=== PATIENT | male | born 1950 | race Caucasian/White ===

== ENCOUNTER → 2021-06-01 12:13 | Outpatient (BNVA) | payer MEDICARE, MEDICAID, SELFPAY | PROVIDERS: Family Provider Family Medicine; PCP Family Medicine; Visit Provider Podiatrist Foot & Ankle Surgery | DX: S93.402A Sprain of unspecified ligament of left ankle, initial encounter (principal); M25.572 Pain in left ankle and joints of left foot; X58.XXXA Exposure to other specified factors, initial encounter; Z46.89 Encounter for fitting and adjustment of other specified devices | CPT/HCPCS: 73610; 97760; L1902 ==

== ENCOUNTER 2021-06-01 14:19 | Outpatient (CLI) | payer MEDICARE, MEDICAID, SELFPAY | END 2021-06-01 14:20 | disposition home or self-care (01) | LOC: SPT 14:20 | PROVIDERS: Family Provider Family Medicine; PCP Family Medicine; Visit Provider Podiatrist Foot & Ankle Surgery | DX: Z46.89 Encounter for fitting and adjustment of other specified devices (principal); M25.572 Pain in left ankle and joints of left foot | CPT/HCPCS: 97760; L1902 ==

== ENCOUNTER → 2021-07-05 10:03 | Outpatient (BNVA) | payer MEDICARE, MEDICAID, SELFPAY | PROVIDERS: Family Provider Family Medicine; PCP Family Medicine; Visit Provider Podiatrist Foot & Ankle Surgery | DX: S82.832A Other fracture of upper and lower end of left fibula, initial encounter for closed fracture (principal); M25.572 Pain in left ankle and joints of left foot; X58.XXXA Exposure to other specified factors, initial encounter | CPT/HCPCS: 73610 ==

== ENCOUNTER → 2021-07-26 10:19 | Outpatient (BNVA) | payer MEDICARE, MEDICAID, SELFPAY | PROVIDERS: Family Provider Family Medicine; PCP Family Medicine; Visit Provider Podiatrist Foot & Ankle Surgery | DX: S82.832D Other fracture of upper and lower end of left fibula, subsequent encounter for closed fracture with routine healing (principal); X58.XXXD Exposure to other specified factors, subsequent encounter | CPT/HCPCS: 73610 ==

== ENCOUNTER → 2021-08-25 10:45 | Outpatient (BNVA) | payer MEDICARE, MEDICAID, SELFPAY | PROVIDERS: PCP Nurse Practitioner Family; Visit Provider Podiatrist Foot & Ankle Surgery | DX: M25.572 Pain in left ankle and joints of left foot (principal); S82.832D Other fracture of upper and lower end of left fibula, subsequent encounter for closed fracture with routine healing; X58.XXXD Exposure to other specified factors, subsequent encounter | CPT/HCPCS: 73610 ==

== ENCOUNTER → 2022-10-20 16:42 | Outpatient (BNVA) | payer MEDICARE, MEDICAID, SELFPAY | PROVIDERS: PCP Nurse Practitioner Family; Visit Provider Nurse Practitioner Family | DX: R23.1 Pallor (principal) | CPT/HCPCS: 85025 ==

== ENCOUNTER → 2023-06-26 10:11 | Outpatient (BNVA) | payer MEDICARE, MEDICAID, SELFPAY | PROVIDERS: PCP Nurse Practitioner Family; Visit Provider Nurse Practitioner Family | DX: I96 Gangrene, not elsewhere classified (principal); L97.821 Non-pressure chronic ulcer of other part of left lower leg limited to breakdown of skin ==

== ENCOUNTER 2023-07-25 09:35 | Outpatient (CLI) | payer MEDICARE, MEDICAID, SELFPAY ==
--- NOTE | 2023-07-25 09:30 | CTR_ITS ---
PROCEDURE INFORMATION: Exam: CTA Abdominal Aorta and Bilateral Lower Extremities (Run-off) With Contrast Exam date and time: 07/25/2023 10:37 AM Age: 73 years old Clinical indication: Condition or disease; Peripheral vascular disease; Prior surgery; Surgery date: 6+ months; Surgery type: Bilat feet, legs, gb; Additional info: Pvd TECHNIQUE: Imaging protocol: Computed tomographic angiography of the of the abdominal aorta, pelvis and bilateral lower extremities with contrast. 3D rendering (Not supervised by radiologist): MIP and/or 3D reconstructed images were created by the technologist. Radiation optimization: All CT scans at this facility use at least one of these dose optimization techniques: automated exposure control; mA and/or kV adjustment per patient size (includes targeted exams where dose is matched to clinical indication); or iterative reconstruction. Contrast material: OMNI 350; Contrast volume: 125 ml; Contrast route: INTRAVENOUS (IV); REPORTING DATA: Count of CT and Cardiac NM exams in prior 12 months: This patient has received 0 known CTs and 0 known cardiac nuclear medicine studies in the 12 months prior to the current study. COMPARISON: No relevant prior studies available. RADIATION DOSE METRICS: Total DLP (mGy-cm): 1967.24 FINDINGS: Aorta: There is moderate aortic atherosclerotic disease. There is no aortic dissection or aneurysm. No significant aortic luminal narrowing. Celiac trunk and mesenteric arteries: No stenosis in the celiac or superior mesenteric arteries. Inferior mesenteric artery is patent. Renal arteries: Mild calcific plaque with less than 50% stenosis of the right renal artery origin. 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 Mild calcific plaque with less than 50% stenosis in proximal left renal artery. Right iliac arteries: Mild calcific and noncalcific plaque in the right common and external iliac arteries with less than 50% stenosis. Right femoral/popliteal arteries: Mild calcific and noncalcific plaque in the right common femoral artery with less than 50% stenosis. Right profundus femoris artery is patent. Noncalcific plaque with short segment 60-70% stenosis in the right proximal superficial femoral artery. Multifocal high-grade stenosis with near occlusion in the right distal superficial femoral artery above Curry's canal. Focal 60-70% stenosis of the right distal superficial femoral artery just beyond Curry's canal. No stenosis in the right popliteal artery. Right infrapopliteal arteries: Widely patent 3 vessel runoff to the right foot. Left iliac arteries: Mild calcific and noncalcific plaque with multifocal less than 50% stenosis in the left common and external iliac artery. Focal web-like filling defect in the left external iliac artery visible on axial series 5, image 405, coronal series 8, image 162 and sagittal series 9, image 150 suggesting short segment chronic dissection. The degree of stenosis cannot be accurately measured. Left femoral/popliteal arteries: Mild noncalcific plaque in the left common femoral artery with web-like filling defect visible on axial series 5, image 465 suggesting chronic short segment dissection. Left profundus femoris artery is patent. Mild calcific plaque with multifocal less than 50% stenosis in the left proximal superficial femoral artery. Focal 50-60% stenosis in the left mid superficial femoral artery with mild poststenotic dilation. Moderate calcific plaque of left superficial femoral artery in Curry's canal with less than 50% stenosis. Less than 50% stenosis in the left popliteal artery. Left infrapopliteal arteries: Left anterior tibial artery is patent to the foot. Focal high-grade stenosis in the proximal left anterior tibial artery. Focal less than 50% stenosis in the left tibioperoneal trunk. Focal less than 50% stenosis at the origin of the left posterior tibial artery. Left posterior tibial artery is patent to the foot. Left peroneal artery is occluded at its origin. Veins: Portal and splenic veins are patent but suboptimally evaluated due to the phase of contrast enhancement. Lungs: There is subsegmental atelectasis in the lung bases. Liver: The liver has a nodular surface and there is relative hypertrophy of the left and caudate lobe consistent with cirrhosis. There is no focal liver abnormality. Gallbladder and bile ducts: The gallbladder is absent. There is no intrahepatic or extrahepatic bile duct dilation. Pneumobilia noted. Pancreas: There is moderate atrophy of the pancreas. Spleen: The spleen is unremarkable. Adrenal glands: The adrenal glands are unremarkable. Kidneys and ureters: There is mild atrophy of both kidneys. There is no hydronephrosis or stones. Stomach and bowel: The stomach is unremarkable. The small bowel is nondilated. The colon is unremarkable. Appendix: The appendix is normal. Urinary bladder: The urinary bladder is unremarkable. Reproductive: Prostate is very small or resected. Intraperitoneal space: There is no free air or significant intraperitoneal free fluid. Lymph nodes: There is no lymphadenopathy in the retroperitoneum, mesentery, pelvis or inguinal regions. Bones/joints: There is moderate degenerative disease in the lumbar spine. The pelvis and hips are unremarkable. Disuse osteopenia at the knees, ankles and feet. Soft tissues: Subcutaneous edema in the lower legs bilaterally. Marked fatty atrophy of the musculature in the distal thighs and lower legs. Moderate fatty atrophy of gluteal musculature bilaterally. The abdominal wall is intact. CT/CT angio abd aorta runof [id number] IMPRESSION: 1. Multifocal high-grade stenosis with near occlusion of the right distal superficial femoral artery. Normal popliteal artery. Patent 3 vessel runoff to the right foot. 2. 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 3. Focal 50-60% stenosis in the left mid superficial femoral artery with additional multifocal less than 50% stenosis. Less than 50% stenosis in the left popliteal artery. 4. Patent 2 vessel runoff to the left foot (anterior and posterior tibial). High-grade stenosis of the proximal left anterior tibial artery. Less than 50% stenosis in the tibioperoneal trunk and posterior tibial artery. Occluded left peroneal artery. 5. Cirrhotic morphology of the liver. No sign of portal hypertension. 6. Incidental findings above.
[2023-07-25 10:29] LABS: Blood Urea Nitrogen 21 mg/dL (8-23)
[2023-07-25] MEDS: iohexol 350 mg/mL 500 mL Btl (per mL) IV (10:58)
== END 2023-07-25 09:36 | disposition home or self-care (01) ==
PROVIDERS: PCP Nurse Practitioner Family; Visit Provider Thoracic Surgery (Cardiothoracic Vascular Surgery)
DX: I70.203 Unspecified atherosclerosis of native arteries of extremities, bilateral legs (principal); K74.60 Unspecified cirrhosis of liver
CPT/HCPCS: 75635; 82565; 84520; Q9967

== ENCOUNTER → 2023-08-10 17:24 | Outpatient (BNVA) | payer MEDICARE, MEDICAID, SELFPAY | PROVIDERS: PCP Nurse Practitioner Family; Visit Provider Family Medicine | DX: S81.801A Unspecified open wound, right lower leg, initial encounter (principal); X58.XXXA Exposure to other specified factors, initial encounter | CPT/HCPCS: 87070; 87077; 87184 ==

== ENCOUNTER → 2023-12-20 13:49 | Outpatient (BNVA) | payer MEDICARE, MEDICAID, SELFPAY | PROVIDERS: PCP Nurse Practitioner Family; Visit Provider Nurse Practitioner Family | DX: R31.9 Hematuria, unspecified (principal) | CPT/HCPCS: 81000 ==

== ENCOUNTER → 2023-12-21 15:50 | Outpatient (BNVA) | payer MEDICARE, MEDICAID, SELFPAY | PROVIDERS: PCP Nurse Practitioner Family; Visit Provider Nurse Practitioner Family | DX: R05.9 Cough, unspecified (principal) | CPT/HCPCS: 87420 ==

== ENCOUNTER 2024-01-23 10:52 | Inpatient (IN) | payer MEDICARE, MEDICAID, SELFPAY ==
[2024-01-23] VITALS (14 sets, daily range): BP systolic 111–159; BP diastolic 53–77; PULSE 60–110; RESP 16–22; TEMP 36.2–36.8; O2SAT 90–100; BMI 33.0
--- NOTE | 2024-01-23 11:40 | XRR_ITS ---
PROCEDURE INFORMATION: Exam: XR Chest Exam date and time: 01/23/2024 11:48 AM Age: 73 years old Clinical indication: Device placement; Other: Hemodialysis cath not functioning; Prior surgery; Surgery date: 1-6 months; Surgery type: Dialysis port TECHNIQUE: Imaging protocol: Radiologic exam of the chest. Views: 1 view. COMPARISON: CT angio abd aorta runof [id number] 07/25/2023 10:37 AM FINDINGS: Tubes, catheters and devices: Right chest wall central venous catheter terminates in the mid SVC. Lungs: Low lung volumes bronchovascular crowding. No focal consolidation. Bibasilar atelectasis. Pleural spaces: Small bilateral pleural effusions. Heart/Mediastinum: No cardiomegaly. Bones/joints: Unremarkable. XR/XR chest 1V portable [id number] IMPRESSION: 1. Right chest wall central venous catheter terminates in the mid SVC. 2. Small bilateral pleural effusions.
--- NOTE | 2024-01-23 11:40 | W.ED.GENADLT ---
Documented by User: KALYAN Sharp 01/23/24 15:11 HPI - General Adult General: Chief complaint: General Medical Stated complaint: dialysis port not flowing Time Seen by Provider: 01/23/24 10:54 Source: patient Mode of arrival: EMS Limitations: altered mental status (dementia) History of Present Illness: Patient is a 73-year-old male here via EMS from his assisted at [facility] stating he needs his dialysis central hemodialysis catheter replaced due to poor flow. Patient himself has chronic dementia so history is hard to ascertain. He tells me approximately 10 days ago he was admitted at [facility] in [place] but while inpatient was told he had renal failure and was placed on dialysis. Dialysis catheter was placed during his hospitalization. Patient states he has had approximately 3 dialysis treatments since it being placed. He states he had dialysis here in [place] yesterday for approximately an hour before everything clogged up . He comes with a medical note from [facility] stating he needs his CVC replaced due to poor flow. They report he has had Activase x 2 with poor results and they could not maintain a 200 BFR. Next dialysis appointment is scheduled here in [place] tomorrow. PMH from assisted documentation includes acute kidney failure, hypoxemia currently on 2 L of oxygen, alcoholic cirrhosis, HTN, hyperkalemia, anemia, dementia We have requested records from [facility] 3-4 hours ago and still have yet to receive anything. Onset (ago): hour(s) Relieving factors: none Exacerbating factors: none Associated symptoms: Reports dyspnea (chronic-at baseline; states he normally wears 2L); Deny chest pain, headache(s), nausea or vomiting Treatments prior to arrival: none Review of Systems Const: Denies: fever(s) Card: Denies: chest pain Resp: Reports: dyspnea (chronic-at baseline; states he normally wears 2L) GI: Denies: nausea or vomiting Musc: Denies: neck pain, back pain, extremity pain or joint pain Neuro: Denies: headache(s) PFSH ED PFSH: Medical History Gastro-esophageal reflux disease without esophagitis Contracture, left hand Chronic obstructive pulmonary disease, unspecified Attention-deficit hyperactivity disorder, unspecified type Motion sickness, sequela Insomnia, unspecified Post-traumatic stress disorder, chronic Restless legs syndrome 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 ascites Contracture, right hand COVID-19 Benign prostatic hyperplasia with lower urinary tract symptoms Secondary osteoarthritis, left hand Other recurrent depressive disorders Anemia in other chronic diseases classified elsewhere Secondary osteoarthritis, right hand Generalized anxiety disorder Cervicalgia Muscle weakness (generalized) Essential (primary) hypertension Dementia in other diseases classified elsewhere without behavioral disturbance Hereditary and idiopathic neuropathy, unspecified Physical Exam Const: COMMON NORMALS: no acute distress and alert EXAM LIMITATIONS: other limitations (chronic dementia) GENERAL APPEARANCE: cooperative OTHER: appears pale HENMT: COMMON NORMALS: normocephalic and atraumatic HEAD & SCALP: normal to inspection, normocephalic and atraumatic Chest: OTHER: tunneled catheter to R chest Resp: COMMON NORMALS: normal respiratory effort and clear to auscultation bilaterally AUSCULTATION: clear to auscultation bilaterally Cardio: COMMON NORMALS: regular rate and regular rhythm RATE: regular rate RHYTHM: regular rhythm GI: COMMON NORMALS: Normal to inspection, nondistended, normoactive bowel sounds present, Soft to palpation and non-tender PALPATION: Yes Soft to palpation : COMMON NORMALS: Yes no CVA tenderness BLADDER/KIDNEY EXAM: Yes no CVA tenderness OTHER: portillo catheter in place with bloody urine-states he does not know why [facility] placed this Back/Pelvis: COMMON NORMALS: no CVA tenderness and thoracic and lumbar spine normal to inspection Extremity: GENERAL: Yes normal exam except as noted Neuro: REINALDO COMA SCALE: document GCS findings Reinaldo coma scale eye opening: Spontaneous Rienaldo coma scale verbal response: Orientated [place] coma scale motor response: Obey commands [place] coma scale total score: 15 COMMON NORMALS: moves all extremities, no focal motor deficits and no sensory deficits noted SENSORIUM/ORIENTATION: Yes alert Skin: COMMON NORMALS: no rashes or lesions noted GENERAL SKIN EXAM: no rashes or lesions noted Course Consultations: Consultation #1: Dr. Allen-evaluated patient here in ED and can place catheter this afternoon-will most likely remove right side and try left sided approach-recommends hospitalization so he can receive dialysis after catheter placement to ensure proper functioning Consultation #2: Dr. Mathis-will admit patient Consultation #3: Dr. [id number] consult on patient for dialysis following catheter placement Vital Signs: Vital signs: Vital Signs Temperature 98.1 F 01/23/24 11:03 Pulse Rate 64 01/23/24 14:26 Respiratory Rate 22 H 01/23/24 14:26 Blood Pressure 157/68 01/23/24 14:26 Pulse Oximetry 95 01/23/24 14:26 Oxygen Delivery Me thod Nasal Cannula 01/23/24 14:26 Oxygen Flow Rate 2 01/23/24 14:26 MDM - General Adult Medical Decision Making Patient is a 73-year-old male who has recently been diagnosed with acute renal failure and placed on dialysis here for a malfunctioning central venous catheter. General surgeon has evaluated patient here in the emergency department and plan will be for removal of his right CVC and will approach from left side. He has requested hospitalization for inpatient dialysis to verify proper functioning following placement. I have spoken to Dr. Mathis, hospitalist, for admission and consulted with nephrology. ES Attending physician attestation: I discussed the patient's history of present illness, physical exam findings, pertinent labs, pertinent radiographic exams and plan of care with the midlevel provider. I did personally have a [id number] evaluation and discussion with the patient regarding the plan of care and the need for further admission/transfer. 73-year-old male he is a poor historian given his decreased cognition was recently hospitalized at a local hospital for acute renal failure and had a temporary dialysis catheter placed which appears to have malfunctioned at the outpatient dialysis center he was sent here to the emergency department for additional evaluation possible dialysis catheter placement he has been accepted to the hospital medicine service and Dr. Allen the general surgeon has been consulted for removal and replacement of the dialysis catheter. Medical Records WE ARE STILL AWAITING MEDICAL RECORDS FROM [facility] NOW 4 HOURS AFTER REQUEST. WE HAVE CONTACTED THEM MULTIPLE TIMES. Lab Data I reviewed the patient's lab results. 01/23/24 11:50 01/23/24 11:50 Radiology Impressions Chest X-Ray 01/23/24 11:40 IMPRESSION: 1. Right chest wall central venous catheter terminates in the mid SVC. 2. Small bilateral pleural effusions. Laboratory Results WBC 6.25 10^3/uL (3.29-11.43) 01/23/24 11:50 RBC 2.96 10^6/uL (3.85-5.65) L 01/23/24 11:50 Hgb 9.30 g/dL (11.27-16.99) L 01/23/24 11:50 Hct 30.1 % (37-53) L 01/23/24 11:50 MCV 101.7 fl (82-101) H 01/23/24 11:50 MCH 31.4 pg (27-33) 01/23/24 11:50 MCHC 30.9 g/dL (30-55) 01/23/24 11:50 RDW 14.2 % (12.1-15.1) 01/23/24 11:50 Plt Count 190 10^3/cmm (157-399) 01/23/24 11:50 MPV 10.0 fL (7.4-10.4) 01/23/24 11:50 Neut % (Auto) 53.6 % 01/23/24 11:50 Lymph % (Auto) 15.0 % 01/23/24 11:50 [place] % (Auto) 28.6 % 01/23/24 11:50 Eos % (Auto) 1.4 % 01/23/24 11:50 Baso % (Auto) 0.6 % 01/23/24 11:50 Neut # (Auto) 3.34 10^3/uL (1.8-7.7) 01/23/24 11:50 Lymph # (Auto) 0.9 10^3/uL (0.8-4.8) 01/23/24 11:50 [place] # (Auto) 1.8 10^3/uL (0.2-0.9) H 01/23/24 11:50 Eos # (Auto) 0.1 10^3/uL (0.0-0.8) 01/23/24 11:50 Baso # (Auto) 0.0 10^3/uL (0.0-0.1) 01/23/24 11:50 Nucleated RBC % (auto) 0 % 01/23/24 11:50 Nucleated RBCs # 0.0 /100WBC 01/23/24 11:50 Sodium 132 mmol/L (136-145) L 01/23/24 11:50 Potassium 4.2 mmol/L (3.5-5.1) 01/23/24 11:50 Chloride 94 mmol/L (98-107) L 01/23/24 11:50 Carbon Dioxide 27 mmol/L (22-29) 01/23/24 11:50 Anion Gap 15.2 (5-19) 01/23/24 11:50 BUN 28 mg/dL (8-23) H 01/23/24 11:50 Creatinine 4.6 mg/dL (0.7-1.2) H 01/23/24 11:50 GFR Calculation Not Reportable 01/23/24 11:50 Glucose 87 mg/dL (65-115) 01/23/24 11:50 Calculated Osmolality 279 mOsm/kg (285-295) L 01/23/24 11:50 Calcium 8.4 mg/dL (8.5-10.5) L 01/23/24 11:50 Phosphorus 5.0 mg/dL (2.5-4.5) H 01/23/24 11:50 Magnesium 1.9 mg/dL (1.7-2.3) 01/23/24 11:50 Total Bilirubin 0.5 mg/dL (0.15-1.2) 01/23/24 11:50 AST 20 U/L (0-40) 01/23/24 11:50 ALT 14 U/L (0-41) 01/23/24 11:50 Alkaline Phosphatase 71 U/L (40-130) 01/23/24 11:50 Total Protein 7.1 g/dL (6.6-8.7) 01/23/24 11:50 Albumin 3.2 g/dL (3.5-5.2) L 01/23/24 11:50 Globulin 3.9 g/dL (1.3-4.6) 01/23/24 11:50 Discharge Plan Discharge Patient Disposition: Placed in Observation Clinical Impression: Acute renal failure on dialysis, Complication, dialysis catheter clot or failure, Admission for dialysis and dialysis catheter care Coding Level of Care Code ED [place] for Chg Fwd Documented by User: Jimmy Dumont MD 01/23/24 15:00 HPI - General Adult General: Chief complaint: General Medical Stated complaint: dialysis port not flowing Time Seen by Provider: 01/23/24 10:54 [facility] PFSH: Medical History Gastro-esophageal reflux disease without esophagitis Contracture, left hand Chronic obstructive pulmonary disease, unspecified Attention-deficit hyperactivity disorder, unspecified type Motion sickness, sequela Insomnia, unspecified Post-traumatic stress disorder, chronic Restless legs syndrome 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 ascites Contracture, right hand COVID-19 Benign prostatic hyperplasia with lower urinary tract symptoms Secondary osteoarthritis, left hand Other recurrent depressive disorders Anemia in other chronic diseases classified elsewhere Secondary osteoarthritis, right hand Generalized anxiety disorder Cervicalgia Muscle weakness (generalized) Essential (primary) hypertension Dementia in other diseases classified elsewhere without behavioral disturbance Hereditary and idiopathic neuropathy, unspecified Physical Exam Neuro: REINALDO COMA SCALE: document GCS findings [place] coma scale total score: 15 Course Vital Signs: Vital signs: Vital Signs Temperature 98.1 F 01/23/24 11:03 Pulse Rate 64 01/23/24 14:26 Respiratory Rate 22 H 01/23/24 14:26 Blood Pressure 157/68 01/23/24 14:26 Pulse Oximetry 95 01/23/24 14:26 Oxygen Delivery Me thod Nasal Cannula 01/23/24 14:26 Oxygen Flow Rate 2 01/23/24 14:26 MDM - General Adult Medical Decision Making Attending physician attestation: I discussed the patient's history of present illness, physical exam findings, pertinent labs, pertinent radiographic exams and plan of care with the midlevel provider. I did personally have a [id number] evaluation and discussion with the patient regarding the plan of care and the need for further admission/transfer. 73-year-old male he is a poor historian given his decreased cognition was recently hospitalized at a local hospital for acute renal failure and had a temporary dialysis catheter placed which appears to have malfunctioned at the outpatient dialysis center he was sent here to the emergency department for additional evaluation possible dialysis catheter placement he has been accepted to the hospital medicine service and Dr. Allen the general surgeon has been consulted for removal and replacement of the dialysis catheter. Lab Data 01/23/24 11:50 01/23/24 11:50 Radiology Impressions Chest X-Ray 01/23/24 11:40 IMPRESSION: 1. Right chest wall central venous catheter terminates in the mid SVC. 2. Small bilateral pleural effusions. Laboratory Results WBC 6.25 10^3/uL (3.29-11.43) 01/23/24 11:50 RBC 2.96 10^6/uL (3.85-5.65) L 01/23/24 11:50 Hgb 9.30 g/dL (11.27-16.99) L 01/23/24 11:50 Hct 30.1 % (37-53) L 01/23/24 11:50 MCV 101.7 fl (82-101) H 01/23/24 11:50 MCH 31.4 pg (27-33) 01/23/24 11:50 MCHC 30.9 g/dL (30-55) 01/23/24 11:50 RDW 14.2 % (12.1-15.1) 01/23/24 11:50 Plt Count 190 10^3/cmm (157-399) 01/23/24 11:50 MPV 10.0 fL (7.4-10.4) 01/23/24 11:50 Neut % (Auto) 53.6 % 01/23/24 11:50 Lymph % (Auto) 15.0 % 01/23/24 11:50 [place] % (Auto) 28.6 % 01/23/24 11:50 Eos % (Auto) 1.4 % 01/23/24 11:50 Baso % (Auto) 0.6 % 01/23/24 11:50 Neut # (Auto) 3.34 10^3/uL (1.8-7.7) 01/23/24 11:50 Lymph # (Auto) 0.9 10^3/uL (0.8-4.8) 01/23/24 11:50 [place] # (Auto) 1.8 10^3/uL (0.2-0.9) H 01/23/24 11:50 Eos # (Auto) 0.1 10^3/uL (0.0-0.8) 01/23/24 11:50 Baso # (Auto) 0.0 10^3/uL (0.0-0.1) 01/23/24 11:50 Nucleated RBC % (auto) 0 % 01/23/24 11:50 Nucleated RBCs # 0.0 /100WBC 01/23/24 11:50 Sodium 132 mmol/L (136-145) L 01/23/24 11:50 Potassium 4.2 mmol/L (3.5-5.1) 01/23/24 11:50 Chloride 94 mmol/L (98-107) L 01/23/24 11:50 Carbon Dioxide 27 mmol/L (22-29) 01/23/24 11:50 Anion Gap 15.2 (5-19) 01/23/24 11:50 BUN 28 mg/dL (8-23) H 01/23/24 11:50 Creatinine 4.6 mg/dL (0.7-1.2) H 01/23/24 11:50 GFR Calculation Not Reportable 01/23/24 11:50 Glucose 87 mg/dL (65-115) 01/23/24 11:50 Calculated Osmolality 279 mOsm/kg (285-295) L 01/23/24 11:50 Calcium 8.4 mg/dL (8.5-10.5) L 01/23/24 11:50 Phosphorus 5.0 mg/dL (2.5-4.5) H 01/23/24 11:50 Magnesium 1.9 mg/dL (1.7-2.3) 01/23/24 11:50 Total Bilirubin 0.5 mg/dL (0.15-1.2) 01/23/24 11:50 AST 20 U/L (0-40) 01/23/24 11:50 ALT 14 U/L (0-41) 01/23/24 11:50 Alkaline Phosphatase 71 U/L (40-130) 01/23/24 11:50 Total Protein 7.1 g/dL (6.6-8.7) 01/23/24 11:50 Albumin 3.2 g/dL (3.5-5.2) L 01/23/24 11:50 Globulin 3.9 g/dL (1.3-4.6) 01/23/24 11:50 All radiology interpretation(s) finalized by discharge Discharge Plan Discharge Patient Disposition: Placed in Observation Clinical Impression: Acute renal failure on dialysis, Complication, dialysis catheter clot or failure, Admission for dialysis and dialysis catheter care Coding Level of Care Code ED [place] for Trixie Small
[2024-01-23 12:02] LABS: Basophils % 0.6 %; Eosinophils # 0.1 10^3/uL (0.0-0.8); Eosinophils % 1.4 %; Hematocrit 30.1 % (37-53); Lymphocytes # 0.9 10^3/uL (0.8-4.8); Mean Corpuscular HGB Conc 30.9 g/dL (30-55); Mean Corpuscular Hemoglobin 31.4 pg (27-33); Mean Corpuscular Volume 101.7 fl (82-101); Monocytes # 1.8 10^3/uL (0.2-0.9); Monocytes % 28.6 %; Neutrophils # 3.34 10^3/uL (1.8-7.7); Neutrophils % 53.6 %; Nucleated Red Blood Cells % 0 %; Platelet Count 190 10^3/cmm (157-399); Red Blood Count 2.96 10^6/uL (3.85-5.65); Red Cell Distribution Width 14.2 % (12.1-15.1); White Blood Count 6.25 10^3/uL (3.29-11.43)
[2024-01-23 12:22] LABS: Alanine Aminotransferase 14 U/L (0-41); Albumin Level 3.2 g/dL (3.5-5.2); Alkaline Phosphatase 71 U/L (40-130); Blood Urea Nitrogen 28 mg/dL (8-23); Calcium 8.4 mg/dL (8.5-10.5); Carbon Dioxide 27 mmol/L (22-29); Chloride 94 mmol/L (98-107); Creatinine Clr Calc Pharmacy 16.7859; Globulin 3.9 g/dL (1.3-4.6); Glucose 87 mg/dL (65-115); Magnesium 1.9 mg/dL (1.7-2.3); Osmolality Calculated 279 mOsm/kg (285-295); Sodium 132 mmol/L (136-145); Total Bilirubin 0.5 mg/dL (0.15-1.2); Total Protein 7.1 g/dL (6.6-8.7)
[2024-01-23 12:27] LABS: Anion Gap 15.2 (5-19); Aspartate Amino Transferase 20 U/L (0-40); Potassium 4.2 mmol/L (3.5-5.1)
--- NOTE | 2024-01-23 14:45 | P.HP_ITS ---
Providers/Chief Complaint 2 Primary Care Provider: Jenn Quiroga NP Chief Complaint: dialysis port not flowing History of Present Illness Robert Verduzco is a 73 year old male Last medical history of GERD, ADHD, alcoholic cirrhosis of liver without ascites, BPH, chronic anemia, generalized anxiety disorder, hypertension presented to the hospital today from dialysis center for dialysis catheter not functioning. He had a central hemodialysis catheter placed recently at [place]. Patient was unable to complete his dialysis today at [facility] and was sent to hospital for placement. On arrival he tells me that his kidneys have not been working therefore he is on dialysis other than that unable to provide me with meaningful history. He is a very poor historian. Most of his medical history was obtained from his previous charts. He denies any nausea vomiting diarrhea constipation chest pain, shortness of breath. He does have chronic oxygen use of 2 L and unable to tell me why however on history it is indicated patient also has COPD. Currently not in a flareup. Patient does have a history of dementia. He says my butt is sore and I want diaper rash cream In ER general surgery was consulted who requested patient be admitted. Plan is to replace dialysis catheter and have a dialysis session prior to discharge. Medications/Allergies Home Medications Medication Instructions Recorded Confirmed Last Taken Type acetaminophen 325 mg capsule 650 mg PO Q4H PRN pain or fever 05/20/21 01/23/24 Unknown History aluminum-mag hydroxide-simethicone 15 ml PO Q6H PRN Indigestion 05/20/21 01/23/24 Unknown History 400 mg-400 mg-40 mg/5 mL oral susp (Mylanta Maximum Strength) bisacodyl 5 mg tablet,delayed 20 mg PO DAILY PRN Constipation 05/20/21 01/23/24 Unknown History release diphenhydramine HCl 25 mg capsule 25 mg PO BEDTIME PRN Allergy 05/20/21 01/23/24 Unknown History Symptoms dutasteride 0.5 mg capsule 0.5 mg PO DAILY@05/20/21 01/23/24 01/23/24 08:28 History ferrous sulfate 325 mg (65 mg 325 mg PO DAILY@05/20/21 01/23/24 01/23/24 08:30 History iron) tablet melatonin 5 mg tablet 5 mg PO BEDTIME 05/20/21 01/23/24 01/21/24 History metoprolol tartrate 25 mg tablet 12.5 mg PO BID 05/20/21 01/23/24 01/23/24 08:30 History scopolamine base 1 mg over 3 days 1 patch transdermal Q3D PRN Nausea 05/20/21 01/23/24 01/17/24 History transdermal patch And Vomiting spironolactone 25 mg tablet 25 mg PO DAILY@08 05/20/21 01/23/24 01/23/24 08:30 History tamsulosin 0.4 mg capsule 0.4 mg PO QPM 05/20/21 01/23/24 01/22/24 History ASO Left #1 ea 06/01/21 01/23/24 Unknown Rx cam boot #1 ea 06/01/21 01/23/24 Unknown Rx albuterol sulfate 90 mcg/actuation 2 puff inhalation Q4H PRN 09/28/23 01/23/24 Unknown History aerosol inhaler Shortness Of Breath Or Wheezing bisacodyl 10 mg rectal suppository 10 mg GA DAILY PRN Constipation 01/23/24 01/23/24 Unknown History (Dulcolax (bisacodyl)) guaifenesin 600 mg tablet, 600 mg PO Q12H PRN unknown 01/23/24 01/23/24 Unknown History extended release 12 hr (Mucinex) loperamide 2 mg tablet See Rx Instructions .Route .COMPLEX 01/23/24 01/23/24 Unknown History magnesium hydroxide 400 mg/5 mL 30 ml PO DAILY PRN Constipation 01/23/24 01/23/24 Unknown History oral suspension (Milk of Magnesia) jysjrleitmri-toghrbwr-jftpnu 1 tab PO DAILY@01/23/24 01/23/24 01/23/24 08:30 History tablet (Multivitamin 50 Plus tablet) psyllium seed (sugar) oral powder See Rx Instructions .Route .COMPLEX 01/23/24 01/23/24 01/23/24 08:30 History (Metamucil (sugar) oral powder) sodium chloride 0.65 % nasal spray 1 spray intranasal Q2H PRN Dry 01/23/24 01/23/24 Unknown History aerosol (Deep Sea Nasal) Nasal Passages sodium phosphates 19 gram-7 118 ml GA DAILY PRN Constipation 01/23/24 01/23/24 Unknown History gram/118 mL enema (Fleet Enema) tramadol 50 mg tablet 50 mg PO Q4H PRN Pain 01/23/24 01/23/24 Unknown History vitamin A and D See Rx Instructions .Route .COMPLEX 01/23/24 01/23/24 Unknown History Allergies Allergy/AdvReac Type Severity Reaction Status Date / Time NSAIDS (Non-Steroidal Allergy Mild Rash Verified 11/09/23 14:53 Anti-Inflamma PFSH Acute 2 PFSH: Medical History Gastro-esophageal reflux disease without esophagitis Contracture, left hand Chronic obstructive pulmonary disease, unspecified Attention-deficit hyperactivity disorder, unspecified type Motion sickness, sequela Insomnia, unspecified Post-traumatic stress disorder, chronic Restless legs syndrome 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 ascites Contracture, right hand COVID-19 Benign prostatic hyperplasia with lower urinary tract symptoms Secondary osteoarthritis, left hand Other recurrent depressive disorders Anemia in other chronic diseases classified elsewhere Secondary osteoarthritis, right hand Generalized anxiety disorder Cervicalgia Muscle weakness (generalized) Essential (primary) hypertension Dementia in other diseases classified elsewhere without behavioral disturbance Hereditary and idiopathic neuropathy, unspecified Vitals/I&O/Wt Last Vital Signs Temp 98.1 F 01/23/24 11:03 Pulse 64 01/23/24 14:26 Resp 22 H 01/23/24 14:26 BP 157/68 01/23/24 14:26 Pulse Ox 95 01/23/24 14:26 O2 Del Method Nasal Cannula 01/23/24 14:26 O2 Flow Rate 2 01/23/24 14:26 Weight last 48 hrs Weight 104.326 kg Physical Exam 2 Narrative: General: Alert seen laying in bed appearing comfortable at this time HEENT: Normocephalic, atraumatic, EOMI, 2 L nasal cannula Cardio: Regular rate rhythm, normal S1-S2, Respiratory: Clear to auscultation bilaterally minimal rhonchi at bases. GI: Abdomen soft, nontender, bowel sounds + Extremities: Trace edema noted bilateral lower extremities. Data 01/24/24 04:36 01/24/24 04:36 A&P Assessment and plan (1) Essential (primary) hypertension: (2) Acute renal failure on dialysis: (3) Hemodialysis catheter dysfunction: Plan #Malfunctioning dialysis catheter #ESRD on dialysis #COPD #Hypertension #GERD #Dementia #Generalized weakness ? General surgery consulted. Patient to have replacement of dialysis catheter today ? Consult nephrology for next dialysis session ? Check CBC BMP in a.m. ? Admit for observation. ? RN tomorrow for all home medications and update chart. ? Generally I would continue metoprolol tartrate, spironolactone, tamsulosin, DuoNeb every 6 hours as needed Full code DVT prophylaxis: Heparin SQ twice daily Patient does not have any active complaints at this time. He says he is at baseline from every aspect. Definitely is a poor historian. Will request records from [facility]. Plan to discharge in a.m. after dialysis catheter has been replaced and dialysis has taken place in the hospital confirming catheter works. Attestations 2 Medical Necessity Statement*: Observation admission. Expect stay less than 48 hours. Most likely discharge in a.m. once dialysis catheter is functioning. Diagnoses Essential (primary) hypertension I10 Acute renal failure on dialysis N17.9; Z99.2 Hemodialysis catheter dysfunction T82.41XA
--- NOTE | 2024-01-23 15:12 | P.CONIM_ITS ---
Providers/Reason For Consult 2 Consulting Physician/Specialty*: General surgery Reason for Consult*: Need for dialysis catheter Attending Physician: Ki Alvarado MD Primary Care Provider: Jenn Quiroga NP History of Present Illness History of Present Illness Robert Verduzco is a 73 year old male with history of end-stage renal disease on dialysis through tunneled dialysis catheter placed on the right IJ peritoneal dialysis catheter was placed about 2 weeks ago in an outside facility, patient now presents with failure of dialysis due to low flow. Patient was sent to the emergency department to request a catheter exchange. He is due for dialysis tomorrow. Currently not in distress not significant other complaints. Review of Systems 2 Narrative: 10 point review of systems done negative otherwise noted in HPI Medications/Allergies Home Medications Medication Instructions Recorded Confirmed Last Taken Type acetaminophen 325 mg capsule 650 mg PO Q4H PRN pain or fever 05/20/21 01/23/24 Unknown History aluminum-mag hydroxide-simethicone 30 - 60 ml PO Q6H PRN 05/20/21 01/12/24 Unknown History 400 mg-400 mg-40 mg/5 mL oral susp (Almacone-2) aluminum-mag hydroxide-simethicone 15 ml PO Q6H PRN Indigestion 05/20/21 01/23/24 Unknown History 400 mg-400 mg-40 mg/5 mL oral susp (Mylanta Maximum Strength) ascorbic acid (vitamin C) 500 mg 500 mg PO BID 05/20/21 01/12/24 Unknown History tablet (Vitamin C) bisacodyl 5 mg tablet,delayed 20 mg PO DAILY PRN Constipation 05/20/21 01/23/24 Unknown History release diphenhydramine 25 2 tab PO ONCE 05/20/21 01/12/24 Unknown History mg-acetaminophen 500 mg tablet (Acetaminophen PM) diphenhydramine HCl 25 mg capsule 25 mg PO DAILY PRN Allergy Symptoms 05/20/21 01/23/24 Unknown History dutasteride 0.5 mg capsule 0.5 mg PO DAILY 05/20/21 01/12/24 Unknown History ferrous sulfate 325 mg (65 mg 325 mg PO DAILY 05/20/21 01/12/24 Unknown History iron) tablet melatonin 5 mg tablet 5 mg PO DAILY 05/20/21 01/12/24 Unknown History metoprolol tartrate 25 mg tablet 12.5 mg PO BID 05/20/21 01/12/24 Unknown History miconazole nitrate 2 % topical 1 applic topical BID PRN 05/20/21 01/12/24 Unknown History cream andoaanm-fkf-nknxg acid 0.4 1 tab PO DAILY 05/20/21 01/12/24 Unknown History mg-lycopene 300 mcg-lutein 250 mcg tablet (Senior Tabs) scopolamine base 1 mg over 3 days 1 patch transdermal Q3D PRN 05/20/21 01/12/24 Unknown History transdermal patch sodium phosphates 19 gram-7 118 ml MA DAILY PRN 05/20/21 01/12/24 Unknown History gram/118 mL enema (Fleet Enema) spironolactone 25 mg tablet 25 mg PO DAILY 05/20/21 01/12/24 Unknown History tamsulosin 0.4 mg capsule 0.4 mg PO DAILY 05/20/21 01/12/24 Unknown History ASO Left #1 ea 06/01/21 01/12/24 Unknown Rx cam boot #1 ea 06/01/21 01/12/24 Unknown Rx albuterol sulfate 90 mcg/actuation 2 puff inhalation Q4H PRN 09/28/23 01/23/24 Unknown History aerosol inhaler Shortness Of Breath Or Wheezing sulfamethoxazole 800 1 tab PO BID 10/26/23 01/12/24 Unknown History mg-trimethoprim 160 mg tablet (Bactrim DS) bisacodyl 10 mg rectal suppository 10 mg MA DAILY PRN Constipation 01/23/24 01/23/24 Unknown History (Dulcolax (bisacodyl)) magnesium hydroxide 400 mg/5 mL 30 ml PO DAILY PRN Constipation 01/23/24 01/23/24 Unknown History oral suspension (Milk of Magnesia) Allergies Allergy/AdvReac Type Severity Reaction Status Date / Time NSAIDS (Non-Steroidal Allergy Mild Rash Verified 11/09/23 14:53 Anti-Inflamma PFSH Acute 2 PFSH: Medical History Gastro-esophageal reflux disease without esophagitis Contracture, left hand Chronic obstructive pulmonary disease, unspecified Attention-deficit hyperactivity disorder, unspecified type Motion sickness, sequela Insomnia, unspecified Post-traumatic stress disorder, chronic Restless legs syndrome 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 ascites Contracture, right hand COVID-19 Benign prostatic hyperplasia with lower urinary tract symptoms Secondary osteoarthritis, left hand Other recurrent depressive disorders Anemia in other chronic diseases classified elsewhere Secondary osteoarthritis, right hand Generalized anxiety disorder Cervicalgia Muscle weakness (generalized) Essential (primary) hypertension Dementia in other diseases classified elsewhere without behavioral disturbance Hereditary and idiopathic neuropathy, unspecified Vitals/I&O/Wt Last Vital Signs Temp 98.1 F 01/23/24 11:03 Pulse 64 01/23/24 14:26 Resp 22 H 01/23/24 14:26 BP 157/68 01/23/24 14:26 Pulse Ox 95 01/23/24 14:26 O2 Del Method Nasal Cannula 01/23/24 14:26 O2 Flow Rate 2 01/23/24 14:26 Weight last 48 hrs Weight 230 lb Physical Exam 2 Narrative: General : Patient is well developed , no acute distress, oriented x3 Head : Normal cephalic, a-traumatic. Chest: There is tunneled dialysis catheter on the right upper chest Nose : Mucous membranes are without erythema. Lungs : Equal chest rise bilaterally, no use of accessory muscles, trachea is midline. CV : Rate and rhythm are normal. Abdomen : Soft, ND, NT, no g/r/m Extremities : No edema. Upper extremities are normal bilaterally. Back : non-tender to palpation, no CVA tenderness. Data 01/23/24 11:50 01/23/24 11:50 A&P Assessment and plan (1) Acute renal failure on dialysis: Plan After complete history, physical examination and review of all available clinical data the following is my assessment. Patient will benefit from replace meant abdominal dialysis catheter. I have discussed all the risk and benefits of the procedure with the patient including the risk of pneumothorax requiring tube thoracostomy, risks of cannulation of the carotid artery, risk of injuring the blood vessels and heart at the level of the chest which will require emergent surgical intervention and could lead to , wound related complications including bleeding and infection, seroma formation, hematoma formation, long-term complications include infection of the catheter requiring excision, need for additional surgical procedures, nonfunction of the catheter, catheter migration, catheter erosion into the skin. Patient shows understanding and wishes to proceed. Placement of tunneled dialysis catheter will be done this afternoon. After this patient will stay in the hospital for inpatient dialysis and will discharge after we verify that the tunneled dialysis catheter is working properly.. Coding Level of Care Code Acute Code for Chg Fwd Diagnoses Acute renal failure on dialysis N17.9; Z99.2
--- NOTE | 2024-01-23 15:26 | PC.PHAR ---
PT IS FROM [facility]-MEDICATIONS ENTERED ARE FROM THE PTS MAR AND TAR THAT WAS SENT WITH THE PT
--- NOTE | 2024-01-23 15:42 | SC_ITS ---
WS: [id number] C-arm FL for CVA [id number] REASON FOR EXAM: SURGERY FINDINGS: Trans right subclavian vein dialysis catheter placement with the catheter tip at the atrial level. No pneumothorax identified. SC/C-arm FL for CVA [id number] IMPRESSION: Right subclavian vein dialysis catheter placement as above.
[2024-01-23] MEDS: ceFAZolin 2,000 MG in sodium chloride 0.9% (plus) 50 ML 100 MG IV (15:44)
--- NOTE | 2024-01-23 15:54 | PC.NURSE ---
PT WENT TO SX APPROXIMATELY AT 1500
[2024-01-23] MEDS: lidocaine-epi 1% 20 mL INJ INJECTION (16:15)
[2024-01-23] MEDS: heparin, porcine 1,000 unit/mL INJ 10 mL 10000 UNIT IRRIGATION (16:20)
--- NOTE | 2024-01-23 16:29 | PM.OP ---
Operative Report Date of procedure: January 23, 2024 Pre-op diagnosis: Malfunction of dialysis catheter Post-op diagnosis: Same Post-op findings: there was a 19 cm tunneled dialysis catheter on the right IJ tunnel to the right anterior chest. This was replaced over wire with a 23 cm tunneled dialysis catheter. Procedure done: Exchange of tunneled dialysis catheter Implants: 23 cm from cuff to tip tunneled dialysis catheter Specimens removed/disposition: 19 cm from cuff to tip tunneled dialysis catheter Surgeon: Ki Alvarado MD Complications: None Brief History: 73-year-old male who is receiving hemodialysis through a right IJ tunneled dialysis catheter and noted to be having very low flow, therefore he was sent to the emergency department for evaluation for replacement. After discussion of all risk and benefits documented my preop note we decided to proceed. Procedure: Patient was brought into the OR, he was placed in a supine position, upon transfer to the OR table he was noted that the patient was extremely stiff and unable to extend his neck at all, he was also unable to look from [id number] making patient positioning very challenging. Mother anesthesia sedation was given. I then proceeded to interrogate the left IJ vein and while it was noted to be a suitable target, since the patient was unable to stand the neck access to these vein was very complex. Therefore I decided to proceed with extension of the current catheter over a wire through the same tunnel that was created for the previous procedure. The neck was prepped and draped in the usual sterile fashion. Timeout was conducted. I then proceeded to test both lumens of the current place catheter, while there was flow there was noted to be some limitation to the outflow. I then proceeded to advance a wire through the venous lumen of this catheter under fluoroscopy guidance, the wire was noted to exit the tip of the catheter, I then proceeded to remove the catheter over the wire. A 23 cm cuff to tip catheter was then selected for replacement. I placed a stiffening wire on the venous lumen and then I proceeded to thread the guidewire from the tip of the catheter to exit through the arterial lumen of the catheter. Under direct fluoroscopy guidance and then proceeded to completely advance the catheter which was seen following the shape of the wire and advanced into a good position at the level of the cavoatrial junction. The guidewire and stiffening wire were removed. I then proceeded to test the lumens which show brisk return of blood and adequate flushing. I then hep-locked the catheter. The catheter was fixed to the skin with #3-0 nylon. A sterile dressing was applied. At the end of the procedure all counts were correct, the patient tolerated well the procedure and was transferred to the PACU in stable condition.
--- NOTE | 2024-01-23 16:35 | P.MISC_ITS ---
Miscellaneous Note Purpose of Documentation: Update on patient care Note: Tunneled dialysis catheter was replaced and is ready to be used. After patient receives dialysis and we verified that the catheter is working well he can be discharged back to [facility].
--- NOTE | 2024-01-23 16:36 | XRR_ITS ---
PROCEDURE INFORMATION: Exam: XR Chest Exam date and time: 01/23/2024 4:44 PM Age: 73 years old Clinical indication: Device placement; Other: Tunneled dialysis catheter placement; Additional info: S/P tunneled dialysis catheter TECHNIQUE: Imaging protocol: Radiologic exam of the chest. Views: 1 view. COMPARISON: CR XR chest 1V portable [id number] 01/23/2024 11:48 AM FINDINGS: Tubes, catheters and devices: Right IJ tunneled dialysis catheter with tip in the inferior right atrium. Lungs: Bibasilar atelectasis. Otherwise clear. Pleural spaces: Possible small bilateral pleural effusions. No pneumothorax. Heart/Mediastinum: Unremarkable. No cardiomegaly. Bones/joints: Unremarkable. XR/XR chest 1V portable [id number] IMPRESSION: 1. Dialysis catheter placement without pneumothorax.
--- NOTE | 2024-01-23 16:45 | P.ANESASSM_ITS ---
Pre-Anesthetic Assessment Height/Weight: Height 1.78 m Weight 104.326 kg Temp Pulse Resp BP Pulse Ox O2 Del Method O2 Flow Rate 97.1 F L 107 H 18 142/68 99 Simple Mask 6 01/23/24 16:33 01/23/24 16:38 01/23/24 16:38 01/23/24 16:38 01/23/24 16:38 01/23/24 16:38 01/23/24 16:40 Operation Date: 01/23/24 15:30 Proposed Procedures p Dialysis Catheter Removal(Not Applicable) - Ki Alvarado MD s Dialysis Catheter Insertion(Not Applicable) - Ki Alvarado MD Social No alcohol and No tobacco Exam alert, oriented x 3, clear to auscultation bilaterally and regular rate & rhythm Airway Submandibular: within normal limits Cervical ROM: Other (limited) Mallampati: Class II Pulmonary Chronic Obstructive Pulmonary Disease CV/HEM Congestive Heart Failure Chronic Renal Failure Metabolic Morbid Obesity Musc/skel Osteoarthritis/DJD Anesthetic Plan ASA status: 3E Anesthesia: MAC Medications/Allergies Home Medications Medication Instructions Recorded Confirmed Last Taken Type acetaminophen 325 mg capsule 650 mg PO Q4H PRN pain or fever 05/20/21 01/23/24 Unknown History aluminum-mag hydroxide-simethicone 15 ml PO Q6H PRN Indigestion 05/20/21 01/23/24 Unknown History 400 mg-400 mg-40 mg/5 mL oral susp (Mylanta Maximum Strength) bisacodyl 5 mg tablet,delayed 20 mg PO DAILY PRN Constipation 05/20/21 01/23/24 Unknown History release diphenhydramine HCl 25 mg capsule 25 mg PO BEDTIME PRN Allergy 05/20/21 01/23/24 Unknown History Symptoms dutasteride 0.5 mg capsule 0.5 mg PO DAILY@05/20/21 01/23/24 01/23/24 08:28 History ferrous sulfate 325 mg (65 mg 325 mg PO DAILY@05/20/21 01/23/24 01/23/24 08:30 History iron) tablet melatonin 5 mg tablet 5 mg PO BEDTIME 05/20/21 01/23/24 01/21/24 History metoprolol tartrate 25 mg tablet 12.5 mg PO BID 05/20/21 01/23/24 01/23/24 08:30 History scopolamine base 1 mg over 3 days 1 patch transdermal Q3D PRN Nausea 05/20/21 01/23/24 01/17/24 History transdermal patch And Vomiting spironolactone 25 mg tablet 25 mg PO DAILY@08 05/20/21 01/23/24 01/23/24 08:30 History tamsulosin 0.4 mg capsule 0.4 mg PO QPM 05/20/21 01/23/24 01/22/24 History ASO Left #1 ea 06/01/21 01/23/24 Unknown Rx cam boot #1 ea 06/01/21 01/23/24 Unknown Rx albuterol sulfate 90 mcg/actuation 2 puff inhalation Q4H PRN 09/28/23 01/23/24 Unknown History aerosol inhaler Shortness Of Breath Or Wheezing bisacodyl 10 mg rectal suppository 10 mg DE DAILY PRN Constipation 01/23/24 01/23/24 Unknown History (Dulcolax (bisacodyl)) guaifenesin 600 mg tablet, 600 mg PO Q12H PRN unknown 01/23/24 01/23/24 Unknown History extended release 12 hr (Mucinex) loperamide 2 mg tablet See Rx Instructions .Route .COMPLEX 01/23/24 01/23/24 Unknown History magnesium hydroxide 400 mg/5 mL 30 ml PO DAILY PRN Constipation 01/23/24 01/23/24 Unknown History oral suspension (Milk of Magnesia) vfhacaaqfwgb-bovmkhpk-afqylg 1 tab PO DAILY@08 01/23/24 01/23/24 01/23/24 08:30 History tablet (Multivitamin 50 Plus tablet) psyllium seed (sugar) oral powder See Rx Instructions .Route .COMPLEX 01/23/24 01/23/24 01/23/24 08:30 History (Metamucil (sugar) oral powder) sodium chloride 0.65 % nasal spray 1 spray intranasal Q2H PRN Dry 01/23/24 01/23/24 Unknown History aerosol (Deep Sea Nasal) Nasal Passages sodium phosphates 19 gram-7 118 ml DE DAILY PRN Constipation 01/23/24 01/23/24 Unknown History gram/118 mL enema (Fleet Enema) tramadol 50 mg tablet 50 mg PO Q4H PRN Pain 01/23/24 01/23/24 Unknown History vitamin A and D See Rx Instructions .Route .COMPLEX 01/23/24 01/23/24 Unknown History Allergies Allergy/AdvReac Type Severity Reaction Status Date / Time NSAIDS (Non-Steroidal Allergy Mild Rash Verified 11/09/23 14:53 Anti-Inflamma [facility] Anesthesia Medical History Gastro-esophageal reflux disease without esophagitis Contracture, left hand Chronic obstructive pulmonary disease, unspecified Attention-deficit hyperactivity disorder, unspecified type Motion sickness, sequela Insomnia, unspecified Post-traumatic stress disorder, chronic Restless legs syndrome 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 ascites Contracture, right hand COVID-19 Benign prostatic hyperplasia with lower urinary tract symptoms Secondary osteoarthritis, left hand Other recurrent depressive disorders Anemia in other chronic diseases classified elsewhere Secondary osteoarthritis, right hand Generalized anxiety disorder Cervicalgia Muscle weakness (generalized) Essential (primary) hypertension Dementia in other diseases classified elsewhere without behavioral disturbance Hereditary and idiopathic neuropathy, unspecified Data Anesthesia 01/23/24 11:50 01/23/24 11:50 Short CBC 01/23/24 Range/Units 11:50 WBC 6.25 (3.29-11.43) 10^3/uL Hgb 9.30 L (11.27-16.99) g/dL Hct 30.1 L (37-53) % MCV 101.7 H (82-101) fl Plt Count 190 (157-399) 10^3/cmm Neut % (Auto) 53.6 % Neut # (Auto) 3.34 (1.8-7.7) 10^3/uL BMP 01/23/24 11:50 Sodium 132 L Potassium 4.2 Chloride 94 L Carbon Dioxide 27 BUN 28 H Creatinine 4.6 H Glucose 87 Calcium 8.4 L Liver Function 01/23/24 Range/Units 11:50 Total Bilirubin 0.5 (0.15-1.2) mg/dL AST 20 (0-40) U/L ALT 14 (0-41) U/L Alkaline Phosphatase 71 (40-130) U/L Albumin 3.2 L (3.5-5.2) g/dL Cardiac Studies: 2 No Data to Display
--- NOTE | 2024-01-23 16:46 | ANE.PACU2 ---
Inpatient post-anesthesia follow up: Vital signs: Temperature 97.3 F Pulse Rate 101 Respiratory Rate 18 Blood Pressure 143/67 Pulse Oximetry 95 Oxygen Delivery Me thod Simple Mask Oxygen Flow Rate 6 Fraction of Inspir ed Oxygen Hydration adequate: Yes Nausea and vomiting: No Pain level: 3 Mental status: Baseline
--- NOTE | 2024-01-23 16:47 | PC.NURSE ---
Dr. Solange dela cruzed pt be transfered to floor with temp of 97.3
[2024-01-24] VITALS (10 sets, daily range): BP systolic 123–167; BP diastolic 54–71; PULSE 67–83; RESP 16–22; TEMP 36.7–37.1; O2SAT 93–96; BMI 36.6
[2024-01-24] MEDS: heparin 5,000 unit/mL INJ 1 mL 5000 UNIT SUBCUT (02:14)
[2024-01-24 05:17] LABS: Basophils % 0.6 %; Eosinophils # 0.1 10^3/uL (0.0-0.8); Eosinophils % 1.2 %; Hematocrit 26.7 % (37-53); Lymphocytes # 0.9 10^3/uL (0.8-4.8); Lymphocytes % 13.3 %; Mean Corpuscular Volume 103.5 fl (82-101); Mean Platelet Volume 9.6 fL (7.4-10.4); Monocytes # 1.5 10^3/uL (0.2-0.9); Monocytes % 21.5 %; Neutrophils # 4.37 10^3/uL (1.8-7.7); Neutrophils % 62.8 %; Nucleated Red Blood Cells % 0 %; Platelet Count 173 10^3/cmm (157-399); Red Blood Count 2.58 10^6/uL (3.85-5.65); Red Cell Distribution Width 13.6 % (12.1-15.1); White Blood Count 6.94 10^3/uL (3.29-11.43)
[2024-01-24 05:33] LABS: Alanine Aminotransferase 8 U/L (0-41); Albumin Level 2.8 g/dL (3.5-5.2); Alkaline Phosphatase 63 U/L (40-130); Aspartate Amino Transferase 13 U/L (0-40); Blood Urea Nitrogen 33 mg/dL (8-23); Calcium 8.4 mg/dL (8.5-10.5); Carbon Dioxide 27 mmol/L (22-29); Chloride 99 mmol/L (98-107); Creatinine Clr Calc Pharmacy 14.7836; Globulin 3.3 g/dL (1.3-4.6); Glucose 69 mg/dL (65-115); Magnesium 1.9 mg/dL (1.7-2.3); Osmolality Calculated 290 mOsm/kg (285-295); Phosphorus 5.8 mg/dL (2.5-4.5); Sodium 137 mmol/L (136-145); Total Bilirubin 0.3 mg/dL (0.15-1.2); Total Protein 6.1 g/dL (6.6-8.7)
[2024-01-24] MEDS: acetaminophen 325 mg Tablet 650 MG PO ×3 (06:01→22:35)
--- OUTSIDE RECORDS SUMMARY | 2024-01-24 07:10 | XMS_ITS | Continuity of Care Document ---
Author Name Unknown Organization [facility] Address [id number] [address] Phone Care Team Providers Care Hot Stone Setter Name Role Phone Jeremy SMITH MD, Shorty Unavailable Unavailab le Medications Medication Instructions Dosage Effective Dates (start - stop) Status Comments hydrocodone 7.5 mg-acetaminophen 325 mg tablet take 1 tablet by oral route every 4 hours as needed for pain 1 tablet - Active Procedures Procedure Date Extraction, Erupted Tooth Or Exposed Padmini t (Elevati Extraction, Erupted Tooth Or Exposed Padmini t (Elevati Extraction, Erupted Tooth Or Exposed Padmini t (Elevati Removal Of Impacted Tooth ??? Completely Bony Removal Of Torus Mandibularis 7 Removal Of Torus Mandibularis 7 Limited Oral Evaluation ??? Problem Focu sed EDR Approval Note Advance Directives Directive Yes / No Effective Date File Name No Information Encounters Encounter Description Practice Location Reason(s) For Visit Diagnoses Date Provider Providers Copied on Encounter [facility], [id number], [id number], [place] tel:[phone] [facility] Encounter for dental exam and cleaning w/o abnormal findings Jeremy Oro. [address] [place], [address], [place]. tel:[phone] Referring Provider: Shorty Fink, [place], [address]. tel:[phone] [facility], [id number] [facility], [place], [place], [id number], [place] tel:[phone] [facility] Encounter for dental exam and cleaning w/o abnormal findings Jeremy Oro. [address] [place], [address], [place]. tel:[phone] Referring Provider: Shorty Fink, [address] [place], [address]. tel:[phone] Family History Family Member Type Diagnosis Age At Onset No Information Payers Payer name Insurance type Covered libertarian ID Authoriza donte(s) D Medicaid [id number] Social History Type Description Quantity Date Captured Comments Sex Male Smoking Status No Information Chief Complaint And Reason For Visit No Information Reason For Referral Reason For Referral No Information History Of Present Illness Encounter Date Complaint History Of Prese nt Illness No Information Functional Status Date Functional Assessmen t No Information Instructions Date Instruction Additional Infor mation No Information Assessments Type Assessment Date No Information Patient Care Teams Name Effective Dates (start - stop) Status Members No Information
--- NOTE | 2024-01-24 07:56 | P.PN_ITS ---
Subjective 2 Subjective: Patient is postoperative day 1 status post exchange of hemodialysis catheter due to failure of dialysis catheter during dialysis. Patient is doing well this morning, no significant pain, has not noticed any bleeding or swelling at the site of surgery. Vitals/I&O/Wt Last Vital Signs Temp 98.0 F 01/24/24 04:00 Pulse 71 01/24/24 05:17 Resp 16 01/24/24 04:00 BP 149/54 01/24/24 04:00 Pulse Ox 94 01/24/24 04:00 O2 Del Method Nasal Cannula 01/24/24 04:00 O2 Flow Rate 3 01/23/24 19:47 01/23/24 01/24/24 01/24/24 22:59 06:59 14:59 Intake Total 50 / 50 120 / 170 Output Total 0 / 0 525 / 525 Balance 50 / 50 -405 / -355 Weight last 48 hrs Weight 255 lb Weight 230 lb Weight 230 lb Physical Exam 2 Neck/C-Spine: OTHER: No evidence of hematoma, neck surgical incision is well-healed. Chest: OTHER: Permacath noted, no evidence of bleeding or infection surrounding the catheter. Urinary Catheter Management: Estrada: Cath Placed During This Visit: no Data 01/24/24 04:36 01/24/24 04:36 A&P Assessment and plan (1) Acute renal failure on dialysis: (2) Complication, dialysis catheter clot or failure: Plan Excellent progression after replacement of permacath. Patient can receive hemodialysis today, after we verify the catheter is working properly he can be discharged back to his shelter and continue to follow-up as outpatient with the dialysis center. Patient can follow-up in 2 weeks to my clinic to ensure adequate healing. Attestations 2 Medical Necessity Statement*: Per medical team Coding Level of Care Code Acute Code for [facility] Fwd Diagnoses Acute renal failure on dialysis N17.9; Z99.2 Complication, dialysis catheter clot or failure
--- NOTE | 2024-01-24 09:34 | P.CONIM_ITS ---
Providers/Reason For Consult 2 Consulting Physician/Specialty*: kommana/nephrology Reason for Consult*: esrd Attending Physician: Marcelle Mathis MD Primary Care Provider: Jenn Quiroga NP History of Present Illness History of Present Illness Robert Verduzco is a 73 year old male Patient is a 73-year-old male with past medical history of GERD alcoholic cirrhosis, end-stage renal disease on dialysis, hypertension presented to the hospital due to dialysis catheter malfunction. Patient's catheter was noted to be not drawing blood and he was sent to the hospital for further evaluation. General surgery was consulted and had replaced dialysis catheter. Patient currently denies any complaints Review of Systems 2 Narrative: othe r ros negative Medications/Allergies Home Medications Medication Instructions Recorded Confirmed Last Taken Type acetaminophen 325 mg capsule 650 mg PO Q4H PRN pain or fever 05/20/21 01/23/24 Unknown History aluminum-mag hydroxide-simethicone 15 ml PO Q6H PRN Indigestion 05/20/21 01/23/24 Unknown History 400 mg-400 mg-40 mg/5 mL oral susp (Mylanta Maximum Strength) bisacodyl 5 mg tablet,delayed 20 mg PO DAILY PRN Constipation 05/20/21 01/23/24 Unknown History release diphenhydramine HCl 25 mg capsule 25 mg PO BEDTIME PRN Allergy 05/20/21 01/23/24 Unknown History Symptoms dutasteride 0.5 mg capsule 0.5 mg PO DAILY@08 05/20/21 01/23/24 01/23/24 08:28 History ferrous sulfate 325 mg (65 mg 325 mg PO DAILY@05/20/21 01/23/24 01/23/24 08:30 History iron) tablet melatonin 5 mg tablet 5 mg PO BEDTIME 05/20/21 01/23/24 01/21/24 History metoprolol tartrate 25 mg tablet 12.5 mg PO BID 05/20/21 01/23/24 01/23/24 08:30 History scopolamine base 1 mg over 3 days 1 patch transdermal Q3D PRN Nausea 05/20/21 01/23/24 01/17/24 History transdermal patch And Vomiting spironolactone 25 mg tablet 25 mg PO DAILY@08 05/20/21 01/23/24 01/23/24 08:30 History tamsulosin 0.4 mg capsule 0.4 mg PO QPM 05/20/21 01/23/24 01/22/24 History ASO Left #1 ea 06/01/21 01/23/24 Unknown Rx cam boot #1 ea 06/01/21 01/23/24 Unknown Rx albuterol sulfate 90 mcg/actuation 2 puff inhalation Q4H PRN 09/28/23 01/23/24 Unknown History aerosol inhaler Shortness Of Breath Or Wheezing bisacodyl 10 mg rectal suppository 10 mg CA DAILY PRN Constipation 01/23/24 01/23/24 Unknown History (Dulcolax (bisacodyl)) guaifenesin 600 mg tablet, 600 mg PO Q12H PRN unknown 01/23/24 01/23/24 Unknown History extended release 12 hr (Mucinex) loperamide 2 mg tablet See Rx Instructions .Route .COMPLEX 01/23/24 01/23/24 Unknown History magnesium hydroxide 400 mg/5 mL 30 ml PO DAILY PRN Constipation 01/23/24 01/23/24 Unknown History oral suspension (Milk of Magnesia) [id number]-[id number] 1 tab PO DAILY@08 01/23/24 01/23/24 01/23/24 08:30 History tablet (Multivitamin 50 Plus tablet) psyllium seed (sugar) oral powder See Rx Instructions .Route .COMPLEX 01/23/24 01/23/24 01/23/24 08:30 History (Metamucil (sugar) oral powder) sodium chloride 0.65 % nasal spray 1 spray intranasal Q2H PRN Dry 01/23/24 01/23/24 Unknown History aerosol (Deep Sea Nasal) Nasal Passages sodium phosphates 19 gram-7 118 ml CA DAILY PRN Constipation 01/23/24 01/23/24 Unknown History gram/118 mL enema (Fleet Enema) tramadol 50 mg tablet 50 mg PO Q4H PRN Pain 01/23/24 01/23/24 Unknown History vitamin A and D See Rx Instructions .Route .COMPLEX 01/23/24 01/23/24 Unknown History Allergies Allergy/AdvReac Type Severity Reaction Status Date / Time NSAIDS (Non-Steroidal Allergy Mild Rash Verified 11/09/23 14:53 Anti-Inflamma Current Medications Generic Name Dose Route Start Last Admin Trade Name Freq PRN Reason Stop Dose Admin Acetaminophen 650 mg 01/23/24 14:41 01/24/24 06:01 Acetaminophen 325 Mg Tablet PO 650 mg Q6H PRN Administration Mild/Mod Pain Or Temp >/= 101 Heparin Sodium (Porcine) 5,000 unit 01/23/24 14:45 01/24/24 02:14 Heparin 5,000 Unit/Ml Inj 1 Ml SUBCUT 5,000 unit Q12H JOHN Administration PFSH Acute 2 PFSH: Medical History Gastro-esophageal reflux disease without esophagitis Contracture, left hand Chronic obstructive pulmonary disease, unspecified Attention-deficit hyperactivity disorder, unspecified type Motion sickness, sequela Insomnia, unspecified Post-traumatic stress disorder, chronic Restless legs syndrome 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 ascites Contracture, right hand COVID-19 Benign prostatic hyperplasia with lower urinary tract symptoms Secondary osteoarthritis, left hand Other recurrent depressive disorders Anemia in other chronic diseases classified elsewhere Secondary osteoarthritis, right hand Generalized anxiety disorder Cervicalgia Muscle weakness (generalized) Essential (primary) hypertension Dementia in other diseases classified elsewhere without behavioral disturbance Hereditary and idiopathic neuropathy, unspecified Vitals/I&O/Wt Last Vital Signs Temp 98.2 F 01/24/24 08:00 Pulse 70 01/24/24 08:04 Resp 16 01/24/24 08:04 BP 123/71 01/24/24 08:00 Pulse Ox 94 01/24/24 08:04 O2 Del Method Nasal Cannula 01/24/24 08:04 O2 Flow Rate 2 01/24/24 08:04 01/23/24 01/24/24 01/24/24 22:59 06:59 14:59 Intake Total 50 / 50 120 / 170 240 / 240 Output Total 0 / 0 525 / 525 Balance 50 / 50 -405 / -355 240 / 240 Weight last 48 hrs Weight 115.666 kg Weight 104.326 kg Weight 104.326 kg Physical Exam 2 Narrative: Awake alert, no distress HEENT S1-S2 regular rate and rhythm per report Lungs clear per report No pedal edema Urinary Catheter Management: Estrada: Cath Placed During This Visit: no Data 01/24/24 04:36 01/24/24 04:36 A&P Assessment and plan (1) Admission for dialysis and dialysis catheter care: 1. End-stage renal disease: Now admitted for dialysis catheter malfunction, status post catheter replacement and plan for HD today 2. History of hypertension resume home meds 3. Anemia: LLOYD with HD (2) Hemodialysis catheter dysfunction: Consult Attestations 2 Medical Necessity Statement: Per medicine team Coding Level of Care Code Acute Code for [facility] Fwd Diagnoses Admission for dialysis and dialysis catheter care Z99.2 Hemodialysis catheter dysfunction T82.41XA
[2024-01-24 09:35] LABS: Hepatitis B Surface AB 9.8 (11.5-1000); Hepatitis B Surface Antigen Non-Reactive (Nonreactive)
--- NOTE | 2024-01-24 09:58 | PC.SOCIAL ---
IMM Update Pg. 2 of IMM updated. Copy provided, copy placed in chart.
--- NOTE | 2024-01-24 11:28 | PM.DCS ---
Discharge Providers Date of Admission: 01/23/24 14:54 Date of Discharge: January 24, 2024 Attending Provider at Admission: Ki Alvarado MD Attending Provider at Discharge: Marcelle Mathis MD Primary Care Provider: Jenn Quiroga NP Diagnoses at Discharge Discharge Diagnosis (1) Essential (primary) hypertension: Status: Acute (2) Acute renal failure on dialysis: Status: Acute (3) Hemodialysis catheter dysfunction: Status: Acute Reason for Visit Reason for Visit: dialysis port not flowing Hospital Course Hospital Course Patient presented to the hospital with dialysis catheter malfunction from the dialysis clinic. He was admitted and general surgery was able to successfully place new catheter. Nephrology was consulted and patient ended up having a dialysis session in the hospital. Catheter is functioning well. Otherwise patient is at his baseline with his chronic comorbid conditions. He was a poor historian and does have a history of dementia. Does not have any active complaints on review of systems. Records were requested however have not arrived from [facility] yet. Patient is doing well and will be discharged back to [place] at this point. Physical Exam Narrative: General: Alert seen laying in bed appearing comfortable at this time HEENT: Normocephalic, atraumatic, EOMI, 2 L nasal cannula Cardio: Regular rate rhythm, normal S1-S2, Respiratory: Clear to auscultation bilaterally minimal rhonchi at bases. GI: Abdomen soft, nontender, bowel sounds + Extremities: Trace edema noted bilateral lower extremities. Urinary Catheter Management: Estraad: Cath Placed During This Visit: no Discharge Data Studies Completed and Pending Completed Studies During Hospitalization Category Date Time Status XR chest 1V portable [id number] Stat Exams 01/23/24 11:40 Completed XR chest 1V portable [id number] Stat Exams 01/23/24 16:36 Completed Pending at discharge Category Date Time Status Urinalysis Stat Lab 01/23/24 14:49 Uncollected Radiology Impressions C-Arm Fluoroscopy 01/23/24 15:42 IMPRESSION: Right subclavian vein dialysis catheter placement as above. Chest X-Ray 01/23/24 16:36 IMPRESSION: 1. Dialysis catheter placement without pneumothorax. Laboratory Results WBC 6.94 10^3/uL (3.29-11.43) 01/24/24 04:36 RBC 2.58 10^6/uL (3.85-5.65) L 01/24/24 04:36 Hgb 8.00 g/dL (11.27-16.99) L 01/24/24 04:36 Hct 26.7 % (37-53) L 01/24/24 04:36 MCV 103.5 fl (82-101) H 01/24/24 04:36 MCH 31.0 pg (27-33) 01/24/24 04:36 MCHC 30.0 g/dL (30-55) 01/24/24 04:36 RDW 13.6 % (12.1-15.1) 01/24/24 04:36 Plt Count 173 10^3/cmm (157-399) 01/24/24 04:36 MPV 9.6 fL (7.4-10.4) 01/24/24 04:36 Neut % (Auto) 62.8 % 01/24/24 04:36 Lymph % (Auto) 13.3 % 01/24/24 04:36 Bee % (Auto) 21.5 % 01/24/24 04:36 Eos % (Auto) 1.2 % 01/24/24 04:36 Baso % (Auto) 0.6 % 01/24/24 04:36 Neut # (Auto) 4.37 10^3/uL (1.8-7.7) 01/24/24 04:36 Lymph # (Auto) 0.9 10^3/uL (0.8-4.8) 01/24/24 04:36 Bee # (Auto) 1.5 10^3/uL (0.2-0.9) H 01/24/24 04:36 Eos # (Auto) 0.1 10^3/uL (0.0-0.8) 01/24/24 04:36 Baso # (Auto) 0.0 10^3/uL (0.0-0.1) 01/24/24 04:36 Nucleated RBC % (auto) 0 % 01/24/24 04:36 Nucleated RBCs # 0.0 /100WBC 01/24/24 04:36 Sodium 137 mmol/L (136-145) 01/24/24 04:36 Potassium 4.0 mmol/L (3.5-5.1) 01/24/24 04:36 Chloride 99 mmol/L (98-107) 01/24/24 04:36 Carbon Dioxide 27 mmol/L (22-29) 01/24/24 04:36 Anion Gap 15.0 (5-19) 01/24/24 04:36 BUN 33 mg/dL (8-23) H 01/24/24 04:36 Creatinine 5.5 mg/dL (0.7-1.2) H 01/24/24 04:36 GFR Calculation Not Reportable 01/24/24 04:36 Glucose 69 mg/dL (65-115) 01/24/24 04:36 Calculated Osmolality 290 mOsm/kg (285-295) 01/24/24 04:36 Calcium 8.4 mg/dL (8.5-10.5) L 01/24/24 04:36 Phosphorus 5.8 mg/dL (2.5-4.5) H 01/24/24 04:36 Magnesium 1.9 mg/dL (1.7-2.3) 01/24/24 04:36 Total Bilirubin 0.3 mg/dL (0.15-1.2) 01/24/24 04:36 AST 13 U/L (0-40) 01/24/24 04:36 ALT 8 U/L (0-41) 01/24/24 04:36 Alkaline Phosphatase 63 U/L (40-130) 01/24/24 04:36 Total Protein 6.1 g/dL (6.6-8.7) L 01/24/24 04:36 Albumin 2.8 g/dL (3.5-5.2) L 01/24/24 04:36 Globulin 3.3 g/dL (1.3-4.6) 01/24/24 04:36 Hep Bs Antigen Non-reactive (Nonreactive) 01/24/24 07:35 Hep Bs Antibody 9.8 (11.5-1000) L 01/24/24 07:35 Vitals Last Vital Signs Temp 98.2 F 01/24/24 08:00 Pulse 70 01/24/24 08:04 Resp 16 01/24/24 08:04 BP 123/71 01/24/24 08:00 Pulse Ox 94 01/24/24 08:04 O2 Del Method Nasal Cannula 01/24/24 08:04 O2 Flow Rate 2 01/24/24 08:04 Discharge Plan Discharge Patient Disposition: Xfer SNF Condition: Stable Prescriptions: Continued dutasteride 0.5 mg capsule 0.5 mg PO DAILY@08 ferrous sulfate 325 mg (65 mg iron) tablet 325 mg PO DAILY@08 melatonin 5 mg tablet 5 mg PO BEDTIME metoprolol tartrate 25 mg tablet 12.5 mg PO BID spironolactone 25 mg tablet 25 mg PO DAILY@08 tamsulosin 0.4 mg capsule 0.4 mg PO QPM acetaminophen 325 mg capsule 650 mg PO Q4H PRN (Reason: pain or fever) bisacodyl 5 mg tablet,delayed release (DR/EC) 20 mg PO DAILY PRN (Reason: Constipation) diphenhydramine HCl 25 mg capsule 25 mg PO BEDTIME PRN (Reason: Allergy Symptoms) Rx Instructions: until 01/30/2024 alum-mag hydroxide-simeth [Mylanta Maximum Strength] 400-400-40 mg/5 mL suspension 15 ml PO Q6H PRN (Reason: Indigestion) scopolamine base 1 mg over 3 days patch 3 day 1 patch transdermal Q3D PRN (Reason: Nausea And Vomiting) (DME) cam boot See Rx Instructions .Route .MEDSUPPLY Qty: 1 0RF Rx Instructions: As directed (DME) ASO Left See Rx Instructions .ROUTE .MEDSUPPLY Qty: 1 0RF Rx Instructions: As directed albuterol sulfate 90 mcg/actuation HFA aerosol inhaler 2 puff inhalation Q4H PRN (Reason: Shortness Of Breath Or Wheezing) Milk of Magnesia 400 mg/5 mL Suspension 30 ml PO DAILY PRN (Reason: Constipation) Dulcolax (bisacodyl) 10 mg Suppository 10 mg CO DAILY PRN (Reason: Constipation) vitamin A and D Ointment See Rx Instructions .ROUTE .COMPLEX Rx Instructions: CLEANSE LEFT AND RIGHT LOWER LEGS WITH NS APPLY A&D OINTMENT DAILY COVER WITH TUBIGRIP STOCKINGS loperamide 2 mg Tablet See Rx Instructions .ROUTE .COMPLEX Rx Instructions: 4 mg (2 tabs) orally initial episode of loose/diarrhea stool then 2mg (1 tab) po as needed each loose/diarrhea stool thereafter not to exceed 16mg in 24 hours tramadol 50 mg Tablet 50 mg PO Q4H PRN (Reason: Pain) Fleet Enema 19-7 gram/118 mL Enema 118 ml CO DAILY PRN (Reason: Constipation) Multivitamin 50 Plus Tablet 1 tab PO DAILY@08 Deep Sea Nasal 0.65 % Aerosol,[place] 1 spray INTRANASAL Q2H PRN (Reason: Dry Nasal Passages) Metamucil (sugar) Powder See Rx Instructions .ROUTE .COMPLEX Rx Instructions: GIVE 1.7GR PO TID Mucinex 600 mg Tablet Extended Release 12hr 600 mg PO Q12H PRN (Reason: unknown) Discharge Orders: Discharge Order (Routine); Ordered 01/24/24 Ordered By: Marcelle Mathis Referrals: [facility] [Outside] Ki Alvarado MD [Physician] - (We have notified your physician's clinic of the need for a follow-up appointment to be scheduled. If you have not heard from them within the next 2 business days, please call them directly. ) Jenn Quiroga NP [Primary Care Provider] - 4-7 days Patient Instructions: Dialysis Diet (DC), Hemodialysis (DC), Opioid Safety Discharge Attestations Time Spent in Discharge Care*: less than 30 min Quality Metrics Clinical Quality Measures [ No reported AMI, CVA or VTE this stay] Coding Level of Care Code 17177 Total time (in minutes) for Discharge: 25 Diagnoses Essential (primary) hypertension I10 Acute renal failure on dialysis N17.9; Z99.2 Hemodialysis catheter dysfunction T82.41XA
[2024-01-24] MEDS: heparin, porcine 1,000 unit/mL INJ 10 mL 10000 UNIT INTRACATH ×2 (13:15→17:01)
[2024-01-24] MEDS: heparin 5,000 unit/mL INJ 1 mL 1000 UNIT IVP (13:16)
[2024-01-24 15:14] LABS: SARS Covid-2 Antigen negative (Negative)
[2024-01-24 16:19] LABS: Glucose Point of Care 102 mg/dL (70-110)
--- NOTE | 2024-01-24 19:43 | PC.NURSE ---
Report called to MARTA Gomez at [facility] at 19:44.
[2024-01-25] VITALS: BP 103/59; PULSE 74; RESP 18; TEMP 36.9; O2SAT 94
[2024-01-25] MEDS: heparin 5,000 unit/mL INJ 1 mL 5000 UNIT SUBCUT (03:42)
[2024-01-25 04:00] VITALS: BP 144/69; PULSE 77; RESP 18; TEMP 36.9; O2SAT 93
[2024-01-25] MEDS: acetaminophen 325 mg Tablet 650 MG PO (04:23)
--- NOTE | 2024-01-25 07:24 | PC.NURSE ---
When taking report on pt, it was told that EMS would be here at approximately 2030 01/24/24 to transport pt to [facility]. The transport did not show by this time, pt made aware. At 0030, charge nurse called transport and asked when the anticipated time of transfer would be, they reported it would not be until 01/25/24 at 0830. No reason was given for the changes. Pt made aware of this as well.
[2024-01-25 07:55] VITALS: BP 148/70; PULSE 75; RESP 14; TEMP 37; O2SAT 97
--- NOTE | 2024-01-25 09:31 | PC.CHAP ---
Pastoral Care Encounter/Spiritual Assessment Type of Contact [] Declined pipeline controller visit [] Patient/Family/Request visit [] Outpatient visit [] Follow-up visit [] Physician referral [] Code/Alert [x] Routine visit [] Staff referral [] Actively dying [] Patient sleeping [] Family support [] [] Out of room [] Palliative care [] [] Receiving care in room [] Pre-surgical visit [] Trauma [] Long length of stay [] ICU visit [] Other: Relational/Emotional Strength [x] Patient feels connected with others/family/visitors/staff [] Distress [] Loneliness/isolation [] Abandonment Spirituality of Patient [x] Person of Anne [] Attends Yazidi of their Anne [x] Believes in Prayer [] Reads Bible or Confucianism materials [] There are Spiritual issues to be addressed Cardiology Physician Assistant Interventions [x] Prayer [] Active listening [] Non-anxious presence [x] Spiritual/emotional support [] Crisis/trauma care [] Spiritual counseling [] Bereavement support [] Provided bereavement packet [] Provided Bible/devotional materials [] Provided toy/stuffed animal, coloring book to patient or family member [] Provided Communion [] Anointing/[place] [] Salvation [x] Completed spiritual assessment [] Other: Impact on Illness or Injury [] Angry [] Fearful [] Anxious [] Often cries [] Exhaustion [] Unable to work [] Unable to attend tenriism [] Unable to walk/stand [] Unable to read [] Unable to drive [] Unable to eat/drink [] Unable to sleep [] Unable to be with family [] Patient intubated [] Other: Summary Time spent with patient 5 min
== END 2024-01-25 08:50 | disposition skilled nursing facility (03) | DRG 698 ==
LOC: ER 14:52 → MEDSURG 17:25 → OR 01-24 06:57 → ER 01-24 06:57 → MEDSURG 01-24 07:11
PROVIDERS: Hospitalist; Admitting Provider Surgery; Emergency Provider Physician Assistant; PCP Nurse Practitioner Family; Visit Provider Internal Medicine
PROC: 0J2TXYZ Change Other Device in Trunk Subcutaneous Tissue and Fascia, External Approach (ICD-10-PCS; principal; 2024-01-23 15:30)
PROC: 0J2TXYZ Change Other Device in Trunk Subcutaneous Tissue and Fascia, External Approach (ICD-10-PCS; 2024-01-23 15:30)
DX: T82.41XA Breakdown (mechanical) of vascular dialysis catheter, initial encounter (principal); N18.6 End stage renal disease; I12.0 Hypertensive chronic kidney disease with stage 5 chronic kidney disease or end stage renal disease; Z99.2 Dependence on renal dialysis; F03.90 Unspecified dementia, unspecified severity, without behavioral disturbance, psychotic disturbance, mood disturbance, and anxiety
CPT/HCPCS: 36415; 36416; 71045; 76000; 77001; 80053; 82962; 83735; 84100; 85025; 86706; 87340; 87426; 90935; 94664; 96365; 96372; 96375; 99285; J0690; J1644; J2704; J3010; J3490; Q3014

== ENCOUNTER → 2024-02-13 14:20 | Outpatient (BNVA) | payer MEDICARE, MEDICAID, SELFPAY | PROVIDERS: PCP Nurse Practitioner Family; Visit Provider Surgery | DX: Z09 Encounter for follow-up examination after completed treatment for conditions other than malignant neoplasm (principal) | CPT/HCPCS: 99213 ==

== ENCOUNTER 2024-04-21 05:50 | Inpatient (IN) | payer MEDICARE, MEDICAID, SELFPAY ==
[2024-04-21] VITALS (171 sets, daily range): BP systolic 90–187; BP diastolic 54–99; PULSE 61–163; RESP 7–40; TEMP 36.5–37.9; O2SAT 89–100; BMI 31.5; BMI 31.0
--- NOTE | 2024-04-21 05:53 | CTR_ITS ---
PROCEDURE INFORMATION: Exam: CT Head Without Contrast Exam date and time: 04/21/2024 6:43 AM Age: 74 years old Clinical indication: Other: Seizure TECHNIQUE: Imaging protocol: Computed tomography of the head without contrast. Radiation optimization: All CT scans at this facility use at least one of these dose optimization techniques: automated exposure control; mA and/or kV adjustment per patient size (includes targeted exams where dose is matched to clinical indication); or iterative reconstruction. COMPARISON: No relevant prior studies available. RADIATION DOSE METRICS: Total DLP (mGy-cm): 733.6 FINDINGS: Brain: No intracranial hemorrhage. No acute infarct. No extra-axial fluid collection. Moderate periventricular and subcortical white matter hypodensities compatible with chronic small vessel ischemic disease. Cerebral ventricles: No ventriculomegaly. Paranasal sinuses: Visualized sinuses are unremarkable. No fluid levels. Mastoid air cells: Visualized mastoid air cells are well aerated. Bones: Unremarkable. No acute fracture. Soft tissues: Unremarkable. CT/CT head wo con* [id number] IMPRESSION: No acute intracranial abnormality.
--- NOTE | 2024-04-21 05:53 | ECG_ITS ---
[facility] Test Date: 2024-04-21 Pat Name: Robert Verduzco Department: Room: Gender: Male Manager Critical Care Unit: : 1950 Requested By: Kevin Larkin Order Number: [id number] Liza MD: Reanna Gaines M.D. Measurements Intervals Presto Rate: 105 P: 70 NC: 170 QRS: 62 QRSD: 101 T: 76 QT: 338 QTc: 447 Interpretive Statements SINUS TACHYCARDIA WITH FREQUENT VENTRICULAR PREMATURE COMPLEXES MODERATE ST DEPRESSION [0.05+ mV ST DEPRESSION] No previous ECG available for comparison Electronically Signed On 04-21-2024 12:07:38 CDT by Reanna Gaines M.D. [email or web address] Automationglendale research hospitalSan Marcos Springs/store/[id number]
--- NOTE | 2024-04-21 06:12 | ECG_ITS ---
[facility] Test Date: 2024-04-21 Pat Name: Robert Verduzco Department: Room: 104 Gender: Male Legal Analyst: : 1950 Requested By: Kevin Larkin Order Number: [id number] Liza MD: Fred Muñoz M.D. Measurements Intervals Elmo Rate: 200 P: 0 CT: 0 QRS: 68 QRSD: 159 T: 0 QT: 207 QTc: 377 Interpretive Statements Supraventricular tachycardia, heart rate of 200 bpm INTRAVENTRICULAR CONDUCTION DELAY [130+ ms QRS DURATION] CRITICAL TEST RESULT INTERPRETATION BASED ON A DEFAULT AGE OF 40 YEARS Compared to ECG 04/21/2024 06:02:28 Intraventricular conduction delay now present Sinus tachycardia no longer present Ventricular premature complex(es) no longer present ST (T wave) deviation no longer present Electronically Signed On 04-24-2024 6:30:59 CDT by Fred Muñoz M.D. [email or web address].[employer]/store/[id number]
--- NOTE | 2024-04-21 06:15 | ED_ITS ---
HPI - Seizure 2 General: Chief Complaint: Seizure Stated Complaint: SEIZURE Time Seen by Provider: 04/21/24 05:53 Source: patient Mode of arrival: ambulatory Limitations: no limitations and altered mental status History of Present Illness: HPI Narrative: 74-year-old male is here from nursing [facility] after a seizure. Patient has no known histories of seizures per EMS notes, states seizure lasted roughly 1 minute. This was 30 minutes ago patient still appears postictal he is unable to really answer any questions at this time. No known recent illness. He is on dialysis. He does have a history of A-fib Review of Systems 2 General: Reports: ROS unobtainable due to mental status PFSH ED 2 PFSH: Medical History Gastro-esophageal reflux disease without esophagitis Contracture, left hand Chronic obstructive pulmonary disease, unspecified Attention-deficit hyperactivity disorder, unspecified type Motion sickness, sequela Insomnia, unspecified Post-traumatic stress disorder, chronic Restless legs syndrome 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 ascites Contracture, right hand COVID-19 Benign prostatic hyperplasia with lower urinary tract symptoms Secondary osteoarthritis, left hand Other recurrent depressive disorders Anemia in other chronic diseases classified elsewhere Secondary osteoarthritis, right hand Generalized anxiety disorder Cervicalgia Muscle weakness (generalized) Essential (primary) hypertension Dementia in other diseases classified elsewhere without behavioral disturbance Hereditary and idiopathic neuropathy, unspecified Physical Exam 2 Const: COMMON NORMALS: negative for patient oriented x3 HENMT: COMMON NORMALS: normocephalic and atraumatic HEAD & SCALP: n ormocephalic and atraumatic Eye: COMMON NORMALS: Equal, round and reactive pupils present and EOMs intact bilaterally PUPIL: Yes Equal, round and reactive pupils present Neck/C-Spine: COMMON NORMALS: full ROM and supple Chest: COMMONS NORMALS: normal inspection of the chest Resp: COMMON NORMALS: normal respiratory effort, No retractions, No use of accessory muscles and clear to auscultation bilaterally AUSCULTATION: clear to auscultation bilaterally Cardio: COMMON NORMALS: No murmurs present (Cardio) RATE: tachycardic R HYTHM: abnormal rhythm irregularly irregular GI: COMMON NORMALS: Normal to inspection, nondistended, normoactive bowel sounds present, Soft to palpation, non-tender and no masses PALPATION: Yes Soft to palpation Extremity: COMMON NORMALS: normal to inspection and full ROM Neuro: COMMON NORMALS: moves all extremities and no focal motor deficits; negative for patient oriented x3 Psych: COMMON NORMALS: mental status grossly normal, Normal thought process present and cooperative THOUGHT PROCESS: Normal thought process present Skin: COMMON NORMALS: no rashes or lesions noted and no wounds GENERAL SKIN EXAM: no rashes or lesions noted Course 2 Vital Signs: Vital signs: Vital Signs Temperature 97.7 F 04/21/24 05:50 Pulse Rate 147 H 04/21/24 08:00 Respiratory Rate 18 04/21/24 08:00 Blood Pressure 95/67 04/21/24 08:00 Pulse Oximetry 95 04/21/24 08:00 Oxygen Delivery Me thod Nasal Cannula 04/21/24 07:30 Oxygen Flow Rate 2.5 04/21/24 07:30 MDM - Seizure MDM Narrative Medical decision making narrative: Patient presents here with seizure he is also been in A-fib with RVR here patient is on a Cardizem drip at this time. I spoke to the hospitalist will admit. He had no other seizure-like activity here Lab Data 04/21/24 06:19 04/21/24 06:19 Labs: Radiology Impressions Head CT 04/21/24 05:53 IMPRESSION: No acute intracranial abnormality. Chest X-Ray 04/21/24 06:59 IMPRESSION: No acute intrathoracic findings. Laboratory Results WBC 12.06 10^3/uL (3.29-11.43) H 04/21/24 06:19 RBC 3.90 10^6/uL (3.85-5.65) 04/21/24 06:19 Hgb 12.50 g/dL (11.27-16.99) 04/21/24 06:19 Hct 38.6 % (37-53) 04/21/24 06:19 MCV 99.0 fl (82-101) 04/21/24 06:19 MCH 32.1 pg (27-33) 04/21/24 06:19 MCHC 32.4 g/dL (30-55) 04/21/24 06:19 RDW 14.0 % (12.1-15.1) 04/21/24 06:19 Plt Count 180 10^3/cmm (157-399) 04/21/24 06:19 MPV 9.5 fL (7.4-10.4) 04/21/24 06:19 Neut % (Auto) 83.5 % 04/21/24 06:19 Lymph % (Auto) 6.9 % 04/21/24 06:19 [facility] % (Auto) 8.6 % 04/21/24 06:19 Eos % (Auto) 0.3 % 04/21/24 06:19 Baso % (Auto) 0.3 % 04/21/24 06:19 Neut # (Auto) 10.06 10^3/uL (1.8-7.7) H 04/21/24 06:19 Lymph # (Auto) 0.8 10^3/uL (0.8-4.8) 04/21/24 06:19 [facility] # (Auto) 1.0 10^3/uL (0.2-0.9) H 04/21/24 06:19 Eos # (Auto) 0.0 10^3/uL (0.0-0.8) 04/21/24 06:19 Baso # (Auto) 0.0 10^3/uL (0.0-0.1) 04/21/24 06:19 Nucleated RBC % (auto) 0 % 04/21/24 06:19 Nucleated RBCs # 0.0 /100WBC 04/21/24 06:19 Sodium 138 mmol/L (136-145) 04/21/24 06:19 Potassium 3.0 mmol/L (3.5-5.1) L 04/21/24 06:19 Chloride 99 mmol/L (98-107) 04/21/24 06:19 Carbon Dioxide 22 mmol/L (22-29) 04/21/24 06:19 Anion Gap 20.0 (5-19) H 04/21/24 06:19 BUN 15 mg/dL (8-23) 04/21/24 06:19 Creatinine 3.1 mg/dL (0.7-1.2) H 04/21/24 06:19 GFR Calculation Not Reportable 04/21/24 06:19 Glucose 155 mg/dL (65-115) H 04/21/24 06:19 Calculated Osmolality 290 mOsm/kg (285-295) 04/21/24 06:19 Calcium 8.7 mg/dL (8.5-10.5) 04/21/24 06:19 Magnesium 1.7 mg/dL (1.7-2.3) 04/21/24 06:19 Total Bilirubin 0.6 mg/dL (0.15-1.2) 04/21/24 06:19 AST 17 U/L (0-40) 04/21/24 06:19 ALT 9 U/L (0-41) 04/21/24 06:19 Alkaline Phosphatase 83 U/L (40-130) 04/21/24 06:19 Total Protein 7.6 g/dL (6.6-8.7) 04/21/24 06:19 Albumin 3.7 g/dL (3.5-5.2) 04/21/24 06:19 Globulin 3.9 g/dL (1.3-4.6) 04/21/24 06:19 No radiology studies performed this visit Critical Care Time 2 Critical Care Time: Critical Care Time: Yes Total Critical Care Time: 35 Attestation: The high probability of a clinically significant, sudden or life threatening deterioration of the patient's cv,neuro system(s) required my full and direct attention, intervention and personal management. The critical care time is as shown. This time is in addition to time spent performing any reported procedures but includes the following: [x] Data and vital sign review and interpretation [x] Patient assessment, examination and intervention [x] Documentation [x] Medication orders and management Discharge Plan Discharge Patient Disposition: Admitted As Inpatient Admit Provider: Xavier Solorzano Clinical Impression: Generalized seizure, Atrial fibrillation with RVR Condition: Stable Coding Level of Care Code ED Crystalizer Operator for Trixie Small
[2024-04-21 06:36] LABS: Basophils % 0.3 %; Eosinophils % 0.3 %; Hematocrit 38.6 % (37-53); Lymphocytes # 0.8 10^3/uL (0.8-4.8); Lymphocytes % 6.9 %; Mean Corpuscular HGB Conc 32.4 g/dL (30-55); Mean Corpuscular Hemoglobin 32.1 pg (27-33); Mean Platelet Volume 9.5 fL (7.4-10.4); Monocytes % 8.6 %; Neutrophils # 10.06 10^3/uL (1.8-7.7); Neutrophils % 83.5 %; Nucleated Red Blood Cells % 0 %; Platelet Count 180 10^3/cmm (157-399); White Blood Count 12.06 10^3/uL (3.29-11.43)
[2024-04-21] MEDS: dilTIAZem 100 MG in sodium chloride 0.9% (add-van) 100 ML IV (06:36)
[2024-04-21 06:46] LABS: Alanine Aminotransferase 9 U/L (0-41); Albumin Level 3.7 g/dL (3.5-5.2); Alkaline Phosphatase 83 U/L (40-130); Aspartate Amino Transferase 17 U/L (0-40); Blood Urea Nitrogen 15 mg/dL (8-23); Calcium 8.7 mg/dL (8.5-10.5); Carbon Dioxide 22 mmol/L (22-29); Chloride 99 mmol/L (98-107); Globulin 3.9 g/dL (1.3-4.6); Glucose 155 mg/dL (65-115); Magnesium 1.7 mg/dL (1.7-2.3); Osmolality Calculated 290 mOsm/kg (285-295); Sodium 138 mmol/L (136-145); Total Bilirubin 0.6 mg/dL (0.15-1.2); Total Protein 7.6 g/dL (6.6-8.7)
[2024-04-21 06:48] LABS: Creatinine Clr Calc Pharmacy 24.0046
[2024-04-21] MEDS: dilTIAZem 5 mg/mL SDV 5 mL 15 MG IVP (06:56)
--- NOTE | 2024-04-21 06:59 | XRR_ITS ---
PROCEDURE INFORMATION: Exam: XR Chest Exam date and time: 04/21/2024 7:08 AM Age: 74 years old Clinical indication: Other: AMS TECHNIQUE: Imaging protocol: Radiologic exam of the chest. Views: 1 view. COMPARISON: CR XR chest 1V portable [id number] 01/23/2024 4:44 PM FINDINGS: Lungs: Low lung volumes with bronchovascular crowding. No focal consolidation. Right IJ central venous catheter tip overlies the right atrium. Pleural spaces: No sizable pleural effusion or pneumothorax. Heart/Mediastinum: No cardiomegaly. Bones/joints: Unremarkable. XR/XR chest 1V portable [id number] IMPRESSION: No acute intrathoracic findings.
[2024-04-21] MEDS: sodium chloride 0.9% 500 ML 999 ML IV (07:12)
[2024-04-21] MEDS: LORazepam 2 mg/mL INJ 1 mL 0.5 MG IVP (07:31)
--- NOTE | 2024-04-21 08:52 | ECG_ITS ---
[facility] Test Date: 2024-04-21 Pat Name: Robert Verduzco Department: Room: ICU12 Gender: Male Information Clerk: : 1950 Requested By: Xavier Solorzano Order Number: [id number] Liza MD: Reanna Gaines M.D. Measurements Intervals [place] Rate: 74 P: 0 [place]: 0 QRS: 38 QRSD: 110 T: 59 QT: 396 QTc: 442 Interpretive Statements Normal sinus rhythm with sinus arrhythmia Incomplete right bundle branch block Compared to ECG 04/21/2024 10:11:59 No significant change Electronically Signed On 04-21-2024 16:05:08 CDT by Reanna Gaines M.D. [id number]
--- OUTSIDE RECORDS SUMMARY | 2024-04-21 08:54 | XMS_ITS | Continuity of Care Document ---
Author Name Unknown Organization [facility] Address [id number] [address] Phone Care Team Providers Care Dowel Inspector Name Role Phone Jeremy SMITH MD, Shorty [...] Diagnoses Date Provider Providers Copied on Encounter [facility], [id number], [id number], [place] tel:[phone] [facility] Encounter for dental exam and cleaning w/o abnormal findings Jeremy Oro. [address] [place], [address], [place]. tel:[phone] Referring Provider: Shorty Fink, [place], [address]. tel:[phone] [facility], [id number] [facility], [place], [place], [id number], [place] tel:[phone] [facility] Encounter for dental exam and cleaning w/o abnormal findings Jeremy Oro. [address] [place], [address], [place]. tel:[phone] Referring Provider: Shorty Fink, [address] [place], [address]. tel:[phone] Family History Family Member Type Diagnosis Age At Onset No Information Payers Payer name Insurance type Covered alliance party ID Authoriza donte(s) D Medicaid [id number] Social History Type Description Quantity Date Captured [...]
[2024-04-21 09:27] LABS: Erythrocyte Sedimentation Rate 48 mm/hr (0-10)
[2024-04-21 09:32] LABS: NT Pro B Type Natriuretic Pept 8846 pg/mL (0-450); Procalcitonin 0.21 ng/mL (0-0.5)
[2024-04-21 09:43] LABS: C Reactive Protein 27.2 mg/L (0.0-4.9)
--- NOTE | 2024-04-21 10:01 | USCV_ITS ---
Robert Verduzco Age: 74 Gender: M : 1950 Exam Date: 04/21/2024 12:38 Ordering Phys: Xavier Solorzano MD Technologist: Tez Paez [place] [facility] [place]: afib BP: 123 / 66 HR: 65 Rhythm: Sinus Technical Quality: Adequate MEASUREMENTS (Male / Female) Normal Values 2D ECHO LV Diastolic Diameter PLAX 3.2 cm 4.2 - 5.9 / 3.9 - 5.3 cm IVS Diastolic Thickness 1.6 cm 0.6 - 1.0 / 0.6 - 0.9 cm IVS Systolic Thickness 1.6 cm LVPW Diastolic Thickness 1.9 cm 0.6 - 1.0 / 0.6 - 0.9 cm LVPW Systolic Thickness 2.5 cm LVOT Diameter 2.0 cm LV Ejection Fraction 2D Teich 68.9 % LV Ejection Fraction MOD 4C 74.6 % LV Ejection Fraction MOD 2C 58.1 % LV Ejection Fraction 2C AL 59.9 % RA Systolic Volume 4C AL 38.8 ml RA Systolic Volume 4C MOD 40.2 ml LA Sys Volume AL 42.7 cm cubed LA Sys Volume Index AL 19.2 cm cubed/m squared Aorta at Sinotubular Diameter 2.6 cm IVC Diameter 1.9 cm M-MODE LA Ao Ratio MM 1.4 AV Cusp Separation MM 2.4 cm DOPPLER AV Peak Velocity 122.0 cm/s LVOT Peak Velocity 117.0 cm/s AV Area Cont Eq vti 2.3 cm squared AV Area Cont Eq pk 3.0 cm squared MV Peak Velocity 104.0 cm/s MV Area PHT 5.5 cm squared Mitral E to A Ratio 0.8 TR Peak Velocity 102.0 cm/s TR Peak Gradient 4.2 mmHg TR Mean Velocity 76.0 cm/s TR Mean Gradient 2.5 mmHg TR Velocity Time Integral 25.4 cm PV Peak Velocity 106.7 cm/s RV Ejection Time 0.3 s FINDINGS Left Ventricle Normal left ventricular size, systolic function. Mild concentric left ventricular hypertrophy, with no regional wall motion abnormalities. Left ventricular ejection fraction is estimated at 60 %. Right Ventricle Normal right ventricular size and systolic function. Right Atrium Normal right atrial size. Left Atrium Mildly increased left atrial size. Mitral Valve Thickened mitral valve. Trace mitral valve regurgitation. Aortic Valve Thickened aortic valve. No aortic valve stenosis. Tricuspid Valve Structurally normal tricuspid valve. Trace tricuspid valve regurgitation. Pulmonic Valve Pulmonic valve not well visualized. Pericardium No pericardial effusion. Aorta Normal size aortic root and proximal ascending aorta. IVC Normal inferior vena cava. CONCLUSIONS Normal left ventricle systolic function. Normal LVEF estimated at 60%. Normal chamber sizes. No significant valvular abnormality noted. Normal right heart and pulmonary pressures. Reanna Gaines MD (Electronically Signed) Final Date: 21 April 2024 13:29 S
[2024-04-21 10:02] LABS: Specific Gravity, Urine 1.015 (1.005-1.030); Urine Appearance Cloudy (CLEAR); Urine Color Red (Yellow); pH Urine 9 (5-7)
[2024-04-21 10:03] LABS: Add Urine Culture? Yes; Add Urine Microscopic? YES; Bacteria Urine TRACE /hpf; Bilirubin Urine Neg (Negative); Blood Urine 3+ (Negative); Glucose Urine UA 2+ (Normal); Ketones Urine 1+ (Negative); Leukocyte Esterase Urine Negative (Negative); Nitrate Urine Negative (Negative); Protein Urine 2+ (Negative); RBC Urine TOO NUMEROUS TO CNT /hpf (0-2); Urobilinogen Urine Norm (Negative)
[2024-04-21] MEDS: levETIRAcetam 1,000 MG/100 ML PREMIX 400 MG IV (10:14)
[2024-04-21] MEDS: pantoprazole 40 mg SDV IVP (10:19)
[2024-04-21] MEDS: metoprolol tartrate 25 mg Tablet 12.5 MG PO (10:19)
[2024-04-21 10:29] LABS: Thyroid Stimulating Hormone 6.23 uIU/mL (0.27-4.20)
[2024-04-21 10:39] LABS: Troponin(5th) Baseline 136 ng/L (0-15)
--- NOTE | 2024-04-21 10:54 | CTR_ITS ---
PROCEDURE INFORMATION: Exam: CT Abdomen And Pelvis Without Contrast Exam date and time: 04/21/2024 11:14 AM Age: 74 years old Clinical indication: Other: Blood in urine TECHNIQUE: Imaging protocol: Computed tomography of the abdomen and pelvis without contrast. Radiation optimization: All CT scans at this facility use at least one of these dose optimization techniques: automated exposure control; mA and/or kV adjustment per patient size (includes targeted exams where dose is matched to clinical indication); or iterative reconstruction. COMPARISON: CT angio abd aorta runof [id number] 07/25/2023 10:37 AM RADIATION DOSE METRICS: Total DLP (mGy-cm): 1142.77 FINDINGS: Lungs: Moderate bibasilar atelectasis/infiltrate. Liver: Stable nodularity to the contour of the liver which may reflect chronic liver disease. Recommend clinical correlation. Gallbladder and biliary ducts: Status post cholecystectomy. Pancreas: Pancreas is unremarkable in appearance. No ductal dilation. Spleen: The spleen is normal in size and contour. Adrenal glands: Adrenal glands are unremarkable in appearance. Kidneys and ureters: Kidneys and ureters are unremarkable in appearance. No hydronephrosis. No radio-opaque stone. Stomach and bowel: Scattered colonic diverticula. Appendix: Visualized portions of the appendix are unremarkable. Intraperitoneal space: No ascites. Vasculature: Moderate calcified plaque is seen involving the abdominal aorta. Lymph nodes: No abdominal or pelvic lymphadenopathy. Urinary bladder: Estrada catheter and air seen within a nondistended bladder. Nonspecific bladder wall thickening which may be related to underdistention. Cystitis cannot be excluded. Reproductive: Prostate gland measures up to 3 cm in size. Bones/joints: No acute bony abnormality. Soft tissues: Right inguinal hernia containing fat. CT/CT kidney stone [id number] IMPRESSION: 1. No hydronephrosis. No radiopaque renal or ureteral stone. If hematuria persists, consider further evaluation with CT urogram. 2. Nonspecific bladder wall thickening which may be related to underdistention. Cystitis cannot be excluded. 3. Moderate bibasilar atelectasis/infiltrate.
[2024-04-21 10:59] LABS: Troponin 5 2HR Delta 5.6 ABS# (0-10)
[2024-04-21 11:00] LABS: Lactic Sepsis W/Reflex 1.5 mmol/L (0.5-2.2)
[2024-04-21 11:08] LABS: Troponin 5 2HR 141.6 ng/L (0-15)
--- NOTE | 2024-04-21 11:26 | PC.NURSE ---
Per Dr. Solorzano, hold on heparin drip until after abdominal CT. Dr. Solorzano ordered to pause Cardizem drip, not to titrate down. Patient in SR on monitor.
--- NOTE | 2024-04-21 13:03 | P.HP_ITS ---
Providers/Chief Complaint 2 Admitting Physician: Xavier Solorzano MD Primary Care Provider: Jenn Quiroga NP Chief Complaint: SEIZURE History of Present Illness Robert Verduzco is a 74 year old male GERD, history of liver cirrhosis, BPH, chronic anemia, generalized anxiety disorder, hypertension, end-stage renal disease on dialysis, COPD, who is a resident at [facility] who presents [facility] due to unresponsive episode, seizures, encephalopathy, A-fib with RVR. Currently patient is alert to person, not to place, not to time, he does not follow commands encephalopathic, I cannot get any significant history from him. According to [facility], patient needs a Елена lift for ambulation, he does have episodes of confusion, but normally can carry conversations, can feed himself. Overnight patient had an episode in which she was sitting in his chair he became unresponsive, nursing staff laid him to the ground, and patient was seizing, thus that is why he was sent to the emergency room for evaluation. Currently in the emergency room he was postictal, found to have A-fib with RVR, placed on a Cardizem drip, CT head no acute findings, chest x-ray no acute findings, hospitalist team was called for evaluation. Review of Systems 2 General: Reports: ROS unobtainable due to mental status Medications/Allergies Home Medications Medication Instructions Recorded Confirmed Last Taken Type acetaminophen 325 mg capsule 650 mg PO Q4H PRN pain or fever 05/20/21 02/13/24 Unknown History aluminum-mag hydroxide-simethicone 15 ml PO Q6H PRN Indigestion 05/20/21 02/13/24 Unknown History 400 mg-400 mg-40 mg/5 mL oral susp (Mylanta Maximum Strength) bisacodyl 5 mg tablet,delayed 20 mg PO DAILY PRN Constipation 05/20/21 02/13/24 Unknown History release diphenhydramine HCl 25 mg capsule 25 mg PO BEDTIME PRN Allergy 05/20/21 02/13/24 Unknown History Symptoms dutasteride 0.5 mg capsule 0.5 mg PO DAILY@05/20/21 02/13/24 01/23/24 08:28 History ferrous sulfate 325 mg (65 mg 325 mg PO DAILY@05/20/21 02/13/24 01/23/24 08:30 History iron) tablet melatonin 5 mg tablet 5 mg PO BEDTIME 05/20/21 02/13/24 01/21/24 History metoprolol tartrate 25 mg tablet 12.5 mg PO BID 05/20/21 02/13/24 01/23/24 08:30 History scopolamine base 1 mg over 3 days 1 patch transdermal Q3D PRN Nausea 05/20/21 02/13/24 01/17/24 History transdermal patch And Vomiting spironolactone 25 mg tablet 25 mg PO DAILY@08 05/20/21 02/13/24 01/23/24 08:30 History tamsulosin 0.4 mg capsule 0.4 mg PO QPM 05/20/21 02/13/24 01/22/24 History ASO Left #1 ea 06/01/21 02/13/24 Unknown Rx cam boot #1 ea 06/01/21 02/13/24 Unknown Rx albuterol sulfate 90 mcg/actuation 2 puff inhalation Q4H PRN 09/28/23 02/13/24 Unknown History aerosol inhaler Shortness Of Breath Or Wheezing bisacodyl 10 mg rectal suppository 10 mg LA DAILY PRN Constipation 01/23/24 02/13/24 Unknown History (Dulcolax (bisacodyl)) guaifenesin 600 mg tablet, 600 mg PO Q12H PRN unknown 01/23/24 02/13/24 Unknown History extended release 12 hr (Mucinex) loperamide 2 mg tablet See Rx Instructions .Route .COMPLEX 01/23/24 02/13/24 Unknown History magnesium hydroxide 400 mg/5 mL 30 ml PO DAILY PRN Constipation 01/23/24 02/13/24 Unknown History oral suspension (Milk of Magnesia) hnmgffjdzdlx-kxzltxph-khsemo 1 tab PO DAILY@08 01/23/24 02/13/24 01/23/24 08:30 History tablet (Multivitamin 50 Plus tablet) psyllium seed (sugar) oral powder See Rx Instructions .Route .COMPLEX 01/23/24 02/13/24 01/23/24 08:30 History (Metamucil (sugar) oral powder) sodium chloride 0.65 % nasal spray 1 spray intranasal Q2H PRN Dry 01/23/24 02/13/24 Unknown History aerosol (Deep Sea Nasal) Nasal Passages sodium phosphates 19 gram-7 118 ml LA DAILY PRN Constipation 01/23/24 02/13/24 Unknown History gram/118 mL enema (Fleet Enema) tramadol 50 mg tablet 50 mg PO Q4H PRN Pain 01/23/24 02/13/24 Unknown History vitamin A and D See Rx Instructions .Route .COMPLEX 01/23/24 02/13/24 Unknown History Allergies Allergy/AdvReac Type Severity Reaction Status Date / Time NSAIDS (Non-Steroidal Allergy Mild Rash Verified 02/13/24 14:22 Anti-Inflamma PFSH Acute 2 PFSH: Medical History Gastro-esophageal reflux disease without esophagitis Contracture, left hand Chronic obstructive pulmonary disease, unspecified Attention-deficit hyperactivity disorder, unspecified type Motion sickness, sequela Insomnia, unspecified Post-traumatic stress disorder, chronic Restless legs syndrome 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 ascites Contracture, right hand COVID-19 Benign prostatic hyperplasia with lower urinary tract symptoms Secondary osteoarthritis, left hand Other recurrent depressive disorders Anemia in other chronic diseases classified elsewhere Secondary osteoarthritis, right hand Generalized anxiety disorder Cervicalgia Muscle weakness (generalized) Essential (primary) hypertension Dementia in other diseases classified elsewhere without behavioral disturbance Hereditary and idiopathic neuropathy, unspecified Vitals/I&O/Wt Last Vital Signs Temp 98.8 F 04/21/24 12:05 Pulse 74 04/21/24 12:05 Resp 18 04/21/24 12:05 BP 123/66 04/21/24 12:05 Pulse Ox 99 04/21/24 12:05 O2 Del Method Nasal Cannula 04/21/24 12:05 O2 Flow Rate 2.5 04/21/24 12:05 04/20/24 04/21/24 04/21/24 22:59 06:59 14:59 Intake Total 664.499 / 664.499 Balance 664.499 / 664.499 Weight last 48 hrs Weight 98.089 kg Weight 99.79 kg Physical Exam 2 Const: COMMON NORMALS: no acute distress EXAM LIMITATIONS: altered mental status ORIENTATION/CONSCIOUSNESS: Yes awake, Yes oriented to person and Yes confused; not oriented to place and not oriented to time Eye: COMMON NORMALS: Equal, round and reactive pupils present Neck/C-Spine: OTHER: No neck stiffness, Kernig sign negative, Brudzinski sign negative Lymph: LYMPHATIC: no lymphadenopathy noted Resp: COMMON NORMALS: normal respiratory effort, No retractions, No use of accessory muscles and clear to auscultation bilaterally AUSCULTATION: clear to auscultation bilaterally Cardio: COMMON NORMALS: regular rate, regular rhythm, S1 normal heart sound present and S2 normal heart sound present RATE: regular rate RHYTHM: r egular rhythm HEART SOUNDS: S1 normal heart sound present and S2 normal heart sound present GI: COMMON NORMALS: Normal to inspection, nondistended, normoactive bowel sounds present, Soft to palpation and non-tender Extremity: COMMON NORMALS: no calf tenderness and no pedal edema NARRATIVE EXTREMITY EXAM: Bilateral extremities, multiple superficial, bruises, skin skin changes, very stages of healing Neuro: OTHER: Does not follow neurologic testing Psych: COMMON NORMALS: mental status grossly normal Urinary Catheter Management: Estrada: Cath Placed During This Visit: yes Urinary Catheter Date of Insertion: 04/21/24 Urinary Catheter Time of Insertion: 09:39 Data 04/21/24 06:19 04/21/24 06:19 Micro: Microbiology 04/21/24 09:11 Blood Culture - Preliminary Blood SPECIMEN COLLECTED 04/21/24 09:11 Blood Culture - Preliminary Blood SPECIMEN COLLECTED A&P Assessment and plan (1) Acute encephalopathy: (2) Atrial fibrillation with RVR: (3) PVD (peripheral vascular disease): (4) Acute renal failure on dialysis: (5) Generalized seizure: Plan Acute encephalopathy ? Potentially related to UTI ?potentially postictal -Neurochecks ? Aspiration precautions ? N/A stroke scale ? Seizure precautions ? Monitor mentation closely ? Keep n.p.o. Seizure Keppra 1000 mg IV daily A-fib with RVR ? Continue Cardizem drip ? Continue amiodarone drip UTI, continue Rocephin NSTEMI ? Serial EKGs consult once, telemetry monitoring ? Aspirin, statin ? Heparin drip Cardiac echo Concerns for pneumonia on CT ? Rocephin, azithromycin End-stage renal disease on dialysis, resume dialysis tomorrow Hematuria, CT scan abdomen pelvis Full code ? Heparin for DVT prophylaxis, n.p.o., Protonix for GI prophylaxis Attestations 2 Medical Necessity Statement*: Patient requires hospitalization, inpatient, greater than 2 midnights, for acute encephalopathy, seizures, A-fib with RVR, UTI, NSTEMI, concerns for pneumonia, hematuria Diagnoses Acute encephalopathy G93.40 Atrial fibrillation with RVR I48.91 PVD (peripheral vascular disease) I73.9 Acute renal failure on dialysis N17.9; Z99.2 Generalized seizure R56.9
[2024-04-21] MEDS: cefTRIAXone 1,000 mg SDV 1000 MG IVP (13:12)
[2024-04-21] MEDS: azithromycin 500 MG in sodium chloride 0.9% 250 ML 250 MG IV (13:16)
--- NOTE | 2024-04-21 14:52 | ECG_ITS ---
[facility] Test Date: 2024-04-21 Pat Name: Robert Verduzco Department: Room: ICU12 Gender: Male Hatchery Helper: : 1950 Requested By: Xavier Solorzano Order Number: [id number] Liza MD: Reanna Gaines M.D. Measurements Intervals [place] Rate: 77 P: 63 AK: 187 QRS: 26 QRSD: 106 T: 64 QT: 388 QTc: 439 Interpretive Statements SINUS RHYTHM WITH SINUS ARRHYTHMIA Compared to ECG 04/21/2024 06:02:28 Sinus tachycardia no longer present Ventricular premature complex(es) no longer present ST (T wave) deviation no longer present Electronically Signed On 04-21-2024 12:27:08 CDT by Reanna Gaines M.D. [id number]
[2024-04-21 15:40] LABS: Troponin 5 6HR 156.5 ng/L (0-15); Troponin 5 6HR Delta 20.5 ng/L (0-12)
--- NOTE | 2024-04-21 16:17 | PC.NURSE ---
Dr. Solorzano verbal order to start heparin drip, no bolus, monitor urine closely.
[2024-04-21] MEDS: heparin drip 25,000 UNIT/500 ML PREMIX 28 UNIT IV (16:18)
[2024-04-21] MEDS: lanolin oint 7 gm 1 APPLIC TOPICAL (17:38)
[2024-04-21] MEDS: potassium chloride premix 100 ML 50 MEQ IV (18:10)
--- NOTE | 2024-04-21 19:50 | P.CONIM_ITS ---
Providers/Reason For Consult 2 Consulting Physician/Specialty*: [facility]/Nephrology Reason for Consult*: ESRD Attending Physician: Xavier Solorzano MD Primary Care Provider: Jenn Quiroga NP History of Present Illness History of Present Illness Robert Verduzco is a 74 year old male 74-year-old male with past medical history of liver cirrhosis, chronic anemia, hypertension, end-stage renal disease on dialysis was sent to the emergency department due to altered mental status and became unresponsive while he was at the halfway. In the ER patient was noted to be in A-fib with RVR currently on Cardizem drip, CT head with no acute findings. Review of Systems 2 Narrative: NEGATIVE Medications/Allergies Home Medications Medication Instructions Recorded Confirmed Last Taken Type acetaminophen 325 mg capsule 650 mg PO Q4H PRN pain or fever 05/20/21 02/13/24 Unknown History aluminum-mag hydroxide-simethicone 15 ml PO Q6H PRN Indigestion 05/20/21 02/13/24 Unknown History 400 mg-400 mg-40 mg/5 mL oral susp (Mylanta Maximum Strength) bisacodyl 5 mg tablet,delayed 20 mg PO DAILY PRN Constipation 05/20/21 02/13/24 Unknown History release diphenhydramine HCl 25 mg capsule 25 mg PO BEDTIME PRN Allergy 05/20/21 02/13/24 Unknown History Symptoms dutasteride 0.5 mg capsule 0.5 mg PO DAILY@08 05/20/21 02/13/24 01/23/24 08:28 History ferrous sulfate 325 mg (65 mg 325 mg PO DAILY@05/20/21 02/13/24 01/23/24 08:30 History iron) tablet melatonin 5 mg tablet 5 mg PO BEDTIME 05/20/21 02/13/24 01/21/24 History metoprolol tartrate 25 mg tablet 12.5 mg PO BID 05/20/21 02/13/24 01/23/24 08:30 History scopolamine base 1 mg over 3 days 1 patch transdermal Q3D PRN Nausea 05/20/21 02/13/24 01/17/24 History transdermal patch And Vomiting spironolactone 25 mg tablet 25 mg PO DAILY@08 05/20/21 02/13/24 01/23/24 08:30 History tamsulosin 0.4 mg capsule 0.4 mg PO QPM 05/20/21 02/13/24 01/22/24 History ASO Left #1 ea 06/01/21 02/13/24 Unknown Rx cam boot #1 ea 06/01/21 02/13/24 Unknown Rx albuterol sulfate 90 mcg/actuation 2 puff inhalation Q4H PRN 09/28/23 02/13/24 Unknown History aerosol inhaler Shortness Of Breath Or Wheezing bisacodyl 10 mg rectal suppository 10 mg OH DAILY PRN Constipation 01/23/24 02/13/24 Unknown History (Dulcolax (bisacodyl)) guaifenesin 600 mg tablet, 600 mg PO Q12H PRN unknown 01/23/24 02/13/24 Unknown History extended release 12 hr (Mucinex) loperamide 2 mg tablet See Rx Instructions .Route .COMPLEX 01/23/24 02/13/24 Unknown History magnesium hydroxide 400 mg/5 mL 30 ml PO DAILY PRN Constipation 01/23/24 02/13/24 Unknown History oral suspension (Milk of Magnesia) bjguhxzglqyt-vbjavelb-feullw 1 tab PO DAILY@08 01/23/24 02/13/24 01/23/24 08:30 History tablet (Multivitamin 50 Plus tablet) psyllium seed (sugar) oral powder See Rx Instructions .Route .COMPLEX 01/23/24 02/13/24 01/23/24 08:30 History (Metamucil (sugar) oral powder) sodium chloride 0.65 % nasal spray 1 spray intranasal Q2H PRN Dry 01/23/24 02/13/24 Unknown History aerosol (Deep Sea Nasal) Nasal Passages sodium phosphates 19 gram-7 118 ml OH DAILY PRN Constipation 01/23/24 02/13/24 Unknown History gram/118 mL enema (Fleet Enema) tramadol 50 mg tablet 50 mg PO Q4H PRN Pain 01/23/24 02/13/24 Unknown History vitamin A and D See Rx Instructions .Route .COMPLEX 01/23/24 02/13/24 Unknown History Allergies Allergy/AdvReac Type Severity Reaction Status Date / Time NSAIDS (Non-Steroidal Allergy Mild Rash Verified 02/13/24 14:22 Anti-Inflamma Current Medications Generic Name Dose Route Start Last Admin Trade Name Freq PRN Reason Stop Dose Admin Ceftriaxone Sodium 1,000 mg 04/21/24 13:15 04/21/24 13:12 Ceftriaxone 1,000 Mg Sdv IVP 1,000 mg Q24H JOHN Administration Protocol Diltiazem HCl 100 mg/ Sodium 100 mls @ 0 mls/hr 04/21/24 06:15 04/21/24 11:26 Chloride IV 0 mg/hr .Q0M JOHN 0 mls/hr Titration Protocol Per Protocol Levetiracetam 1,000 mg in 100 mls @ 400 mls/hr 04/21/24 10:01 04/21/24 10:42 Keppra IV Infused Q24H JOHN Infusion Heparin Sodium/Sodium Chloride 25,000 unit in 500 mls @ 0 mls/hr 04/21/24 10:01 04/21/24 16:18 Heparin Drip IV 14.03 unit/kg/hr .Q0M JOHN 28 mls/hr Administration Protocol Per Protocol Azithromycin 500 mg/ Sodium 250 mls @ 250 mls/hr 04/21/24 13:15 04/21/24 14:20 Chloride IV Infused Q24H JOHN Infusion Protocol Potassium Chloride 100 mls @ 50 mls/hr 04/21/24 18:00 04/21/24 18:10 K-Kenny Premix IV 04/21/24 19:59 50 mls/hr ONCE ONE Administration Lanolin 1 applic 04/21/24 17:01 04/21/24 17:38 Lanolin Oint 7 Gm TOPICAL 1 applic PRN PRN Administration DRYNESS Metoprolol Tartrate 12.5 mg 04/21/24 10:01 04/21/24 18:05 Metoprolol Tartrate 25 Mg Tablet PO Not Given BID JONH Pantoprazole Sodium 40 mg 04/21/24 10:01 04/21/24 10:19 Pantoprazole 40 Mg Sdv IVP 40 mg Q24H JOHN Administration Tamsulosin HCl 0.4 mg 04/21/24 18:00 04/21/24 18:05 Tamsulosin 0.4 Mg Capsule PO Not Given QPM JOHN PFSH Acute 2 PFSH: Medical History Gastro-esophageal reflux disease without esophagitis Contracture, left hand Chronic obstructive pulmonary disease, unspecified Attention-deficit hyperactivity disorder, unspecified type Motion sickness, sequela Insomnia, unspecified Post-traumatic stress disorder, chronic Restless legs syndrome 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 ascites Contracture, right hand COVID-19 Benign prostatic hyperplasia with lower urinary tract symptoms Secondary osteoarthritis, left hand Other recurrent depressive disorders Anemia in other chronic diseases classified elsewhere Secondary osteoarthritis, right hand Generalized anxiety disorder Cervicalgia Muscle weakness (generalized) Essential (primary) hypertension Dementia in other diseases classified elsewhere without behavioral disturbance Hereditary and idiopathic neuropathy, unspecified Vitals/I&O/Wt Last Vital Signs Temp 98.8 F 04/21/24 12:05 Pulse 66 04/21/24 16:20 Resp 27 H 04/21/24 16:20 BP 131/64 04/21/24 16:20 Pulse Ox 99 04/21/24 16:20 O2 Del Method Nasal Cannula 04/21/24 16:20 O2 Flow Rate 2.5 04/21/24 16:20 04/21/24 04/21/24 04/21/24 06:59 14:59 22:59 Intake Total 914.499 / 914.499 0 / 914.499 Output Total 500 / 500 Balance 414.499 / 414.499 0 / 414.499 Weight last 48 hrs Weight 98.089 kg Weight 99.79 kg Physical Exam 2 Narrative: No distress s1s2 rrr per report lungs clear per report No edema Urinary Catheter Management: Estrada: Cath Placed During This Visit: yes Reason for Continuing Indwelling Catheter: Accurate Measurement of Urinary Output in Critically Ill Patients Urinary Catheter Date of Insertion: 04/21/24 Urinary Catheter Time of Insertion: 09:39 Data 04/21/24 06:19 04/21/24 06:19 Micro: Microbiology 04/21/24 09:11 Blood Culture - Preliminary Blood SPECIMEN COLLECTED 04/21/24 09:11 Blood Culture - Preliminary Blood SPECIMEN COLLECTED A&P Assessment and plan (1) ESRD (end stage renal disease) on dialysis: 1. End-stage renal disease: On MWF schedule as outpatient, plan for HD today, no acute indication for dialysis today 2. History of hypertension: Blood pressure controlled, resume home medications 3. Acute encephalopathy: Likely metabolic in the setting of possible UTI and seizure. 4. A-fib with RVR, on Cardizem drip 5. Seizure on IV Keppra 6. Gross hematuria, likely Estrada trauma, CT scan with no hydronephrosis no renal stone. Patient evaluated using audiovisual cart. Time spent 40 minutes. Consult Attestations 2 Medical Necessity Statement: Per medicine team Coding Level of Care Code Acute Code for Chg Fwd Diagnoses ESRD (end stage renal disease) on dialysis N18.6; Z99.2
[2024-04-21] MEDS: hyDRALAzine 20 mg/mL INJ 1 mL 10 MG IVP (21:37)
[2024-04-21 22:29] LABS: Partial Thromboplastin Time 116.6 SECONDS (23.9-36.7)
[2024-04-22] VITALS (65 sets, daily range): BP systolic 104–193; BP diastolic 51–114; PULSE 59–96; RESP 18–32; TEMP 36.6–37.5; O2SAT 90–100; BMI 31.1
[2024-04-22 04:55] LABS: Basophils % 0.3 %; Eosinophils # 0.1 10^3/uL (0.0-0.8); Eosinophils % 0.6 %; Hematocrit 33.9 % (37-53); Lymphocytes # 1.8 10^3/uL (0.8-4.8); Lymphocytes % 15.9 %; Mean Corpuscular HGB Conc 31.9 g/dL (30-55); Mean Corpuscular Hemoglobin 31.6 pg (27-33); Mean Corpuscular Volume 99.1 fl (82-101); Mean Platelet Volume 9.7 fL (7.4-10.4); Monocytes # 1.3 10^3/uL (0.2-0.9); Neutrophils # 8.24 10^3/uL (1.8-7.7); Neutrophils % 71.9 %; Nucleated Red Blood Cells % 0 %; Platelet Count 193 10^3/cmm (157-399); Red Blood Count 3.42 10^6/uL (3.85-5.65); Red Cell Distribution Width 14.6 % (12.1-15.1); White Blood Count 11.47 10^3/uL (3.29-11.43)
[2024-04-22 05:15] LABS: Alanine Aminotransferase 8 U/L (0-41); Albumin Level 3.5 g/dL (3.5-5.2); Alkaline Phosphatase 83 U/L (40-130); Blood Urea Nitrogen 16 mg/dL (8-23); Calcium 8.6 mg/dL (8.5-10.5); Carbon Dioxide 24 mmol/L (22-29); Chloride 101 mmol/L (98-107); Creatinine Clr Calc Pharmacy 19.4235; Globulin 3.6 g/dL (1.3-4.6); Glucose 85 mg/dL (65-115); Magnesium 1.8 mg/dL (1.7-2.3); Osmolality Calculated 288 mOsm/kg (285-295); Phosphorus 3.5 mg/dL (2.5-4.5); Sodium 139 mmol/L (136-145); Total Bilirubin 0.4 mg/dL (0.15-1.2); Total Protein 7.1 g/dL (6.6-8.7)
[2024-04-22 05:18] LABS: Anion Gap 17.4 (5-19); Aspartate Amino Transferase 16 U/L (0-40); Partial Thromboplastin Time 112.1 SECONDS (23.9-36.7); Potassium 3.4 mmol/L (3.5-5.1)
[2024-04-22 05:33] LABS: Estmated Average Glucose 80; Hemoglobin A1C 4.4 % (4.0-6.0)
[2024-04-22] MEDS: dutasteride 0.5 mg Capsule PO (08:46)
[2024-04-22] MEDS: metoprolol tartrate 25 mg Tablet 12.5 MG PO ×2 (08:46→18:44)
[2024-04-22 09:16] LABS: Troponin T (5th) Once 204 ng/L (0-15)
[2024-04-22 09:17] LABS: Hepatitis B Surface AB < 3.5 (11.5-1000); Hepatitis B Surface Antigen Non-Reactive (Nonreactive)
[2024-04-22] MEDS: levETIRAcetam 1,000 MG/100 ML PREMIX 400 MG IV (10:02)
[2024-04-22] MEDS: pantoprazole 40 mg SDV IVP (10:02)
--- NOTE | 2024-04-22 11:12 | P.PN_ITS ---
Subjective 2 Subjective: remains confused Medications: Reviewed: Yes Vitals/I&O/Wt Last Vital Signs Temp 98.8 F 04/22/24 08:45 Pulse 80 04/22/24 08:45 Resp 32 H 04/22/24 08:45 BP 169/59 04/22/24 08:45 Pulse Ox 95 04/22/24 08:45 O2 Del Method Room Air 04/22/24 08:45 O2 Flow Rate 2 04/21/24 21:40 FiO2 2 04/22/24 00:45 04/21/24 04/22/24 04/22/24 22:59 06:59 14:59 Intake Total 283.867 / 1198.366 148.133 / 1346.499 110 / 110 Output Total 450 / 950 Balance 283.867 / 698.366 -301.867 / 396.499 110 / 110 Weight last 48 hrs Weight 98.43 kg Weight 98.089 kg Weight 99.79 kg Physical Exam 2 Narrative: No distress s1s2 rrr per report lungs clear per report No edema Urinary Catheter Management: Estrada: Cath Placed During This Visit: yes Reason for Continuing Indwelling Catheter: Accurate Measurement of Urinary Output in Critically Ill Patients Urinary Catheter Date of Insertion: 04/21/24 Urinary Catheter Time of Insertion: 09:39 Data 04/22/24 04:41 04/22/24 04:41 Micro: Microbiology 04/21/24 09:40 Urine Culture - Preliminary Urine,Clean Catch 04/21/24 09:11 Blood Culture - Preliminary Blood NEGATIVE TO DATE 04/21/24 09:11 Blood Culture - Preliminary Blood NEGATIVE TO DATE A&P Assessment and plan (1) ESRD (end stage renal disease) on dialysis: 1. End-stage renal disease: On MWF schedule as outpatient, , HD today 2. History of hypertension: Blood pressure controlled, resume home medications 3. Acute encephalopathy: Likely metabolic in the setting of possible UTI and seizure. 4. A-fib with RVR, on Cardizem drip 5. Seizure on IV Keppra 6. Gross hematuria, likely Estrada trauma, CT scan with no hydronephrosis no renal stone. Patient evaluated using audiovisual cart. Time spent 40 minutes. Attestations 2 Medical Necessity Statement*: per fam Coding Level of Care Code Acute Code for Chg Fwd Diagnoses ESRD (end stage renal disease) on dialysis N18.6; Z99.2
--- NOTE | 2024-04-22 12:03 | PC.NURSE ---
PTT 71.0. No change Heparin drip.
[2024-04-22] MEDS: azithromycin 500 MG in sodium chloride 0.9% 250 ML 250 MG IV (12:37)
[2024-04-22] MEDS: cefTRIAXone 1,000 mg SDV 1000 MG IVP (12:37)
[2024-04-22] MEDS: heparin drip 25,000 UNIT/500 ML PREMIX 16 UNIT IV (12:39)
[2024-04-22] MEDS: heparin, porcine 1,000 unit/mL INJ 10 mL 1000 UNIT IV (13:04)
[2024-04-22] MEDS: ondansetron 2 mg/ML SDV 2 mL 4 MG IVP (13:20)
[2024-04-22] MEDS: dilTIAZem 30 mg Tablet PO ×2 (13:54→18:43)
--- NOTE | 2024-04-22 14:04 | P.PN_ITS ---
Subjective 2 Subjective: Patient was seen this morning, he is much more alert and awake, he does follow commands but intermittently remains confused at times, denies any fevers, no chills, no cough, no abdominal pain, no chest pain, no shortness of breath, he does not know why he is here in the hospital he does not know how he ended up here, he denies a prior history of seizures Vitals/I&O/Wt Last Vital Signs Temp 99.1 F 04/22/24 13:22 Pulse 77 04/22/24 13:22 Resp 31 H 04/22/24 13:22 BP 165/104 04/22/24 13:22 Pulse Ox 96 04/22/24 12:30 O2 Del Method Room Air 04/22/24 12:30 O2 Flow Rate 2 04/21/24 21:40 FiO2 2 04/22/24 00:45 04/21/24 04/22/24 04/22/24 22:59 06:59 14:59 Intake Total 283.867 / 1198.366 148.133 / 1346.499 472.8 / 472.8 Output Total 450 / 950 450 / 450 Balance 283.867 / 698.366 -301.867 / 396.499 22.8 / 22.8 Weight last 48 hrs Weight 98.43 kg Weight 98.089 kg Weight 99.79 kg Physical Exam 2 Const: COMMON NORMALS: no acute distress ORIENTATION/CONSCIOUSNESS: Yes awake, Yes oriented to person, Yes oriented to place and Yes confused; not oriented to time Eye: COMMON NORMALS: Equal, round and reactive pupils present and EOMs intact bilaterally PUPIL: Yes Equal, round and reactive pupils present Resp: COMMON NORMALS: normal respiratory effort, No retractions, No use of accessory muscles and clear to auscultation bilaterally AUSCULTATION: clear to auscultation bilaterally Cardio: COMMON NORMALS: regular rate, regular rhythm, S1 normal heart sound present and S2 normal heart sound present RATE: regular rate RHYTHM: r egular rhythm HEART SOUNDS: S1 normal heart sound present and S2 normal heart sound present GI: COMMON NORMALS: Normal to inspection, nondistended, normoactive bowel sounds present and non-tender Extremity: COMMON NORMALS: no calf tenderness and no pedal edema Neuro: SENSORIUM/ORIENTATION: Yes oriented to person, Yes oriented to place and No oriented to time Urinary Catheter Management: Estrada: Cath Placed During This Visit: yes Reason for Continuing Indwelling Catheter: Accurate Measurement of Urinary Output in Critically Ill Patients Urinary Catheter Date of Insertion: 04/21/24 Urinary Catheter Time of Insertion: 09:39 Data 04/22/24 04:41 04/22/24 04:41 Micro: Microbiology 04/21/24 09:40 Urine Culture - Preliminary Urine,Clean Catch 04/21/24 09:11 Blood Culture - Preliminary Blood NEGATIVE TO DATE 04/21/24 09:11 Blood Culture - Preliminary Blood NEGATIVE TO DATE A&P Assessment and plan (1) Acute encephalopathy: (2) Atrial fibrillation with RVR: (3) PVD (peripheral vascular disease): (4) Acute renal failure on dialysis: (5) Generalized seizure: Plan Acute encephalopathy, improving ? Potentially related to UTI ?potentially postictal -Neurochecks ? Aspiration precautions ? N/A stroke scale ? Seizure precautions ? Monitor mentation closely ? Keep n.p.o. Seizure Keppra 1000 mg IV daily A-fib with RVR ? Continue Cardizem drip ? Continue amiodarone drip UTI, continue Rocephin NSTEMI -Type I versus type II NSTEMI ? Continue aspirin, statin, beta-corrie ? Serial EKGs consult once, telemetry monitoring ? Aspirin, statin ? Heparin drip Cardiac echo CONCLUSIONS Normal left ventricle systolic function. Normal LVEF estimated at 60%. Normal chamber sizes. No significant valvular abnormality noted. Normal right heart and pulmonary pressures. -will monitor Concerns for pneumonia on CT ? Rocephin, azithromycin End-stage renal disease on dialysis, resume dialysis tomorrow Hematuria, CT scan abdomen pelvis, no obstructive uropathy UTI -on rocephin Full code ? Heparin for DVT prophylaxis, n.p.o., Protonix for GI prophylaxis Attestations 2 Medical Necessity Statement*: patient requires hospitalization for enecephaloapthy, uti, pneumonia, nstemi Diagnoses Acute encephalopathy G93.40 Atrial fibrillation with RVR I48.91 PVD (peripheral vascular disease) I73.9 Acute renal failure on dialysis N17.9; Z99.2 Generalized seizure R56.9
[2024-04-22] MEDS: morphine 4 mg/mL SDV 1 mL 2 MG IVP (14:07)
[2024-04-22] MEDS: aspirin 81 mg EC Tablet PO (15:11)
[2024-04-22] MEDS: heparin, porcine 1,000 unit/mL INJ 10 mL 10000 UNIT INTRACATH (16:10)
--- NOTE | 2024-04-22 16:11 | PC.NURSE ---
Report called to CSU nurseEddi. Will bring patient to room 104 when dialysis is complete.
--- NOTE | 2024-04-22 17:00 | PC.NURSE ---
Transferred to room 104 CSU, RN at bedside, patient on room air, transported via bed, all belongings with patient. Patient resting in bed, educated library consultant light use, on telemetry.
[2024-04-22 18:36] LABS: Partial Thromboplastin Time 152.5 SECONDS (23.9-36.7)
[2024-04-22] MEDS: tamsulosin 0.4 mg Capsule PO (18:44)
--- NOTE | 2024-04-22 19:37 | PC.NURSE ---
shift note pt is alert to person and place, not to time. denies any pain or shortness of breath. room air, noted when asleep, spo2 drop below 87 to 89% on room air. urine is bright red, no blood clots noted in portillo bag. see wound assessments.
[2024-04-22] MEDS: atorvastatin 40 mg Tablet PO (20:20)
[2024-04-22 23:36] LABS: Partial Thromboplastin Time 28.8 SECONDS (23.9-36.7)
[2024-04-23] VITALS (13 sets, daily range): BP systolic 131–152; BP diastolic 50–66; PULSE 60–135; RESP 16–26; TEMP 36.6–36.9; O2SAT 92–100
[2024-04-23] MEDS: dilTIAZem 30 mg Tablet PO ×4 (01:28→13:56)
[2024-04-23 04:14] LABS: Basophils # 0.1 10^3/uL (0.0-0.1); Basophils % 0.5 %; Eosinophils # 0.2 10^3/uL (0.0-0.8); Eosinophils % 2.4 %; Hematocrit 33.9 % (37-53); Lymphocytes % 21.2 %; Mean Corpuscular HGB Conc 31.6 g/dL (30-55); Mean Corpuscular Hemoglobin 32.3 pg (27-33); Mean Corpuscular Volume 102.4 fl (82-101); Mean Platelet Volume 9.7 fL (7.4-10.4); Monocytes # 1.4 10^3/uL (0.2-0.9); Neutrophils # 5.57 10^3/uL (1.8-7.7); Neutrophils % 60.4 %; Nucleated Red Blood Cells % 0 %; Platelet Count 196 10^3/cmm (157-399); Red Blood Count 3.31 10^6/uL (3.85-5.65); Red Cell Distribution Width 14.6 % (12.1-15.1); White Blood Count 9.23 10^3/uL (3.29-11.43)
[2024-04-23 04:38] LABS: Alanine Aminotransferase 6 U/L (0-41); Albumin Level 3.4 g/dL (3.5-5.2); Alkaline Phosphatase 71 U/L (40-130); Aspartate Amino Transferase 11 U/L (0-40); Blood Urea Nitrogen 10 mg/dL (8-23); Calcium 8.6 mg/dL (8.5-10.5); Carbon Dioxide 28 mmol/L (22-29); Chloride 103 mmol/L (98-107); Creatinine Clr Calc Pharmacy 27.7333; Globulin 3.6 g/dL (1.3-4.6); Glucose 91 mg/dL (65-115); Magnesium 1.8 mg/dL (1.7-2.3); Osmolality Calculated 293 mOsm/kg (285-295); Phosphorus 3.4 mg/dL (2.5-4.5); Sodium 142 mmol/L (136-145); Total Bilirubin 0.3 mg/dL (0.15-1.2)
[2024-04-23 09:22] LABS: Partial Thromboplastin Time 39.8 SECONDS (23.9-36.7)
[2024-04-23] MEDS: aspirin 81 mg EC Tablet PO (10:04)
[2024-04-23] MEDS: dutasteride 0.5 mg Capsule PO (10:04)
[2024-04-23] MEDS: metoprolol tartrate 25 mg Tablet 12.5 MG PO ×2 (10:04→18:17)
[2024-04-23] MEDS: pantoprazole 40 mg SDV IVP (10:05)
[2024-04-23] MEDS: levETIRAcetam 1,000 MG/100 ML PREMIX 400 MG IV (10:05)
--- NOTE | 2024-04-23 10:23 | P.PN_ITS ---
Subjective 2 Subjective: no new complaints Medications: Reviewed: Yes Vitals/I&O/Wt Last Vital Signs Temp 98.1 F 04/23/24 07:32 Pulse 76 04/23/24 07:32 Resp 26 H 04/23/24 07:32 BP 152/59 04/23/24 07:32 Pulse Ox 97 04/23/24 07:32 O2 Del Method Nasal Cannula 04/23/24 07:32 O2 Flow Rate 2 04/21/24 21:40 FiO2 2 04/22/24 00:45 04/22/24 04/23/24 04/23/24 22:59 06:59 14:59 Intake Total 811.6 / 1284.4 200 / 1484.4 72 Output Total 2800 / 3250 100 / 3350 Balance -1988.4 / -1965.6 100 / -1865.6 Weight last 48 hrs Weight 103.873 kg Weight 101.1 kg Weight 98.43 kg Physical Exam 2 Narrative: No distress s1s2 rrr per report lungs clear per report No edema Urinary Catheter Management: Estrada: Cath Placed During This Visit: yes Reason for Continuing Indwelling Catheter: Other Urinary Catheter Date of Insertion: 04/21/24 Urinary Catheter Time of Insertion: 09:39 Data 04/23/24 03:34 04/23/24 03:34 Micro: Microbiology 04/21/24 09:40 Urine Culture - Final Urine,Clean Catch 04/21/24 09:11 Blood Culture - Preliminary Blood NEGATIVE TO DATE 04/21/24 09:11 Blood Culture - Preliminary Blood NEGATIVE TO DATE A&P Assessment and plan (1) ESRD (end stage renal disease) on dialysis: 1. End-stage renal disease: On MWF schedule as outpatient, , HD tomorrow 2. History of hypertension: Blood pressure controlled, resume home medications 3. Acute encephalopathy: Likely metabolic in the setting of possible UTI and seizure. 4. A-fib with RVR, s/p Cardizem drip 5. Seizure on IV Keppra 6. Gross hematuria, likely Estrada trauma, CT scan with no hydronephrosis no renal stone. Patient evaluated using audiovisual cart. Time spent 40 minutes. Attestations 2 Medical Necessity Statement*: per fam Coding Level of Care Code Acute Code for Chg Fwd Diagnoses ESRD (end stage renal disease) on dialysis N18.6; Z99.2
[2024-04-23] MEDS: dilTIAZem 100 MG in sodium chloride 0.9% (add-van) 100 ML IV (11:58)
[2024-04-23] MEDS: cefTRIAXone 1,000 mg SDV 1000 MG IVP (13:13)
[2024-04-23] MEDS: azithromycin 500 MG in sodium chloride 0.9% 250 ML 250 MG IV (13:13)
--- NOTE | 2024-04-23 13:56 | P.PN_ITS ---
Subjective 2 Subjective: Patient was seen this morning, he denies any fevers, no chills, no cough, no chest pain, no lightheadedness, he is alert conversive COVID to place Coumadin glucose 8 times he is easily confused, but can follow commands Vitals/I&O/Wt Last Vital Signs Temp 97.9 F 04/23/24 12:00 Pulse 118 H 04/23/24 12:00 Resp 26 H 04/23/24 12:00 BP 147/65 04/23/24 12:00 Pulse Ox 99 04/23/24 11:23 O2 Del Method Nasal Cannula 04/23/24 11:23 O2 Flow Rate 1 04/23/24 10:00 FiO2 2 04/22/24 00:45 04/22/24 04/23/24 04/23/24 22:59 06:59 14:59 Intake Total 811.6 / 1284.4 200 / 1484.4 374.917 / 374.917 Output Total 2800 / 3250 100 / 3350 400 / 400 Balance -1988.4 / -1965.6 100 / -1865.6 -25.083 / -25.083 Weight last 48 hrs Weight 103.873 kg Weight 101.1 kg Weight 98.43 kg Physical Exam 2 Const: COMMON NORMALS: no acute distress ORIENTATION/CONSCIOUSNESS: Yes awake, Yes oriented to person and Yes oriented to place Resp: COMMON NORMALS: normal respiratory effort, No retractions, No use of accessory muscles and clear to auscultation bilaterally AUSCULTATION: clear to auscultation bilaterally Cardio: COMMON NORMALS: regular rate, regular rhythm, S1 normal heart sound present and S2 normal heart sound present RATE: regular rate RHYTHM: r egular rhythm HEART SOUNDS: S1 normal heart sound present and S2 normal heart sound present GI: COMMON NORMALS: Normal to inspection, nondistended, normoactive bowel sounds present and non-tender Extremity: COMMON NORMALS: no pedal edema Neuro: SENSORIUM/ORIENTATION: Yes oriented to person and Yes oriented to place Psych: COMMON NORMALS: mental status grossly normal Urinary Catheter Management: Estrada: Cath Placed During This Visit: yes Reason for Continuing Indwelling Catheter: Other Urinary Catheter Date of Insertion: 04/21/24 Urinary Catheter Time of Insertion: 09:39 Data 04/23/24 03:34 04/23/24 03:34 Micro: Microbiology 04/21/24 09:40 Urine Culture - Final Urine,Clean Catch 04/21/24 09:11 Blood Culture - Preliminary Blood NEGATIVE TO DATE 04/21/24 09:11 Blood Culture - Preliminary Blood NEGATIVE TO DATE A&P Assessment and plan (1) Acute encephalopathy: (2) Atrial fibrillation with RVR: (3) PVD (peripheral vascular disease): (4) Acute renal failure on dialysis: (5) Generalized seizure: (6) Hematuria: Qualifiers: Hematuria type: gross Qualified Code(s): R31.0 - Gross hematuria Plan Acute encephalopathy, improving ? Potentially related to UTI ?potentially postictal -Neurochecks ? Aspiration precautions ? N/A stroke scale ? Seizure precautions ? Monitor mentation closely ? Keep n.p.o. Seizure Keppra 1000 mg daily A-fib with RVR ? Continue Cardizem drip ? P.o. Cardizem UTI, continue Rocephin NSTEMI -Type I versus type II NSTEMI ? Continue aspirin, statin, beta-corrie ? Serial EKGs consult once, telemetry monitoring ? Aspirin, statin ? Heparin drip completed 48 hours, did develop hematuria that had to be stopped Cardiac echo CONCLUSIONS Normal left ventricle systolic function. Normal LVEF estimated at 60%. Normal chamber sizes. No significant valvular abnormality noted. Normal right heart and pulmonary pressures. -will monitor, no chest pain Cannot do stress test given patient's body habitus, remains bedbound, Елена lift, Will continue to conservatively manage Concerns for pneumonia on CT ? Rocephin, azithromycin End-stage renal disease on dialysis, resume dialysis tomorrow Hematuria, CT scan abdomen pelvis, no obstructive uropathy ? Heparin drip has been stopped ? Will flush Estrada catheter ? Monitor closely UTI -on rocephin Full code ? Heparin for DVT prophylaxis Protonix for GI prophylaxis Plan for today patient has gone back into A-fib with RVR start Cardizem drip, increase p.o. Cardizem to 60 every 6 Attestations 2 Medical Necessity Statement*: Patient requires hospitalization for A-fib with RVR, hematuria, NSTEMI, UTI, pneumonia Diagnoses Acute encephalopathy G93.40 Atrial fibrillation with RVR I48.91 PVD (peripheral vascular disease) I73.9 Acute renal failure on dialysis N17.9; Z99.2 Generalized seizure R56.9 Gross hematuria R31.0 Hematuria type: gross
--- NOTE | 2024-04-23 14:01 | PC.NURSE ---
Addendum entered by Turner Borrego RN 04/23/24 14:03: Gave extra 30mg po dose of cardizem and weaned drip rate to 10mg/hr Original Note: Pt noted to have converted back to sinus rhythm at 13:47. GAVE EXTRA
[2024-04-23 14:06] LABS: SARS Covid-2 Antigen Negative (Negative)
[2024-04-23] MEDS: morphine 4 mg/mL SDV 1 mL 2 MG IVP (16:53)
[2024-04-23] MEDS: tamsulosin 0.4 mg Capsule PO (18:17)
[2024-04-23] MEDS: ondansetron 2 mg/ML SDV 2 mL 4 MG IVP (18:46)
[2024-04-23] MEDS: heparin 5,000 unit/mL INJ 1 mL 5000 UNIT SUBCUT (20:54)
[2024-04-23] MEDS: dilTIAZem 60 mg Tablet PO (20:54)
[2024-04-23] MEDS: atorvastatin 40 mg Tablet PO (20:54)
[2024-04-24] VITALS (9 sets, daily range): BP systolic 99–157; BP diastolic 43–66; PULSE 51–69; RESP 16–21; TEMP 36.2–36.9; O2SAT 92–97
[2024-04-24] MEDS: dilTIAZem 60 mg Tablet PO ×2 (02:13→12:52)
[2024-04-24 05:20] LABS: Basophils % 0.5 %; Eosinophils # 0.4 10^3/uL (0.0-0.8); Eosinophils % 4.5 %; Lymphocytes # 1.8 10^3/uL (0.8-4.8); Lymphocytes % 22.6 %; Mean Corpuscular HGB Conc 30.6 g/dL (30-55); Mean Corpuscular Volume 104.4 fl (82-101); Mean Platelet Volume 10.6 fL (7.4-10.4); Monocytes % 13.2 %; Neutrophils # 4.58 10^3/uL (1.8-7.7); Neutrophils % 58.7 %; Nucleated Red Blood Cells % 0 %; Platelet Count 181 10^3/cmm (157-399); Red Blood Count 3.16 10^6/uL (3.85-5.65); Red Cell Distribution Width 14.3 % (12.1-15.1)
[2024-04-24 06:32] LABS: Alanine Aminotransferase 6 U/L (0-41); Albumin Level 3.1 g/dL (3.5-5.2); Alkaline Phosphatase 59 U/L (40-130); Blood Urea Nitrogen 18 mg/dL (8-23); Calcium 8.1 mg/dL (8.5-10.5); Carbon Dioxide 24 mmol/L (22-29); Chloride 103 mmol/L (98-107); Creatinine Clr Calc Pharmacy 20.6786; Globulin 3.2 g/dL (1.3-4.6); Glucose 111 mg/dL (65-115); Magnesium 1.8 mg/dL (1.7-2.3); Osmolality Calculated 291 mOsm/kg (285-295); Phosphorus 4.1 mg/dL (2.5-4.5); Sodium 139 mmol/L (136-145); Total Bilirubin 0.2 mg/dL (0.15-1.2); Total Protein 6.3 g/dL (6.6-8.7)
[2024-04-24 06:38] LABS: Aspartate Amino Transferase 11 U/L (0-40)
--- NOTE | 2024-04-24 07:21 | P.PN_ITS ---
Subjective 2 Subjective: no new complaints Medications: Reviewed: Yes Vitals/I&O/Wt Last Vital Signs Temp 98.0 F 04/24/24 04:00 Pulse 52 L 04/24/24 06:00 Resp 21 H 04/24/24 04:00 BP 99/47 04/24/24 04:00 Pulse Ox 97 04/24/24 04:00 O2 Del Method Room Air 04/24/24 04:00 O2 Flow Rate 1 04/23/24 10:00 FiO2 2 04/22/24 00:45 04/23/24 04/24/24 04/24/24 22:59 06:59 14:59 Intake Total 25.5 / 672.417 Output Total 1400 / 1800 100 / 1900 Balance -1374.5 / -1127.583 -100 / -1227.583 Weight last 48 hrs Weight 105.687 kg Weight 103.873 kg Weight 101.1 kg Physical Exam 2 Narrative: No distress s1s2 rrr per report lungs clear per report No edema Urinary Catheter Management: Estrada: Cath Placed During This Visit: yes Reason for Continuing Indwelling Catheter: Other Urinary Catheter Date of Insertion: 04/21/24 Urinary Catheter Time of Insertion: 09:39 Data 04/24/24 04:33 04/24/24 06:08 Micro: Microbiology 04/21/24 09:40 Urine Culture - Final Urine,Clean Catch A&P Assessment and plan (1) ESRD (end stage renal disease) on dialysis: 1. End-stage renal disease: On MWF schedule as outpatient, , HD today 2. History of hypertension: Blood pressure controlled, resume home medications 3. Acute encephalopathy: Likely metabolic in the setting of possible UTI and seizure. 4. A-fib with RVR, s/p Cardizem drip 5. Seizure on IV Keppra 6. Gross hematuria, likely Estrada trauma, CT scan with no hydronephrosis no renal stone. Patient evaluated using audiovisual cart. Time spent 40 minutes. Attestations 2 Medical Necessity Statement*: per medicne Coding Level of Care Code Acute Code for Chg Fwd Diagnoses ESRD (end stage renal disease) on dialysis N18.6; Z99.2
[2024-04-24] MEDS: albumin 12.5 GM/50 ML VIAL IV ×2 (08:15→08:42)
--- NOTE | 2024-04-24 08:24 | PC.HD ---
Per latin teacher's orders, heparin 1000 units loading dose administered via venous port of HD catheter at 0810. Due to pre-dialysis BPs, dialyasate temperature lowered to 35.0C and albumin prn ordered. UF goal increased to compensate for fluids to be received with albumin administration.
--- NOTE | 2024-04-24 09:14 | PC.SOCIAL ---
IMM Update Pg.2 of IMM updated. Copy provided at bedside.
--- NOTE | 2024-04-24 10:32 | P.DS_ITS ---
Discharge Providers Date of Admission: 04/21/24 07:52 Date of Discharge: April 24, 2024 Attending Provider at Admission: Xavier Solorzano MD Attending Provider at Discharge: Xavier Solorzano MD Primary Care Provider: Jenn Quiroga NP Diagnoses at Discharge Discharge Diagnosis (1) ESRD (end stage renal disease) on dialysis: Status: Acute Reason for Visit Reason for Visit: SEIZURE Hospital Course Hospital Course Robert Verduzco is a 74 year old male GERD, history of liver cirrhosis, BPH, chronic anemia, generalized anxiety disorder, hypertension, end-stage renal disease on dialysis, COPD, who is a resident at [facility] who presents [facility] due to unresponsive episode, seizures, encephalopathy, A-fib with RVR. Currently patient is alert to person, not to place, not to time, he does not follow commands encephalopathic, I cannot get any significant history from him. According to [facility], patient needs a Елена lift for ambulation, he does have episodes of confusion, but normally can carry conversations, can feed himself. Overnight patient had an episode in which she was sitting in his chair he became unresponsive, nursing staff laid him to the ground, and patient was seizing, thus that is why he was sent to the emergency room for evaluation. Currently in the emergency room he was postictal, found to have A-fib with RVR, placed on a Cardizem drip, CT head no acute findings, chest x-ray no acute findings, hospitalist team was called for evaluation. Patient was admitted to [facility] for seizure, managed with Keppra, no recurrent seizure-like episodes, discharged on Keppra 500 mg twice daily UTI, completed Rocephin therapy as inpatient Concerns for pneumonia, completed antibiotic therapy as inpatient For A-fib with RVR, initially managed on Cardizem drip, converted to normal sinus rhythm, transition to p.o. Cardizem, had recurrent episodes with A-fib with RVR requiring resumption of Cardizem drip. On discharge he will be discharged on his home metoprolol 12.5 mg twice daily, Cardizem 120 twice daily, with Eliquis therapy, follow-up with cardiology as outpatient Patient's hospitalization was complicated by hematuria, CT scan showed no obstructive uropathy, manage initially on heparin drip, which was stopped, hematuria has resolved, hemoglobin has remained stable, will discharge him on Eliquis as above. Continue to monitor for hematuria, monitor hemoglobin as ou tpatient. I did had a discussion with the patient about risk and benefits of anticoagulant therapy, shared decision making, he agreed to proceed with anticoagulant therapy Patient's hospitalization was complicated by NSTEMI -Type I versus type II, possibly related to A-fib with RVR -Troponins as high as 204 -No chest pain complaints -Echocardiogram no significant wall motion abnormalities, EF 60% -Patient is bedbound, requires Елена lift, has a deconditioned status -Given this it is hard to do stress testing on him as he would require Елена lift up to stress test table -As he remained chest pain-free, no significant hemodynamic compromise or shortness of breath complaints, decision was made to medically manage -Had a discussion with him about risk and benefits, shared decision making, he voiced understanding, all questions answered, agreed to proceed -Discharged on aspirin, statin, beta-corrie, Eliquis as above, with close follow-up cardiology as outpatient Physical Exam Const: COMMON NORMALS: no acute distress ORIENTATION/CONSCIOUSNESS: Yes awake, Yes oriented to person and Yes oriented to place Resp: COMMON NORMALS: normal respiratory effort, No retractions, No use of accessory muscles and clear to auscultation bilaterally AUSCULTATION: clear to auscultation bilaterally Cardio: COMMON NORMALS: regular rate, regular rhythm, S1 normal heart sound present and S2 normal heart sound present RATE: regular rate RHYTHM: regular rhythm HEART SOUNDS: S1 normal heart sound present and S2 normal heart sound present GI: COMMON NORMALS: Normal to inspection, nondistended, normoactive bowel sounds present and non-tender Extremity: COMMON NORMALS: no pedal edema Neuro: SENSORIUM/ORIENTATION: Yes oriented to person and Yes oriented to place Psych: COMMON NORMALS: mental status grossly normal Urinary Catheter Management: Estrada: Cath Placed During This Visit: yes Reason for Continuing Indwelling Catheter: Other Urinary Catheter Date of Insertion: 04/21/24 Urinary Catheter Time of Insertion: 09:39 Discharge Data Studies Completed and Pending Completed Studies During Hospitalization Category Date Time Status CT head wo con* [id number] Stat Cat Scan 04/21/24 05:[address] kidney stone [id number] Stat Cat Scan 04/21/24 10:54 Completed CXRP [XR chest 1V portable [id number]] Stat Exams 04/21/24 06:59 Completed CV. echo complete* [id number] Routine Ultrasound 04/21/24 10:01 Completed Pending at discharge Category Date Time Status Sestamibi Stress Test Request Routine Exams 04/23/24 13:25 Stop Req Blood Culture Stat Lab 04/21/24 09:11 Results Sputum Culture and Gram Stain Stat Lab 04/21/24 08:50 Uncollected Radiology Impressions Head CT 04/21/24 05:53 IMPRESSION: No acute intracranial abnormality. Chest X-Ray 04/21/24 06:59 IMPRESSION: No acute intrathoracic findings. Abdomen/Pelvis CT 04/21/24 10:54 IMPRESSION: 1. No hydronephrosis. No radiopaque renal or ureteral stone. If hematuria persists, consider further evaluation with CT urogram. 2. Nonspecific bladder wall thickening which may be related to underdistention. Cystitis cannot be excluded. 3. Moderate bibasilar atelectasis/infiltrate. Laboratory Results WBC 7.80 10^3/uL (3.29-11.43) 04/24/24 04:33 RBC 3.16 10^6/uL (3.85-5.65) L 04/24/24 04:33 Hgb 10.10 g/dL (11.27-16.99) L 04/24/24 04:33 Hct 33.0 % (37-53) L 04/24/24 04:33 MCV 104.4 fl (82-101) H 04/24/24 04:33 MCH 32.0 pg (27-33) 04/24/24 04:33 MCHC 30.6 g/dL (30-55) 04/24/24 04:33 RDW 14.3 % (12.1-15.1) 04/24/24 04:33 Plt Count 181 10^3/cmm (157-399) 04/24/24 04:33 MPV 10.6 fL (7.4-10.4) H 04/24/24 04:33 Neut % (Auto) 58.7 % 04/24/24 04:33 Lymph % (Auto) 22.6 % 04/24/24 04:33 [place] % (Auto) 13.2 % 04/24/24 04:33 Eos % (Auto) 4.5 % 04/24/24 04:33 Baso % (Auto) 0.5 % 04/24/24 04:33 Neut # (Auto) 4.58 10^3/uL (1.8-7.7) 04/24/24 04:33 Lymph # (Auto) 1.8 10^3/uL (0.8-4.8) 04/24/24 04:33 [place] # (Auto) 1.0 10^3/uL (0.2-0.9) H 04/24/24 04:33 Eos # (Auto) 0.4 10^3/uL (0.0-0.8) 04/24/24 04:33 Baso # (Auto) 0.0 10^3/uL (0.0-0.1) 04/24/24 04:33 Nucleated RBC % (auto) 0 % 04/24/24 04:33 Nucleated RBCs # 0.0 /100WBC 04/24/24 04:33 ESR 48 mm/hr (0-10) H 04/21/24 06:19 APTT 39.8 SECONDS (23.9-36.7) H 04/23/24 09:00 Sodium 139 mmol/L (136-145) 04/24/24 06:08 Potassium 4.0 mmol/L (3.5-5.1) 04/24/24 06:08 Chloride 103 mmol/L (98-107) 04/24/24 06:08 Carbon Dioxide 24 mmol/L (22-29) 04/24/24 06:08 Anion Gap 16.0 (5-19) 04/24/24 06:08 BUN 18 mg/dL (8-23) 04/24/24 06:08 Creatinine 3.7 mg/dL (0.7-1.2) H 04/24/24 06:08 GFR Calculation Not Reportable 04/24/24 06:08 Glucose 111 mg/dL (65-115) 04/24/24 06:08 Estimat Average Glucose 80 04/22/24 04:41 Hemoglobin A1c 4.4 % (4.0-6.0) 04/22/24 04:41 Calculated Osmolality 291 mOsm/kg (285-295) 04/24/24 06:08 Lactic Acid 1.5 mmol/L (0.5-2.2) 04/21/24 10:33 Calcium 8.1 mg/dL (8.5-10.5) L 04/24/24 06:08 Phosphorus 4.1 mg/dL (2.5-4.5) 04/24/24 06:08 Magnesium 1.8 mg/dL (1.7-2.3) 04/24/24 06:08 Total Bilirubin 0.2 mg/dL (0.15-1.2) 04/24/24 06:08 AST 11 U/L (0-40) 04/24/24 06:08 ALT 6 U/L (0-41) 04/24/24 06:08 Alkaline Phosphatase 59 U/L (40-130) 04/24/24 06:08 Troponin T 5th Gen ng/L 204 ng/L (0-15) H* 04/22/24 08:39 Troponin T Baseline 136 ng/L (0-15) H* 04/21/24 09:11 Troponin T 120 Minute 141.6 ng/L (0-15) H 04/21/24 10:33 Delta Troponin T 5.6 ABS# (0-10) 04/21/24 10:33 Troponin T Hi Sens 6Hr 156.5 ng/L (0-15) H 04/21/24 14:54 Troponin T Hi Sens 6Hr Delta 20.5 ng/L (0-12) H* 04/21/24 14:54 C-Reactive Protein 27.2 mg/L (0.0-4.9) H 04/21/24 06:19 NT-Pro-B Natriuret Pep 8846 pg/mL (0-450) H 04/21/24 06:19 Total Protein 6.3 g/dL (6.6-8.7) L 04/24/24 06:08 Albumin 3.1 g/dL (3.5-5.2) L 04/24/24 06:08 Globulin 3.2 g/dL (1.3-4.6) 04/24/24 06:08 Procalcitonin 0.21 ng/mL (0-0.5) 04/21/24 06:19 TSH 6.23 uIU/mL (0.27-4.20) H 04/21/24 06:19 Urine Color Red (Yellow) A 04/21/24 09:40 Urine Appearance Cloudy (CLEAR) A 04/21/24 09:40 Urine pH 9 (5-7) H 04/21/24 09:40 Ur Specific [place] 1.015 (1.005-1.030) 04/21/24 09:40 Urine Protein 2+ (Negative) H 04/21/24 09:40 Urine Glucose (UA) 2+ (Normal) H 04/21/24 09:40 Urine Ketones 1+ (Negative) H 04/21/24 09:40 Urine Blood 3+ (Negative) H 04/21/24 09:40 Urine Nitrate Negative (Negative) 04/21/24 09:40 Urine Bilirubin Neg (Negative) 04/21/24 09:40 Urine Urobilinogen Norm mg/dL (Negative) 04/21/24 09:40 Ur Leukocyte Esterase Negative (Negative) 04/21/24 09:40 Urine RBC Too numerous to cnt /hpf (0-2) H 04/21/24 09:40 Urine WBC 5-10 /hpf (0-5) H 04/21/24 09:40 Ur Squamous Epith Cells None /hpf (0-5) 04/21/24 09:40 Amorphous Sediment Not Reportable 04/21/24 09:40 Urine Bacteria Trace /hpf (NONE) 04/21/24 09:40 Hep Bs Antigen Non-reactive (Nonreactive) 04/22/24 04:41 Hep Bs Antibody < 3.5 (11.5-1000) L 04/22/24 04:41 SARS-CoV-2 Ag (Rapid) Negative (Negative) 04/23/24 12:15 Vitals Last Vital Signs Temp 98.2 F 04/24/24 08:23 Pulse 51 L 04/24/24 08:23 Resp 16 04/24/24 08:23 BP 103/53 04/24/24 08:23 Pulse Ox 97 04/24/24 04:00 O2 Del Method Room Air 04/24/24 04:00 O2 Flow Rate 1 04/23/24 10:00 FiO2 2 04/22/24 00:45 Discharge Plan Discharge Patient Disposition: Xfer SNF Condition: Stable Prescriptions: New aspirin 81 mg Tablet,Delayed Release (Dr/Ec) 81 mg PO DAILY 30 Days Qty: 30 0RF diltiazem HCl [Cartia XT] 120 mg capsule,extended release 24hr 120 mg PO Q12H 30 Days Qty: 60 0RF levetiracetam [Keppra] 1,000 mg tablet 500 mg PO BID 30 Days Qty: 30 0RF atorvastatin 40 mg Tablet 40 mg PO BEDTIME 30 Days Qty: 30 0RF Eliquis 5 mg Tablet 5 mg PO Q12H 30 Days Qty: 60 0RF Continued dutasteride 0.5 mg capsule 0.5 mg PO DAILY@08 ferrous sulfate 325 mg (65 mg iron) tablet 325 mg PO DAILY@08 metoprolol tartrate 25 mg tablet 12.5 mg PO BID tamsulosin 0.4 mg capsule 0.4 mg PO QPM acetaminophen 325 mg capsule 650 mg PO Q4H PRN (Reason: pain or fever) bisacodyl 5 mg tablet,delayed release (DR/EC) 20 mg PO DAILY PRN (Reason: Constipation) scopolamine base 1 mg over 3 days patch 3 day 1 patch transdermal Q3D PRN (Reason: Nausea And Vomiting) (DME) cam boot See Rx Instructions .Route .MEDSUPPLY Qty: 1 0RF Rx Instructions: As directed (DME) ASO Left See Rx Instructions .ROUTE .MEDSUPPLY Qty: 1 0RF Rx Instructions: As directed albuterol sulfate 90 mcg/actuation HFA aerosol inhaler 2 puff inhalation Q4H PRN (Reason: Shortness Of Breath Or Wheezing) loperamide 2 mg Tablet See Rx Instructions .ROUTE .COMPLEX Rx Instructions: 4 mg (2 tabs) orally initial episode of loose/diarrhea stool then 2mg (1 tab) po as needed each loose/diarrhea stool thereafter not to exceed 16mg in 24 hours tramadol 50 mg Tablet 50 mg PO Q4H PRN (Reason: Pain) Fleet Enema 19-7 gram/118 mL Enema 118 ml CO DAILY PRN (Reason: Constipation) Multivitamin 50 Plus Tablet 1 tab PO DAILY@08 [place] Nasal 0.65 % Aerosol,[place] 1 spray INTRANASAL Q2H PRN (Reason: Dry Nasal Passages) Metamucil (sugar) Powder See Rx Instructions .ROUTE .COMPLEX Rx Instructions: GIVE 1.7GR BY MOUTH 3 TIMES DAILY. guaifenesin [Mucinex] 600 mg Tablet Extended Release 12hr 600 mg PO Q12H PRN (Reason: unknown) melatonin 1 mg Tablet 1 mg PO BEDTIME Dulcolax (bisacodyl) 10 mg Suppository 10 mg CO DAILY PRN (Reason: Constipation) Probiotic 3 billion cell Capsule 3,000 mmu cells PO DAILY PRN (Reason: WHEN ON ANITIBIOTICS) Rx Instructions: administer with a meal Discontinued spironolactone 25 mg tablet 25 mg PO DAILY@08 Discharge Orders: Discharge Order (Routine); Ordered 04/24/24 Ordered By: Xavier Solorzano Referrals: [facility] [Outside] Matt Castro M.D [Physician] - 1 week Jenn Quiroga NP [Primary Care Provider] - Discharge Diet: Cardiac Discharge Activity: Resume usual activity Patient Instructions: Dialysis Diet (DC), Hemodialysis (DC), Opioid Safety Activity Restrictions/Additional Instructions: -monitor heart rate -follow up with cardiology ? CBC in 48 hours Discharge Attestations Time Spent in Discharge Care*: greater than 30 min Quality Metrics Clinical Quality Measures [ No reported AMI, CVA or VTE this stay] Coding Level of Care Code 49523 Total time (in minutes) for Discharge: 45 Diagnoses ESRD (end stage renal disease) on dialysis N18.6; Z99.2
[2024-04-24] MEDS: dutasteride 0.5 mg Capsule PO (12:52)
[2024-04-24] MEDS: apixaban 5 mg Tablet PO (12:52)
[2024-04-24] MEDS: metoprolol tartrate 25 mg Tablet 12.5 MG PO (12:53)
[2024-04-24] MEDS: aspirin 81 mg EC Tablet PO (12:53)
[2024-04-24] MEDS: levETIRAcetam 1,000 MG/100 ML PREMIX 400 MG IV (12:53)
[2024-04-24] MEDS: pantoprazole 40 mg SDV IVP (12:54)
[2024-04-24] MEDS: cefTRIAXone 1,000 mg SDV 1000 MG IVP (12:54)
[2024-04-24] MEDS: azithromycin 500 MG in sodium chloride 0.9% 250 ML 250 MG IV (12:54)
--- NOTE | 2024-04-24 15:20 | PC.NURSE ---
Discharge Note Patient discharged to [[facility]] via [w/c to private van] accompanied by [[facility] route sales driver]. Discharge instructions reviewed with patient and/or administrative representative. Mobile pharmacy medications and/or prescriptions provided. Belongings/home medications returned.
== END 2024-04-24 15:20 | disposition skilled nursing facility (03) | DRG 100 ==
LOC: ER 06:19 → CSU 08:39 → ICU 08:53 → CSU 04-22 16:41
PROVIDERS: Hospitalist; Internal Medicine; Admitting Provider Family Medicine; Emergency Provider Emergency Medicine; PCP Nurse Practitioner Family; Visit Provider Family Medicine
DX: G40.89 Other seizures (principal); I21.4 Non-ST elevation (NSTEMI) myocardial infarction; J18.9 Pneumonia, unspecified organism; N18.6 End stage renal disease; N39.0 Urinary tract infection, site not specified; G93.40 Encephalopathy, unspecified; I12.0 Hypertensive chronic kidney disease with stage 5 chronic kidney disease or end stage renal disease; I48.91 Unspecified atrial fibrillation; K21.9 Gastro-esophageal reflux disease without esophagitis; J44.9 Chronic obstructive pulmonary disease, unspecified; I73.9 Peripheral vascular disease, unspecified; N40.0 Benign prostatic hyperplasia without lower urinary tract symptoms; D64.9 Anemia, unspecified; Z99.2 Dependence on renal dialysis; Z74.01 Bed confinement status
CPT/HCPCS: 36415; 51702; 70450; 71045; 74176; 80053; 81001; 83036; 83605; 83735; 83880; 84100; 84145; 84443; 84484; 85025; 85651; 85730; 86140; 86706; 87040; 87086; 87340; 87426; 90935; 92507; 92523; 92526; 92610; 93005; 93306; 94664; 96365; 96372; 96374; 96375; 96376; 99285; J0360; J0456; J0696; J1644; J1953; J2060; J2270; J2405; J2470; J3480; J3490; J7040; J7050; P9047; Q3014

== ENCOUNTER 2024-05-08 16:34 | Inpatient (IN) | payer MEDICARE, MEDICAID, SELFPAY ==
[2024-05-08] VITALS (9 sets, daily range): BP systolic 113–142; BP diastolic 48–68; PULSE 75–95; RESP 22–28; TEMP 36.9–37; O2SAT 92–100
--- NOTE | 2024-05-08 16:47 | XRR_ITS ---
PROCEDURE INFORMATION: Exam: XR Chest Exam date and time: 05/08/2024 5:05 PM Age: 74 years old Clinical indication: Cough and shortness of breath; Additional info: Dyspnea/cough TECHNIQUE: Imaging protocol: Radiologic exam of the chest. Views: 1 view. COMPARISON: CR (CHEST, ) 04/21/2024 7:08 AM FINDINGS: Tubes, catheters and devices: Right central line terminates within the right atrium. Lungs: Unremarkable. No consolidation. Pleural spaces: Unremarkable. No pleural effusion. No pneumothorax. Heart/Mediastinum: Unremarkable. No cardiomegaly. Bones/joints: Unremarkable. XR/XR chest 1V portable [id number] IMPRESSION: 1. No acute findings. 2. Right central line terminates in the right atrium.
--- NOTE | 2024-05-08 16:56 | W.ED.RECABL ---
Documented by User: Shaun Stevenson DO 05/08/24 18:12 HPI - Recheck/Abnormal Lab/Rx General: Chief Complaint: Recheck/Abnormal Lab/Rx Stated Complaint: weakness, low hemoglobin Time Seen by Provider: 05/08/24 16:45 History of Present Illness: 74-year-old male presents emergency room via EMS he has a history of end-stage renal disease he did receive dialysis today his full course. He is on apixaban they have been monitoring outpatient hemoglobins and were told it has been dropping steadily and that his hemoglobin on 04 26 was 7.4 he was lethargic today at the completion of his dialysis and sent here for further evaluation he complains of pain all over and states he is very cold denies any specific chest pain or abdominal pain no at this time. Patient arrives here at 3 L oxygen by nasal cannula we confirmed with custodial he normally does not use any oxygen. He is also having some mild chest discomfort Related Data Home Medications Medication Instructions Recorded Confirmed acetaminophen 325 mg capsule 650 mg PO Q4H PRN pain or fever 05/20/21 04/22/24 bisacodyl 5 mg tablet,delayed 20 mg PO DAILY PRN Constipation 05/20/21 04/22/24 release dutasteride 0.5 mg capsule 0.5 mg PO DAILY@08 05/20/21 04/22/24 ferrous sulfate 325 mg (65 mg 325 mg PO DAILY@08 05/20/21 04/22/24 iron) tablet scopolamine base 1 mg over 3 days 1 patch transdermal Q3D PRN Nausea 05/20/21 04/22/24 transdermal patch And Vomiting tamsulosin 0.4 mg capsule 0.4 mg PO QPM 05/20/21 04/22/24 albuterol sulfate 90 mcg/actuation 2 puff inhalation Q4H PRN 09/28/23 04/22/24 aerosol inhaler Shortness Of Breath Or Wheezing guaifenesin 600 mg tablet, 600 mg PO Q12H PRN unknown 01/23/24 04/22/24 extended release 12 hr (Mucinex) loperamide 2 mg tablet See Rx Instructions .Route .COMPLEX 01/23/24 04/22/24 [id number]-welmmgpy-gwnzsh 1 tab PO DAILY@08 01/23/24 04/22/24 tablet (Multivitamin 50 Plus tablet) psyllium seed (sugar) oral powder See Rx Instructions .Route .COMPLEX 01/23/24 04/22/24 (Metamucil (sugar) oral powder) sodium chloride 0.65 % nasal spray 1 spray intranasal Q2H PRN Dry 01/23/24 04/22/24 aerosol (Deep Sea Nasal) Nasal Passages sodium phosphates 19 gram-7 118 ml KS DAILY PRN Constipation 01/23/24 04/22/24 gram/118 mL enema (Fleet Enema) tramadol 50 mg tablet 50 mg PO Q4H PRN Pain 01/23/24 04/22/24 bisacodyl 10 mg rectal suppository 10 mg KS DAILY PRN Constipation 04/22/24 04/22/24 (Dulcolax (bisacodyl)) lactobacillus combination no.4 3 3,000 mmu cells PO DAILY PRN WHEN 04/22/24 04/22/24 billion cell capsule (Probiotic) ON ANITIBIOTICS melatonin 1 mg tablet 1 mg PO BEDTIME 04/22/24 04/22/24 Previous Rx's Medication Instructions Recorded ASO Left #1 ea 06/01/21 cam boot #1 ea 06/01/21 apixaban 5 mg tablet (Eliquis) 5 mg PO Q12H 30 days #60 tabs 04/24/24 aspirin 81 mg tablet,delayed 81 mg PO DAILY 30 days #30 tabs 04/24/24 release atorvastatin 40 mg tablet 40 mg PO BEDTIME 30 days #30 tabs 04/24/24 diltiazem HCl 120 mg 120 mg PO Q12H 30 days #60 caps 04/24/24 capsule,extended release 24 hr (Cartia XT) levetiracetam 1,000 mg tablet 500 mg (1/2 x 1,000 mg) PO BID 30 04/24/24 (Keppra) days #30 tabs metoprolol tartrate 25 mg tablet 6.25 mg (1/4 x 25 mg) PO BID 04/24/24 days #15 tabs Allergies Allergy/AdvReac Type Severity Reaction Status Date / Time NSAIDS (Non-Steroidal Allergy Mild Rash Verified 05/08/24 16:48 Anti-Inflamma Review of Systems Const: Reports: fatigue and malaise; Denies: fever(s) or chills Card: Denies: chest pain Resp: Denies: dyspnea GI: Denies: abdominal pain : Denies: dysuria, urinary frequency or urinary urgency Musc: Denies: neck pain or back pain Skin/Breast: Denies: rash PFSH ED PFSH: Medical History Gastro-esophageal reflux disease without esophagitis Contracture, left hand Chronic obstructive pulmonary disease, unspecified Attention-deficit hyperactivity disorder, unspecified type Motion sickness, sequela Insomnia, unspecified Post-traumatic stress disorder, chronic Restless legs syndrome 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 ascites Contracture, right hand COVID-19 Benign prostatic hyperplasia with lower urinary tract symptoms Secondary osteoarthritis, left hand Other recurrent depressive disorders Anemia in other chronic diseases classified elsewhere Secondary osteoarthritis, right hand Generalized anxiety disorder Cervicalgia Muscle weakness (generalized) Essential (primary) hypertension Dementia in other diseases classified elsewhere without behavioral disturbance Hereditary and idiopathic neuropathy, unspecified Physical Exam Const: GENERAL APPEARANCE: cooperative ORIENTATION/CONSCIOUSNESS: Yes awake, Yes oriented to person, Yes oriented to place and Yes oriented to time HENMT: COMMON NORMALS: normocephalic, atraumatic and hearing grossly normal bilaterally HEAD & SCALP: normocephalic and atraumatic Resp: COMMON NORMALS: normal respiratory effort, No retractions, No use of accessory muscles and clear to auscultation bilaterally AUSCULTATION: clear to auscultation bilaterally Cardio: COMMON NORMALS: regular rate, regular rhythm and No murmurs present (Cardio) RATE: regular rate RHYTHM: regular rhythm GI: COMMON NORMALS: Soft to palpation and No hepatosplenomegaly present AUSCULTATION: Yes normoactive bowel sounds PALPATION: Yes Soft to palpation, No Tenderness to palpation present (GI), No Guarding due to palpation present (GI) and Yes No hepatosplenomegaly present Extremity: COMMON NORMALS: normal to inspection, capillary refill normal, no clubbing, cyanosis or edema, no calf tenderness and no pedal edema Neuro: SENSORIUM/ORIENTATION: Yes oriented to person, Yes oriented to place and Yes oriented to time Skin: COMMON NORMALS: no rashes or lesions noted GENERAL SKIN EXAM: no rashes or lesions noted Course Vital Signs: Vital signs: Vital Signs Temperature 98.6 F 05/08/24 16:34 Pulse Rate 92 05/08/24 18:36 Blood Pressure 136/62 05/08/24 18:36 Pulse Oximetry 92 05/08/24 18:38 Oxygen Delivery Me thod Room Air 05/08/24 18:38 Oxygen Flow Rate 3 05/08/24 18:36 MDM - Recheck/Abnormal Lab/Rx Medical Decision Making Care signed out to Dr. Bullock at change of shift. See final notes for diagnosis and disposition. Lab Data 05/08/24 16:19 05/08/24 16:19 Radiology Impressions Chest X-Ray 05/08/24 16:47 IMPRESSION: 1. No acute findings. 2. Right central line terminates in the right atrium. Head CT 05/08/24 17:28 IMPRESSION: No acute intracranial abnormality. Abdomen/Pelvis CT 05/08/24 19:01 IMPRESSION: 1. Findings consistent with proctitis. 2. Findings consistent with cirrhosis with trace perihepatic fluid. 3. Trace bilateral pleural effusions with posterior bibasilar atelectasis. Laboratory Results WBC 14.15 10^3/uL (3.29-11.43) H 05/08/24 16:19 RBC 2.26 10^6/uL (3.85-5.65) L 05/08/24 16:19 Hgb 7.10 g/dL (11.27-16.99) L 05/08/24 16:19 Hct 22.5 % (37-53) L 05/08/24 16:19 MCV 99.6 fl (82-101) 05/08/24 16:19 MCH 31.4 pg (27-33) 05/08/24 16:19 MCHC 31.6 g/dL (30-55) 05/08/24 16:19 RDW 13.8 % (12.1-15.1) 05/08/24 16:19 Plt Count 287 10^3/cmm (157-399) 05/08/24 16:19 MPV 9.4 fL (7.4-10.4) 05/08/24 16:19 Neut % (Auto) 76.7 % 05/08/24 16:19 Lymph % (Auto) 11.1 % 05/08/24 16:19 [place] % (Auto) 10.2 % 05/08/24 16:19 Eos % (Auto) 0.7 % 05/08/24 16:19 Baso % (Auto) 0.2 % 05/08/24 16:19 Neut # (Auto) 10.85 10^3/uL (1.8-7.7) H 05/08/24 16:19 Lymph # (Auto) 1.6 10^3/uL (0.8-4.8) 05/08/24 16:19 [place] # (Auto) 1.5 10^3/uL (0.2-0.9) H 05/08/24 16:19 Eos # (Auto) 0.1 10^3/uL (0.0-0.8) 05/08/24 16:19 Baso # (Auto) 0.0 10^3/uL (0.0-0.1) 05/08/24 16:19 Nucleated RBC % (auto) 0 % 05/08/24 16:19 Nucleated RBCs # 0.0 /100WBC 05/08/24 16:19 Specimen Type Arterial 05/08/24 16:56 Sample Site Radial, left 05/08/24 16:56 ABG pH 7.49 (7.35-7.45) H 05/08/24 16:56 ABG pCO2 44.2 mmHg (35-45) 05/08/24 16:56 ABG pO2 105.0 mmHg (80.0-100.0) H 05/08/24 16:56 ABG PO2/FiO2 Ratio 328 05/08/24 16:56 ABG HCO3 33.3 mmol/L (22-26) H 05/08/24 16:56 ABG O2 Saturation 99.3 05/08/24 16:56 ABG Base Excess 9.0 mmol/L (-2.0-2.0) H 05/08/24 16:56 Shashi Test Pos 05/08/24 16:56 A-a O2 Gradient 8.8 mmHg (5-10) 05/08/24 16:56 Hematocrit 18.7 % (42-52) L 05/08/24 16:56 Hgb O2 Saturation 96.8 % (95-100) 05/08/24 16:56 Carboxyhemoglobin 1.1 %THgb (0.4-20.1) 05/08/24 16:56 Methemoglobin 1.4 % (0.4-1.5) 05/08/24 16:56 Total Hemoglobin 6.1 g/dL (14-18) L 05/08/24 16:56 Sodium 139.0 mmol/L (131-143) 05/08/24 16:56 Potassium 2.7 mmol/L (3.5-5.0) L 05/08/24 16:56 Glucose 86.0 mg/dL (70-115) 05/08/24 16:56 Ionized Calcium 1.1 mmol/L (1.1-1.4) 05/08/24 16:56 O2 Delivery Device Nc 05/08/24 16:56 O2 Liters/Min 3.0 % 05/08/24 16:56 FiO2 32.0 % 05/08/24 16:56 Radiology Orderly ID Cak 05/08/24 16:56 Sodium 139 mmol/L (136-145) 05/08/24 16:19 Potassium 2.9 mmol/L (3.5-5.1) L 05/08/24 16:19 Chloride 96 mmol/L (98-107) L 05/08/24 16:19 Carbon Dioxide 32 mmol/L (22-29) H 05/08/24 16:19 Anion Gap 13.9 (5-19) 05/08/24 16:19 BUN 5 mg/dL (8-23) L 05/08/24 16:19 Creatinine 1.0 mg/dL (0.7-1.2) 05/08/24 16:19 GFR Calculation Not Reportable 05/08/24 16:19 Glucose 79 mg/dL (65-115) 05/08/24 16:19 Calculated Osmolality 284 mOsm/kg (285-295) L 05/08/24 16:19 Calcium 8.2 mg/dL (8.5-10.5) L 05/08/24 16:19 Total Bilirubin 0.5 mg/dL (0.15-1.2) 05/08/24 16:19 AST 18 U/L (0-40) 05/08/24 16:19 ALT 6 U/L (0-41) 05/08/24 16:19 Alkaline Phosphatase 78 U/L (40-130) 05/08/24 16:19 Total Protein 6.5 g/dL (6.6-8.7) L 05/08/24 16:19 Albumin 3.0 g/dL (3.5-5.2) L 05/08/24 16:19 Globulin 3.5 g/dL (1.3-4.6) 05/08/24 16:19 Urine Color Red (Yellow) A 05/08/24 18:13 Urine Appearance Turbid (CLEAR) A 05/08/24 18:13 Urine pH 8.5 (5-7) A 05/08/24 18:13 Ur Specific [place] 1.008 (1.005-1.030) 05/08/24 18:13 Urine Protein 3+ (Negative) A 05/08/24 18:13 Urine Glucose (UA) Trace (Normal) H 05/08/24 18:13 Urine Ketones Trace (Negative) 05/08/24 18:13 Urine Blood 3+ (Negative) A 05/08/24 18:13 Urine Nitrate Negative (Negative) 05/08/24 18:13 Urine Bilirubin Negative (Negative) 05/08/24 18:13 Urine Urobilinogen 0.2 mg/dL (Negative) 05/08/24 18:13 Ur Leukocyte Esterase 1+ (Negative) A 05/08/24 18:13 Urine RBC Too numerous to cnt /hpf (0-2) H 05/08/24 18:13 Urine WBC 5-10 /hpf (0-5) H 05/08/24 18:13 Ur Squamous Epith Cells 0-4 /hpf (0-5) H 05/08/24 18:13 Amorphous Sediment Not Reportable 05/08/24 18:13 Urine Bacteria 2+ /hpf (NONE) H 05/08/24 18:13 Blood Type A Positive 05/08/24 17:48 Rho(D) Type Rh positive 05/08/24 17:48 Antibody Screen Negative 05/08/24 17:48 All radiology interpretation(s) finalized by discharge Discharge Plan Discharge Patient Disposition: Placed in Observation Clinical Impression: Anemia, End stage renal disease on dialysis, Hematuria, Urinary tract infection, Weakness Coding Level of Care Code ED [employer] Rec[employer]iter for [employer] Documented by User: Zhane Bullock MD 05/08/24 20:52 HPI - Recheck/Abnormal Lab/Rx General: Chief Complaint: Recheck/Abnormal Lab/Rx Stated Complaint: weakness, low hemoglobin Time Seen by Provider: 05/08/24 16:45 Related Data Home Medications Medication Instructions Recorded Confirmed acetaminophen 325 mg capsule 650 mg PO Q4H PRN pain or fever 05/20/21 04/22/24 bisacodyl 5 mg tablet,delayed 20 mg PO DAILY PRN Constipation 05/20/21 04/22/24 release dutasteride 0.5 mg capsule 0.5 mg PO DAILY@08 05/20/21 04/22/24 ferrous sulfate 325 mg (65 mg 325 mg PO DAILY@05/20/21 04/22/24 iron) tablet scopolamine base 1 mg over 3 days 1 patch transdermal Q3D PRN Nausea 05/20/21 04/22/24 transdermal patch And Vomiting tamsulosin 0.4 mg capsule 0.4 mg PO QPM 05/20/21 04/22/24 albuterol sulfate 90 mcg/actuation 2 puff inhalation Q4H PRN 09/28/23 04/22/24 aerosol inhaler Shortness Of Breath Or Wheezing guaifenesin 600 mg tablet, 600 mg PO Q12H PRN unknown 01/23/24 04/22/24 extended release 12 hr (Mucinex) loperamide 2 mg tablet See Rx Instructions .Route .COMPLEX 01/23/24 04/22/24 hfxewlweyyeo-yvobmzwf-qmgwbr 1 tab PO DAILY@08 01/23/24 04/22/24 tablet (Multivitamin 50 Plus tablet) psyllium seed (sugar) oral powder See Rx Instructions .Route .COMPLEX 01/23/24 04/22/24 (Metamucil (sugar) oral powder) sodium chloride 0.65 % nasal spray 1 spray intranasal Q2H PRN Dry 01/23/24 04/22/24 aerosol (Deep Sea Nasal) Nasal Passages sodium phosphates 19 gram-7 118 ml KS DAILY PRN Constipation 01/23/24 04/22/24 gram/118 mL enema (Fleet Enema) tramadol 50 mg tablet 50 mg PO Q4H PRN Pain 01/23/24 04/22/24 bisacodyl 10 mg rectal suppository 10 mg KS DAILY PRN Constipation 04/22/24 04/22/24 (Dulcolax (bisacodyl)) lactobacillus combination no.4 3 3,000 mmu cells PO DAILY PRN WHEN 04/22/24 04/22/24 billion cell capsule (Probiotic) ON ANITIBIOTICS melatonin 1 mg tablet 1 mg PO BEDTIME 04/22/24 04/22/24 Previous Rx's Medication Instructions Recorded ASO Left #1 ea 06/01/21 cam boot #1 ea 06/01/21 apixaban 5 mg tablet (Eliquis) 5 mg PO Q12H 30 days #60 tabs 04/24/24 aspirin 81 mg tablet,delayed 81 mg PO DAILY 30 days #30 tabs 04/24/24 release atorvastatin 40 mg tablet 40 mg PO BEDTIME 30 days #30 tabs 04/24/24 diltiazem HCl 120 mg 120 mg PO Q12H 30 days #60 caps 04/24/24 capsule,extended release 24 hr (Cartia XT) levetiracetam 1,000 mg tablet 500 mg (1/2 x 1,000 mg) PO BID 30 04/24/24 (Keppra) days #30 tabs metoprolol tartrate 25 mg tablet 6.25 mg (1/4 x 25 mg) PO BID 30 04/24/24 days #15 tabs Allergies Allergy/AdvReac Type Severity Reaction Status Date / Time NSAIDS (Non-Steroidal Allergy Mild Rash Verified 05/08/24 16:48 Anti-Inflamma [facility] ED PFS: Medical History Gastro-esophageal reflux disease without esophagitis Contracture, left hand Chronic obstructive pulmonary disease, unspecified Attention-deficit hyperactivity disorder, unspecified type Motion sickness, sequela Insomnia, unspecified Post-traumatic stress disorder, chronic Restless legs syndrome 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 ascites Contracture, right hand COVID-19 Benign prostatic hyperplasia with lower urinary tract symptoms Secondary osteoarthritis, left hand Other recurrent depressive disorders Anemia in other chronic diseases classified elsewhere Secondary osteoarthritis, right hand Generalized anxiety disorder Cervicalgia Muscle weakness (generalized) Essential (primary) hypertension Dementia in other diseases classified elsewhere without behavioral disturbance Hereditary and idiopathic neuropathy, unspecified Course Vital Signs: Vital signs: Vital Signs Temperature 98.6 F 05/08/24 16:34 Pulse Rate 92 05/08/24 18:36 Blood Pressure 136/62 05/08/24 18:36 Pulse Oximetry 92 05/08/24 18:38 Oxygen Delivery Me thod Room Air 05/08/24 18:38 Oxygen Flow Rate 3 05/08/24 18:36 MDM - Recheck/Abnormal Lab/Rx Medical Decision Making Care signed out to Dr. Bullock at change of shift. See final notes for diagnosis and disposition. Patient care transitioned to ut at shift change. Lab review: All lab work was reviewed and interpreted by myself the emergency room physician. Patient has significant leukocytosis. Urinalysis significant hematuria but also has some white counts and 2+ bacteria given these 2 things I am treating the patient like he has a urinary tract infection that may be causing the hematuria. Also treating him as if he could be septic so a lactate and blood cultures were ordered at the time of my receive the report of urine. He is on dialysis but had dialysis today so BUN/creatinine are 5 and 1. His potassium is 2.9 and IV potassium has been ordered to replace. Since he is on dialysis I cut this down to 40 mEq. Patient has a hemoglobin of 7. This is significantly down from previous which was 10 recently. No reports of any blood in stool. He is on Eliquis. He has been having red urine he says for probably a week now at least. Could be anemia secondary to the hematuria. Chest x-ray: No acute findings. There is a right central line in place. No pneumothorax. This was reviewed and interpreted by myself the emergency room physician. I also reviewed the radiology report. CT of the abdomen and pelvis: They report consistent findings of proctitis. He has no symptoms. They also report some cirrhosis with some. [place] fluid. Trace bilateral pleural effusions. This was reviewed and interpreted by myself the emergency room physician. I also reviewed the radiology report. CT head: No acute intracranial process. no intracranial hemorrhage, no evidence of infarct. no evidence of acute fracture.This was reviewed and interpreted by myself the ER physician. Consultation: I spoke with Dr. Gifford who is on-call for the hospitalist service and he agrees to admission to observation at this time. Assessment and plan: Anemia Hematuria Urinary tract infection Weakness End-stage renal disease on dialysis Hypokalemia ? IV cefepime. Blood cultures and lactate were ordered. ? 1 unit PRBCs has been ordered. ? BUN/creatinine are 5 and 1. Patient had dialysis today. ?Careful replacement of potassium as patient is a dialysis patient. -I discussed the patient with the hospitalist on-call who is admitting the patient. - Discussed findings and plan with patient. Answered any questions. - All laboratory values were reviewed and interpreted personally by myself, the ER physician - All imaging was reviewed and interpreted personally by myself, the ER physician. - Evaluation and treatment of this problem were appropriate in the emergency setting Lab Data 05/08/24 16:19 05/08/24 16:19 Radiology Impressions Chest X-Ray 05/08/24 16:47 IMPRESSION: 1. No acute findings. 2. Right central line terminates in the right atrium. Head CT 05/08/24 17:28 IMPRESSION: No acute intracranial abnormality. Abdomen/Pelvis CT 05/08/24 19:01 IMPRESSION: 1. Findings consistent with proctitis. 2. Findings consistent with cirrhosis with trace perihepatic fluid. 3. Trace bilateral pleural effusions with posterior bibasilar atelectasis. Laboratory Results WBC 14.15 10^3/uL (3.29-11.43) H 05/08/24 16:19 RBC 2.26 10^6/uL (3.85-5.65) L 05/08/24 16:19 Hgb 7.10 g/dL (11.27-16.99) L 05/08/24 16:19 Hct 22.5 % (37-53) L 05/08/24 16:19 MCV 99.6 fl (82-101) 05/08/24 16:19 MCH 31.4 pg (27-33) 05/08/24 16:19 MCHC 31.6 g/dL (30-55) 05/08/24 16:19 RDW 13.8 % (12.1-15.1) 05/08/24 16:19 Plt Count 287 10^3/cmm (157-399) 05/08/24 16:19 MPV 9.4 fL (7.4-10.4) 05/08/24 16:19 Neut % (Auto) 76.7 % 05/08/24 16:19 Lymph % (Auto) 11.1 % 05/08/24 16:19 [place] % (Auto) 10.2 % 05/08/24 16:19 Eos % (Auto) 0.7 % 05/08/24 16:19 Baso % (Auto) 0.2 % 05/08/24 16:19 Neut # (Auto) 10.85 10^3/uL (1.8-7.7) H 05/08/24 16:19 Lymph # (Auto) 1.6 10^3/uL (0.8-4.8) 05/08/24 16:19 [place] # (Auto) 1.5 10^3/uL (0.2-0.9) H 05/08/24 16:19 Eos # (Auto) 0.1 10^3/uL (0.0-0.8) 05/08/24 16:19 Baso # (Auto) 0.0 10^3/uL (0.0-0.1) 05/08/24 16:19 Nucleated RBC % (auto) 0 % 05/08/24 16:19 Nucleated RBCs # 0.0 /100WBC 05/08/24 16:19 Specimen Type Arterial 05/08/24 16:56 Sample Site Radial, left 05/08/24 16:56 ABG pH 7.49 (7.35-7.45) H 05/08/24 16:56 ABG pCO2 44.2 mmHg (35-45) 05/08/24 16:56 ABG pO2 105.0 mmHg (80.0-100.0) H 05/08/24 16:56 ABG PO2/FiO2 Ratio 328 05/08/24 16:56 ABG HCO3 33.3 mmol/L (22-26) H 05/08/24 16:56 ABG O2 Saturation 99.3 05/08/24 16:56 ABG Base Excess 9.0 mmol/L (-2.0-2.0) H 05/08/24 16:56 Shashi Test Pos 05/08/24 16:56 A-a O2 Gradient 8.8 mmHg (5-10) 05/08/24 16:56 Hematocrit 18.7 % (42-52) L 05/08/24 16:56 Hgb O2 Saturation 96.8 % (95-100) 05/08/24 16:56 Carboxyhemoglobin 1.1 %THgb (0.4-20.1) 05/08/24 16:56 Methemoglobin 1.4 % (0.4-1.5) 05/08/24 16:56 Total Hemoglobin 6.1 g/dL (14-18) L 05/08/24 16:56 Sodium 139.0 mmol/L (131-143) 05/08/24 16:56 Potassium 2.7 mmol/L (3.5-5.0) L 05/08/24 16:56 Glucose 86.0 mg/dL (70-115) 05/08/24 16:56 Ionized Calcium 1.1 mmol/L (1.1-1.4) 05/08/24 16:56 O2 Delivery Device Nc 05/08/24 16:56 O2 Liters/Min 3.0 % 05/08/24 16:56 FiO2 32.0 % 05/08/24 16:56 Radiology Orderly ID Cak 05/08/24 16:56 Sodium 139 mmol/L (136-145) 05/08/24 16:19 Potassium 2.9 mmol/L (3.5-5.1) L 05/08/24 16:19 Chloride 96 mmol/L (98-107) L 05/08/24 16:19 Carbon Dioxide 32 mmol/L (22-29) H 05/08/24 16:19 Anion Gap 13.9 (5-19) 05/08/24 16:19 BUN 5 mg/dL (8-23) L 05/08/24 16:19 Creatinine 1.0 mg/dL (0.7-1.2) 05/08/24 16:19 GFR Calculation Not Reportable 05/08/24 16:19 Glucose 79 mg/dL (65-115) 05/08/24 16:19 Calculated Osmolality 284 mOsm/kg (285-295) L 05/08/24 16:19 Calcium 8.2 mg/dL (8.5-10.5) L 05/08/24 16:19 Total Bilirubin 0.5 mg/dL (0.15-1.2) 05/08/24 16:19 AST 18 U/L (0-40) 05/08/24 16:19 ALT 6 U/L (0-41) 05/08/24 16:19 Alkaline Phosphatase 78 U/L (40-130) 05/08/24 16:19 Total Protein 6.5 g/dL (6.6-8.7) L 05/08/24 16:19 Albumin 3.0 g/dL (3.5-5.2) L 05/08/24 16:19 Globulin 3.5 g/dL (1.3-4.6) 05/08/24 16:19 Urine Color Red (Yellow) A 05/08/24 18:13 Urine Appearance Turbid (CLEAR) A 05/08/24 18:13 Urine pH 8.5 (5-7) A 05/08/24 18:13 Ur Specific [place] 1.008 (1.005-1.030) 05/08/24 18:13 Urine Protein 3+ (Negative) A 05/08/24 18:13 Urine Glucose (UA) Trace (Normal) H 05/08/24 18:13 Urine Ketones Trace (Negative) 05/08/24 18:13 Urine Blood 3+ (Negative) A 05/08/24 18:13 Urine Nitrate Negative (Negative) 05/08/24 18:13 Urine Bilirubin Negative (Negative) 05/08/24 18:13 Urine Urobilinogen 0.2 mg/dL (Negative) 05/08/24 18:13 Ur Leukocyte Esterase 1+ (Negative) A 05/08/24 18:13 Urine RBC Too numerous to cnt /hpf (0-2) H 05/08/24 18:13 Urine WBC 5-10 /hpf (0-5) H 05/08/24 18:13 Ur Squamous Epith Cells 0-4 /hpf (0-5) H 05/08/24 18:13 Amorphous Sediment Not Reportable 05/08/24 18:13 Urine Bacteria 2+ /hpf (NONE) H 05/08/24 18:13 Blood Type A Positive 05/08/24 17:48 Rho(D) Type Rh positive 05/08/24 17:48 Antibody Screen Negative 05/08/24 17:48 Discharge Plan Discharge Patient Disposition: Placed in Observation Clinical Impression: Anemia, End stage renal disease on dialysis, Hematuria, Urinary tract infection, Weakness Coding Level of Care Code ED Inside [employer] Rec[employer]iter for [employer]
[2024-05-08 16:58] LABS: Basophils % 0.2 %; Eosinophils # 0.1 10^3/uL (0.0-0.8); Eosinophils % 0.7 %; Hematocrit 22.5 % (37-53); Lymphocytes # 1.6 10^3/uL (0.8-4.8); Lymphocytes % 11.1 %; Mean Corpuscular HGB Conc 31.6 g/dL (30-55); Mean Corpuscular Hemoglobin 31.4 pg (27-33); Mean Corpuscular Volume 99.6 fl (82-101); Mean Platelet Volume 9.4 fL (7.4-10.4); Monocytes # 1.5 10^3/uL (0.2-0.9); Monocytes % 10.2 %; Neutrophils # 10.85 10^3/uL (1.8-7.7); Neutrophils % 76.7 %; Nucleated Red Blood Cells % 0 %; Platelet Count 287 10^3/cmm (157-399); Red Blood Count 2.26 10^6/uL (3.85-5.65); Red Cell Distribution Width 13.8 % (12.1-15.1); White Blood Count 14.15 10^3/uL (3.29-11.43)
[2024-05-08 17:07] LABS: ABG PCO2 44.2 mmHg (35-45); ABG PH Result 7.49 (7.35-7.45); Alveolar-Arterial Oxygen Gradi 8.8 mmHg (5-10); Arterial Blood Gas Hematocrit 18.7 % (42-52); Blood Gas Allen Test Pos; Blood Gas Operator Identificat CAK; Blood Gas Sample Site Radial, left; Blood Gas Sample Type Arterial; Carboxyhemoglobin 1.1 %THgb (0.4-20.1); HCO3 ABG 33.3 mmol/L (22-26); HGB O2 Sat 96.8 % (95-100); Ionized Calcium Level - ABG 1.1 mmol/L (1.1-1.4); Methemoglobin 1.4 % (0.4-1.5); Oxygen Device NC; Oxygen Saturation ABG 99.3; PO2 FiO2 Ratio Arterial Blood 328; Potassium Level - ABG 2.7 mmol/L (3.5-5.0); Total Hemoglobin 6.1 g/dL (14-18)
[2024-05-08 17:17] LABS: Alanine Aminotransferase 6 U/L (0-41); Alkaline Phosphatase 78 U/L (40-130); Blood Urea Nitrogen 5 mg/dL (8-23); Calcium 8.2 mg/dL (8.5-10.5); Carbon Dioxide 32 mmol/L (22-29); Chloride 96 mmol/L (98-107); Globulin 3.5 g/dL (1.3-4.6); Glucose 79 mg/dL (65-115); Osmolality Calculated 284 mOsm/kg (285-295); Sodium 139 mmol/L (136-145); Total Bilirubin 0.5 mg/dL (0.15-1.2); Total Protein 6.5 g/dL (6.6-8.7)
[2024-05-08 17:22] LABS: Anion Gap 13.9 (5-19); Aspartate Amino Transferase 18 U/L (0-40)
[2024-05-08 17:23] LABS: Potassium 2.9 mmol/L (3.5-5.1)
--- NOTE | 2024-05-08 17:25 | PC.NURSE ---
Pt from [facility], per [facility] nurse pt does not wear oxygen normally, does have chronically low hgb, intermittently confused/fatigued post dialysis but otherwise is alert and orient. per [facility] staff, transportation has left for the day.
--- NOTE | 2024-05-08 17:28 | CTR_ITS ---
PROCEDURE INFORMATION: Exam: CT Head Without Contrast Exam date and time: 05/08/2024 5:57 PM Age: 74 years old Clinical indication: Altered mental status/memory loss; Additional info: AMS TECHNIQUE: Imaging protocol: Computed tomography of the head without contrast. Radiation optimization: All CT scans at this facility use at least one of these dose optimization techniques: automated exposure control; mA and/or kV adjustment per patient size (includes targeted exams where dose is matched to clinical indication); or iterative reconstruction. COMPARISON: CT head wo con* [id number] 04/21/2024 6:43 AM RADIATION DOSE METRICS: Total DLP (mGy-cm): 1139 FINDINGS: Brain: No hemorrhage. No edema. Moderate diffuse cerebral atrophy and sequela of chronic small vessel ischemic disease. No mass effect. Cerebral ventricles: No ventriculomegaly. Paranasal sinuses: Visualized sinuses are unremarkable. No fluid levels. Mastoid air cells: Visualized mastoid air cells are well aerated. Bones: Unremarkable. No acute fracture. Soft tissues: Unremarkable. CT/CT head wo con* [id number] IMPRESSION: No acute intracranial abnormality.
[2024-05-08] MEDS: potassium chloride premix 100 ML 25 MEQ IV (17:48)
[2024-05-08 18:18] LABS: Charge for UA Resulting for Rev
[2024-05-08 18:22] LABS: Bilirubin Urine Negative (Negative); Blood Urine 3+ (Negative); Glucose Urine UA Trace (Normal); Ketones Urine Trace (Negative); Leukocyte Esterase Urine 1+ (Negative); Nitrate Urine Negative (Negative); Protein Urine 3+ (Negative); Specific Gravity, Urine 1.008 (1.005-1.030); Urine Appearance Turbid (CLEAR); Urobilinogen Urine 0.2 mg/dL (Negative); pH Urine 8.5 (5-7)
[2024-05-08 18:55] LABS: Urine Color Red (Yellow)
[2024-05-08 18:56] LABS: Bacteria Urine 2+ /hpf; RBC Urine TOO NUMEROUS TO CNT /hpf (0-2); Squamous Epithelial Cell Urine 0-4 /hpf (0-5); UA Manual Slide Review YES
[2024-05-08 18:57] LABS: Add Urine Culture? Yes
[2024-05-08] MEDS: cefepime 2,000 MG in sodium chloride 0.9% (plus) 50 ML 100 MG IV (19:00)
--- NOTE | 2024-05-08 19:01 | CTR_ITS ---
PROCEDURE INFORMATION: Exam: CT Abdomen And Pelvis Without Contrast Exam date and time: 05/08/2024 7:22 PM Age: 74 years old Clinical indication: Other: Hematuria TECHNIQUE: Imaging protocol: Computed tomography of the abdomen and pelvis without contrast. Radiation optimization: All CT scans at this facility use at least one of these dose optimization techniques: automated exposure control; mA and/or kV adjustment per patient size (includes targeted exams where dose is matched to clinical indication); or iterative reconstruction. COMPARISON: CT kidney stone [id number] 04/21/2024 11:14 AM RADIATION DOSE METRICS: Total DLP (mGy-cm): 1029 FINDINGS: Pleural spaces: Trace bilateral pleural effusions with posterior bibasilar atelectasis. Liver: Slightly nodular contour of the liver with asymmetric atrophy of the right hepatic lobe and hypertrophy of the left hepatic lobe. Trace perihepatic fluid. Gallbladder and biliary ducts: Cholecystectomy. No ductal dilation. Pancreas: Pancreatic atrophy. No ductal dilation. Spleen: Normal. No splenomegaly. Adrenal glands: Normal. No mass. Kidneys and ureters: Moderate atrophy of the kidneys. No renal stones. No hydronephrosis. Stomach and bowel: Circumferential wall thickening of the rectal with trace fluid in the mesorectal fascia. Scattered colonic diverticulosis. No obstruction. Appendix: No evidence of appendicitis. Intraperitoneal space: Unremarkable. No free air. No significant fluid collection. Vasculature: No abdominal aortic aneurysm. Lymph nodes: Unremarkable. No enlarged lymph nodes. Urinary bladder: Estrada catheter noted within a decompressed bladder. Reproductive: Unremarkable as visualized. Bones/joints: Generalized osseous demineralization. No acute fracture. Soft tissues: Multiple punctate metallic radiopaque foreign bodies project within the gluteal soft tissues and extraperitoneal pelvis. CT/CT abdomen pelvis wo con [id number] IMPRESSION: 1. Findings consistent with proctitis. 2. Findings consistent with cirrhosis with trace perihepatic fluid. 3. Trace bilateral pleural effusions with posterior bibasilar atelectasis.
--- NOTE | 2024-05-08 20:24 | P.HP_ITS ---
Providers/Chief Complaint 2 Primary Care Provider: Jenn Quiroga NP Chief Complaint: weakness, low hemoglobin History of Present Illness Robert Verduzco is a 74 year old male with a past medical history significant for end-stage renal disease on hemodialysis, liver cirrhosis, benign prostatic hypertrophy, chronic anemia, generalized anxiety disorder, hypertension, COPD, multiple other comorbidities who presents from nursing facility with generalized weakness and fatigue. Patient reports onset 3 days ago. Endorses chills. Denies fevers. Reports exertion worsens symptoms. Rest improves. In the emergency department, labs revealed leukocytosis to 14.15, normocytic anemia with a hemoglobin of 7.1, and hypokalemia with potassium 2.9. Urinalysis revealed multiple abnormalities including 3+ urine, 3+ blood, and 0-[address] abdomen and pelvis showed proctitis, liver cirrhosis, trace bilateral pleural effusions. Patient does endorse associated diarrhea for the past few days. He describes his diarrhea is mild. Patient has end-stage renal disease. His last dialysis was today. He has anemia of end-stage renal disease. His baseline hemoglobin is around 10. Review of Systems 2 Narrative: A complete review of systems was obtained and is negative except as stated in HPI. Medications/Allergies Home Medications Medication Instructions Recorded Confirmed Last Taken Type acetaminophen 325 mg capsule 650 mg PO Q4H PRN pain or fever 05/20/21 04/22/24 Unknown History bisacodyl 5 mg tablet,delayed 20 mg PO DAILY PRN Constipation 05/20/21 04/22/24 Unknown History release dutasteride 0.5 mg capsule 0.5 mg PO DAILY@05/20/21 04/22/24 01/23/24 08:28 History ferrous sulfate 325 mg (65 mg 325 mg PO DAILY@05/20/21 04/22/24 01/23/24 08:30 History iron) tablet scopolamine base 1 mg over 3 days 1 patch transdermal Q3D PRN Nausea 05/20/21 04/22/24 01/17/24 History transdermal patch And Vomiting tamsulosin 0.4 mg capsule 0.4 mg PO QPM 05/20/21 04/22/24 01/22/24 History ASO Left #1 ea 06/01/21 04/22/24 Unknown Rx cam boot #1 ea 06/01/21 04/22/24 Unknown Rx albuterol sulfate 90 mcg/actuation 2 puff inhalation Q4H PRN 09/28/23 04/22/24 Unknown History aerosol inhaler Shortness Of Breath Or Wheezing guaifenesin 600 mg tablet, 600 mg PO Q12H PRN unknown 01/23/24 04/22/24 Unknown History extended release 12 hr (Mucinex) loperamide 2 mg tablet See Rx Instructions .Route .COMPLEX 01/23/24 04/22/24 Unknown History lniimbikryxu-lnnzcyuk-rmiwvp 1 tab PO DAILY@08 01/23/24 04/22/24 01/23/24 08:30 History tablet (Multivitamin 50 Plus tablet) psyllium seed (sugar) oral powder See Rx Instructions .Route .COMPLEX 01/23/24 04/22/24 01/23/24 08:30 History (Metamucil (sugar) oral powder) sodium chloride 0.65 % nasal spray 1 spray intranasal Q2H PRN Dry 01/23/24 04/22/24 Unknown History aerosol (Deep Sea Nasal) Nasal Passages sodium phosphates 19 gram-7 118 ml FL DAILY PRN Constipation 01/23/24 04/22/24 Unknown History gram/118 mL enema (Fleet Enema) tramadol 50 mg tablet 50 mg PO Q4H PRN Pain 01/23/24 04/22/24 Unknown History bisacodyl 10 mg rectal suppository 10 mg FL DAILY PRN Constipation 04/22/24 04/22/24 Unknown History (Dulcolax (bisacodyl)) lactobacillus combination no.4 3 3,000 mmu cells PO DAILY PRN WHEN 04/22/24 04/22/24 Unknown History billion cell capsule (Probiotic) ON ANITIBIOTICS melatonin 1 mg tablet 1 mg PO BEDTIME 04/22/24 04/22/24 Unknown History apixaban 5 mg tablet (Eliquis) 5 mg PO Q12H 30 days #60 tabs 04/24/24 Unknown Rx aspirin 81 mg tablet,delayed 81 mg PO DAILY 30 days #30 tabs 04/24/24 Unknown Rx release atorvastatin 40 mg tablet 40 mg PO BEDTIME 30 days #30 tabs 04/24/24 Unknown Rx diltiazem HCl 120 mg 120 mg PO Q12H 30 days #60 caps 04/24/24 Unknown Rx capsule,extended release 24 hr (Cartia XT) levetiracetam 1,000 mg tablet 500 mg (1/2 x 1,000 mg) PO BID 04/24/24 Unknown Rx (Keppra) days #30 tabs metoprolol tartrate 25 mg tablet 6.25 mg (1/4 x 25 mg) PO BID 04/24/24 Unknown Rx days #15 tabs Allergies Allergy/AdvReac Type Severity Reaction Status Date / Time NSAIDS (Non-Steroidal Allergy Mild Rash Verified 05/08/24 16:48 Anti-Inflamma PFSH Acute 2 PFSH: Medical History Weakness End stage renal disease on dialysis Admission for dialysis and dialysis catheter care Complication, dialysis catheter clot or failure RSV (acute bronchiolitis due to respiratory syncytial virus) Fever Nausea Non-healing wound of left lower extremity Cellulitis of right lower leg Shortness of breath Atherosclerosis of [place] artery of extremity with ulceration Atherosclerosis of [place] arteries of right leg with ulceration of unspecified site Non-healing wound of right lower extremity Closed fracture of left distal fibula Left ankle pain Gastro-esophageal reflux disease without esophagitis Contracture, left hand Chronic obstructive pulmonary disease, unspecified Attention-deficit hyperactivity disorder, unspecified type Motion sickness, sequela Insomnia, unspecified Post-traumatic stress disorder, chronic Restless legs syndrome 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 ascites Contracture, right hand COVID-19 Benign prostatic hyperplasia with lower urinary tract symptoms Secondary osteoarthritis, left hand Other recurrent depressive disorders Anemia in other chronic diseases classified elsewhere Secondary osteoarthritis, right hand Generalized anxiety disorder Cervicalgia Muscle weakness (generalized) Essential (primary) hypertension Dementia in other diseases classified elsewhere without behavioral disturbance Hereditary and idiopathic neuropathy, unspecified Surgical History S/P dialysis catheter insertion Family History Father CAD (coronary artery disease) Social History Smoking and tobacco/nicotine status: never used tobacco/nicotine Alcohol intake: never Substance/Drug Use: never Vitals/I&O/Wt Last Vital Signs Temp 98.6 F 05/08/24 16:34 Pulse 92 05/08/24 18:36 BP 136/62 05/08/24 18:36 Pulse Ox 92 05/08/24 18:38 O2 Del Method Room Air 05/08/24 18:38 O2 Flow Rate 3 05/08/24 18:36 05/08/24 05/08/24 05/08/24 06:59 14:59 22:59 Intake Total 50 / 50 Balance 50 / 50 Weight last 48 hrs Weight 104.326 kg Physical Exam 2 Narrative: General: Patient is awake. Chronically ill-appearing. Pale appearing. Head: Normocephalic. Atraumatic. EOM intact. PERRL mucous membranes. Neck: No JVD. Cardiovascular: RRR. No gallops. No murmurs. Tunneled dialysis line on right chest. Lungs: Clear to auscultation, no use of accessory muscles, no crackles or wheezes. Skin: No jaundice. No rashes. Abdomen: Normal bowel sounds, abdomen soft and nontender. Genito Urinary: Genital exam not performed since complaints not related. Rectal: Rectal exam not performed since no symptoms indicated blood loss. Extremities: No cyanosis or clubbing. Musculoskeletal: No swollen or erythematous joints. Neurological: Moves all 4 extremities. No myoclonus. Urinary Catheter Management: Estrada: Cath Placed During This Visit: yes Urinary Catheter Date of Insertion: 05/08/24 Urinary Catheter Time of Insertion: 18:17 Data 05/08/24 16:19 05/08/24 16:19 A&P Assessment and plan (1) Anemia: Acute on chronic symptomatic anemia of end-stage renal disease Suspect multiple other comorbidities contributing to anemia including hematuria Hold apixaban and aspirin, consider holding until outpatient urology evaluation is completed Start transfusion 1 packed red blood cell, monitor for fluid overload Obtain iron levels, may benefit from iron infusion (2) Hematuria: Patient with Estrada catheter CT negative for bladder or urinary mass No clots noted Hold aspirin and apixaban Will need outpatient urology evaluation (3) Prostatitis: Patient reports mild diarrhea and CT evidence of proctitis Start antibiotics with cefepime and Flagyl Consider stool studies pending clinical response (4) Atrial fibrillation: Paroxysmal atrial fibrillation Hold apixaban acute on chronic anemia and hematuria Continue home Cardizem and Lopressor for rate control (5) ESRD (end stage renal disease) on dialysis: Received dialysis earlier today, no indication for acute dialysis tonight May need nephrology consult in a.m. May benefit from EPO, defer to nephro (6) Urinary tract infection: Questionable UTI Prior cultures showed Pseudomonas Patient being treated with cefepime which will cover (7) PVD (peripheral vascular disease): Hold aspirin, consider ongoing benefit versus risk (8) Hypokalemia: Replace potassium Check Mg Plan DVT prophylaxis: SCD Attestations 2 Medical Necessity Statement*: Patient presents with generalized weakness, found to have acute on chronic anemia as well as proctitis with expected hospitalization not to cross 2 midnights for blood transfusion, antibiotics, and supportive care. Coding Level of Care Code Acute Code for Chg Fwd Diagnoses Anemia D64.9 Hematuria R31.9 Prostatitis N41.9 Atrial fibrillation I48.91 ESRD (end stage renal disease) on dialysis N18.6; Z99.2 Urinary tract infection N39.0 PVD (peripheral vascular disease) I73.9 Hypokalemia E87.6
[2024-05-08 20:50] LABS: Lactic Sepsis W/Reflex 0.9 mmol/L (0.5-2.2)
[2024-05-09] VITALS (28 sets, daily range): BP systolic 101–126; BP diastolic 54–68; PULSE 67–109; RESP 16–28; TEMP 36.4–37.3; O2SAT 87–96; BMI 33.0
[2024-05-09 00:18] LABS: Procalcitonin 0.95 ng/mL (0-0.5)
[2024-05-09] MEDS: metroNIDAZOLE IV 500 MG/100 ML PREMIX 100 MG IV ×4 (00:42→23:27)
[2024-05-09] MEDS: dilTIAZem ER (24HR) 120 mg Capsule PO ×3 (00:42→23:27)
[2024-05-09] MEDS: potassium chloride premix 100 ML 25 MEQ IV (00:44)
--- NOTE | 2024-05-09 01:19 | PC.NURSE ---
Left hand is contracted.
[2024-05-09 01:33] LABS: Iron 29 ug/dL (59-158); Percent Saturation 25.6 % (20-50); Total Iron Binding Capacity 113 mcg/dl; Unsaturated Iron Binding 84 ug/dL (112-347)
[2024-05-09 01:47] LABS: Ferritin 1687 ng/mL (30-400)
--- NOTE | 2024-05-09 05:11 | PC.NURSE ---
Notified Dr. Gifford via [employer] messenger at 0112 of small clots present in patient's portillo catheter tubing and bag. Dr Gifford stated to monitor urine output and watch for urinary retention. 300mls of urine was emptied from the patient's catheter at 0212, since that point the patient had very minimal urine output in catheter. Bladder scan performed at 0510 and showed 15mls in bladder.
--- NOTE | 2024-05-09 08:10 | PC.PHAR ---
PT IS FROM [facility]
[2024-05-09] MEDS: dutasteride 0.5 mg Capsule PO (08:11)
[2024-05-09] MEDS: levETIRAcetam 500 mg Tablet PO ×2 (08:12→17:01)
[2024-05-09] MEDS: metoprolol tartrate 25 mg Tablet 6.25 MG PO ×2 (08:12→17:01)
[2024-05-09] MEDS: ferrous sulfate EC 325 mg Tablet PO (08:12)
[2024-05-09] MEDS: TRAMadol 50 mg Tablet PO (09:04)
--- NOTE | 2024-05-09 09:32 | ECG_ITS ---
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 Measurements Intervals [place] Rate: 76 P: 0 MI: 0 QRS: 28 QRSD: 105 T: 58 QT: 404 QTc: 455 Interpretive Statements ATRIAL FIBRILLATION EARLY REPOLARIZATION [ST ELEVATION WITH NORMALLY INFLECTED T-WAVE] Compared to ECG 04/21/2024 13:11:52 Early repolarization now present Sinus rhythm no longer present Sinus arrhythmia no longer present Incomplete right bundle-branch block no longer present Electronically Signed On 05-09-2024 11:48:48 CDT by Matt Castro M.D. [id number]
--- NOTE | 2024-05-09 09:37 | PC.CHAP ---
Pastoral Care Encounter/Spiritual Assessment Type of Contact [] Declined kiln pusher visit [] Patient/Family/Request visit [] Outpatient visit [] Follow-up visit [] Physician referral [] Code/Alert [] Routine visit [] Staff referral [] Actively dying [] Patient sleeping [] Family support [] [] Out of room [] Palliative care [] [x] Receiving care in room [] Pre-surgical visit [] Trauma [] Long length of stay [] ICU visit [] Other: Relational/Emotional Strength [] Patient feels connected with others/family/visitors/staff [] Distress [] Loneliness/isolation [] Abandonment Spirituality of Patient [] Person of Anne [] Attends [facility] of their Anne [] Believes in Prayer [] Reads Bible or Advent materials [] There are Spiritual issues to be addressed Vocational Services Specialist Interventions [] Prayer [] Active listening [] Non-anxious presence [] Spiritual/emotional support [] Crisis/trauma care [] Spiritual counseling [] Bereavement support [] Provided bereavement packet [] Provided Bible/devotional materials [] Provided toy/stuffed animal, coloring book to patient or family member [] Provided Communion [] Anointing/Independence [] Salvation [] Completed spiritual assessment [] Other: Impact on Illness or Injury [] Angry [] Fearful [] Anxious [] Often cries [] Exhaustion [] Unable to work [] Unable to attend taoist [] Unable to walk/stand [] Unable to read [] Unable to drive [] Unable to eat/drink [] Unable to sleep [] Unable to be with family [] Patient intubated [] Other: Summary Time spent with patient
[2024-05-09 09:43] LABS: Basophils % 0.3 %; Eosinophils # 0.3 10^3/uL (0.0-0.8); Eosinophils % 2.8 %; Hematocrit 24.6 % (37-53); Lymphocytes # 1.2 10^3/uL (0.8-4.8); Lymphocytes % 10.4 %; Mean Corpuscular HGB Conc 31.7 g/dL (30-55); Mean Corpuscular Hemoglobin 31.1 pg (27-33); Mean Platelet Volume 8.8 fL (7.4-10.4); Monocytes # 1.3 10^3/uL (0.2-0.9); Monocytes % 10.8 %; Neutrophils # 8.59 10^3/uL (1.8-7.7); Neutrophils % 74.6 %; Nucleated Red Blood Cells % 0 %; Platelet Count 255 10^3/cmm (157-399); Red Blood Count 2.51 10^6/uL (3.85-5.65); Red Cell Distribution Width 14.9 % (12.1-15.1); White Blood Count 11.53 10^3/uL (3.29-11.43)
--- NOTE | 2024-05-09 09:58 | PC.PHAR ---
Addendum entered by Ale Gill 05/09/24 12:21: NANI FROM [email or web address] HAS VERIFIED PT IS STILL TAKING THESE MEDICATIONS, KEPPRA VERIFIED 500MG TWICE DAILY, NOT 1,000MG. 05/09/24 Original Note: [facility] MED LIST DOES NOT SHOW ASPIRIN 81MG DAILY, CARTIA XT 120MG TWICE DAILY, ELIQUIS 5 MG TWICE DAILY OR KEPPRA 1,000MG TWICE DAILY.
[2024-05-09 09:59] LABS: Anion Gap 17.8 (5-19); Blood Urea Nitrogen 11 mg/dL (8-23); Calcium 7.9 mg/dL (8.5-10.5); Carbon Dioxide 26 mmol/L (22-29); Chloride 99 mmol/L (98-107); Creatinine Clr Calc Pharmacy 33.0552; Glucose 87 mg/dL (65-115); Magnesium 2.2 mg/dL (1.7-2.3); Osmolality Calculated 287 mOsm/kg (285-295); Phosphorus 1.6 mg/dL (2.5-4.5); Potassium 3.8 mmol/L (3.5-5.1); Sodium 139 mmol/L (136-145)
[2024-05-09] MEDS: bacitracin ointment Pkt 1 EACH TOPICAL (11:02)
--- NOTE | 2024-05-09 11:53 | PM.PN ---
Subjective Subjective: Patient was not hungry this morning refused breakfast Inadequate response to PRBC will get another unit Patient is stating that he is not interested in urology referral Patient is stating that he is full code, he is not able to tell me if there is any medical DPOA Recently was discharged from the hospital after management of seizure, he is a Елена lift dependent resident of prison, Neck session of dialysis on Monday Patient is stating that he is going to get his hemodialysis catheter placed with the peritoneal drain in near future He has history of COPD, liver cirrhosis, end-stage renal disease, chronic anemia and recent hematuria Vitals/I&O/Wt Last Vital Signs Temp 98.1 F 05/09/24 11:09 Pulse 71 05/09/24 11:09 Resp 17 05/09/24 11:09 BP 109/62 05/09/24 11:09 Pulse Ox 93 05/09/24 11:09 O2 Del Method Room Air 05/09/24 11:09 O2 Flow Rate 0.5 05/09/24 04:00 05/08/24 05/09/24 05/09/24 22:59 06:59 14:59 Intake Total 150 / 150 260 / 410 450 / 450 Output Total 300 / 300 Balance 150 / 150 -40 / 110 450 / 450 Weight last 48 hrs Weight 104.326 kg Weight 104.326 kg Weight 104.326 kg Weight 104.326 kg Physical Exam Narrative: Patient laying supine Lower extremity bilateral venous stasis dermatitis with ulcers which showing signs of healing Awake and alert Pleasant cooperative Currently on room air Hemodynamic stable Afebrile Abdomen soft Urinary Catheter Management: Estrada: Cath Placed During This Visit: yes Reason for Continuing Indwelling Catheter: Other Urinary Catheter Date of Insertion: 05/08/24 Urinary Catheter Time of Insertion: 18:17 Data 05/09/24 09:35 05/09/24 09:35 Micro: Microbiology 05/08/24 20:25 Blood Culture - Preliminary Blood SPECIMEN COLLECTED 05/08/24 20:21 Blood Culture - Preliminary Blood SPECIMEN COLLECTED A&P Assessment and plan (1) Noncompliance: (2) Proctitis: (3) Atrial fibrillation: (4) PVD (peripheral vascular disease): (5) ESRD (end stage renal disease) on dialysis: (6) Hematuria: (7) Anemia: (8) Hereditary and idiopathic neuropathy, unspecified: Plan Proctitis Continue antibiotics No active fever A-fib without RVR Holding off on anticoagulating agent due to hematuria Anemia of chronic disease Will give him second unit of PRBC inadequate response to first unit Hematuria: Will need outpatient urology referral No sign of stones or renal or bladder mass End-stage t renal disease Due for dialysis by tomorrow Peripheral vascular disease holding off on aspirin for now Lower extremity venous stasis dermatitis: Showing signs of healing apply bacitracin daily basis Full code Will call prison to figure out medical DPOA Attestations Medical Necessity Statement*: Continue medical management possible discharge by tomorrow Diagnoses Noncompliance Z91.199 Proctitis K62.89 Atrial fibrillation I48.91 PVD (peripheral vascular disease) I73.9 ESRD (end stage renal disease) on dialysis N18.6; Z99.2 Hematuria R31.9 Anemia D64.9 Hereditary and idiopathic neuropathy, unspecified G60.9
[2024-05-09] MEDS: cefepime 1,000 MG in sodium chloride 0.9% (plus) 50 ML 100 MG IV (17:00)
[2024-05-09] MEDS: tamsulosin 0.4 mg Capsule PO (17:01)
[2024-05-09] MEDS: atorvastatin 40 mg Tablet PO (20:39)
[2024-05-09] MEDS: blistex lip oint 7 gm Tube 1 APPLIC TOPICAL (23:31)
[2024-05-10 05:37] VITALS: BP 107/53; PULSE 80; RESP 16; TEMP 36.6; O2SAT 94; BMI 33.0
[2024-05-10 05:59] LABS: Basophils # 0.1 10^3/uL (0.0-0.1); Basophils % 0.5 %; Eosinophils # 0.6 10^3/uL (0.0-0.8); Eosinophils % 5.3 %; Hematocrit 28.6 % (37-53); Lymphocytes # 1.4 10^3/uL (0.8-4.8); Lymphocytes % 12.3 %; Mean Corpuscular HGB Conc 32.9 g/dL (30-55); Mean Corpuscular Hemoglobin 30.6 pg (27-33); Mean Corpuscular Volume 93.2 fl (82-101); Mean Platelet Volume 8.7 fL (7.4-10.4); Monocytes # 1.2 10^3/uL (0.2-0.9); Monocytes % 11.2 %; Neutrophils # 7.68 10^3/uL (1.8-7.7); Neutrophils % 69.4 %; Nucleated Red Blood Cells % 0 %; Platelet Count 256 10^3/cmm (157-399); Red Blood Count 3.07 10^6/uL (3.85-5.65); Red Cell Distribution Width 15.9 % (12.1-15.1); White Blood Count 11.06 10^3/uL (3.29-11.43)
[2024-05-10 06:20] LABS: Anion Gap 13.5 (5-19); Blood Urea Nitrogen 22 mg/dL (8-23); Calcium 7.6 mg/dL (8.5-10.5); Carbon Dioxide 28 mmol/L (22-29); Chloride 101 mmol/L (98-107); Creatinine Clr Calc Pharmacy 24.5248; Glucose 118 mg/dL (65-115); Osmolality Calculated 292 mOsm/kg (285-295); Potassium 3.5 mmol/L (3.5-5.1); Sodium 139 mmol/L (136-145)
[2024-05-10 08:42] VITALS: BP 122/55; PULSE 88; RESP 17; TEMP 36.7; O2SAT 95
[2024-05-10] MEDS: ferrous sulfate EC 325 mg Tablet PO (08:47)
[2024-05-10] MEDS: dutasteride 0.5 mg Capsule PO (08:47)
[2024-05-10] MEDS: metoprolol tartrate 25 mg Tablet 6.25 MG PO (08:48)
[2024-05-10] MEDS: bacitracin ointment Pkt 1 EACH TOPICAL (08:49)
[2024-05-10] MEDS: levETIRAcetam 500 mg Tablet PO (08:49)
[2024-05-10] MEDS: metroNIDAZOLE IV 500 MG/100 ML PREMIX 100 MG IV (08:49)
[2024-05-10 09:32] VITALS: PULSE 77; RESP 18; O2SAT 93
[2024-05-10 09:48] LABS: SARS Covid-2 Antigen negative (Negative)
--- NOTE | 2024-05-10 10:29 | PM.DCS ---
Discharge Providers Date of Admission: 05/09/24 12:24 Date of Discharge: May 10, 2024 Attending Provider at Admission: Fabian Gifford MD Attending Provider at Discharge: Camden Woodruff MD Primary Care Provider: Jenn Quiroga NP Diagnoses at Discharge Discharge Diagnosis (1) Noncompliance: Status: Acute (2) Proctitis: Status: Acute (3) Atrial fibrillation: Status: Acute (4) PVD (peripheral vascular disease): Status: Acute (5) ESRD (end stage renal disease) on dialysis: Status: Acute (6) Hematuria: Status: Acute (7) Anemia: Status: Acute (8) Hereditary and idiopathic neuropathy, unspecified: Status: Acute Reason for Visit Reason for Visit: weakness, low hemoglobin Hospital Course Hospital Course 74-year-old male with history of end-stage renal disease has a dialysis catheter gets dialyzed Monday, liver cirrhosis, splenomegaly BPH, anemia of chronic disease COPD multiple other comorbid conditions who presented from the facility for weakness and fatigue patient was recently discharged from the hospital after management and evaluation of hematuria, patient was given referral to see a urologist, CT scan of abdomen pelvis did not show any stones or mass in the bladder, during this hospitalization patient was given 2 units PRBC and anticoagulating agents were put on hold. 05/10 patient will be dialyzed before his discharge from the hospital I have asked him not to take anticoagulating agent until he is evaluated by a urologist. I will give him urology referral. I did not notice hematuria during this hospitalization, will remove Estrada catheter before discharge, there was some concern related to UTI and prostatitis he will receive 7 days of oral antibiotics. He remained afebrile no leukocytosis. Physical Exam Narrative: Awake and alert Abdomen soft Currently on room air Hemodynamic stable We were able to wean him off oxygen Stage pressure ulcer sacral area No active nausea vomiting Contractures of fingers noted Patient able to make his needs known He is frustrated and angry that nursing staff took very long to put him in a wheelchair Urinary Catheter Management: Estrada: Cath Placed During This Visit: yes Reason for Continuing Indwelling Catheter: Other Urinary Catheter Date of Insertion: 05/08/24 Urinary Catheter Time of Insertion: 18:17 Discharge Data Studies Completed and Pending Completed Studies During Hospitalization Category Date Time Status CT abdomen pelvis wo con [id number] Stat Cat Scan 05/08/24 19:[address] head wo con* [id number] Stat Cat Scan 05/08/24 17:28 Completed XR chest 1V portable [id number] Stat Exams 05/08/24 16:47 Completed Pending at discharge Category Date Time Status Blood Culture Stat Lab 05/08/24 20:25 Results Occult Blood Stool [Immunochemical Fecal OCB] Routine Lab 05/08/24 17:28 Uncollected Urine Culture Stat Lab 05/08/24 18:13 Results Radiology Impressions Chest X-Ray 05/08/24 16:47 IMPRESSION: 1. No acute findings. 2. Right central line terminates in the right atrium. Head CT 05/08/24 17:28 IMPRESSION: No acute intracranial abnormality. Abdomen/Pelvis CT 05/08/24 19:01 IMPRESSION: 1. Findings consistent with proctitis. 2. Findings consistent with cirrhosis with trace perihepatic fluid. 3. Trace bilateral pleural effusions with posterior bibasilar atelectasis. Laboratory Results WBC 11.06 10^3/uL (3.29-11.43) 05/10/24 05:32 RBC 3.07 10^6/uL (3.85-5.65) L 05/10/24 05:32 Hgb 9.40 g/dL (11.27-16.99) L 05/10/24 05:32 Hct 28.6 % (37-53) L 05/10/24 05:32 MCV 93.2 fl (82-101) 05/10/24 05:32 MCH 30.6 pg (27-33) 05/10/24 05:32 MCHC 32.9 g/dL (30-55) 05/10/24 05:32 RDW 15.9 % (12.1-15.1) H 05/10/24 05:32 Plt Count 256 10^3/cmm (157-399) 05/10/24 05:32 MPV 8.7 fL (7.4-10.4) 05/10/24 05:32 Neut % (Auto) 69.4 % 05/10/24 05:32 Lymph % (Auto) 12.3 % 05/10/24 05:32 [place] % (Auto) 11.2 % 05/10/24 05:32 Eos % (Auto) 5.3 % 05/10/24 05:32 Baso % (Auto) 0.5 % 05/10/24 05:32 Neut # (Auto) 7.68 10^3/uL (1.8-7.7) 05/10/24 05:32 Lymph # (Auto) 1.4 10^3/uL (0.8-4.8) 05/10/24 05:32 [place] # (Auto) 1.2 10^3/uL (0.2-0.9) H 05/10/24 05:32 Eos # (Auto) 0.6 10^3/uL (0.0-0.8) 05/10/24 05:32 Baso # (Auto) 0.1 10^3/uL (0.0-0.1) 05/10/24 05:32 Nucleated RBC % (auto) 0 % 05/10/24 05:32 Nucleated RBCs # 0.0 /100WBC 05/10/24 05:32 Specimen Type Arterial 05/08/24 16:56 Sample Site Radial, left 05/08/24 16:56 ABG pH 7.49 (7.35-7.45) H 05/08/24 16:56 ABG pCO2 44.2 mmHg (35-45) 05/08/24 16:56 ABG pO2 105.0 mmHg (80.0-100.0) H 05/08/24 16:56 ABG PO2/FiO2 Ratio 328 05/08/24 16:56 ABG HCO3 33.3 mmol/L (22-26) H 05/08/24 16:56 ABG O2 Saturation 99.3 05/08/24 16:56 ABG Base Excess 9.0 mmol/L (-2.0-2.0) H 05/08/24 16:56 Shashi Test Pos 05/08/24 16:56 A-a O2 Gradient 8.8 mmHg (5-10) 05/08/24 16:56 Hematocrit 18.7 % (42-52) L 05/08/24 16:56 Hgb O2 Saturation 96.8 % (95-100) 05/08/24 16:56 Carboxyhemoglobin 1.1 %THgb (0.4-20.1) 05/08/24 16:56 Methemoglobin 1.4 % (0.4-1.5) 05/08/24 16:56 Total Hemoglobin 6.1 g/dL (14-18) L 05/08/24 16:56 Sodium 139.0 mmol/L (131-143) 05/08/24 16:56 Potassium 2.7 mmol/L (3.5-5.0) L 05/08/24 16:56 Glucose 86.0 mg/dL (70-115) 05/08/24 16:56 Ionized Calcium 1.1 mmol/L (1.1-1.4) 05/08/24 16:56 O2 Delivery Device Nc 05/08/24 16:56 O2 Liters/Min 3.0 % 05/08/24 16:56 FiO2 32.0 % 05/08/24 16:56 [employer] ID Cak 05/08/24 16:56 Sodium 139 mmol/L (136-145) 05/10/24 05:32 Potassium 3.5 mmol/L (3.5-5.1) 05/10/24 05:32 Chloride 101 mmol/L (98-107) 05/10/24 05:32 Carbon Dioxide 28 mmol/L (22-29) 05/10/24 05:32 Anion Gap 13.5 (5-19) 05/10/24 05:32 BUN 22 mg/dL (8-23) 05/10/24 05:32 Creatinine 3.1 mg/dL (0.7-1.2) H 05/10/24 05:32 GFR Calculation Not Reportable 05/10/24 05:32 Glucose 118 mg/dL (65-115) H 05/10/24 05:32 Calculated Osmolality 292 mOsm/kg (285-295) 05/10/24 05:32 Lactic Acid 0.9 mmol/L (0.5-2.2) 05/08/24 20:21 Calcium 7.6 mg/dL (8.5-10.5) L 05/10/24 05:32 Phosphorus 1.6 mg/dL (2.5-4.5) L 05/09/24 09:35 Magnesium 2.2 mg/dL (1.7-2.3) 05/09/24 09:35 Iron 29 ug/dL (59-158) L 05/08/24 20:21 TIBC 113 mcg/dl 05/08/24 20:21 % Saturation 25.6 % (20-50) 05/08/24 20:21 Unsat Iron Binding 84 ug/dL (112-347) L 05/08/24 20:21 Ferritin 1687 ng/mL (30-400) H 05/08/24 20:21 Total Bilirubin 0.5 mg/dL (0.15-1.2) 05/08/24 16:19 AST 18 U/L (0-40) 05/08/24 16:19 ALT 6 U/L (0-41) 05/08/24 16:19 Alkaline Phosphatase 78 U/L (40-130) 05/08/24 16:19 Total Protein 6.5 g/dL (6.6-8.7) L 05/08/24 16:19 Albumin 3.0 g/dL (3.5-5.2) L 05/08/24 16:19 Globulin 3.5 g/dL (1.3-4.6) 05/08/24 16:19 Procalcitonin 0.95 ng/mL (0-0.5) H 05/08/24 20:21 Urine Color Red (Yellow) A 05/08/24 18:13 Urine Appearance Turbid (CLEAR) A 05/08/24 18:13 Urine pH 8.5 (5-7) A 05/08/24 18:13 Ur Specific [place] 1.008 (1.005-1.030) 05/08/24 18:13 Urine Protein 3+ (Negative) A 05/08/24 18:13 Urine Glucose (UA) Trace (Normal) H 05/08/24 18:13 Urine Ketones Trace (Negative) 05/08/24 18:13 Urine Blood 3+ (Negative) A 05/08/24 18:13 Urine Nitrate Negative (Negative) 05/08/24 18:13 Urine Bilirubin Negative (Negative) 05/08/24 18:13 Urine Urobilinogen 0.2 mg/dL (Negative) 05/08/24 18:13 Ur Leukocyte Esterase 1+ (Negative) A 05/08/24 18:13 Urine RBC Too numerous to cnt /hpf (0-2) H 05/08/24 18:13 Urine WBC 5-10 /hpf (0-5) H 05/08/24 18:13 Ur Squamous Epith Cells 0-4 /hpf (0-5) H 05/08/24 18:13 Amorphous Sediment Not Reportable 05/08/24 18:13 Urine Bacteria 2+ /hpf (NONE) H 05/08/24 18:13 SARS-CoV-2 Ag (Rapid) negative (Negative) 05/10/24 09:23 Blood Type A Positive 05/08/24 17:48 Rho(D) Type Rh positive 05/08/24 17:48 Antibody Screen Negative 05/08/24 17:48 Crossmatch See Detail 05/08/24 17:48 Vitals Last Vital Signs Temp 98.1 F 05/10/24 08:42 Pulse 77 05/10/24 09:32 Resp 18 05/10/24 09:32 BP 122/55 05/10/24 08:42 Pulse Ox 93 05/10/24 09:32 O2 Del Method Room Air 05/10/24 09:32 O2 Flow Rate 1 05/09/24 23:51 Discharge Plan Discharge Patient Disposition: Xfer SNF Condition: Stable Prescriptions: New amoxicillin-pot clavulanate 875-125 mg tablet 1 tab PO BID Qty: 14 0RF metronidazole 500 mg tablet 500 mg PO Q8H 7 Days Qty: 21 0RF Continued dutasteride 0.5 mg capsule 0.5 mg PO DAILY@08 ferrous sulfate 325 mg (65 mg iron) tablet 325 mg PO DAILY@08 tamsulosin 0.4 mg capsule 0.4 mg PO QPM acetaminophen 325 mg capsule 650 mg PO Q4H PRN (Reason: pain or fever) bisacodyl 5 mg tablet,delayed release (DR/EC) 20 mg PO DAILY PRN (Reason: Constipation) scopolamine base 1 mg over 3 days patch 3 day 1 patch transdermal Q3D PRN (Reason: Nausea And Vomiting) (DME) cam boot See Rx Instructions .Route .MEDSUPPLY Qty: 1 0RF Rx Instructions: As directed (DME) ASO Left See Rx Instructions .ROUTE .MEDSUPPLY Qty: 1 0RF Rx Instructions: As directed albuterol sulfate 90 mcg/actuation HFA aerosol inhaler 2 puff inhalation Q4H PRN (Reason: Shortness Of Breath Or Wheezing) loperamide 2 mg Tablet See Rx Instructions .ROUTE .COMPLEX Rx Instructions: 4 mg (2 tabs) orally initial episode of loose/diarrhea stool then 2mg (1 tab) po as needed each loose/diarrhea stool thereafter not to exceed 16mg in 24 hours tramadol 50 mg Tablet 50 mg PO Q4H PRN (Reason: Pain) Fleet Enema 19-7 gram/118 mL Enema 118 ml ME DAILY PRN (Reason: Constipation) Multivitamin 50 Plus Tablet 1 tab PO DAILY@08 [place] Nasal 0.65 % Aerosol,[place] 1 spray INTRANASAL Q2H PRN (Reason: Dry Nasal Passages) Metamucil (sugar) Powder See Rx Instructions .ROUTE .COMPLEX PRN (Reason: Constipation) Rx Instructions: GIVE 1.7GR BY MOUTH 3 TIMES DAILY NEEDED FOR CONSTIPATION. guaifenesin [Mucinex] 600 mg Tablet Extended Release 12hr 600 mg PO Q12H PRN (Reason: unknown) bisacodyl [Dulcolax (bisacodyl)] 10 mg Suppository 10 mg ME DAILY PRN (Reason: Constipation) Probiotic 3 billion cell Capsule 3,000 mmu cells PO DAILY PRN (Reason: WHEN ON ANITIBIOTICS) Rx Instructions: administer with a meal atorvastatin 40 mg Tablet 40 mg PO BEDTIME 30 Days Qty: 30 0RF diltiazem HCl [Cartia XT] 120 mg capsule,extended release 24hr 120 mg PO Q12H 30 Days Qty: 60 0RF metoprolol tartrate 25 mg tablet 6.25 mg PO BID 30 Days Qty: 15 0RF diphenhydramine HCl 50 mg Tablet 50 mg PO TID PRN (Reason: Allergic Reaction) spironolactone 25 mg tablet 25 mg PO DAILY acetaminophen 650 mg Tablet Extended Release 650 mg PO PRN PRN (Reason: DIALYSIS) bisacodyl 10 mg Suppository 10 mg ME DAILY PRN (Reason: Constipation) bumetanide 0.5 mg Tablet 0.5 mg PO DIRECTED diphenhydramine HCl 25 mg Tablet,Disintegrating 25 mg PO BEDTIME PRN (Reason: Sleep) melatonin 5 mg Tablet 5 mg PO BEDTIME levetiracetam 500 mg tablet 500 mg PO BID Held aspirin 81 mg Tablet,Delayed Release (Dr/Ec) 81 mg PO DAILY 30 Days Qty: 30 0RF Hold Instructions: Resume on 05/24/24. Eliquis 5 mg Tablet 5 mg PO Q12H 30 Days Qty: 60 0RF Hold Instructions: Resume on 05/24/24. Discharge Orders: Discharge Order (Routine); Ordered 05/10/24 Ordered By: Camden Woodruff Referrals: [facility] [Outside] Jonatan Lovelace Ray [Referring] - 7-10 days (SENT REFERRAL We have notified your physician's clinic of the need for a follow-up appointment to be scheduled. If you have not heard from them within the next 2 business days, please call them directly. THE OFFICE WILL CALL WITH APPOINTMENT) Jenn Quiroga, [employer] [Primary Care Provider] - Patient Instructions: Opioid Safety Discharge Attestations Time Spent in Discharge Care*: greater than 30 min Quality Metrics Clinical Quality Measures [ No reported AMI, CVA or VTE this stay] Coding Level of Care Code Acute Code for Chg Fwd Diagnoses Noncompliance Z91.199 Proctitis K62.89 Atrial fibrillation I48.91 PVD (peripheral vascular disease) I73.9 ESRD (end stage renal disease) on dialysis N18.6; Z99.2 Hematuria R31.9 Anemia D64.9 Hereditary and idiopathic neuropathy, unspecified G60.9
[2024-05-10 11:23] VITALS: BP 134/59; PULSE 76; RESP 17; TEMP 37.1; O2SAT 95
[2024-05-10 11:54] VITALS: BP 119/57; PULSE 76; RESP 16; TEMP 36.7
--- NOTE | 2024-05-10 11:55 | PC.HD ---
Consent for HD signed by patient. Heparin 1000 units loading dose administered via venous port of HD catheter at 1110 per timber faller's orders.
[2024-05-10 12:41] LABS: Hepatitis B Core AB, Total Non-Reactive (Nonreactive); Hepatitis B Surface AB < 3.5 (11.5-1000); Hepatitis B Surface Antigen Non-Reactive (Nonreactive); Hepatitis C Virus Antibody Non-Reactive (Nonreactive)
--- NOTE | 2024-05-10 13:52 | P.CONIM_ITS ---
Providers/Reason For Consult 2 Consulting Physician/Specialty*: [facility]/Nephrology Reason for Consult*: ESRD Attending Physician: Camden Woodruff MD Primary Care Provider: Jenn Quiroga NP History of Present Illness History of Present Illness Robert Verduzco is a 74 year old male Old male with past medical history of end- stage renal disease on hemodialysis, liver cirrhosis, BPH, chronic anemia, generalized anxiety, hypertension, COPD presented to the emergency department due to weakness and fatigue. Patient noted to have elevated WBC count, hemoglobin was 7.1. CT abdomen showed proctitis, liver cirrhosis and bilateral pleural effusions. Patient due for his dialysis today Review of Systems 2 Narrative: negative Medications/Allergies Home Medications Medication Instructions Recorded Confirmed Last Taken Type acetaminophen 325 mg capsule 650 mg PO Q4H PRN pain or fever 05/20/21 05/09/24 Unknown History bisacodyl 5 mg tablet,delayed 20 mg PO DAILY PRN Constipation 05/20/21 05/09/24 Unknown History release dutasteride 0.5 mg capsule 0.5 mg PO DAILY@05/20/21 05/09/24 05/08/24 History ferrous sulfate 325 mg (65 mg 325 mg PO DAILY@05/20/21 05/09/24 05/08/24 History iron) tablet scopolamine base 1 mg over 3 days 1 patch transdermal Q3D PRN Nausea 05/20/21 05/09/24 01/17/24 History transdermal patch And Vomiting tamsulosin 0.4 mg capsule 0.4 mg PO QPM 05/20/21 05/09/24 05/08/24 History ASO Left #1 ea 06/01/21 05/09/24 Unknown Rx cam boot #1 ea 06/01/21 05/09/24 Unknown Rx albuterol sulfate 90 mcg/actuation 2 puff inhalation Q4H PRN 09/28/23 05/09/24 Unknown History aerosol inhaler Shortness Of Breath Or Wheezing guaifenesin 600 mg tablet, 600 mg PO Q12H PRN unknown 01/23/24 05/09/24 Unknown History extended release 12 hr (Mucinex) loperamide 2 mg tablet See Rx Instructions .Route .COMPLEX 01/23/24 05/09/24 Unknown History uzqefcegdolr-ditpwtcd-meollr 1 tab PO DAILY@01/23/24 05/09/24 05/08/24 History tablet (Multivitamin 50 Plus tablet) psyllium seed (sugar) oral powder See Rx Instructions .Route 01/23/24 05/09/24 01/23/24 08:30 History (Metamucil (sugar) oral powder) .COMPLEX PRN Constipation sodium chloride 0.65 % nasal spray 1 spray intranasal Q2H PRN Dry 01/23/24 05/09/24 Unknown History aerosol ([place] Nasal) Nasal Passages sodium phosphates 19 gram-7 118 ml [place] DAILY PRN Constipation 01/23/24 05/09/24 Unknown History gram/118 mL enema (Fleet Enema) tramadol 50 mg tablet 50 mg PO Q4H PRN Pain 01/23/24 05/09/24 Unknown History bisacodyl 10 mg rectal suppository 10 mg MI DAILY PRN Constipation 04/22/24 05/09/24 Unknown History (Dulcolax (bisacodyl)) lactobacillus combination no.4 3 3,000 mmu cells PO DAILY PRN WHEN 04/22/24 05/09/24 Unknown History billion cell capsule (Probiotic) ON ANITIBIOTICS apixaban 5 mg tablet (Eliquis) 5 mg PO Q12H 30 days #60 tabs 04/24/24 05/09/24 Unknown Rx aspirin 81 mg tablet,delayed 81 mg PO DAILY 30 days #30 tabs 04/24/24 05/09/24 Unknown Rx release atorvastatin 40 mg tablet 40 mg PO BEDTIME 30 days #30 tabs 04/24/24 05/09/24 Unknown Rx diltiazem HCl 120 mg 120 mg PO Q12H 30 days #60 caps 04/24/24 05/09/24 Unknown Rx capsule,extended release 24 hr (Cartia XT) metoprolol tartrate 25 mg tablet 6.25 mg (1/4 x 25 mg) PO BID 30 04/24/24 05/09/24 05/08/24 Rx days #15 tabs acetaminophen 650 mg 650 mg PO PRN PRN DIALYSIS 05/09/24 05/09/24 05/06/24 History tablet,extended release bisacodyl 10 mg rectal suppository 10 mg [place] DAILY PRN Constipation 05/09/24 05/09/24 Unknown History bumetanide 0.5 mg tablet 0.5 mg PO DIRECTED 05/09/24 05/09/24 Unknown History diphenhydramine HCl 25 mg 25 mg PO BEDTIME PRN Sleep 05/09/24 05/09/24 05/08/24 History disintegrating tablet diphenhydramine HCl 50 mg tablet 50 mg PO TID PRN Allergic Reaction 05/09/24 05/09/24 Unknown History levetiracetam 500 mg tablet 500 mg PO BID 05/09/24 05/09/24 Unknown History melatonin 5 mg tablet 5 mg PO BEDTIME 05/09/24 05/09/24 Unknown History spironolactone 25 mg tablet 25 mg PO DAILY 05/09/24 05/09/24 05/08/24 History amoxicillin 875 mg-potassium 1 tab PO BID #14 tabs 05/10/24 Unknown Rx clavulanate 125 mg tablet metronidazole 500 mg tablet 500 mg PO Q8H 7 days #21 tabs 05/10/24 Unknown Rx Allergies Allergy/AdvReac Type Severity Reaction Status Date / Time NSAIDS (Non-Steroidal Allergy Mild Rash Verified 05/08/24 16:48 Anti-Inflamma Current Medications Generic Name Dose Route Start Last Admin Trade Name Freq PRN Reason Stop Dose Admin Atorvastatin Calcium 40 mg 05/09/24 21:00 05/09/24 20:39 Atorvastatin 40 Mg Tablet PO 40 mg BEDTIME JOHN Administration Bacitracin 1 each 05/09/24 11:00 05/10/24 08:49 Bacitracin Ointment Pkt TOPICAL 1 each DAILY JOHN Administration Protocol Camphor/Menthol/Phenol 1 applic 05/09/24 19:36 05/09/24 23:31 Blistex Lip Oint 7 Gm Tube TOPICAL 1 applic PRN PRN Administration DRYNESS Diltiazem HCl 120 mg 05/08/24 23:53 05/09/24 23:27 Diltiazem Er (24hr) 120 Mg Capsule PO 120 mg Q12H JOHN Administration Dutasteride 0.5 mg 05/09/24 08:00 05/10/24 08:47 Dutasteride 0.5 Mg Capsule PO 0.5 mg DAILY@08 JOHN Administration Ferrous Sulfate 325 mg 05/09/24 08:00 05/10/24 08:47 Ferrous Sulfate Ec 325 Mg Tablet PO 325 mg DAILY@08 JOHN Administration Metronidazole 500 mg in 100 mls @ 100 mls/hr 05/08/24 23:53 05/10/24 09:58 Flagyl Iv IV Infused Q8H JOHN Infusion Cefepime HCl 1,000 mg/ Sodium 50 mls @ 100 mls/hr 05/09/24 18:00 05/09/24 18:28 Chloride IV Infused Q24H JOHN Infusion Levetiracetam 500 mg 05/09/24 09:00 05/10/24 08:49 Levetiracetam 500 Mg Tablet PO 500 mg BID JOHN Administration Metoprolol Tartrate 6.25 mg 05/09/24 09:00 05/10/24 08:48 Metoprolol Tartrate 25 Mg Tablet PO 6.25 mg BID JOHN Administration Tamsulosin HCl 0.4 mg 05/09/24 18:00 05/09/24 17:01 Tamsulosin 0.4 Mg Capsule PO 0.4 mg QPM JOHN Administration Tramadol HCl 50 mg 05/08/24 23:53 05/09/24 09:04 Tramadol 50 Mg Tablet PO 50 mg Q4H PRN Administration Pain PFSH Acute 2 PFSH: Medical History (Updated 05/09/24 @ 11:58 by Camden Woodruff MD) Prostatitis Weakness End stage renal disease on dialysis Admission for dialysis and dialysis catheter care Complication, dialysis catheter clot or failure RSV (acute bronchiolitis due to respiratory syncytial virus) Fever Nausea Non-healing wound of left lower extremity Cellulitis of right lower leg Shortness of breath Atherosclerosis of [place] artery of extremity with ulceration Atherosclerosis of [place] arteries of right leg with ulceration of unspecified site Non-healing wound of right lower extremity Closed fracture of left distal fibula Left ankle pain Gastro-esophageal reflux disease without esophagitis Contracture, left hand Chronic obstructive pulmonary disease, unspecified Attention-deficit hyperactivity disorder, unspecified type Motion sickness, sequela Insomnia, unspecified Post-traumatic stress disorder, chronic Restless legs syndrome 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 ascites Contracture, right hand COVID-19 Benign prostatic hyperplasia with lower urinary tract symptoms Secondary osteoarthritis, left hand Other recurrent depressive disorders Anemia in other chronic diseases classified elsewhere Secondary osteoarthritis, right hand Generalized anxiety disorder Cervicalgia Muscle weakness (generalized) Essential (primary) hypertension Dementia in other diseases classified elsewhere without behavioral disturbance Hereditary and idiopathic neuropathy, unspecified Surgical History S/P dialysis catheter insertion Family History Father CAD (coronary artery disease) Social History Smoking and tobacco/nicotine status: never used tobacco/nicotine Alcohol intake: never Substance/Drug Use: never Vitals/I&O/Wt Last Vital Signs Temp 98.1 F 05/10/24 11:54 Pulse 76 05/10/24 11:54 Resp 16 05/10/24 11:54 BP 119/57 05/10/24 11:54 Pulse Ox 95 05/10/24 11:23 O2 Del Method Nasal Cannula 05/10/24 11:23 O2 Flow Rate 1 05/09/24 23:51 05/09/24 05/10/24 05/10/24 22:59 06:59 14:59 Intake Total 744 / 1788 340 / 2128 340 / 340 Output Total 200 / 200 Balance 544 / 1588 340 / 1928 340 / 340 Weight last 48 hrs Weight 104.326 kg Weight 104.326 kg Weight 104.326 kg Weight 104.326 kg Weight 104.326 kg Physical Exam 2 Narrative: awake , alert no distress S1S2 RRR per report Lungs clear per report No edema Urinary Catheter Management: Estrada: Cath Placed During This Visit: yes Reason for Continuing Indwelling Catheter: Other Urinary Catheter Date of Insertion: 05/08/24 Urinary Catheter Time of Insertion: 18:17 Data 05/10/24 05:32 05/10/24 05:32 Micro: Microbiology 05/08/24 18:13 Urine Culture - Preliminary Urine,Clean Catch 05/08/24 20:25 Blood Culture - Preliminary Blood NEGATIVE TO DATE 05/08/24 20:21 Blood Culture - Preliminary Blood NEGATIVE TO DATE A&P Assessment and plan (1) ESRD (end stage renal disease) on dialysis: 1. End-stage renal disease: On MWF schedule as outpatient, , HD today 2. History of hypertension: Blood pressure controlled, resume home medications 3. anemia , LLOYD wih hD 4. A-fib h/o Patient evaluated using audiovisual cart. Time spent 40 minutes. Consult Attestations 2 Medical Necessity Statement: per fam Coding Level of Care Code Acute Code for Chg Fwd Diagnoses ESRD (end stage renal disease) on dialysis N18.6; Z99.2
[2024-05-10 14:38] VITALS: BP 132/57; PULSE 73; RESP 16; TEMP 37
== END 2024-05-10 16:15 | disposition skilled nursing facility (03) | DRG 682 ==
LOC: ER 20:47 → MEDSURG 21:18
PROVIDERS: Family Medicine; Hospitalist; Admitting Provider Internal Medicine; Emergency Provider Emergency Medicine; PCP Nurse Practitioner Family; Visit Provider Internal Medicine
DX: I12.0 Hypertensive chronic kidney disease with stage 5 chronic kidney disease or end stage renal disease (principal); N18.6 End stage renal disease; K62.89 Other specified diseases of anus and rectum; K70.30 Alcoholic cirrhosis of liver without ascites; N40.0 Benign prostatic hyperplasia without lower urinary tract symptoms; D63.1 Anemia in chronic kidney disease; F41.1 Generalized anxiety disorder; J44.9 Chronic obstructive pulmonary disease, unspecified; I73.9 Peripheral vascular disease, unspecified; K21.9 Gastro-esophageal reflux disease without esophagitis; M24.542 Contracture, left hand; M24.541 Contracture, right hand; F90.9 Attention-deficit hyperactivity disorder, unspecified type; G47.00 Insomnia, unspecified; G25.81 Restless legs syndrome; E87.6 Hypokalemia; I48.0 Paroxysmal atrial fibrillation; R31.9 Hematuria, unspecified; G60.9 Hereditary and idiopathic neuropathy, unspecified; F03.90 Unspecified dementia, unspecified severity, without behavioral disturbance, psychotic disturbance, mood disturbance, and anxiety; Z99.2 Dependence on renal dialysis; Z91.158 Patient's noncompliance with renal dialysis for other reason; Z11.52 Encounter for screening for COVID-19
CPT/HCPCS: 36415; 36430; 36600; 51702; 70450; 71045; 74176; 80048; 80051; 80053; 81003; 81015; 82330; 82728; 82805; 83540; 83550; 83605; 83735; 84100; 84145; 85025; 86705; 86706; 86803; 86850; 86900; 86920; 87040; 87086; 87340; 87426; 90935; 93005; G0378; J0692; J3480; J3490; J3535; P9016

== ENCOUNTER 2024-06-05 15:55 | Emergency (ER) | payer MEDICARE, MEDICAID, SELFPAY ==
[2024-06-05] VITALS (13 sets, daily range): BP systolic 119–144; BP diastolic 63–96; PULSE 62–114; RESP 14–22; TEMP 36.9; O2SAT 91–97; BMI 34.8
--- NOTE | 2024-06-05 15:58 | ECG_ITS ---
[facility] Test Date: 2024-06-05 Pat Name: Robert Verduzco Department: Room: Gender: Male Clinical Trial Data Manager: : 1950 Requested By: Kevin Larkin Order Number: [id number] Reading MD: ASHLEY HAIRSTON Measurements Intervals [place] Rate: 115 P: 0 OK: 0 QRS: -12 QRSD: 112 T: 265 QT: 304 QTc: 421 Interpretive Statements ATRIAL FLUTTER/TACHYCARDIA WITH RAPID VENTRICULAR RESPONSE MODERATE INTRAVENTRICULAR CONDUCTION DELAY [110+ ms QRS DURATION] MODERATE T-WAVE ABNORMALITY, CONSIDER INFERIOR ISCHEMIA [-0.1+ mV T-WAVE IN II/aVF] Compared to ECG 05/09/2024 11:19:35 Intraventricular conduction delay now present T-wave abnormality now present Possible ischemia now present Atrial fibrillation no longer present Early repolarization no longer present Electronically Signed On 06-06-2024 11:49:55 CDT by ASHLEY HAIRSTON [id number] f
--- NOTE | 2024-06-05 16:04 | CTR_ITS ---
PROCEDURE INFORMATION: Exam: CT Head Without Contrast Exam date and time: 06/05/2024 4:40 PM Age: 74 years old Clinical indication: Altered mental status/memory loss; Additional info: AMS TECHNIQUE: Imaging protocol: Computed tomography of the head without contrast. Radiation optimization: All CT scans at this facility use at least one of these dose optimization techniques: automated exposure control; mA and/or kV adjustment per patient size (includes targeted exams where dose is matched to clinical indication); or iterative reconstruction. COMPARISON: CT head wo con* [id number] 05/08/2024 5:57 PM RADIATION DOSE METRICS: Total DLP (mGy-cm): 1129 FINDINGS: Brain: No hemorrhage. No edema. Moderate diffuse cerebral atrophy and sequela of chronic vessel ischemic disease. Old lacunar infarct noted in the left basal ganglia. No mass effect. Cerebral ventricles: No ventriculomegaly. Paranasal sinuses: Visualized sinuses are unremarkable. No fluid levels. Mastoid air cells: Visualized mastoid air cells are well aerated. Bones: Unremarkable. No acute fracture. Soft tissues: Unremarkable. CT/CT head wo con* [id number] IMPRESSION: No acute intracranial abnormality.
--- NOTE | 2024-06-05 16:04 | ED_ITS ---
HPI - Arrhythmia/Palpitations 2 General: Chief Complaint: Arrhythmia/Palpitations Stated Complaint: AMS, HTN Time Seen by Provider: 06/05/24 16:00 Source: patient and EMS Mode of arrival: EMS Limitations: no limitations History of Present Illness: 34-year-old male history of multiple med ical problems including end-stage renal disease on dialysis he received dialysis today and started having some low blood pressures and having some confusion. EMS stated the dialysis nurse today chest pain but he adamantly denies having any chest pain ever. He states he feels much improved currently his blood pressure here is improved. He has a history of A-fib as well. He denies any vomiting or diarrhea denies any fevers. He is answering all my questions appropriately here Associated symptoms: Deny nausea or vomiting Related Data Home Medications Medication Instructions Recorded Confirmed acetaminophen 325 mg capsule 650 mg PO Q4H PRN pain or fever 05/20/21 05/09/24 bisacodyl 5 mg tablet,delayed 20 mg PO DAILY PRN Constipation 05/20/21 05/09/24 release dutasteride 0.5 mg capsule 0.5 mg PO DAILY@08 05/20/21 05/09/24 ferrous sulfate 325 mg (65 mg 325 mg PO DAILY@05/20/21 05/09/24 iron) tablet scopolamine base 1 mg over 3 days 1 patch transdermal Q3D PRN Nausea 05/20/21 05/09/24 transdermal patch And Vomiting tamsulosin 0.4 mg capsule 0.4 mg PO QPM 05/20/21 05/09/24 albuterol sulfate 90 mcg/actuation 2 puff inhalation Q4H PRN 09/28/23 05/09/24 aerosol inhaler Shortness Of Breath Or Wheezing guaifenesin 600 mg tablet, 600 mg PO Q12H PRN unknown 01/23/24 05/09/24 extended release 12 hr (Mucinex) loperamide 2 mg tablet See Rx Instructions .Route .COMPLEX 01/23/24 05/09/24 [id number] 1 tab PO DAILY@08 01/23/24 05/09/24 tablet (Multivitamin 50 Plus tablet) psyllium seed (sugar) oral powder See Rx Instructions .Route 01/23/24 05/09/24 (Metamucil (sugar) oral powder) .COMPLEX PRN Constipation sodium chloride 0.65 % nasal spray 1 spray intranasal Q2H PRN Dry 01/23/24 05/09/24 aerosol (Deep Sea Nasal) Nasal Passages sodium phosphates 19 gram-7 118 ml MD DAILY PRN Constipation 01/23/24 05/09/24 gram/118 mL enema (Fleet Enema) tramadol 50 mg tablet 50 mg PO Q4H PRN Pain 01/23/24 05/09/24 bisacodyl 10 mg rectal suppository 10 mg MD DAILY PRN Constipation 04/22/24 05/09/24 (Dulcolax (bisacodyl)) lactobacillus combination no.4 3 3,000 mmu cells PO DAILY PRN WHEN 04/22/24 05/09/24 billion cell capsule (Probiotic) ON ANITIBIOTICS acetaminophen 650 mg 650 mg PO PRN PRN DIALYSIS 05/09/24 05/09/24 tablet,extended release bisacodyl 10 mg rectal suppository 10 mg MD DAILY PRN Constipation 05/09/24 05/09/24 bumetanide 0.5 mg tablet 0.5 mg PO DIRECTED 05/09/24 05/09/24 diphenhydramine HCl 25 mg 25 mg PO BEDTIME PRN Sleep 05/09/24 05/09/24 disintegrating tablet diphenhydramine HCl 50 mg tablet 50 mg PO TID PRN Allergic Reaction 05/09/24 05/09/24 levetiracetam 500 mg tablet 500 mg PO BID 05/09/24 05/09/24 melatonin 5 mg tablet 5 mg PO BEDTIME 05/09/24 05/09/24 spironolactone 25 mg tablet 25 mg PO DAILY 05/09/24 05/09/24 Previous Rx's Medication Instructions Recorded ASO Left #1 ea 06/01/21 cam boot #1 ea 06/01/21 metoprolol tartrate 25 mg tablet 6.25 mg (1/4 x 25 mg) PO BID 30 04/24/24 days #15 tabs amoxicillin 875 mg-potassium 1 tab PO BID #14 tabs 05/10/24 clavulanate 125 mg tablet Allergies Allergy/AdvReac Type Severity Reaction Status Date / Time NSAIDS (Non-Steroidal Allergy Mild Rash Verified 05/08/24 16:48 Anti-Inflamma Review of Systems 2 Const: Denies: fever(s), chills, body aches or change in appetite ENMT: Denies: throat pain or dental pain Card: Denies: chest pain Resp: Denies: dyspnea GI: Denies: abdominal pain, nausea, vomiting or diarrhea Musc: Denies: neck pain or back pain Skin/Breast: Denies: rash Neuro: Denies: headache(s) PFSH ED 2 PFSH: Medical History Proctitis Hypokalemia Urinary tract infection Hematuria Anemia ESRD (end stage renal disease) on dialysis Atrial fibrillation Noncompliance PVD (peripheral vascular disease) Prostatitis Weakness End stage renal disease on dialysis Admission for dialysis and dialysis catheter care Complication, dialysis catheter clot or failure RSV (acute bronchiolitis due to respiratory syncytial virus) Fever Nausea Non-healing wound of left lower extremity Cellulitis of right lower leg Shortness of breath Atherosclerosis of [place] artery of extremity with ulceration Atherosclerosis of [place] arteries of right leg with ulceration of unspecified site Non-healing wound of right lower extremity Closed fracture of left distal fibula Left ankle pain Gastro-esophageal reflux disease without esophagitis Contracture, left hand Chronic obstructive pulmonary disease, unspecified Attention-deficit hyperactivity disorder, unspecified type Motion sickness, sequela Insomnia, unspecified Post-traumatic stress disorder, chronic Restless legs syndrome 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 ascites Contracture, right hand COVID-19 Benign prostatic hyperplasia with lower urinary tract symptoms Secondary osteoarthritis, left hand Other recurrent depressive disorders Anemia in other chronic diseases classified elsewhere Secondary osteoarthritis, right hand Generalized anxiety disorder Cervicalgia Muscle weakness (generalized) Essential (primary) hypertension Dementia in other diseases classified elsewhere without behavioral disturbance Hereditary and idiopathic neuropathy, unspecified Surgical History S/P dialysis catheter insertion Family History Father CAD (coronary artery disease) Social History Smoking and tobacco/nicotine status: never used tobacco/nicotine Alcohol intake: never Substance/Drug Use: never Physical Exam 2 Const: COMMON NORMALS: no acute distress, patient oriented x3 and healthy appearing HENMT: COMMON NORMALS: normocephalic and atraumatic HEAD & SCALP: n ormocephalic and atraumatic Eye: COMMON NORMALS: Equal, round and reactive pupils present and negative for EOMs intact bilaterally PUPIL: Yes Equal, round and reactive pupils present Neck/C-Spine: COMMON NORMALS: full ROM and supple Chest: COMMONS NORMALS: normal inspection of the chest Resp: COMMON NORMALS: normal respiratory effort, No retractions, No use of accessory muscles and clear to auscultation bilaterally AUSCULTATION: clear to auscultation bilaterally Cardio: COMMON NORMALS: regular rate, regular rhythm and No murmurs present (Cardio) RATE: regular rate RHYTHM: regular rhythm GI: COMMON NORMALS: Normal to inspection, nondistended, normoactive bowel sounds present, Soft to palpation, non-tender and no masses PALPATION: Yes Soft to palpation Extremity: COMMON NORMALS: normal to inspection and full ROM Neuro: COMMON NORMALS: patient oriented x3, moves all extremities and no focal motor deficits Psych: COMMON NORMALS: mental status grossly normal, Normal thought process present and cooperative THOUGHT PROCESS: Normal thought process present Skin: COMMON NORMALS: no rashes or lesions noted and no wounds GENERAL SKIN EXAM: no rashes or lesions noted Course 2 Vital Signs: Vital signs: Vital Signs Temperature 98.4 F 06/05/24 15:56 Pulse Rate 74 06/05/24 18:00 Respiratory Rate 22 H 06/05/24 18:00 Blood Pressure 133/86 06/05/24 18:00 Pulse Oximetry 91 06/05/24 18:00 Oxygen Delivery Me thod Room Air 06/05/24 18:00 MDM - Arrhythmia/Palpitations Medical Decision Making Patient presents here with A-fib he had had hypotension and confusion at dialysis but has been well-appearing here he is at his baseline his blood pressures improved heart rate here is in the 80s head CT blood works normal and at his baseline he stable for discharge back to detention at this time Medical Records I reviewed the patient's medical records. Lab Data I reviewed the patient's lab results. 06/05/24 16:26 06/05/24 16:26 Radiology Impressions Chest X-Ray 06/05/24 16:04 IMPRESSION: Bilateral small volume pleural effusions. Head CT 06/05/24 16:04 IMPRESSION: No acute intracranial abnormality. Laboratory Results WBC 9.51 10^3/uL (3.29-11.43) 06/05/24 16:26 RBC 3.31 10^6/uL (3.85-5.65) L 06/05/24 16:26 Hgb 10.50 g/dL (11.27-16.99) L 06/05/24 16:26 Hct 33.6 % (37-53) L 06/05/24 16:26 MCV 101.5 fl (82-101) H 06/05/24 16:26 MCH 31.7 pg (27-33) 06/05/24 16: MCHC 31.3 g/dL (30-55) 06/05/24 16:26 RDW 17.3 % (12.1-15.1) H 06/05/24 16:26 Plt Count 182 10^3/cmm (157-399) 06/05/24 16:26 MPV 9.0 fL (7.4-10.4) 06/05/24 16:26 Neut % (Auto) 61.0 % 06/05/24 16:26 Lymph % (Auto) 18.1 % 06/05/24 16:26 [place] % (Auto) 18.3 % 06/05/24 16:26 Eos % (Auto) 1.5 % 06/05/24 16:26 Baso % (Auto) 0.4 % 06/05/24 16: Neut # (Auto) 5.80 10^3/uL (1.8-7.7) 06/05/24 16: Lymph # (Auto) 1.7 10^3/uL (0.8-4.8) 06/05/24 16:26 [place] # (Auto) 1.7 10^3/uL (0.2-0.9) H 06/05/24 16:26 Eos # (Auto) 0.1 10^3/uL (0.0-0.8) 06/05/24 16: Baso # (Auto) 0.0 10^3/uL (0.0-0.1) 06/05/24 16: Nucleated RBC % (auto) 0 % 06/05/24 16: Nucleated RBCs # 0.0 /100WBC 06/05/24 16:26 PT 15.60 SECONDS (12.1-14.9) H 06/05/24 16:26 INR 1.20 (0.8-1.2) 06/05/24 16:26 Sodium 137 mmol/L (136-145) 06/05/24 16:26 Potassium 3.2 mmol/L (3.5-5.1) L 06/05/24 16:26 Chloride 97 mmol/L (98-107) L 06/05/24 16:26 Carbon Dioxide 33 mmol/L (22-29) H 06/05/24 16:26 Anion Gap 10.2 (5-19) 06/05/24 16:26 BUN 10 mg/dL (8-23) 06/05/24 16:26 Creatinine 2.0 mg/dL (0.7-1.2) H 06/05/24 16:26 GFR Calculation Not Reportable 06/05/24 16:26 Glucose 95 mg/dL (65-115) 06/05/24 16:26 Calculated Osmolality 283 mOsm/kg (285-295) L 06/05/24 16:26 Calcium 8.0 mg/dL (8.5-10.5) L 06/05/24 16:26 Total Bilirubin 0.5 mg/dL (0.15-1.2) 06/05/24 16:26 AST 15 U/L (0-40) 06/05/24 16:26 ALT 8 U/L (0-41) 06/05/24 16:26 Alkaline Phosphatase 74 U/L (40-130) 06/05/24 16:26 Ammonia 13 umol/L (16-60) L 06/05/24 16:26 Total Protein 6.2 g/dL (6.6-8.7) L 06/05/24 16:26 Albumin 3.0 g/dL (3.5-5.2) L 06/05/24 16:26 Globulin 3.2 g/dL (1.3-4.6) 06/05/24 16:26 Lipase 43 U/L (13-60) 06/05/24 16:26 All radiology interpretation(s) finalized by discharge EKG Data EKG 1: I personally reviewed and interpreted this EKG as follows: EKG interpretation date: 06/05/24 EKG interpretation time: 15:58 Interpretation: atrial fib hr [address] or t wave abnormalities qrs 112 qtc 372 Other EKG comments: Chest X-Ray 06/05/24 16:04 IMPRESSION: Bilateral small volume pleural effusions. Head CT 06/05/24 16:04 IMPRESSION: No acute intracranial abnormality. Discharge Plan Discharge Patient Disposition: Home Clinical Impression: Atrial fibrillation Condition: Stable Prescriptions: No Action dutasteride 0.5 mg capsule 0.5 mg PO DAILY@08 ferrous sulfate 325 mg (65 mg iron) tablet 325 mg PO DAILY@08 tamsulosin 0.4 mg capsule 0.4 mg PO QPM acetaminophen 325 mg capsule 650 mg PO Q4H PRN (Reason: pain or fever) bisacodyl 5 mg tablet,delayed release (DR/EC) 20 mg PO DAILY PRN (Reason: Constipation) scopolamine base 1 mg over 3 days patch 3 day 1 patch transdermal Q3D PRN (Reason: Nausea And Vomiting) (DME) cam boot See Rx Instructions .Route .MEDSUPPLY Qty: 1 0RF Rx Instructions: As directed (DME) ASO Left See Rx Instructions .ROUTE .MEDSUPPLY Qty: 1 0RF Rx Instructions: As directed albuterol sulfate 90 mcg/actuation HFA aerosol inhaler 2 puff inhalation Q4H PRN (Reason: Shortness Of Breath Or Wheezing) loperamide 2 mg Tablet See Rx Instructions .ROUTE .COMPLEX Rx Instructions: 4 mg (2 tabs) orally initial episode of loose/diarrhea stool then 2mg (1 tab) po as needed each loose/diarrhea stool thereafter not to exceed 16mg in 24 hours tramadol 50 mg Tablet 50 mg PO Q4H PRN (Reason: Pain) Fleet Enema 19-7 gram/118 mL Enema 118 ml MD DAILY PRN (Reason: Constipation) Multivitamin 50 Plus Tablet 1 tab PO DAILY@08 Deep Sea Nasal 0.65 % Aerosol,[place] 1 spray INTRANASAL Q2H PRN (Reason: Dry Nasal Passages) Metamucil (sugar) Powder See Rx Instructions .ROUTE .COMPLEX PRN (Reason: Constipation) Rx Instructions: GIVE 1.7GR BY MOUTH 3 TIMES DAILY NEEDED FOR CONSTIPATION. guaifenesin [Mucinex] 600 mg Tablet Extended Release 12hr 600 mg PO Q12H PRN (Reason: unknown) bisacodyl [Dulcolax (bisacodyl)] 10 mg Suppository 10 mg MD DAILY PRN (Reason: Constipation) Probiotic 3 billion cell Capsule 3,000 mmu cells PO DAILY PRN (Reason: WHEN ON ANITIBIOTICS) Rx Instructions: administer with a meal metoprolol tartrate 25 mg tablet 6.25 mg PO BID 30 Days Qty: 15 0RF diphenhydramine HCl 50 mg Tablet 50 mg PO TID PRN (Reason: Allergic Reaction) spironolactone 25 mg tablet 25 mg PO DAILY acetaminophen 650 mg Tablet Extended Release 650 mg PO PRN PRN (Reason: DIALYSIS) bisacodyl 10 mg Suppository 10 mg MD DAILY PRN (Reason: Constipation) bumetanide 0.5 mg Tablet 0.5 mg PO DIRECTED diphenhydramine HCl 25 mg Tablet,Disintegrating 25 mg PO BEDTIME PRN (Reason: Sleep) melatonin 5 mg Tablet 5 mg PO BEDTIME levetiracetam 500 mg tablet 500 mg PO BID amoxicillin-pot clavulanate 875-125 mg tablet 1 tab PO BID Qty: 14 0RF Discharge Orders: Discharge ED (Routine); Ordered 06/05/24 Ordered By: Kevin Larkin Referrals: Jenn Quiroga NP [Primary Care Provider] - Discharge Diet: Advance as tolerated Discharge Activity: Resume usual activity Patient Instructions: A-fib (Atrial Fibrillation) (ED) Coding Level of Care Code ED Forging Roll Operator for Trixie Small
--- NOTE | 2024-06-05 16:04 | XRR_ITS ---
PROCEDURE INFORMATION: Exam: XR Chest Exam date and time: 06/05/2024 4:12 PM Age: 74 years old Clinical indication: Other: AMS TECHNIQUE: Imaging protocol: Radiologic exam of the chest. Views: 1 view. COMPARISON: CR (CHEST, ) 05/08/2024 5:05 PM FINDINGS: Tubes, catheters and devices: Right central line terminates in the right atrium. Lungs: No consolidation. Pleural spaces: Bilateral small volume pleural effusions. No pneumothorax. Heart/Mediastinum: No cardiomegaly. Bones/joints: Visualized osseous structures are intact. XR/XR chest 1V portable [id number] IMPRESSION: Bilateral small volume pleural effusions.
[2024-06-05 16:34] LABS: Basophils % 0.4 %; Eosinophils # 0.1 10^3/uL (0.0-0.8); Eosinophils % 1.5 %; Hematocrit 33.6 % (37-53); Lymphocytes # 1.7 10^3/uL (0.8-4.8); Lymphocytes % 18.1 %; Mean Corpuscular HGB Conc 31.3 g/dL (30-55); Mean Corpuscular Hemoglobin 31.7 pg (27-33); Mean Corpuscular Volume 101.5 fl (82-101); Monocytes # 1.7 10^3/uL (0.2-0.9); Monocytes % 18.3 %; Nucleated Red Blood Cells % 0 %; Platelet Count 182 10^3/cmm (157-399); Red Blood Count 3.31 10^6/uL (3.85-5.65); Red Cell Distribution Width 17.3 % (12.1-15.1); White Blood Count 9.51 10^3/uL (3.29-11.43)
[2024-06-05 16:50] LABS: Ammonia 13 umol/L (16-60)
[2024-06-05 17:01] LABS: Alanine Aminotransferase 8 U/L (0-41); Alkaline Phosphatase 74 U/L (40-130); Aspartate Amino Transferase 15 U/L (0-40); Blood Urea Nitrogen 10 mg/dL (8-23); Carbon Dioxide 33 mmol/L (22-29); Chloride 97 mmol/L (98-107); Creatinine Clr Calc Pharmacy 40.2396; Globulin 3.2 g/dL (1.3-4.6); Glucose 95 mg/dL (65-115); Lipase 43 U/L (13-60); Osmolality Calculated 283 mOsm/kg (285-295); Sodium 137 mmol/L (136-145); Total Bilirubin 0.5 mg/dL (0.15-1.2); Total Protein 6.2 g/dL (6.6-8.7)
[2024-06-05 17:07] LABS: Anion Gap 10.2 (5-19); Potassium 3.2 mmol/L (3.5-5.1)
[2024-06-05] MEDS: sodium chloride 0.9% 250 ML IV (17:09)
--- NOTE | 2024-06-05 18:09 | PC.NURSE ---
this nurse called gordon hi to give report and to ask about transportation, no answer phone went to voicemail.
--- NOTE | 2024-06-05 18:19 | PC.NURSE ---
working on setting up s ambulance ride at this time.
--- NOTE | 2024-06-05 20:58 | PC.NURSE ---
this nurse checked pt, pt is dialysis pt, pt states he sometimes make urine. this nurse checked front of brief noted to be dry, pt states he is dry. will recheck shortly.
--- NOTE | 2024-06-05 21:53 | PC.NURSE ---
pt was checked at 2145, pt dry at this time. pt iv removed with catheter intact.
[2024-06-07 12:49] LABS: Glucose Point of Care 76 mg/dL (70-110)
== END 2024-06-05 23:12 | disposition home or self-care (01) ==
PROVIDERS: Emergency Provider Emergency Medicine; PCP Nurse Practitioner Family
DX: I48.91 Unspecified atrial fibrillation (principal); I12.0 Hypertensive chronic kidney disease with stage 5 chronic kidney disease or end stage renal disease; N18.6 End stage renal disease; Z99.2 Dependence on renal dialysis; I25.10 Atherosclerotic heart disease of native coronary artery without angina pectoris; J44.9 Chronic obstructive pulmonary disease, unspecified; F03.90 Unspecified dementia, unspecified severity, without behavioral disturbance, psychotic disturbance, mood disturbance, and anxiety
CPT/HCPCS: 36415; 70450; 71045; 80053; 82140; 83690; 85025; 85610; 93005; 96361; 99285; J7050

== ENCOUNTER 2024-06-07 11:48 | Inpatient (IN) | payer MEDICARE, MEDICAID, SELFPAY ==
[2024-06-07] VITALS (26 sets, daily range): BP systolic 74–123; BP diastolic 41–76; PULSE 71–145; RESP 17–24; TEMP 36.4–37.3; O2SAT 62–99; BMI 32.8
--- NOTE | 2024-06-07 11:59 | XR_ITS ---
WS: [id number] XR chest 1V portable [id number] REASON FOR EXAM: ams FINDINGS: Chest is unchanged compared to 06/05/2024. Right internal jugular dialysis catheter unchanged in position compared to 06/05/2024. There is blunting of both costophrenic angles indicating Cardiac silhouette is prominent. No acute pulmonary parenchymal process identified. Bilateral pleural effusions. XR/XR chest 1V portable [id number] IMPRESSION: Stable abnormal chest as above.
--- NOTE | 2024-06-07 11:59 | ECG_ITS ---
[facility] Test Date: 2024-06-07 Pat Name: Robert Verduzco Department: Room: Gender: Male Office Agent: : [id number] Requested By: Jed Brock Order Number: [id number] Liza MD: Fred Muñoz M.D. Measurements Intervals [place] Rate: 145 P: 0 NC: 0 QRS: -10 QRSD: 106 T: 0 QT: 172 QTc: 267 Interpretive Statements ATRIAL FLUTTER/TACHYCARDIA WITH RAPID VENTRICULAR RESPONSE NONSPECIFIC ST & T-WAVE ABNORMALITY ABNORMAL RHYTHM ECG Compared to ECG 06/05/2024 15:58:30 Intraventricular conduction delay no longer present Possible ischemia no longer present T-wave abnormality still present Electronically Signed On 06-07-2024 16:51:03 CDT by Fred Muñoz M.D. [email or web address]
--- NOTE | 2024-06-07 12:01 | CT_ITS ---
WS: [id number] CT HEAD TECHNIQUE: Noncontrast CT of the head obtained from the skullbase to the vertex. CLINICAL INFORMATION: ams COMPARISON: CT 06/05/2024 DLP: 1128.[address] scans at [facility] use at least one of these dose optimization techniques: automated e xposure control; mA and/or kV adjustment per patient size (includes targeted exams where dose is matc hed to clinical indication); or iterative reconstruction. FINDINGS: No evidence of intracranial hemorrhage or mass effect. Ventricular system and basal cisterns are lu nt. Moderate small vessel changes with moderate parenchymal volume loss. No extra-axial fluid collect ions. No evidence of mass or mass effect. Chronic lacunar infarct LEFT basal ganglia. Paranasal sinuses and mastoid air cells are well aerated. .Normal visualized soft tissues. CT/CT head wo con* [id number] IMPRESSION: 1. No evidence of intracranial hemorrhage or mass effect. 2. No acute intracranial findings.
--- NOTE | 2024-06-07 12:02 | ED_ITS ---
HPI - Altered Mental Status 2 General: Chief Complaint: Altered Mental Status Stated Complaint: ams Time Seen by Provider: 06/07/24 11:50 Source: EMS Mode of arrival: EMS Limitations: altered mental status History of Present Illness: Patient presents by EMS from intermediate with altered mental status x 1 day. Patient cannot answer any questions. Per EMS patient is normally verbal with aggressive tendencies. Appears patient does have A-fib, seizures, COPD, he is on Keppra and Eliquis and Cardizem. Patient was normothermic. Upon arrival patient had a heart rate approximate 145 beats a minute and a blood sugar of approximately 75. Per EMS patient is normally on 3 L of oxygen but is requiring 6 L of oxygen to keep his saturation up to the mid 90s. Related Data Home Medications Medication Instructions Recorded Confirmed acetaminophen 325 mg capsule 650 mg PO Q4H PRN pain or fever 05/20/21 06/07/24 dutasteride 0.5 mg capsule 0.5 mg PO DAILY@08 05/20/21 06/07/24 ferrous sulfate 325 mg (65 mg 325 mg PO .QOD 05/20/21 06/07/24 iron) tablet scopolamine base 1 mg over 3 days 1 patch transdermal Q3D PRN Nausea 05/20/21 06/07/24 transdermal patch And Vomiting tamsulosin 0.4 mg capsule 0.4 mg PO QPM 05/20/21 06/07/24 guaifenesin 600 mg tablet, 600 mg PO Q12H PRN unknown 01/23/24 06/07/24 extended release 12 hr (Mucinex) loperamide 2 mg tablet See Rx Instructions .Route 01/23/24 06/07/24 .COMPLEX PRN Loose Stool cqmthmidyfvw-[id number]-[id number] 1 tab PO DAILY@08 01/23/24 06/07/24 tablet (Multivitamin 50 Plus tablet) psyllium seed (sugar) oral powder See Rx Instructions .Route 01/23/24 06/07/24 (Metamucil (sugar) oral powder) .COMPLEX PRN Constipation sodium chloride 0.65 % nasal spray 1 spray intranasal Q2H PRN Dry 01/23/24 06/07/24 aerosol (Deep Sea Nasal) Nasal Passages sodium phosphates 19 gram-7 118 ml VA DAILY PRN Constipation 01/23/24 06/07/24 gram/118 mL enema (Fleet Enema) tramadol 50 mg tablet 50 mg PO Q4H PRN Pain 01/23/24 06/07/24 bisacodyl 10 mg rectal suppository 10 mg VA DAILY PRN Constipation 04/22/24 06/07/24 (Dulcolax (bisacodyl)) lactobacillus combination no.4 3 3,000 mmu cells PO DAILY PRN WHEN 04/22/24 06/07/24 billion cell capsule (Probiotic) ON ANITIBIOTICS levetiracetam 500 mg tablet 500 mg PO BID 05/09/24 06/07/24 melatonin 5 mg tablet 5 mg PO BEDTIME 05/09/24 06/07/24 apixaban 5 mg tablet (Eliquis) See Rx Instructions .Route 06/07/24 06/07/24 .COMPLEX Afib atorvastatin 40 mg tablet 40 mg PO BEDTIME 06/07/24 06/07/24 metoprolol tartrate 25 mg tablet 12.5 mg PO BID 06/07/24 06/07/24 ondansetron HCl 4 mg tablet 4 mg PO PRN PRN N/V 06/07/24 06/07/24 quetiapine 25 mg tablet 25 mg PO BID 06/07/24 06/07/24 Previous Rx's Medication Instructions Recorded ASO Left #1 ea 06/01/21 cam boot #1 ea 06/01/21 Allergies Allergy/AdvReac Type Severity Reaction Status Date / Time NSAIDS (Non-Steroidal Allergy Mild Rash Verified 05/08/24 16:48 Anti-Inflamma Review of Systems 2 General: Reports: ROS unobtainable due to mental status PFSH ED 2 PFSH: Medical History (Updated 06/07/24 @ 18:30 by Camden Woodruff MD) Hematuria ESRD (end stage renal disease) on dialysis Proctitis Hypokalemia Urinary tract infection Anemia Atrial fibrillation Noncompliance PVD (peripheral vascular disease) Prostatitis Weakness End stage renal disease on dialysis Admission for dialysis and dialysis catheter care Complication, dialysis catheter clot or failure RSV (acute bronchiolitis due to respiratory syncytial virus) Fever Nausea Non-healing wound of left lower extremity Cellulitis of right lower leg Shortness of breath Atherosclerosis of [place] artery of extremity with ulceration Atherosclerosis of [place] arteries of right leg with ulceration of unspecified site Non-healing wound of right lower extremity Closed fracture of left distal fibula Left ankle pain Gastro-esophageal reflux disease without esophagitis Contracture, left hand Chronic obstructive pulmonary disease, unspecified Attention-deficit hyperactivity disorder, unspecified type Motion sickness, sequela Insomnia, unspecified Post-traumatic stress disorder, chronic Restless legs syndrome 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 ascites Contracture, right hand COVID-19 Benign prostatic hyperplasia with lower urinary tract symptoms Secondary osteoarthritis, left hand Other recurrent depressive disorders Anemia in other chronic diseases classified elsewhere Secondary osteoarthritis, right hand Generalized anxiety disorder Cervicalgia Muscle weakness (generalized) Essential (primary) hypertension Dementia in other diseases classified elsewhere without behavioral disturbance Hereditary and idiopathic neuropathy, unspecified Surgical History S/P dialysis catheter insertion Family History Father CAD (coronary artery disease) Social History Smoking and tobacco/nicotine status: never used tobacco/nicotine Alcohol intake: never Substance/Drug Use: never Physical Exam 2 Const: COMMON NORMALS: well nourished; negative for patient oriented x3 (Alert and oriented x 0) and limitations (Limited by patient's altered mental status) HENMT: COMMON NORMALS: normocephalic, atraumatic, external ears normal, Normal external nose present and moist oral mucous membranes HEAD & SCALP: n ormocephalic and atraumatic NOSE: Normal external nose present EXTERNAL EAR: Yes external ears normal Eye: COMMON NORMALS: Equal, round and reactive pupils present, EOMs intact bilaterally, conjunctivae normal and no scleral icterus CONJUNCTIVA: Yes conjunctivae normal PUPIL: Yes Equal, round and reactive pupils present Neck/C-Spine: COMMON NORMALS: full ROM, no lymphadenopathy, supple, no meningeal signs and no JVD Chest: COMMONS NORMALS: normal inspection of the chest and normal palpation of entire chest wall Resp: COMMON NORMALS: normal respiratory effort, No retractions and No use of accessory muscles; negative for clear to auscultation bilaterally (Mildly decreased breath sounds in right lung) AUSCULTATION: not clear to auscultation bilaterally (Mildly decreased breath sounds in right lung) Cardio: COMMON NORMALS: no JVD, S1 normal heart sound present, S2 normal heart sound present, No gallops present (Cardio), No clicks present (Cardio) and No murmurs present (Cardio); negative for regular rate (Irregularly irregular tachycardic rhythm) and negative for regular rhythm RATE: abnormal rate (Irregularly irregular tachycardic rhythm) RHYTHM: abnormal rhythm HEART SOUNDS: S1 normal heart sound present and S2 normal heart sound present GI: COMMON NORMALS: Normal to inspection, nondistended, normoactive bowel sounds present, Soft to palpation, non-tender, No hepatosplenomegaly present and no masses PALPATION: Yes Soft to palpation and Yes No hepatosplenomegaly present Extremity: NARRATIVE EXTREMITY EXAM: Bilateral lower extremities with compression stockings still with 2+ pitting edema bilateral Neuro: COMMON NORMALS: negative for patient oriented x3 (Alert and oriented x 0) MENINGEAL SIGNS: Yes no meningeal signs Course 2 Vital Signs: Vital signs: Vital Signs Temperature 97.5 F L 06/07/24 21:03 Pulse Rate 117 H 06/08/24 00:00 Respiratory Rate 20 H 06/08/24 00:00 Blood Pressure 113/61 06/07/24 23:00 Pulse Oximetry 96 06/08/24 00:00 Oxygen Delivery Me thod BiPAP 06/08/24 00:00 Oxygen Flow Rate 3 06/07/24 13:20 Fraction of Inspir ed Oxygen 28 06/07/24 20:00 MDM - Altered Mental Status Medical Decision Making Patient presenting altered mental status on 6 L of oxygen per nasal cannula, an ABG was obtained which showed he was acidotic and still hypoxic and hypercarbic. Patient was placed on BiPAP while lab work was getting obtained. White count of 15,000, creatinine of 3.9, lactic acid 3.2, AST and ALT 892 and 652, troponin 261, BNP 62,000, procalcitonin 0.63, TSH 4.76, negative for urine drug screen negative for influenza COVID and RSV, these results was discussed with Dr. Woodruff we will place patient in ICU, we did start Levophed 5 mg and the patient received a bolus of approximately 1500 mg liters of normal saline prior to this. Patient became hypotensive before the Levophed was started. Patient did not receive the entire septic bolus due to fluid overload and kidney failure and elevated BNP. We did start Zosyn 3.375 g in ER. Differential Diagnosis Likely altered mental status Medical Records I reviewed the patient's medical records. Lab Data I reviewed the patient's lab results. 06/07/24 12:00 06/07/24 12:00 Radiology Impressions Chest X-Ray 06/07/24 11:59 IMPRESSION: Stable abnormal chest as above. Head CT 06/07/24 12:01 IMPRESSION: 1. No evidence of intracranial hemorrhage or mass effect. 2. No acute intracranial findings. Laboratory Results WBC 15.21 10^3/uL (3.29-11.43) H 06/07/24 12:00 RBC 3.76 10^6/uL (3.85-5.65) L 06/07/24 12:00 Hgb 11.70 g/dL (11.27-16.99) 06/07/24 12:00 Hct 38.1 % (37-53) 06/07/24 12:00 MCV 101.3 fl (82-101) H 06/07/24 12:00 MCH 31.1 pg (27-33) 06/07/24 12:00 MCHC 30.7 g/dL (30-55) 06/07/24 12:00 RDW 17.0 % (12.1-15.1) H 06/07/24 12:00 Plt Count 247 10^3/cmm (157-399) 06/07/24 12:00 MPV 9.2 fL (7.4-10.4) 06/07/24 12:00 Neut % (Auto) 84.7 % 06/07/24 12:00 Lymph % (Auto) 5.2 % 06/07/24 12:00 [place] % (Auto) 8.7 % 06/07/24 12:00 Eos % (Auto) 0.0 % 06/07/24 12:00 Baso % (Auto) 0.3 % 06/07/24 12:00 Neut # (Auto) 12.88 10^3/uL (1.8-7.7) H 06/07/24 12:00 Lymph # (Auto) 0.8 10^3/uL (0.8-4.8) 06/07/24 12:00 [place] # (Auto) 1.3 10^3/uL (0.2-0.9) H 06/07/24 12:00 Eos # (Auto) 0.0 10^3/uL (0.0-0.8) 06/07/24 12:00 Baso # (Auto) 0.1 10^3/uL (0.0-0.1) 06/07/24 12:00 Nucleated RBC % (auto) 0 % 06/07/24 12:00 Nucleated RBCs # 0.0 /100WBC 06/07/24 12:00 PT 21.60 SECONDS (12.1-14.9) H 06/07/24 12:00 INR 1.81 (0.8-1.2) H 06/07/24 12:00 D-Dimer 2.57 ug/mLFEU (0-0.59) H 06/07/24 12:00 Specimen Type Arterial 06/07/24 12:27 Sample Site Radial, right 06/07/24 12:27 ABG pH 7.27 (7.35-7.45) L 06/07/24 12:27 ABG pCO2 63.7 mmHg (35-45) H* 06/07/24 12:27 ABG pO2 69.1 mmHg (80.0-100.0) L 06/07/24 12:27 ABG PO2/FiO2 Ratio 157 06/07/24 12:27 ABG HCO3 29.5 mmol/L (22-26) H 06/07/24 12:27 ABG O2 Saturation 91.5 06/07/24 12:27 ABG Base Excess 1.4 mmol/L (-2.0-2.0) 06/07/24 12:27 Shashi Test Pos 06/07/24 12:27 A-a O2 Gradient 21.6 mmHg (5-10) H 06/07/24 12:27 Hematocrit 34.7 % (42-52) L 06/07/24 12:27 Hgb O2 Saturation 88.5 % (95-100) L 06/07/24 12:27 Carboxyhemoglobin 2.1 %THgb (0.4-20.1) 06/07/24 12:27 Methemoglobin 1.2 % (0.4-1.5) 06/07/24 12:27 Total Hemoglobin 11.3 g/dL (14-18) L 06/07/24 12:27 Sodium 138.0 mmol/L (131-143) 06/07/24 12:27 Potassium 4.2 mmol/L (3.5-5.0) 06/07/24 12:27 Glucose 92.0 mg/dL (70-115) 06/07/24 12:27 Ionized Calcium 1.1 mmol/L (1.1-1.4) 06/07/24 12:27 O2 Delivery Device Nc 06/07/24 12:27 O2 Liters/Min 6.0 % 06/07/24 12:27 FiO2 44.0 % 06/07/24 12:27 [employer] Plasma Etcher ID Amh 06/07/24 12:27 Sodium 139 mmol/L (136-145) 06/07/24 12:00 Potassium 5.0 mmol/L (3.5-5.1) 06/07/24 12:00 Chloride 95 mmol/L (98-107) L 06/07/24 12:00 Carbon Dioxide 25 mmol/L (22-29) 06/07/24 12:00 Anion Gap 24.0 (5-19) H 06/07/24 12:00 BUN 23 mg/dL (8-23) 06/07/24 12:00 Creatinine 3.9 mg/dL (0.7-1.2) H 06/07/24 12:00 GFR Calculation Not Reportable 06/07/24 12:00 Glucose 90 mg/dL (65-115) 06/07/24 12:00 Calculated Osmolality 291 mOsm/kg (285-295) 06/07/24 12:00 Lactic Acid 3.2 mmol/L (0.5-2.2) H 06/07/24 12:00 Calcium 8.2 mg/dL (8.5-10.5) L 06/07/24 12:00 Phosphorus 6.8 mg/dL (2.5-4.5) H 06/07/24 12:00 Magnesium 2.1 mg/dL (1.7-2.3) 06/07/24 12:00 Total Bilirubin 0.5 mg/dL (0.15-1.2) 06/07/24 12:00 AST 892 U/L (0-40) H 06/07/24 12:00 ALT 652 U/L (0-41) H 06/07/24 12:00 Alkaline Phosphatase 168 U/L (40-130) H 06/07/24 12:00 Ammonia 34 umol/L (16-60) 06/07/24 12:00 Troponin T Baseline 261 ng/L (0-15) H* 06/07/24 12:00 NT-Pro-B Natriuret Pep 81014 pg/mL (0-450) H 06/07/24 12:00 Total Protein 6.2 g/dL (6.6-8.7) L 06/07/24 12:00 Albumin 3.2 g/dL (3.5-5.2) L 06/07/24 12:00 Globulin 3.0 g/dL (1.3-4.6) 06/07/24 12:00 Vitamin B12 > 2000 pg/mL (232-1245) H 06/07/24 12:00 Procalcitonin 0.63 ng/mL (0-0.5) H 06/07/24 12:00 TSH 4.66 uIU/mL (0.27-4.20) H 06/07/24 12:00 TSH 4.76 uIU/mL (0.27-4.20) H 06/07/24 12:00 Urine Color Yellow (Yellow) 06/07/24 12:10 Urine Appearance Cloudy (CLEAR) A 06/07/24 12:10 Urine pH 8 (5-7) A 06/07/24 12:[address] [place] [address] 1.010 (1.005-1.030) 06/07/24 12:10 Urine Protein 2+ (Negative) H 06/07/24 12:10 Urine Glucose (UA) Norm (Normal) 06/07/24 12:10 Urine Ketones Negative (Negative) 06/07/24 12:10 Urine Blood 3+ (Negative) H 06/07/24 12:10 Urine Nitrate Negative (Negative) 06/07/24 12:10 Urine Bilirubin Neg (Negative) 06/07/24 12:10 Urine Urobilinogen Norm mg/dL (Negative) 06/07/24 12:10 Ur Leukocyte Esterase Negative (Negative) 06/07/24 12:10 Urine RBC >100 /hpf (0-2) H 06/07/24 12:10 Urine WBC 0-4 /hpf (0-5) H 06/07/24 12:10 Ur Squamous Epith Cells 0-4 /hpf (0-5) H 06/07/24 12:10 Ur Transition Epith Cell 0-4 /hpf 06/07/24 12:10 Amorphous Sediment Trace /hpf 06/07/24 12:10 Urine Bacteria Trace /hpf (NONE) 06/07/24 12:10 Urine Mucus Trace /hpf 06/07/24 12:10 Urine Opiates Screen Negative ng/mL (Negative) 06/07/24 12:10 Ur Barbiturates Screen Negative ng/mL (Negative) 06/07/24 12:10 Ur Phencyclidine Scrn Negative ng/mL (Negative) 06/07/24 12:10 Ur Amphetamines Screen Negative ng/mL (Negative) 06/07/24 12:10 U Benzodiazepines Scrn Negative ng/mL (Negative) 06/07/24 12:10 Urine Cocaine Screen Negative ng/mL (Negative) 06/07/24 12:10 U Marijuana (THC) Screen Negative ng/mL (Negative) 06/07/24 12:10 Coronavirus (PCR) Negative (Negative) 06/07/24 12:10 Hep Bs Antigen Non-reactive (Nonreactive) 06/07/24 11:00 Hep Bs Antibody < 3.5 (11.5-1000) L 06/07/24 11:00 Hepatitis C Antibody Non-reactive (Nonreactive) 06/07/24 11:00 Influenza A (PCR) Negative (Negative) 06/07/24 12:10 Influenza Type B (PCR) Negative (Negative) 06/07/24 12:10 RSV (PCR) Negative (Negative) 06/07/24 12:10 All radiology interpretation(s) finalized by discharge EKG Data EKG 1: I personally reviewed and interpreted this EKG as follows: EKG interpretation date: 06/07/24 EKG interpretation time: 11:58 Interpretation: Ventricular rate 145 beats minute, QRS duration 106, QTc of 255, atrial flutter/tachycardia with RVR, Critical Care Time 2 Critical Care Time: Critical Care Time: Yes Total Critical Care Time: 45 Attestation: The patient was emergently evaluated this patient's presentation and case had a high probability of a clinically significant, sudden, or life-threatening deterioration of the patient's initial critical presentation or condition which required my full and direct attention, intervention and personal management. Discharge Plan Discharge Patient Disposition: Admitted As Inpatient Admit Provider: Camden Woodruff Clinical Impression: Atrial fibrillation with rapid ventricular response, Septic shock, Acute alteration in mental status, Elevated liver enzymes, Acute and chronic respiratory failure with hypoxia, Patient is full code Condition: Stable Coding Level of Care Code ED Pile Driver Engineer for Trixie Small
--- NOTE | 2024-06-07 12:24 | PC.NURSE ---
Glucose via fingerstick 75, Dr. Brock notified.
[2024-06-07] MEDS: sodium chloride 0.9% 1,000 ML 999 ML IV (12:27)
[2024-06-07 12:28] LABS: Basophils # 0.1 10^3/uL (0.0-0.1); Basophils % 0.3 %; Hematocrit 38.1 % (37-53); Lymphocytes # 0.8 10^3/uL (0.8-4.8); Lymphocytes % 5.2 %; Mean Corpuscular HGB Conc 30.7 g/dL (30-55); Mean Corpuscular Hemoglobin 31.1 pg (27-33); Mean Corpuscular Volume 101.3 fl (82-101); Mean Platelet Volume 9.2 fL (7.4-10.4); Monocytes # 1.3 10^3/uL (0.2-0.9); Monocytes % 8.7 %; Neutrophils # 12.88 10^3/uL (1.8-7.7); Neutrophils % 84.7 %; Nucleated Red Blood Cells % 0 %; Platelet Count 247 10^3/cmm (157-399); Red Blood Count 3.76 10^6/uL (3.85-5.65); White Blood Count 15.21 10^3/uL (3.29-11.43)
[2024-06-07] MEDS: dilTIAZem 5 mg/mL SDV 5 mL 20 MG IVP (12:28)
--- NOTE | 2024-06-07 12:33 | PC.NURSE ---
after Cardizem administration pt b/p decreased to 86/52. normal saline infusing at 999mL/hr, Dr. Brock at bedside. pt responds to sound, no change from arrival to unit.
[2024-06-07 12:38] LABS: ABG PCO2 63.7 mmHg (35-45); ABG PH Result 7.27 (7.35-7.45); Alveolar-Arterial Oxygen Gradi 21.6 mmHg (5-10); Arterial Blood Gas Hematocrit 34.7 % (42-52); Base Excess ABG 1.4 mmol/L (-2.0-2.0); Blood Gas Allen Test Pos; Blood Gas Operator Identificat AMH; Blood Gas Sample Site Radial, right; Blood Gas Sample Type Arterial; Carboxyhemoglobin 2.1 %THgb (0.4-20.1); HCO3 ABG 29.5 mmol/L (22-26); HGB O2 Sat 88.5 % (95-100); Ionized Calcium Level - ABG 1.1 mmol/L (1.1-1.4); Methemoglobin 1.2 % (0.4-1.5); Oxygen Device NC; Oxygen Saturation ABG 91.5; PO2 ABG 69.1 mmHg (80.0-100.0); PO2 FiO2 Ratio Arterial Blood 157; Potassium Level - ABG 4.2 mmol/L (3.5-5.0); Total Hemoglobin 11.3 g/dL (14-18)
[2024-06-07 12:40] LABS: INR 1.81 (0.8-1.2)
[2024-06-07 12:40] LABS: Amphetamines Screen Urine Negative (Negative); Barbiturates Screen Urine Negative (Negative); Benzodiazepines Screen Urine Negative (Negative); Cocaine Screen Urine Negative (Negative); Opiate Screen Urine Negative (Negative); PCP Screen Urine Negative (Negative); THC Screen Urine Negative (Negative)
[2024-06-07 12:50] LABS: Ammonia 34 umol/L (16-60)
[2024-06-07 12:51] LABS: Troponin(5th) Baseline 261 ng/L (0-15)
[2024-06-07 12:53] LABS: Procalcitonin 0.63 ng/mL (0-0.5); Thyroid Stimulating Hormone 4.76 uIU/mL (0.27-4.20)
[2024-06-07 12:56] LABS: Add Urine Microscopic? YES; Bilirubin Urine Neg (Negative); Blood Urine 3+ (Negative); Glucose Urine UA Norm (Normal); Ketones Urine Negative (Negative); Leukocyte Esterase Urine Negative (Negative); Nitrate Urine Negative (Negative); Protein Urine 2+ (Negative); Urine Appearance Cloudy (CLEAR); Urine Color Yellow (Yellow); Urobilinogen Urine Norm (Negative); pH Urine 8 (5-7)
[2024-06-07 13:04] LABS: RBC Urine >100 /hpf (0-2); Squamous Epithelial Cell Urine 0-4 /hpf (0-5); Transitional Epi Cells Urine 0-4 /hpf; WBC Urine 0-4 /hpf (0-5)
[2024-06-07 13:05] LABS: Add Urine Culture? Yes; Amorphous Sediment Urine TRACE /hpf; Bacteria Urine TRACE /hpf; Mucus Urine TRACE /hpf
[2024-06-07 13:06] LABS: Alanine Aminotransferase 652 U/L (0-41); Albumin Level 3.2 g/dL (3.5-5.2); Alkaline Phosphatase 168 U/L (40-130); Blood Urea Nitrogen 23 mg/dL (8-23); Calcium 8.2 mg/dL (8.5-10.5); Carbon Dioxide 25 mmol/L (22-29); Chloride 95 mmol/L (98-107); Creatinine Clr Calc Pharmacy 20.0154; Glucose 90 mg/dL (65-115); Magnesium 2.1 mg/dL (1.7-2.3); Osmolality Calculated 291 mOsm/kg (285-295); Sodium 139 mmol/L (136-145); Total Bilirubin 0.5 mg/dL (0.15-1.2); Total Protein 6.2 g/dL (6.6-8.7)
--- NOTE | 2024-06-07 13:09 | PC.PHAR ---
Pt is from [facility]
[2024-06-07 13:20] LABS: Covid PCR NEGATIVE (Negative); Influenza A NEGATIVE (Negative); Influenza B NEGATIVE (Negative); Respiratory Syncytial Virus Ce NEGATIVE (Negative)
[2024-06-07 13:21] LABS: Lactic Sepsis W/Reflex 3.2 mmol/L (0.5-2.2)
[2024-06-07 13:24] LABS: Aspartate Amino Transferase 892 U/L (0-40); NT Pro B Type Natriuretic Pept 62161 pg/mL (0-450); Phosphorus 6.8 mg/dL (2.5-4.5)
--- NOTE | 2024-06-07 13:24 | PC.NURSE ---
pt arrived back to unit approx @[address] via stretcher by field technical assistant. pt's b/p 74/41, oxygen saturation 62% with pt on 3L NC. respiratory called, Dr. Brock at bedside. this nurse applied simple mask 10L, placed pt in trendelenburg, NS infusing.
--- NOTE | 2024-06-07 13:26 | PC.NURSE ---
respiratory placed biPAP on pt, oxygen saturation currently 96%.
[2024-06-07] MEDS: piperacillin-tazobactam 3.375 GM in sodium chloride 0.9% (plus) 50 ML IV (13:42)
--- NOTE | 2024-06-07 13:59 | ECG_ITS ---
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 Measurements Intervals [place] Rate: 72 P: 0 AK: 0 QRS: 18 QRSD: 105 T: -15 QT: 406 QTc: 445 Interpretive Statements ATRIAL FLUTTER/TACHYCARDIA ST DEVIATION AND MODERATE T-WAVE ABNORMALITY, CONSIDER INFERIOR ISCHEMIA [-0.1+ mV T-WAVE IN II/aVF] Compared to ECG 06/07/2024 11:58:37 Possible ischemia now present T-wave abnormality still present Electronically Signed On 06-07-2024 16:55:30 CDT by Fred Muñoz M.D. [email or web address]
[2024-06-07] MEDS: norepinephrine 4 MG/250 ML BAG 30 MG IV (14:08)
[2024-06-07 14:34] LABS: ABG PCO2 58.1 mmHg (35-45); ABG PH Result 7.28 (7.35-7.45); Alveolar-Arterial Oxygen Gradi 12.6 mmHg (5-10); Arterial Blood Gas Hematocrit 34.2 % (42-52); Base Excess ABG -0.6 mmol/L (-2.0-2.0); Blood Gas Allen Test Pos; Blood Gas Operator Identificat AMH; Blood Gas Sample Site Radial, right; Blood Gas Sample Type Arterial; Carboxyhemoglobin 1.9 %THgb (0.4-20.1); Ionized Calcium Level - ABG 1.1 mmol/L (1.1-1.4); Methemoglobin 1.2 % (0.4-1.5); Oxygen Device BIPAP; Oxygen Saturation ABG 94.9; PO2 ABG 80.3 mmHg (80.0-100.0); PO2 FiO2 Ratio Arterial Blood 229; Potassium Level - ABG 4.4 mmol/L (3.5-5.0); Total Hemoglobin 11.2 g/dL (14-18)
--- NOTE | 2024-06-07 14:38 | PM.HP ---
Providers/Chief Complaint Admitting Physician: Camden Woodruff MD Primary Care Provider: Jenn Quiroga NP Chief Complaint: ams History of Present Illness Robert Verduzco is a 74 year old male with history of liver cirrhosis, end-stage renal disease Monday, A-fib, hematuria taken off anticoagulating agent, full code, resident of care home, social services makes most of the decisions for him does not have any family around him, position of discharge from the hospital after management hematuria and UTI, presenting with chief complaint of altered mental status. In the ER patient is noted provide in history, he has been diagnosed with hypercapnic respite failure and encephalopathy. In the ICU he is getting dialyzed. He is on Levophed verbally arousable secondary to worsening of hypercapnia we have switched him to AVAPS, patient is responding little bit more to verbal commands. Patient was given septic bolus in the ER he was also given AV tory blocking agent for A-fib RVR along antibiotics. Blood cultures and urine culture taken. Review of Systems General: Reports: ROS unobtainable due to medical condition Medications/Allergies Home Medications Medication Instructions Recorded Confirmed Last Taken Type acetaminophen 325 mg capsule 650 mg PO Q4H PRN pain or fever 05/20/21 06/07/24 06/06/24 07:00 History dutasteride 0.5 mg capsule 0.5 mg PO DAILY@08 05/20/21 06/07/24 06/07/24 History ferrous sulfate 325 mg (65 mg 325 mg PO .QOD 05/20/21 06/07/24 06/06/24 History iron) tablet scopolamine base 1 mg over 3 days 1 patch transdermal Q3D PRN Nausea 05/20/21 06/07/24 01/17/24 History transdermal patch And Vomiting tamsulosin 0.4 mg capsule 0.4 mg PO QPM 05/20/21 06/07/24 06/06/24 History ASO Left #1 ea 06/01/21 06/07/24 Unknown Rx cam boot #1 ea 06/01/21 06/07/24 Unknown Rx guaifenesin 600 mg tablet, 600 mg PO Q12H PRN unknown 01/23/24 06/07/24 Unknown History extended release 12 hr (Mucinex) loperamide 2 mg tablet See Rx Instructions .Route 01/23/24 06/07/24 Unknown History .COMPLEX PRN Loose Stool dktlixediibb-favofvgi-rauwcw 1 tab PO DAILY@08 01/23/24 06/07/24 06/07/24 History tablet (Multivitamin 50 Plus tablet) psyllium seed (sugar) oral powder See Rx Instructions .Route 01/23/24 06/07/24 06/07/24 History (Metamucil (sugar) oral powder) .COMPLEX PRN Constipation sodium chloride 0.65 % nasal spray 1 spray intranasal Q2H PRN Dry 01/23/24 06/07/24 Unknown History aerosol (Deep Sea Nasal) Nasal Passages sodium phosphates 19 gram-7 118 ml [place] DAILY PRN Constipation 01/23/24 06/07/24 Unknown History gram/118 mL enema (Fleet Enema) tramadol 50 mg tablet 50 mg PO Q4H PRN Pain 01/23/24 06/07/24 06/06/24 History bisacodyl 10 mg rectal suppository 10 mg AR DAILY PRN Constipation 04/22/24 06/07/24 Unknown History (Dulcolax (bisacodyl)) lactobacillus combination no.4 3 3,000 mmu cells PO DAILY PRN WHEN 04/22/24 06/07/24 Unknown History billion cell capsule (Probiotic) ON ANITIBIOTICS levetiracetam 500 mg tablet 500 mg PO BID 05/09/24 06/07/24 06/07/24 History melatonin 5 mg tablet 5 mg PO BEDTIME 05/09/24 06/07/24 06/06/24 History apixaban 5 mg tablet (Eliquis) See Rx Instructions .Route 06/07/24 06/07/24 06/06/24 History .COMPLEX Afib atorvastatin 40 mg tablet 40 mg PO BEDTIME 06/07/24 06/07/24 06/06/24 History metoprolol tartrate 25 mg tablet 12.5 mg PO BID 06/07/24 06/07/24 06/07/24 History ondansetron HCl 4 mg tablet 4 mg PO PRN PRN N/V 06/07/24 06/07/24 Unknown History quetiapine 25 mg tablet 25 mg PO BID 06/07/24 06/07/24 06/07/24 History Allergies Allergy/AdvReac Type Severity Reaction Status Date / Time NSAIDS (Non-Steroidal Allergy Mild Rash Verified 05/08/24 16:48 Anti-Inflamma PFSH Acute PFSH: Medical History (Updated 06/07/24 @ 18:30 by Camden Woodruff MD) Hematuria ESRD (end stage renal disease) on dialysis Proctitis Hypokalemia Urinary tract infection Anemia Atrial fibrillation Noncompliance PVD (peripheral vascular disease) Prostatitis Weakness End stage renal disease on dialysis Admission for dialysis and dialysis catheter care Complication, dialysis catheter clot or failure RSV (acute bronchiolitis due to respiratory syncytial virus) Fever Nausea Non-healing wound of left lower extremity Cellulitis of right lower leg Shortness of breath Atherosclerosis of [place] artery of extremity with ulceration Atherosclerosis of [place] arteries of right leg with ulceration of unspecified site Non-healing wound of right lower extremity Closed fracture of left distal fibula Left ankle pain Gastro-esophageal reflux disease without esophagitis Contracture, left hand Chronic obstructive pulmonary disease, unspecified Attention-deficit hyperactivity disorder, unspecified type Motion sickness, sequela Insomnia, unspecified Post-traumatic stress disorder, chronic Restless legs syndrome 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 ascites Contracture, right hand COVID-19 Benign prostatic hyperplasia with lower urinary tract symptoms Secondary osteoarthritis, left hand Other recurrent depressive disorders Anemia in other chronic diseases classified elsewhere Secondary osteoarthritis, right hand Generalized anxiety disorder Cervicalgia Muscle weakness (generalized) Essential (primary) hypertension Dementia in other diseases classified elsewhere without behavioral disturbance Hereditary and idiopathic neuropathy, unspecified Surgical History S/P dialysis catheter insertion Family History Father CAD (coronary artery disease) Social History Smoking and tobacco/nicotine status: never used tobacco/nicotine Alcohol intake: never Substance/Drug Use: never Vitals/I&O/Wt Last Vital Signs Temp 99.1 F 06/07/24 11:53 Pulse 72 06/07/24 14:35 Resp 19 H 06/07/24 14:15 BP 108/59 06/07/24 14:15 Pulse Ox 97 06/07/24 14:35 O2 Del Method Nasal Cannula 06/07/24 13:20 O2 Flow Rate 3 06/07/24 13:20 FiO2 35 06/07/24 14:35 0906/07/24 06/07/24 22:59 06:59 14:59 Intake Total 1000 / 1000 Balance 1000 / 1000 Weight last 48 hrs Weight 106.594 kg Physical Exam Narrative: Patient is verbally arousable Not able to carry decent conversation Currently on AVAPS Currently on Levophed as well None tender abdomen Lower extremity sarcopenia Nonpitting edema Sacral ulcer stage I with granulation tissue Dialysis catheter in place Patient currently is on 3 L nasal cannula Urinary Catheter Management: Estrada: Cath Placed During This Visit: yes Urinary Catheter Date of Insertion: 06/07/24 Urinary Catheter Time of Insertion: 12:23 Data 06/07/24 12:00 06/07/24 12:00 Micro: Microbiology 06/07/24 12:45 Blood Culture - Preliminary Blood SPECIMEN COLLECTED 06/07/24 12:40 Blood Culture - Preliminary Blood SPECIMEN COLLECTED A&P Assessment and plan (1) Patient is full code: (2) Essential (primary) hypertension: (3) Atrial fibrillation: (4) ESRD (end stage renal disease) on dialysis: (5) Acute alteration in mental status: (6) Acute and chronic respiratory failure with hypoxia: (7) Hematuria: Plan Acute hypoxic hypercapnic respite failure with encephalopathy Underlying diagnosis of COPD Currently on AVAPS At risk of intubation if there is no improvement we will get another blood gas after dialysis Patient is full code as per the care home records His doctor is Dr. Lela Jerez As per the nursing staff patient does not have any family member social services at the care home makes most of the decisions for the patient however does not have medical DPOA official document in place? Septic shock Received septic bolus Currently on Levophed Given albumin Source is not identified Will request respiratory panel Patient has a history of seizure, I will keep him on IV Keppra at this point No active tremors noted I do believe encephalopathy related to hypercapnia at this point Hematuria, persistent Last time we recommended urology follow-up He was taken off anticoagulating agent and required 2 unit PRBC for anemia Elevated troponin It could be related to underlying end-stage renal disease I am reluctant to add him on ACS protocol secondary to active hematuria requiring blood transfusion in the recent past Liver cirrhosis with hypotension Patient received septic bolus in the ER Became hypotensive after getting Cardizem in the ER Patient was recently treated for prostatitis I do believe patient is suffering from third spacing I will give him 1 bag of albumin and titrate off Levophed if possible Patient is afebrile Will request CT abdomen pelvis without contrast A-fib RVR Continue amiodarone drip Avoiding anticoagulating agent due to hematuria This could be a concentrated H&H, Patient has sacral ulcer present on admission Offloading dressing in place Full code Guarded prognosis Will start diet once he is more awake and alert Attestations Medical Necessity Statement*: More than 2 midnights anticipated Diagnoses Patient is full code Z78.9 Essential (primary) hypertension I10 Atrial fibrillation I48.91 ESRD (end stage renal disease) on dialysis N18.6; Z99.2 Acute alteration in mental status R41.82 Acute and chronic respiratory failure with hypoxia J96.21 Hematuria R31.9
[2024-06-07 14:40] LABS: Troponin 5 2HR Delta -85.2 ABS# (0-10)
[2024-06-07 14:42] LABS: Troponin 5 2HR 175.8 ng/L (0-15)
[2024-06-07 14:42] LABS: Reflex Lactate Order REFLEX LACTIC ORDERD
[2024-06-07 15:02] LABS: D Dimer 2.57 ug/mLFEU (0-0.59)
--- NOTE | 2024-06-07 15:21 | PC.NURSE ---
arrived from ED via gurney, opens eyes but only mumbles
--- NOTE | 2024-06-07 15:27 | P.CONIM_ITS ---
Providers/Reason For Consult 2 Consulting Physician/Specialty*: Rory Colunga MD / telenephrology Reason for Consult*: ESRD care Requesting Physician: Dr Garrett Woodruff Attending Physician: Camden Woodruff MD Primary Care Provider: Jenn Quiroga NP History of Present Illness History of Present Illness Robert Verduzco is a 74 year old male history of ESRD on dialysis Monday and Monday via right-sided permacath, history of cirrhosis, splenomegaly, BPH, anemia, COPD, cellulitis of his right leg. And history of A-fib. Patient presented to the hospital today with altered mental status hypotension atrial fibrillation with rapid ventricular response rate. The patient was cardioverted. The patient was also started on BiPAP for hypercapnia. Patient is minimally responsive. And confused. The patient is now in sinus rhythm and blood pressure has improved. I am unable to get further history as patient is minimally responsive on BiPAP. Review of Systems 2 Narrative: As above history obtained via the nurse and review of records. Medications/Allergies Home Medications Medication Instructions Recorded Confirmed Last Taken Type acetaminophen 325 mg capsule 650 mg PO Q4H PRN pain or fever 05/20/21 06/07/24 06/06/24 07:00 History dutasteride 0.5 mg capsule 0.5 mg PO DAILY@08 05/20/21 06/07/24 06/07/24 History ferrous sulfate 325 mg (65 mg 325 mg PO .QOD 05/20/21 06/07/24 06/06/24 History iron) tablet scopolamine base 1 mg over 3 days 1 patch transdermal Q3D PRN Nausea 05/20/21 06/07/24 01/17/24 History transdermal patch And Vomiting tamsulosin 0.4 mg capsule 0.4 mg PO QPM 05/20/21 06/07/24 06/06/24 History ASO Left #1 ea 06/01/21 06/07/24 Unknown Rx cam boot #1 ea 06/01/21 06/07/24 Unknown Rx guaifenesin 600 mg tablet, 600 mg PO Q12H PRN unknown 01/23/24 06/07/24 Unknown History extended release 12 hr (Mucinex) loperamide 2 mg tablet See Rx Instructions .Route 01/23/24 06/07/24 Unknown History .COMPLEX PRN Loose Stool gvibylvqeldi-qhoxgftv-yasogk 1 tab PO DAILY@08 01/23/24 06/07/24 06/07/24 History tablet (Multivitamin 50 Plus tablet) psyllium seed (sugar) oral powder See Rx Instructions .Route 01/23/24 06/07/24 06/07/24 History (Metamucil (sugar) oral powder) .COMPLEX PRN Constipation sodium chloride 0.65 % nasal spray 1 spray intranasal Q2H PRN Dry 01/23/24 06/07/24 Unknown History aerosol (Deep Sea Nasal) Nasal Passages sodium phosphates 19 gram-7 118 ml [place] DAILY PRN Constipation 01/23/24 06/07/24 Unknown History gram/118 mL enema (Fleet Enema) tramadol 50 mg tablet 50 mg PO Q4H PRN Pain 01/23/24 06/07/24 06/06/24 History bisacodyl 10 mg rectal suppository 10 mg [place] DAILY PRN Constipation 04/22/24 06/07/24 Unknown History (Dulcolax (bisacodyl)) lactobacillus combination no.4 3 3,000 mmu cells PO DAILY PRN WHEN 04/22/24 06/07/24 Unknown History billion cell capsule (Probiotic) ON ANITIBIOTICS levetiracetam 500 mg tablet 500 mg PO BID 05/09/24 06/07/24 06/07/24 History melatonin 5 mg tablet 5 mg PO BEDTIME 05/09/24 06/07/24 06/06/24 History apixaban 5 mg tablet (Eliquis) See Rx Instructions .Route 06/07/24 06/07/24 06/06/24 History .COMPLEX Afib atorvastatin 40 mg tablet 40 mg PO BEDTIME 06/07/24 06/07/24 06/06/24 History metoprolol tartrate 25 mg tablet 12.5 mg PO BID 06/07/24 06/07/24 06/07/24 History ondansetron HCl 4 mg tablet 4 mg PO PRN PRN N/V 06/07/24 06/07/24 Unknown History quetiapine 25 mg tablet 25 mg PO BID 06/07/24 06/07/24 06/07/24 History Allergies Allergy/AdvReac Type Severity Reaction Status Date / Time NSAIDS (Non-Steroidal Allergy Mild Rash Verified 05/08/24 16:48 Anti-Inflamma Current Medications Generic Name Dose Route Start Last Admin Trade Name Freq PRN Reason Stop Dose Admin Norepinephrine Bitartrate 4 mg in 250 mls @ 0 mls/hr 06/07/24 13:45 06/07/24 14:08 Levophed IV 8 mcg/min .Q0M JOHN 30 mls/hr Administration Protocol Per Protocol PFSH Acute 2 PFSH: Medical History (Updated 06/07/24 @ 15:32 by Rory Colunga MD) ESRD (end stage renal disease) on dialysis Proctitis Hypokalemia Urinary tract infection Hematuria Anemia Atrial fibrillation Noncompliance PVD (peripheral vascular disease) Prostatitis Weakness End stage renal disease on dialysis Admission for dialysis and dialysis catheter care Complication, dialysis catheter clot or failure RSV (acute bronchiolitis due to respiratory syncytial virus) Fever Nausea Non-healing wound of left lower extremity Cellulitis of right lower leg Shortness of breath Atherosclerosis of [place] artery of extremity with ulceration Atherosclerosis of [place] arteries of right leg with ulceration of unspecified site Non-healing wound of right lower extremity Closed fracture of left distal fibula Left ankle pain Gastro-esophageal reflux disease without esophagitis Contracture, left hand Chronic obstructive pulmonary disease, unspecified Attention-deficit hyperactivity disorder, unspecified type Motion sickness, sequela Insomnia, unspecified Post-traumatic stress disorder, chronic Restless legs syndrome 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 ascites Contracture, right hand COVID-19 Benign prostatic hyperplasia with lower urinary tract symptoms Secondary osteoarthritis, left hand Other recurrent depressive disorders Anemia in other chronic diseases classified elsewhere Secondary osteoarthritis, right hand Generalized anxiety disorder Cervicalgia Muscle weakness (generalized) Essential (primary) hypertension Dementia in other diseases classified elsewhere without behavioral disturbance Hereditary and idiopathic neuropathy, unspecified Surgical History S/P dialysis catheter insertion Family History Father CAD (coronary artery disease) Social History Smoking and tobacco/nicotine status: never used tobacco/nicotine Alcohol intake: never Substance/Drug Use: never Vitals/I&O/Wt Last Vital Signs Temp 99.1 F 06/07/24 11:53 Pulse 75 06/07/24 14:58 Resp 19 H 06/07/24 14:15 BP 108/68 06/07/24 14:58 Pulse Ox 98 06/07/24 14:58 O2 Del Method Nasal Cannula 06/07/24 13:20 O2 Flow Rate 3 06/07/24 13:20 FiO2 35 06/07/24 14:35 06/07/24 06/07/24 06/07/24 06:59 14:59 22:59 Intake Total 1000 / 1000 Balance 1000 / 1000 Weight last 48 hrs Weight 106.594 kg Physical Exam 2 Narrative: Patient on BiPAP vital signs noted. Minimally responsive. HEENT normocephalic atraumatic. Neck is supple Lungs dull bases. Heart regular with systolic murmur. Abdomen soft positive bowel sounds. Extremities bilateral edema. Neuro responds to pain. Dialysis access right IJ permacath. Urinary Catheter Management: Estrada: Cath Placed During This Visit: yes Urinary Catheter Date of Insertion: 06/07/24 Urinary Catheter Time of Insertion: 12:23 Data 06/07/24 12:00 06/07/24 12:00 Micro: Microbiology 06/07/24 12:45 Blood Culture - Preliminary Blood SPECIMEN COLLECTED 06/07/24 12:40 Blood Culture - Preliminary Blood SPECIMEN COLLECTED A&P Assessment and plan (1) ESRD (end stage renal disease) on dialysis: 74-year-old man with past medical history of ESRD on dialysis Monday and Monday, cirrhosis, GERD, BPH, anemia, seizure disorder, hypertension, COPD. Patient has had episodes of unresponsiveness and seizures and encephalopathy. No also A-fib with RVR. The patient presents today once again with altered mental status and atrial fibrillation with rapid ventricular response rate. The patient was given Cardizem and Levophed and he is converted to sinus rhythm. The patient is still minimally responsive. 1. Altered mental status head CT with no evidence of intracranial hemorrhage or mass effect no acute intracranial findings. I am concerned that the patient could be postictal or seizing. I agree that his hypercapnia may be worsening the situation. Would also assess for infection given the fact that he has a leukocytosis. Urine tox screen negative 1B. ESRD potassium of 5 altered mental status of this could be due to seizures and wondering if this could be due to uremia. We will attempt to dialyze for 3 hours on a 2K bath and attempt to remove fluids as tolerated by blood pressure. 2. Hypercapnic respiratory acidosis. 3. Hemoglobin acceptable. 4. White cell count of 15. 5. Increased LFTs 6. BNP of 62,000 6. Abnormal urinalysis 2+ protein 3+ blood. Patient has known history of hematuria. The patient was seen and examined using audiovisual equipment and a nurse examined him. Plan See above Consult Attestations 2 Medical Necessity Statement: Altered mental status, question of sepsis. Time Spent in Patient Care: Greater than 35 minutes (>than 50% of time spent in counselling and/or direct pt care on unit) . Coding Level of Care Code Acute Code for Chg Fwd Diagnoses ESRD (end stage renal disease) on dialysis N18.6; Z99.2
[2024-06-07 16:12] LABS: Thyroid Stimulating Hormone 4.66 uIU/mL (0.27-4.20)
[2024-06-07 16:25] LABS: Hepatitis B Surface AB < 3.5 (11.5-1000); Hepatitis B Surface Antigen Non-Reactive (Nonreactive); Hepatitis C Virus Antibody Non-Reactive (Nonreactive)
[2024-06-07 16:32] LABS: ABG PCO2 58.9 mmHg (35-45); ABG PH Result 7.27 (7.35-7.45); Arterial Blood Gas Hematocrit 35.5 % (42-52); Blood Gas Allen Test Pos; Blood Gas Operator Identificat GD; Blood Gas Sample Site Radial, right; Blood Gas Sample Type Arterial; HCO3 ABG 26.8 mmol/L (22-26); Oxygen Device BIPAP; PO2 ABG 85.8 mmHg (80.0-100.0); PO2 FiO2 Ratio Arterial Blood 306
[2024-06-07] MEDS: FUROsemide 10 mg/mL SDV 2mL 20 MG IVP (16:43)
[2024-06-07] MEDS: pantoprazole 40 mg SDV IVP (16:44)
[2024-06-07] MEDS: cefepime 1,000 MG in sodium chloride 0.9% (plus) 50 ML 100 MG IV (16:44)
[2024-06-07] MEDS: vancomycin 1,500 MG/300 ML PIGGYBACK 200 MG IV (16:44)
[2024-06-07] MEDS: levETIRAcetam 1,500 MG/100 ML PREMIX 400 MG IV (17:03)
[2024-06-07] MEDS: heparin, porcine 1,000 unit/mL INJ 10 mL 1000 UNIT HE (17:05)
--- NOTE | 2024-06-07 17:18 | PC.HD ---
Patient ID'd/assessed; stable for HD. Patient unable to sign HD consent due to menal status. Per shelter, no family available to make decisions for patient. Dumb Waiter Operator contacted; states HD required to maintain patient's life. Dumb Waiter Operator statement witnessed by SURAJ Hernandez and consent was signed by both nurses.
--- NOTE | 2024-06-07 17:59 | ECG_ITS ---
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 Measurements Intervals [place] Rate: 83 P: 0 VT: 0 QRS: 3 QRSD: 110 T: 58 QT: 406 QTc: 478 Interpretive Statements ATRIAL FLUTTER/TACHYCARDIA ABNORMAL RHYTHM ECG Compared to ECG 06/07/2024 13:31:30 T-wave abnormality no longer present Possible ischemia no longer present Electronically Signed On 06-07-2024 16:56:15 CDT by Fred Muñoz M.D. [id number]
[2024-06-07 18:40] LABS: Troponin 5 6HR Delta -6.5 ng/L (0-12)
[2024-06-07 18:41] LABS: Troponin 5 6HR 254.5 ng/L (0-15)
[2024-06-07 19:18] LABS: Vitamin B12 > 2000 pg/mL (232-1245)
[2024-06-07] MEDS: albumin 25 G/100 ML BAG 60 G IV (20:53)
[2024-06-07] MEDS: norepinephrine 4 MG/250 ML BAG 37.5 MG IV (20:53)
[2024-06-07 21:15] LABS: ABG PCO2 55.9 mmHg (35-45); ABG PH Result 7.33 (7.35-7.45); Arterial Blood Gas Hematocrit 35.7 % (42-52); Base Excess ABG 2.1 mmol/L (-2.0-2.0); Blood Gas Allen Test Pos; Blood Gas Sample Site Radial, right; Blood Gas Sample Type Arterial; Carboxyhemoglobin 1.8 %THgb (0.4-20.1); HCO3 ABG 29.2 mmol/L (22-26); HGB O2 Sat 92.6 % (95-100); Ionized Calcium Level - ABG 1.2 mmol/L (1.1-1.4); Oxygen Device BIPAP; Oxygen Saturation ABG 95.2; PO2 FiO2 Ratio Arterial Blood 275; Potassium Level - ABG 3.3 mmol/L (3.5-5.0); Total Hemoglobin 11.6 g/dL (14-18)
[2024-06-07 22:27] LABS: Adenovirus Not Detected (NOT DETECT); Chlamydia Pneumoniae Not Detected (NOT DETECT); Coronavirus 229E,HKU1,NL63,OC4 Not Detected (NOT DETECT); Human Metapneumovirus Not Detected (NOT DETECT); Human Rhinovirus/Enterovirus Not Detected (NOT DETECT); Influenza A Not Detected (NOT DETECT); Influenza A H1 Not Detected (NOT DETECT); Influenza A H1-2009 Not Detected (NOT DETECT); Influenza A H3 Not Detected (NOT DETECT); Influenza B Not Detected (NOT DETECT); Mycoplasma Pneumoniae Not Detected (NOT DETECT); Parainfluenza Virus Type 1 Not Detected (NOT DETECT); Parainfluenza Virus Type 2 Not Detected (NOT DETECT); Parainfluenza Virus Type 3 Not Detected (NOT DETECT); Parainfluenza Virus Type 4 Not Detected (NOT DETECT); Respiratory Syncytial Virus A Not Detected (NOT DETECT); Respiratory Syncytial Virus B Not Detected (NOT DETECT); SARS-COV-2 Not Detected (NOT DETECT)
[2024-06-08] VITALS (44 sets, daily range): BP systolic 106–148; BP diastolic 61–91; PULSE 65–131; RESP 15–29; TEMP 36.6–37.2; O2SAT 91–100
[2024-06-08] MEDS: albumin 25 G/100 ML BAG 60 G IV ×3 (03:29→19:59)
[2024-06-08 03:34] LABS: Basophils # 0.1 10^3/uL (0.0-0.1); Basophils % 0.4 %; Eosinophils % 0.1 %; Lymphocytes # 1.3 10^3/uL (0.8-4.8); Lymphocytes % 8.8 %; Mean Corpuscular HGB Conc 30.5 g/dL (30-55); Mean Corpuscular Volume 101.6 fl (82-101); Mean Platelet Volume 9.3 fL (7.4-10.4); Monocytes # 1.1 10^3/uL (0.2-0.9); Monocytes % 7.9 %; Neutrophils # 11.66 10^3/uL (1.8-7.7); Neutrophils % 81.7 %; Nucleated Red Blood Cells % 0.1 %; Platelet Count 199 10^3/cmm (157-399); Red Blood Count 3.64 10^6/uL (3.85-5.65); Red Cell Distribution Width 16.8 % (12.1-15.1); White Blood Count 14.26 10^3/uL (3.29-11.43)
[2024-06-08 03:50] LABS: Blood Urea Nitrogen 13 mg/dL (8-23); Carbon Dioxide 28 mmol/L (22-29); Chloride 100 mmol/L (98-107); Glucose 91 mg/dL (65-115); Magnesium 1.8 mg/dL (1.7-2.3); Osmolality Calculated 292 mOsm/kg (285-295); Phosphorus 3.5 mg/dL (2.5-4.5); Sodium 141 mmol/L (136-145)
[2024-06-08 03:52] LABS: Anion Gap 17.1 (5-19); Creatinine Clr Calc Pharmacy 32.4963; Potassium 4.1 mmol/L (3.5-5.1)
[2024-06-08 04:08] LABS: ABG PCO2 57.5 mmHg (35-45); ABG PH Result 7.32 (7.35-7.45); Arterial Blood Gas Hematocrit 31.6 % (42-52); Base Excess ABG 2.1 mmol/L (-2.0-2.0); Blood Gas Allen Test Pos; Blood Gas Sample Site Radial, right; Blood Gas Sample Type Arterial; HCO3 ABG 29.2 mmol/L (22-26); Oxygen Device BIPAP; PO2 ABG 80.9 mmHg (80.0-100.0); PO2 FiO2 Ratio Arterial Blood 288
--- NOTE | 2024-06-08 07:40 | PM.PN ---
Subjective Subjective: No overnight events [facility]. BP responding to albumin. vitals stable. pt not interested in urology referral. Full code. no knonw dPOA. [facility] case checker per patient helps with decisions. Recently was discharged from the hospital after management of seizure, he is a Елена lift dependent resident of longterm, tolerated HD yday. Patient is stating that he is going to get his hemodialysis catheter placed with the peritoneal drain in near future He has history of COPD, liver cirrhosis, end-stage renal disease, chronic anemia and recent hematuria Vitals/I&O/Wt Last Vital Signs Temp 98.3 F 06/08/24 05:59 Pulse 65 06/08/24 06:04 Resp 21 H 06/08/24 06:04 BP 110/63 06/08/24 06:00 Pulse Ox 98 06/08/24 04:00 O2 Del Method BiPAP 06/08/24 00:00 O2 Flow Rate 3 06/07/24 13:20 FiO2 28 06/08/24 04:00 06/07/24 06/08/24 06/08/24 22:59 06:59 14:59 Intake Total 3658.375 / 4658.375 100 / 4758.375 Output Total 2200 / 2200 120 / 2320 Balance 1458.375 / 2458.375 -20 / 2438.375 Weight last 48 hrs Weight 233 lb 11.04 oz Weight 234 lb 9.149 oz Weight 235 lb Weight 235 lb Physical Exam Narrative: Patient on BiPAP vital signs noted. improved responsiveness. alert to self and location. not time. HEENT normocephalic atraumatic. Neck is supple Lungs dull bases. Heart regular with systolic murmur. Abdomen soft positive bowel sounds. Extremities bilateral edema. Neuro responds to pain. Dialysis access right IJ permacath. Urinary Catheter Management: Estrada: Cath Placed During This Visit: yes Reason for Continuing Indwelling Catheter: Accurate Measurement of Urinary Output in Critically Ill Patients Urinary Catheter Date of Insertion: 06/07/24 Urinary Catheter Time of Insertion: 12:23 Data 06/08/24 11:22 06/08/24 11:22 Micro: Microbiology 06/07/24 12:10 Legionella Urinary Antigen - Final Urine Catheterized 06/07/24 12:45 Blood Culture - Preliminary Blood SPECIMEN COLLECTED 06/07/24 12:40 Blood Culture - Preliminary Blood SPECIMEN COLLECTED A&P Assessment and plan (1) Patient is full code: (2) Essential (primary) hypertension: (3) Atrial fibrillation: (4) ESRD (end stage renal disease) on dialysis: (5) Acute alteration in mental status: (6) Acute and chronic respiratory failure with hypoxia: (7) Hematuria: Plan Acute hypoxic hypercapnic respite failure with encephalopathy. improved encephalopathy -Underlying diagnosis of COPD -Currently on BIPAP -improving Septic shock -Received septic bolus -we have weaned off levophed this AM. BP holding stready. -Currently on Levophed -Given albumin with good response -1 of 4 cultures +ve for staph, currently on Vanc Patient has a history of seizure, I will keep him on IV Keppra at this point No active tremors noted I do believe encephalopathy related to hypercapnia at this point. improving Hematuria, persistent Last time we recommended urology follow-up. pt denying desire He was taken off anticoagulating agent and required 2 unit PRBC for anemia. h/h improved. currently . no longer having hematuria present Elevated troponin -joana related to underlying ESRD. -ACS protocol not initiated o active hematuria requiring blood transfusion in the recent past Liver cirrhosis with hypotension. Patient received septic bolus in the ER Became hypotensive after getting Cardizem in the ER. since resolved. weaning off levophed drip Patient was recently treated for prostatitis I do believe patient is suffering from third spacing. I will give him 1 bag of albumin and titrate off Levophed if possible pending CT abdomen pelvis without contrast A-fib RVR cardizem failure in ED was planning amiodarone drip; however pt converted to irr rhythm with normal rate. low threshold for starting amiodarone drip Avoiding anticoagulating agent due to hematuria This could be a concentrated H&H ESRD -followed by nephrology Patient has sacral ulcer present on admission Offloading dressing in place Patient is full code as per the longterm records His doctor is Dr. Lela Jerez As per the nursing staff patient does not have any family member social service technician at the longterm makes most of the decisions for the patient however does not have medical DPOA official document in place? Full code Guarded prognosis Will start diet once he is more awake and alert Attestations Medical Necessity Statement*: will require 2 overnight stays Coding Level of Care Code 55132 Diagnoses Patient is full code Z78.9 Essential (primary) hypertension I10 Atrial fibrillation I48.91 ESRD (end stage renal disease) on dialysis N18.6; Z99.2 Acute alteration in mental status R41.82 Acute and chronic respiratory failure with hypoxia J96.21 Hematuria R31.9
--- NOTE | 2024-06-08 08:55 | ECG_ITS ---
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 Measurements Intervals Blanch Rate: 118 P: 0 OK: 0 QRS: 33 QRSD: 102 T: 226 QT: 345 QTc: 485 Interpretive Statements ATRIAL FLUTTER WITH RAPID VENTRICULAR RESPONSE ST DEVIATION AND MODERATE T-WAVE ABNORMALITY, CONSIDER INFERIOR ISCHEMIA [-0.1+ mV T-WAVE IN II/aVF] Compared to ECG 06/07/2024 16:55:03 T-wave abnormality now present Possible ischemia now present Electronically Signed On 06-09-2024 9:28:05 CDT by Matt Castro M.D. [id number]
[2024-06-08] MEDS: pantoprazole 40 mg SDV IVP ×2 (09:08→17:07)
--- NOTE | 2024-06-08 09:08 | P.PN_ITS ---
Subjective 2 Subjective: seen and examined. on BiPAP. responds, minimally verbally. more awake then yesterday Medications: Reviewed: Yes Medication Review Details: Current Medications Acetaminophen (Acetaminophen 500 Mg Tablet) 500 mg PO Q4H PRN PRN Reason: fever Albuterol/Ipratropium (Ipratropium-Albuterol 3 Ml Neb) 3 ml INHALATION Q6H PRN PRN Reason: SHORTNESS OF BREATH Furosemide (Furosemide 10 Mg/Ml Sdv 2ml) 20 mg IVP Q12H JOHN Last Admin: 06/07/24 16:43 Dose: 20 mg Norepinephrine Bitartrate (Levophed) 4 mg in 250 mls @ 0 mls/hr IV .Q0M JOHN; Protocol Last Titration: 06/07/24 22:28 Dose: 4 mcg/min, 15 mls/hr Cefepime HCl 1,000 mg/ Sodium (Chloride) 50 mls @ 100 mls/hr IV Q24H JOHN; Protocol Last Infusion: 06/07/24 19:32 Dose: Infused Amiodarone HCl/Dextrose (Nexterone) 360 mg in 200 mls @ 0 mls/hr IV .Q0M JOHN; Protocol Vancomycin HCl (Vancocin) 1,500 mg in 300 mls @ 200 mls/hr IV Q48H JOHN Last Infusion: 06/07/24 19:32 Dose: Infused Albumin Human (Albumin) 25 g in 100 mls @ 60 mls/hr IV Q8H JOHN Last Infusion: 06/08/24 06:01 Dose: Infused Levetiracetam (Keppra) 500 mg in 100 mls @ 400 mls/hr IV Q12H JOHN Ondansetron HCl (Ondansetron 2 Mg/Ml Sdv 2 Ml) 4 mg IVP Q6H PRN PRN Reason: NAUSEA AND VOMITING Pantoprazole Sodium (Pantoprazole 40 Mg Sdv) 40 mg IVP BID JOHN Last Admin: 06/08/24 09:08 Dose: 40 mg Tramadol HCl (Tramadol 50 Mg Tablet) 50 mg PO Q4H PRN PRN Reason: Pain Vitals/I&O/Wt Last Vital Signs Temp 98.3 F 06/08/24 05:59 Pulse 119 H 06/08/24 07:43 Resp 21 H 06/08/24 06:04 BP 110/63 06/08/24 06:00 Pulse Ox 98 06/08/24 07:43 O2 Del Method BiPAP 06/08/24 00:00 O2 Flow Rate 3 06/07/24 13:20 FiO2 28 06/08/24 07:43 06/07/24 06/08/24 06/08/24 22:59 06:59 14:59 Intake Total 3658.375 / 4658.375 100 / 4758.375 Output Total 2200 / 2200 120 / 2320 Balance 1458.375 / 2458.375 -20 / 2438.375 Weight last 48 hrs Weight 106 kg Weight 106.4 kg Weight 106.594 kg Weight 106.594 kg Physical Exam 2 Narrative: Patient on BiPAP vital signs noted. responds to voice and touch. Minimally verbal. HEENT normocephalic atraumatic. Neck is supple Lungs dull bases. Heart irregular irregula with systolic murmur. Abdomen soft positive bowel sounds. Extremities bilateral edema. Neuro responds to pain and voice. Dialysis access right IJ permacath. Urinary Catheter Management: Estrada: Cath Placed During This Visit: yes Reason for Continuing Indwelling Catheter: Accurate Measurement of Urinary Output in Critically Ill Patients Urinary Catheter Date of Insertion: 06/07/24 Urinary Catheter Time of Insertion: 12:23 Data 06/08/24 03:09 06/08/24 03:09 Micro: Microbiology 06/07/24 12:10 Legionella Urinary Antigen - Final Urine Catheterized 06/07/24 12:45 Blood Culture - Preliminary Blood SPECIMEN COLLECTED 06/07/24 12:40 Blood Culture - Preliminary Blood SPECIMEN COLLECTED A&P Assessment and plan (1) ESRD (end stage renal disease) on dialysis: 74-year-old man with past medical history of ESRD on dialysis Monday and Monday, cirrhosis, GERD, BPH, anemia, seizure disorder, hypertension, COPD. Patient has had episodes of unresponsiveness and seizures and encephalopathy. No also A-fib with RVR. The patient presented on 06/07/24 with altered mental status and atrial fibrillation with rapid ventricular response rate. The patient was given Cardizem and Levophed and he is converted to sinus rhythm. The patient is still minimally responsive. 1. Altered mental status head CT with no evidence of intracranial hemorrhage or mass effect no acute intracranial findings. I am concerned that the patient could be postictal or seizing. I agree that his hypercapnia may be worsening the situation. Urine tox screen negative 2. ESRD -s/p HD yesterday. MS a little better. likely repeat dialysis tomorrow. monitor if resp status deteriorates for extra dialysis as needed 3. a fib- HR 120 and SBP approx 110 4. Hypercapnic respiratory acidosis. 5. Hemoglobin acceptable. 6. White cell count of 15 and AMS- assess for infection 7. Increased LFTs 8 . BNP of 62,000- s/p HD yesterday 9. Abnormal urinalysis 2+ protein 3+ blood. Patient has known history of hematuria. The patient was seen and examined using audiovisual equipment and a nurse examined him. Plan See above Attestations 2 Medical Necessity Statement*: lethargy, inc LFT's, hypercapneic resp acidosis Time Spent in Patient Care: 16 - 35 minutes Coding Level of Care Code Acute Code for Chg Fwd Diagnoses ESRD (end stage renal disease) on dialysis N18.6; Z99.2
[2024-06-08 10:10] LABS: Bacillus cereus group Not Detected (NOT DETECT); Bacillus subtillis group Not Detected (NOT DETECT); Corynebacterium Not Detected (NOT DETECT); Cutibacterium acnes (P.acnes) Not Detected (NOT DETECT); Enterococcus Not Detected (NOT DETECT); Enterococcus faecalis Not Detected (NOT DETECT); Enterococcus faecium Not Detected (NOT DETECT); Lactobacillus species Not Detected (NOT DETECT); Listeria Not Detected (NOT DETECT); Listeria monocytogenes Not Detected (NOT DETECT); Micrococcus Not Detected (NOT DETECT); Pan Candida Not Detected (NOT DETECT); Pan Gram-Negative Not Detected (NOT DETECT); Staphylococcus epidermidis Not Detected (NOT DETECT); Staphylococcus lugdunensis Not Detected (NOT DETECT); Staphylococcus species Detected (NOT DETECT); Streptococcus agalactiae Not Detected (NOT DETECT); Streptococcus anginosus group Not Detected (NOT DETECT); Streptococcus pneumoniae Not Detected (NOT DETECT); Streptococcus pyogenes Not Detected (NOT DETECT); Streptococcus species Not Detected (NOT DETECT); mecA Not Detected (NOT DETECT); mecC Not Detected (NOT DETECT)
[2024-06-08] MEDS: levETIRAcetam 500 MG/100 ML PREMIX 400 MG IV ×2 (11:20→22:15)
[2024-06-08 11:39] LABS: Basophils # 0.1 10^3/uL (0.0-0.1); Basophils % 0.6 %; Eosinophils % 0.1 %; Hematocrit 34.4 % (37-53); Lymphocytes # 1.6 10^3/uL (0.8-4.8); Lymphocytes % 11.2 %; Mean Corpuscular HGB Conc 29.7 g/dL (30-55); Mean Corpuscular Hemoglobin 31.3 pg (27-33); Mean Corpuscular Volume 105.5 fl (82-101); Mean Platelet Volume 9.9 fL (7.4-10.4); Monocytes # 1.3 10^3/uL (0.2-0.9); Monocytes % 8.8 %; Neutrophils # 11.33 10^3/uL (1.8-7.7); Neutrophils % 78.1 %; Nucleated Red Blood Cells % 0.3 %; Platelet Count 164 10^3/cmm (157-399); Red Blood Count 3.26 10^6/uL (3.85-5.65); Red Cell Distribution Width 16.9 % (12.1-15.1); White Blood Count 14.51 10^3/uL (3.29-11.43)
[2024-06-08 12:06] LABS: Albumin Level 3.3 g/dL (3.5-5.2); Alkaline Phosphatase 118 U/L (40-130); Blood Urea Nitrogen 15 mg/dL (8-23); Calcium 8.2 mg/dL (8.5-10.5); Carbon Dioxide 27 mmol/L (22-29); Chloride 97 mmol/L (98-107); Globulin 2.8 g/dL (1.3-4.6); Glucose 84 mg/dL (65-115); Osmolality Calculated 284 mOsm/kg (285-295); Sodium 137 mmol/L (136-145); Total Bilirubin 0.6 mg/dL (0.15-1.2); Total Protein 6.1 g/dL (6.6-8.7)
[2024-06-08 12:07] LABS: Creatinine Clr Calc Pharmacy 29.9419
[2024-06-08 12:08] LABS: Alanine Aminotransferase 447 U/L (0-41); Anion Gap 16.8 (5-19); Aspartate Amino Transferase 317 U/L (0-40); Potassium 3.8 mmol/L (3.5-5.1)
--- NOTE | 2024-06-08 15:14 | USCV_ITS ---
Robert Verduzco Age: 74 Gender: M : 1950 Exam Date: 06/08/2024 06:46 Ordering Phys: Camden Woodruff MD Technologist: Cameron Roberto Exam Location: [facility] [place] Indication: chf BP: 110 / 63 HR: 117 Rhythm: Sinus Technical Quality: Adequate MEASUREMENTS (Male / Female) Normal Values 2D ECHO LV Diastolic Diameter PLAX 3.1 cm 4.2 - 5.9 / 3.9 - 5.3 cm IVS Diastolic Thickness 1.2 cm 0.6 - 1.0 / 0.6 - 0.9 cm IVS Systolic Thickness 1.3 cm LVPW Diastolic Thickness 2.2 cm 0.6 - 1.0 / 0.6 - 0.9 cm LVPW Systolic Thickness 1.7 cm LVOT Diameter 2.1 cm LV Ejection Fraction 2D Teich 38.9 % LV Ejection Fraction MOD 4C 62.6 % LV Ejection Fraction MOD 2C 63.8 % LV Ejection Fraction 2C AL 63.6 % LA Diameter 3.7 cm RA Systolic Volume 4C AL 23.8 ml RA Systolic Volume 4C MOD 25.1 ml LA Sys Volume AL 51.5 cm cubed LA Sys Volume Index AL 22.1 cm cubed/m squared Aorta at Sinotubular Diameter 3.0 cm IVC Diameter 2.0 cm M-MODE LA Ao Ratio MM 1.4 AV Cusp Separation MM 2.1 cm DOPPLER AV Peak Velocity 107.7 cm/s LVOT Peak Velocity 79.0 cm/s AV Area Cont Eq vti 3.2 cm squared AV Area Cont Eq pk 2.6 cm squared MV Peak Velocity 134.0 cm/s MV Area PHT 8.6 cm squared Mitral E to A Ratio 1.6 TV Peak Velocity 248.0 cm/s TR Peak Velocity 275.0 cm/s TR Peak Gradient 30.3 mmHg TR Mean Velocity 219.0 cm/s TR Mean Gradient 21.1 mmHg TR Velocity Time Integral 62.3 cm PV Peak Velocity 91.0 cm/s RV Ejection Time 0.2 s FINDINGS Left Ventricle Technically limited quality echocardiogram because of poor ultrasonic windows. Grossly LV systolic function is normal. Right Ventricle Grossly normal Right Atrium Normal in size Left Atrium Normal in size Mitral Valve Mild mitral annular calcification. Mild mitral regurgitation Aortic Valve Not well visualized. No significant stenosis Tricuspid Valve Grossly normal Pulmonic Valve Not well visualized Pericardium Normal Aorta Normal in size IVC Normal in size CONCLUSIONS Technically limited quality echocardiogram because of poor ultrasonic windows. Grossly LV systolic function is normal. Mild mitral regurgitation Matt Castro MD (Electronically Signed) Final Date: 08 June 2024 12:15 S
[2024-06-08] MEDS: blistex lip oint 7 gm Tube 1 APPLIC TOPICAL (17:07)
[2024-06-08] MEDS: cefepime 1,000 MG in sodium chloride 0.9% (plus) 50 ML 100 MG IV (17:07)
[2024-06-09] VITALS (40 sets, daily range): BP systolic 110–152; BP diastolic 61–104; PULSE 95–128; RESP 15–30; TEMP 36.6–37.4; O2SAT 94–100
[2024-06-09] MEDS: albumin 25 G/100 ML BAG 60 G IV ×2 (03:40→11:05)
[2024-06-09 04:52] LABS: ABG PCO2 40.4 mmHg (35-45); ABG PH Result 7.43 (7.35-7.45); Alveolar-Arterial Oxygen Gradi 9.8 mmHg (5-10); Arterial Blood Gas Hematocrit 30.3 % (42-52); Base Excess ABG 2.5 mmol/L (-2.0-2.0); Blood Gas Allen Test Pos; Blood Gas Operator Identificat JB; Blood Gas Sample Site Radial, right; Blood Gas Sample Type Arterial; Blood Gas Tidal Volume 0.55; Carboxyhemoglobin 1.5 %THgb (0.4-20.1); HGB O2 Sat 95.1 % (95-100); Ionized Calcium Level - ABG 1.1 mmol/L (1.1-1.4); Methemoglobin 0.5 % (0.4-1.5); Oxygen Device BIPAP; PO2 ABG 73.8 mmHg (80.0-100.0); PO2 FiO2 Ratio Arterial Blood 263; Potassium Level - ABG 3.2 mmol/L (3.5-5.0); Total Hemoglobin 9.9 g/dL (14-18)
[2024-06-09] MEDS: pantoprazole 40 mg SDV IVP (08:57)
--- NOTE | 2024-06-09 09:18 | PHA.VACGOAL ---
Vancomycin Goal - Goal Vancomycin Goal:: 10-15 mg/L Vancomycin Indication:: Other - Therapy Day of therpy:: Day []of [] . Actual body weight (kg): 224 lb 13.944 oz - Data Labs: WBC 14.51 10^3/uL (3.29-11.43) H 06/08/24 11:22 RBC 3.26 10^6/uL (3.85-5.65) L 06/08/24 11:22 Hgb 10.20 g/dL (11.27-16.99) L 06/08/24 11:22 Hct 34.4 % (37-53) L 06/08/24 11:22 MCV 105.5 fl (82-101) H 06/08/24 11:22 MCH 31.3 pg (27-33) 06/08/24 11:22 MCHC 29.7 g/dL (30-55) L 06/08/24 11:22 RDW 16.9 % (12.1-15.1) H 06/08/24 11:22 Sodium 137 mmol/L (136-145) 06/08/24 11:22 Potassium 3.8 mmol/L (3.5-5.1) 06/08/24 11:22 Chloride 97 mmol/L (98-107) L 06/08/24 11:22 Carbon Dioxide 27 mmol/L (22-29) 06/08/24 11:22 Anion Gap 16.8 (5-19) 06/08/24 11:22 BUN 15 mg/dL (8-23) 06/08/24 11:22 Creatinine 2.6 mg/dL (0.7-1.2) H 06/08/24 11:22 GFR Calculation Not Reportable 06/08/24 11:22 Treatment plan:: new consult
--- NOTE | 2024-06-09 09:39 | P.PN_ITS ---
Subjective 2 Subjective: The patient was seen and examined. The patient remains in atrial fibrillation he is on nasal cannula 3 L oxygen in the ICU he has somewhat shortness of breath and edema. He continues to have wheezing. Medications: Reviewed: Yes Medication Review Details: Current Medications Acetaminophen (Acetaminophen 500 Mg Tablet) 500 mg PO Q4H PRN PRN Reason: fever Albuterol/Ipratropium (Ipratropium-Albuterol 3 Ml Neb) 3 ml INHALATION Q6H PRN PRN Reason: SHORTNESS OF BREATH Camphor/Menthol/Phenol (Blistex Lip Oint 7 Gm Tube) 1 applic TOPICAL PRN PRN PRN Reason: DRYNESS Last Admin: 06/08/24 17:07 Dose: 1 applic Furosemide (Furosemide 10 Mg/Ml Sdv 2ml) 20 mg IVP Q12H JOHN Last Admin: 06/07/24 16:43 Dose: 20 mg Norepinephrine Bitartrate (Levophed) 4 mg in 250 mls @ 0 mls/hr IV .Q0M JOHN; Protocol Last Titration: 06/08/24 20:17 Dose: Infused Cefepime HCl 1,000 mg/ Sodium (Chloride) 50 mls @ 100 mls/hr IV Q24H JOHN; Protocol Last Infusion: 06/08/24 17:37 Dose: Infused Amiodarone HCl/Dextrose (Nexterone) 360 mg in 200 mls @ 0 mls/hr IV .Q0M JOHN; Protocol Last Admin: 06/09/24 06:31 Dose: 0.5 mg/min, 16.67 mls/hr Vancomycin HCl (Vancocin) 1,500 mg in 300 mls @ 200 mls/hr IV Q48H JOHN Last Infusion: 06/07/24 19:32 Dose: Infused Albumin Human (Albumin) 25 g in 100 mls @ 60 mls/hr IV Q8H JOHN Last Infusion: 06/09/24 05:16 Dose: Infused Levetiracetam (Keppra) 500 mg in 100 mls @ 400 mls/hr IV Q12H JOHN Last Infusion: 06/08/24 22:35 Dose: Infused Ondansetron HCl (Ondansetron 2 Mg/Ml Sdv 2 Ml) 4 mg IVP Q6H PRN PRN Reason: NAUSEA AND VOMITING Pantoprazole Sodium (Pantoprazole 40 Mg Sdv) 40 mg IVP BID JOHN Last Admin: 06/09/24 08:57 Dose: 40 mg Tramadol HCl (Tramadol 50 Mg Tablet) 50 mg PO Q4H PRN PRN Reason: Pain Vitals/I&O/Wt Last Vital Signs Temp 97.8 F 06/09/24 07:58 Pulse 98 06/09/24 07:58 Resp 21 H 06/09/24 07:58 BP 132/67 06/09/24 07:58 Pulse Ox 98 06/09/24 07:58 O2 Del Method Nasal Cannula 06/09/24 07:39 O2 Flow Rate 3 06/09/24 07:39 FiO2 28 06/09/24 03:43 06/08/24 06/09/24 06/09/24 22:59 06:59 14:59 Intake Total 633.940 / 833.940 300.000 / 1133.940 635 / 635 Output Total 120 / 120 30 / 150 Balance 513.940 / 713.940 270.000 / 983.940 635 / 635 Weight last 48 hrs Weight 102 kg Weight 106 kg Weight 106.4 kg Weight 106.594 kg Weight 106.594 kg Physical Exam 2 Narrative: The patient is awake and alert sitting up on nasal cannula oxygen at 3 L. Responsive. Interactive and following commands. HEENT normocephalic atraumatic. Neck is supple Lungs bilateral expiratory wheezes Heart irregular irregula with systolic murmur. Abdomen soft positive bowel sounds. Extremities bilateral edema. Neuro -continues to improve with improving mental status awake and alert following commands moving all extremities. Dialysis access right IJ permacath. Urinary Catheter Management: Estrada: Cath Placed During This Visit: yes Reason for Continuing Indwelling Catheter: Accurate Measurement of Urinary Output in Critically Ill Patients Urinary Catheter Date of Insertion: 06/07/24 Urinary Catheter Time of Insertion: 12:23 Data 06/08/24 11:22 06/08/24 11:22 Micro: Microbiology 06/07/24 12:40 Blood Culture - Preliminary Blood NEGATIVE TO DATE 06/07/24 12:10 Urine Culture - Preliminary Urine,Clean Catch 06/07/24 12:10 Bacterial Antigens - Final Urine,Voided 06/07/24 12:45 Blood Culture - Preliminary Blood Staphylococcus species A&P Assessment and plan (1) ESRD (end stage renal disease) on dialysis: 74-year-old man with past medical history of ESRD on dialysis Monday and Monday, cirrhosis, GERD, BPH, anemia, seizure disorder, hypertension, COPD. Patient has had episodes of unresponsiveness and seizures and encephalopathy. No also A-fib with RVR. The patient presented on 06/07/24 with altered mental status and atrial fibrillation with rapid ventricular response rate. The patient was given Cardizem and Levophed and he is converted to sinus rhythm. The patient is still minimally responsive. 1. Altered mental status -improving 2. ESRD -s/p HD on Monday, June 07, 2024. Will plan for ultrafiltration today. Given normal potassium we will hold on hemodialysis just ultrafiltration 3. a fib- HR 110-120 Echo was done with grossly normal LV function mild mitral regurg. 4. Hypercapnic respiratory acidosis. Has improved and mental status has improved also. 5. Hemoglobin acceptable. 6. White cell count remains elevated at 14.5 7. Increased LFTs are improving. 8 . BNP of 62,000- s/p HD Monday. Will plan for fluid removal on dialysis today if the nurse is available.. 9. Abnormal urinalysis 2+ protein 3+ blood. Patient has known history of hematuria. The patient was seen and examined using audiovisual equipment and a nurse examined him. Plan See above Attestations 2 Medical Necessity Statement*: A-fib, volume overload, ESRD, altered mental status improving. Time Spent in Patient Care: 16 - 35 minutes (>than 50% of time sp ent in counselling and/or direct pt care on unit) . Coding Level of Care Code Acute Code for Chg Fwd Diagnoses ESRD (end stage renal disease) on dialysis N18.6; Z99.2
[2024-06-09] MEDS: levETIRAcetam 500 MG/100 ML PREMIX 400 MG IV (11:04)
[2024-06-09] MEDS: amiodarone 200 mg Tablet 400 MG PO ×2 (11:05→21:22)
--- NOTE | 2024-06-09 13:23 | P.PN_ITS ---
Subjective 2 Subjective: Patient is awake and alert Will advance diet Can be transferred out of ICU A-fib RVR improving Added p.o. regimen of amiodarone Patient is not febrile, however positive blood cultures rule out contamination repeat blood cultures Vitals/I&O/Wt Last Vital Signs Temp 98.6 F 06/09/24 08:00 Pulse 105 H 06/09/24 11:00 Resp 18 06/09/24 11:00 BP 152/75 06/09/24 11:00 Pulse Ox 98 06/09/24 11:00 O2 Del Method Nasal Cannula 06/09/24 07:39 O2 Flow Rate 3 06/09/24 07:39 FiO2 28 06/09/24 03:43 06/08/24 06/09/24 06/09/24 22:59 06:59 14:59 Intake Total 633.940 / 833.940 300.000 / 8237.020 6313 / 1381 Output Total 120 / 120 30 / 150 Balance 513.940 / 713.940 270.000 / 841.577 1850 / 1381 Weight last 48 hrs Weight 102 kg Weight 106 kg Weight 106.4 kg Weight 106.594 kg Physical Exam 2 Narrative: Awake and alert Lethargic and fatigued Contractures of extremities noted Stage I ulcer sacral area Estrada catheter in place A-fib with RVR Hemodynamically stable Currently on 2 L Able to answer my questions appropriately Short attention span Upper extremities with contracture and weakness Urinary Catheter Management: Estrada: Cath Placed During This Visit: yes Reason for Continuing Indwelling Catheter: Accurate Measurement of Urinary Output in Critically Ill Patients Urinary Catheter Date of Insertion: 06/07/24 Urinary Catheter Time of Insertion: 12:23 Data 06/08/24 11:22 06/08/24 11:22 Micro: Microbiology 06/07/24 12:40 Blood Culture - Preliminary Blood NEGATIVE TO DATE 06/07/24 12:10 Urine Culture - Preliminary Urine,Clean Catch 06/07/24 12:10 Bacterial Antigens - Final Urine,Voided 06/07/24 12:45 Blood Culture - Preliminary Blood Staphylococcus species A&P Assessment and plan (1) Patient is full code: (2) Essential (primary) hypertension: (3) Atrial fibrillation: (4) ESRD (end stage renal disease) on dialysis: (5) Acute alteration in mental status: (6) Acute and chronic respiratory failure with hypoxia: (7) Hematuria: Plan Acute hypoxic hypercapnic respite failure with encephalopathy. improved encephalopathy -Underlying diagnosis of COPD Off AVAPS, currently doing well on 3 L home Septic shock Positive blood cultures, repeat today to rule out contamination Continue vancomycin for now, discontinue cefepime Patient has a history of seizure, switch to p.o. Keppra today Hematuria, persistent Hemoglobin stable restart Eliquis Elevated troponin Type II PA? Liver cirrhosis with hypotension. P blood pressure improved off pressors A-fib RVR Switch to p.o. amiodarone along low-dose metoprolol ESRD -followed by nephrology Patient has sacral ulcer present on admission Offloading dressing in place Patient is full code as per the [place] records His doctor is Dr. Lela Jerez Full code Guarded prognosis Attestations 2 Medical Necessity Statement*: Continue medical management Diagnoses Patient is full code Z78.9 Essential (primary) hypertension I10 Atrial fibrillation I48.91 ESRD (end stage renal disease) on dialysis N18.6; Z99.2 Acute alteration in mental status R41.82 Acute and chronic respiratory failure with hypoxia J96.21 Hematuria R31.9
--- NOTE | 2024-06-09 15:30 | PC.NURSE ---
Vanc paused due to patient going to dialysis
[2024-06-09] MEDS: metoprolol tartrate 25 mg Tablet 12.5 MG PO (16:27)
[2024-06-09] MEDS: vancomycin 1,500 MG/300 ML PIGGYBACK 200 MG IV (16:27)
[2024-06-09] MEDS: apixaban 5 mg Tablet 2.5 MG PO (21:21)
[2024-06-09] MEDS: levETIRAcetam 1,000 mg/10 mL UDC 500 MG PO (21:22)
[2024-06-09] MEDS: quetiapine 25 mg Tablet PO (21:22)
[2024-06-10] VITALS (8 sets, daily range): BP systolic 109–129; BP diastolic 62–79; PULSE 60–109; RESP 18–22; TEMP 36.6–37; O2SAT 92–98; BMI 32.0
[2024-06-10 03:50] LABS: Basophils # 0.1 10^3/uL (0.0-0.1); Basophils % 0.5 %; Eosinophils # 0.1 10^3/uL (0.0-0.8); Eosinophils % 1.3 %; Hematocrit 32.8 % (37-53); Lymphocytes # 1.3 10^3/uL (0.8-4.8); Lymphocytes % 12.9 %; Mean Corpuscular HGB Conc 29.9 g/dL (30-55); Mean Corpuscular Hemoglobin 30.9 pg (27-33); Mean Corpuscular Volume 103.5 fl (82-101); Mean Platelet Volume 9.1 fL (7.4-10.4); Monocytes % 9.9 %; Neutrophils # 7.23 10^3/uL (1.8-7.7); Neutrophils % 74.7 %; Nucleated Red Blood Cells % 0.4 %; Platelet Count 137 10^3/cmm (157-399); Red Blood Count 3.17 10^6/uL (3.85-5.65); White Blood Count 9.69 10^3/uL (3.29-11.43)
[2024-06-10 04:17] LABS: Alanine Aminotransferase 199 U/L (0-41); Albumin Level 3.5 g/dL (3.5-5.2); Alkaline Phosphatase 94 U/L (40-130); Aspartate Amino Transferase 78 U/L (0-40); Blood Urea Nitrogen 21 mg/dL (8-23); Calcium 8.3 mg/dL (8.5-10.5); Carbon Dioxide 25 mmol/L (22-29); Chloride 100 mmol/L (98-107); Creatinine Clr Calc Pharmacy 20.3181; Globulin 2.1 g/dL (1.3-4.6); Glucose 118 mg/dL (65-115); Osmolality Calculated 292 mOsm/kg (285-295); Sodium 139 mmol/L (136-145); Total Bilirubin 0.5 mg/dL (0.15-1.2); Total Protein 5.6 g/dL (6.6-8.7)
--- NOTE | 2024-06-10 08:31 | P.PN_ITS ---
Subjective 2 Subjective: on 1.5 L O2 Medications: Reviewed: Yes Vitals/I&O/Wt Last Vital Signs Temp 97.9 F 06/10/24 08:09 Pulse 93 06/10/24 08:09 Resp 19 H 06/10/24 08:09 BP 124/77 06/10/24 08:09 Pulse Ox 98 06/10/24 08:09 O2 Del Method Nasal Cannula 06/10/24 08:09 O2 Flow Rate 1.5 06/10/24 08:09 FiO2 28 06/09/24 03:43 06/09/24 06/10/24 06/10/24 22:59 06:59 14:59 Intake Total 660 / 2240.742 Output Total 2500 / 2500 150 / 2650 Balance -1840 / -259.258 -150 / -409.258 Weight last 48 hrs Weight 104.2 kg Weight 102 kg Physical Exam 2 Narrative: The patient is awake and alert sitting up on nasal cannula oxygen at 3 L. Responsive. Interactive and following commands. HEENT normocephalic atraumatic. Neck is supple Lungs bilateral expiratory wheezes Heart irregular irregula with systolic murmur. Abdomen soft positive bowel sounds. Extremities bilateral edema. Neuro -continues to improve with improving mental status awake and alert following commands moving all extremities. Dialysis access right IJ permacath. Urinary Catheter Management: Estrada: Cath Placed During This Visit: yes Reason for Continuing Indwelling Catheter: Accurate Measurement of Urinary Output in Critically Ill Patients Urinary Catheter Date of Insertion: 06/07/24 Urinary Catheter Time of Insertion: 12:23 Data 06/10/24 02:45 06/10/24 02:45 Micro: Microbiology 06/07/24 12:45 Blood Culture - Preliminary Blood Staphylococcus sp coag neg 06/07/24 12:10 Urine Culture - Final Urine,Clean Catch A&P Assessment and plan (1) ESRD (end stage renal disease) on dialysis: 74-year-old man with past medical history of ESRD on dialysis Monday and Monday, cirrhosis, GERD, BPH, anemia, seizure disorder, hypertension, COPD. Patient has had episodes of unresponsiveness and seizures and encephalopathy. No also A-fib with RVR. The patient presented on 06/07/24 with altered mental status and atrial fibrillation with rapid ventricular response rate. The patient was given Cardizem and Levophed and he is converted to sinus rhythm. The patient is still minimally responsive. 1. Altered mental status -improving 2. ESRD -s/p HD on Monday, s/p SCUF on monday, Next HD tomorrow 3. a fib- HR 110-120 Echo was done with grossly normal LV function mild mitral regurg. 4. Hypercapnic respiratory acidosis. Has improved and mental status has improved also. 5. Hemoglobin acceptable. 6. White cell count remains elevated 7. Increased LFTs are improving. 9. Abnormal urinalysis 2+ protein 3+ blood. Patient has known history of hematuria. The patient was seen and examined using audiovisual equipment and a nurse examined him. Plan See above Attestations 2 Medical Necessity Statement*: per fam Coding Level of Care Code Acute Code for g Fwd Diagnoses ESRD (end stage renal disease) on dialysis N18.6; Z99.2
[2024-06-10] MEDS: amiodarone 200 mg Tablet 400 MG PO (08:53)
[2024-06-10] MEDS: apixaban 5 mg Tablet 2.5 MG PO (08:53)
[2024-06-10] MEDS: metoprolol tartrate 25 mg Tablet 12.5 MG PO ×2 (08:53→10:04)
[2024-06-10] MEDS: levETIRAcetam 1,000 mg/10 mL UDC 500 MG PO (08:54)
--- NOTE | 2024-06-10 09:59 | PM.DCS ---
Discharge Providers Date of Admission: 06/07/24 14:07 Date of Discharge: June 10, 2024 Attending Provider at Admission: Camden Woodruff MD Attending Provider at Discharge: Camden Woodruff MD Primary Care Provider: Jenn Quiroga NP Diagnoses at Discharge Discharge Diagnosis (1) ESRD (end stage renal disease) on dialysis: Status: Acute Reason for Visit Reason for Visit: [facility] Hospital Course Hospital Course 74-year-old male resident of [facility], does not have any family, history of end-stage renal disease Monday, liver cirrhosis, splenomegaly, BPH, hematuria, A-fib was taken off anticoagulating agent secondary to hematuria, presented to the hospital for altered mental status, patient was diagnosed with acute hypoxic hypercarbic respiratory failure secondary to fluid overload. He was put on BiPAP, it did not show improvement hence he was switched to AVAPS which showed improvement of hypercapnia, he was monitored in ICU for 3 days, amiodarone was continued for A-fib RVR, his blood pressure dropped after getting IV Cardizem in the ER hence required vasopressors for a few hours in the ICU, he did receive septic bolus but he remained afebrile cultures remain negative blood culture showing contamination,, we do believe his blood pressure dropped after getting medications for A-fib, sepsis ruled out. Nephro was consulted for his regular dialysis sessions, and amiodarone was switched to p.o. regimen 400 mg twice daily for 7 days and then 400 mg daily along metoprolol 25 mg twice a day, patient still has hematuria, Patient mentation is better he is able to answer most of the questions, able to make decision for himself, stating that he does not have any family, he does not have any medical DPOA, he change his CODE STATUS to DNR/DNI this was witnessed by his nurse Ingris as well. I will change his CODE STATUS to DNR/DNI. At the time of discharge I have decided not to continue Eliquis because of his persistent hematuria. At baseline patient is bedbound, Елена lift dependent, has contractures of extremities, has stage I ulcer of sacral area. Physical Exam Narrative: A-fib without RVR Normotensive Pleasant cooperative GCS 15 Distended nontender abdomen Extremity contractures Patient is on 2 L nasal cannula Urinary Catheter Management: Estrada: Cath Placed During This Visit: yes Reason for Continuing Indwelling Catheter: Accurate Measurement of Urinary Output in Critically Ill Patients Urinary Catheter Date of Insertion: 06/07/24 Urinary Catheter Time of Insertion: 12:23 Discharge Data Studies Completed and Pending Completed Studies During Hospitalization Category Date Time Status CT head wo con* [id number] Stat Cat Scan 06/07/24 12:01 Completed XR chest 1V portable [id number] Stat Exams 06/07/24 11:59 Completed CV. echo complete* [id number] Routine Ultrasound 06/08/24 15:14 Completed Pending at discharge Category Date Time Status Blood Culture Stat Lab 06/07/24 12:45 Results Blood Culture Stat Lab 06/07/24 15:40 Uncollected Radiology Impressions Chest X-Ray 06/07/24 11:59 IMPRESSION: Stable abnormal chest as above. Head CT 06/07/24 12:01 IMPRESSION: 1. No evidence of intracranial hemorrhage or mass effect. 2. No acute intracranial findings. Laboratory Results WBC 9.69 10^3/uL (3.29-11.43) 06/10/24 02:45 RBC 3.17 10^6/uL (3.85-5.65) L 06/10/24 02:45 Hgb 9.80 g/dL (11.27-16.99) L 06/10/24 02:45 Hct 32.8 % (37-53) L 06/10/24 02:45 MCV 103.5 fl (82-101) H 06/10/24 02:45 MCH 30.9 pg (27-33) 06/10/24 02:45 MCHC 29.9 g/dL (30-55) L 06/10/24 02:45 RDW 17.0 % (12.1-15.1) H 06/10/24 02:45 Plt Count 137 10^3/cmm (157-399) L 06/10/24 02:45 MPV 9.1 fL (7.4-10.4) 06/10/24 02:45 Neut % (Auto) 74.7 % 06/10/24 02:45 Lymph % (Auto) 12.9 % 06/10/24 02:45 Foard % (Auto) 9.9 % 06/10/24 02:45 Eos % (Auto) 1.3 % 06/10/24 02:45 Baso % (Auto) 0.5 % 06/10/24 02:45 Neut # (Auto) 7.23 10^3/uL (1.8-7.7) 06/10/24 02:45 Lymph # (Auto) 1.3 10^3/uL (0.8-4.8) 06/10/24 02:45 [place]oard # (Auto) 1.0 10^3/uL (0.2-0.9) H 06/10/24 02:45 Eos # (Auto) 0.1 10^3/uL (0.0-0.8) 06/10/24 02:45 Baso # (Auto) 0.1 10^3/uL (0.0-0.1) 06/10/24 02:45 Nucleated RBC % (auto) 0.4 % 06/10/24 02:45 Nucleated RBCs # 0.0 /100WBC 06/10/24 02:45 PT 21.60 SECONDS (12.1-14.9) H 06/07/24 12:00 INR 1.81 (0.8-1.2) H 06/07/24 12:00 D-Dimer 2.57 ug/mLFEU (0-0.59) H 06/07/24 12:00 Specimen Type Arterial 06/09/24 04:20 Sample Site Radial, right 06/09/24 04:20 ABG pH 7.43 (7.35-7.45) 06/09/24 04:20 ABG pCO2 40.4 mmHg (35-45) 06/09/24 04:20 ABG pO2 73.8 mmHg (80.0-100.0) L 06/09/24 04:20 ABG PO2/FiO2 Ratio 263 06/09/24 04:20 ABG HCO3 27.0 mmol/L (22-26) H 06/09/24 04:20 ABG O2 Saturation 97.0 06/09/24 04:20 ABG Base Excess 2.5 mmol/L (-2.0-2.0) H 06/09/24 04:20 Shashi Test Pos 06/09/24 04:20 A-a O2 Gradient 9.8 mmHg (5-10) 06/09/24 04:20 Hematocrit 30.3 % (42-52) L 06/09/24 04:20 Hgb O2 Saturation 95.1 % (95-100) 06/09/24 04:20 Carboxyhemoglobin 1.5 %THgb (0.4-20.1) 06/09/24 04:20 Methemoglobin 0.5 % (0.4-1.5) 06/09/24 04:20 Total Hemoglobin 9.9 g/dL (14-18) L 06/09/24 04:20 Sodium 140.0 mmol/L (131-143) 06/09/24 04:20 Potassium 3.2 mmol/L (3.5-5.0) L 06/09/24 04:20 Glucose 74.0 mg/dL (70-115) 06/09/24 04:20 Ionized Calcium 1.1 mmol/L (1.1-1.4) 06/09/24 04:20 O2 Delivery Device Bipap 06/09/24 04:20 O2 Liters/Min 6.0 % 06/07/24 12:27 FiO2 28.0 % 06/09/24 04:20 Tidal Volume 0.55 06/09/24 04:20 PEEP 5.0 cmH20 06/09/24 04:20 Thermo Cementing Folder Operator ID [email or web address] 06/09/24 04:20 Sodium 139 mmol/L (136-145) 06/10/24 02:45 Potassium 3.0 mmol/L (3.5-5.1) L 06/10/24 02:45 Chloride 100 mmol/L (98-107) 06/10/24 02:45 Carbon Dioxide 25 mmol/L (22-29) 06/10/24 02:45 Anion Gap 17.0 (5-19) 06/10/24 02:45 BUN 21 mg/dL (8-23) 06/10/24 02:45 Creatinine 3.8 mg/dL (0.7-1.2) H 06/10/24 02:45 GFR Calculation Not Reportable 06/10/24 02:45 Glucose 118 mg/dL (65-115) H 06/10/24 02:45 Calculated Osmolality 292 mOsm/kg (285-295) 06/10/24 02:45 Lactic Acid 3.2 mmol/L (0.5-2.2) H 06/07/24 12:00 Lactic Acid (Sepsis) 3.0 mmol/L (0.5-2.2) H 06/07/24 15:26 Calcium 8.3 mg/dL (8.5-10.5) L 06/10/24 02:45 Phosphorus 3.5 mg/dL (2.5-4.5) 06/08/24 03:09 Magnesium 1.8 mg/dL (1.7-2.3) 06/08/24 03:09 Total Bilirubin 0.5 mg/dL (0.15-1.2) 06/10/24 02:45 AST 78 U/L (0-40) H 06/10/24 02:45 ALT 199 U/L (0-41) H 06/10/24 02:45 Alkaline Phosphatase 94 U/L (40-130) 06/10/24 02:45 Ammonia 34 umol/L (16-60) 06/07/24 12:00 Troponin T Baseline 261 ng/L (0-15) H* 06/07/24 12:00 Troponin T 120 Minute 175.8 ng/L (0-15) H 06/07/24 14:11 Delta Troponin T -85.2 ABS# (0-10) L 06/07/24 14:11 Troponin T Hi Sens 6Hr 254.5 ng/L (0-15) H 06/07/24 17:43 Troponin T Hi Sens 6Hr Delta -6.5 ng/L (0-12) L 06/07/24 17:43 NT-Pro-B Natriuret Pep 58819 pg/mL (0-450) H 06/07/24 12:00 Total Protein 5.6 g/dL (6.6-8.7) L 06/10/24 02:45 Albumin 3.5 g/dL (3.5-5.2) 06/10/24 02:45 Globulin 2.1 g/dL (1.3-4.6) 06/10/24 02:45 Vitamin B12 > 2000 pg/mL (232-1245) H 06/07/24 12:00 Procalcitonin 0.63 ng/mL (0-0.5) H 06/07/24 12:00 TSH 4.66 uIU/mL (0.27-4.20) H 06/07/24 12:00 TSH 4.76 uIU/mL (0.27-4.20) H 06/07/24 12:00 Urine Color Yellow (Yellow) 06/07/24 12:10 Urine Appearance Cloudy (CLEAR) A 06/07/24 12:10 Urine pH 8 (5-7) A 06/07/24 12:10 Ur Specific [place] 1.010 (1.005-1.030) 06/07/24 12:10 Urine Protein 2+ (Negative) H 06/07/24 12:10 Urine Glucose (UA) Norm (Normal) 06/07/24 12:10 Urine Ketones Negative (Negative) 06/07/24 12:10 Urine Blood 3+ (Negative) H 06/07/24 12:10 Urine Nitrate Negative (Negative) 06/07/24 12:10 Urine Bilirubin Neg (Negative) 06/07/24 12:10 Urine Urobilinogen Norm mg/dL (Negative) 06/07/24 12:10 Ur Leukocyte Esterase Negative (Negative) 06/07/24 12:10 Urine RBC >100 /hpf (0-2) H 06/07/24 12:10 Urine WBC 0-4 /hpf (0-5) H 06/07/24 12:10 Ur Squamous Epith Cells 0-4 /hpf (0-5) H 06/07/24 12:10 Ur Transition Epith Cell 0-4 /hpf 06/07/24 12:10 Amorphous Sediment Trace /hpf 06/07/24 12:10 Urine Bacteria Trace /hpf (NONE) 06/07/24 12:10 Urine Mucus Trace /hpf 06/07/24 12:10 Urine Opiates Screen Negative ng/mL (Negative) 06/07/24 12:10 Ur Barbiturates Screen Negative ng/mL (Negative) 06/07/24 12:10 Ur Phencyclidine Scrn Negative ng/mL (Negative) 06/07/24 12:10 Ur Amphetamines Screen Negative ng/mL (Negative) 06/07/24 12:10 U Benzodiazepines Scrn Negative ng/mL (Negative) 06/07/24 12:10 Urine Cocaine Screen Negative ng/mL (Negative) 06/07/24 12:10 U Marijuana (THC) Screen Negative ng/mL (Negative) 06/07/24 12:10 Adenovirus (PCR) Not detected (NOT DETECT) 06/07/24 20:10 C. pneumoniae DNA (PCR) Not detected (NOT DETECT) 06/07/24 20:10 Coronavirus (PCR) Negative (Negative) 06/07/24 12:10 Coronavirus 229E (PCR) Not detected (NOT DETECT) 06/07/24 20:10 Hep Bs Antigen Non-reactive (Nonreactive) 06/07/24 11:00 Hep Bs Antibody < 3.5 (11.5-1000) L 06/07/24 11:00 Hepatitis C Antibody Non-reactive (Nonreactive) 06/07/24 11:00 Human Metapneumovir PCR Not detected (NOT DETECT) 06/07/24 20:10 Influenza A (H1) PCR Not detected (NOT DETECT) 06/07/24 20:10 Influenza A (PCR) Negative (Negative) 06/07/24 12:10 Influ A (H1/09) PCR Not detected (NOT DETECT) 06/07/24 20:10 Influenza A (H3) PCR Not detected (NOT DETECT) 06/07/24 20:10 Influenza Type A (PCR) Not detected (NOT DETECT) 06/07/24 20:10 Influenza Type B (PCR) Not detected (NOT DETECT) 06/07/24 20:10 M. pneumoniae (PCR) Not detected (NOT DETECT) 06/07/24 20:10 Parainfluenza 1 (PCR) Not detected (NOT DETECT) 06/07/24 20:10 Parainfluenza 2 (PCR) Not detected (NOT DETECT) 06/07/24 20:10 Parainfluenza 3 (PCR) Not detected (NOT DETECT) 06/07/24 20:10 Parainfluenza 4 (PCR) Not detected (NOT DETECT) 06/07/24 20:10 RSV (PCR) Negative (Negative) 06/07/24 12:10 RSV Type A (PCR) Not detected (NOT DETECT) 06/07/24 20:10 RSV Type B (PCR) Not detected (NOT DETECT) 06/07/24 20:10 Entero/Rhino (PCR) Not detected (NOT DETECT) 06/07/24 20:10 SARS-CoV-2 (PCR) Not detected (NOT DETECT) 06/07/24 20:10 Vitals Last Vital Signs Temp 97.9 F 06/10/24 08:09 Pulse 109 H 06/10/24 08:55 Resp 20 H 06/10/24 08:55 BP 124/77 06/10/24 08:09 Pulse Ox 97 06/10/24 08:55 O2 Del Method Nasal Cannula 06/10/24 08:55 O2 Flow Rate 3 06/10/24 08:55 FiO2 28 06/09/24 03:43 Discharge Plan Discharge Patient Disposition: Home Condition: Stable Prescriptions: New amiodarone [Pacerone] 200 mg Tablet 400 mg PO BID Qty: 90 0RF Rx Instructions: 400 mg twice a day for 7 days then 400 mg daily doxycycline hyclate 100 mg tablet 100 mg PO BID 3 Days Qty: 6 0RF Continued dutasteride 0.5 mg capsule 0.5 mg PO DAILY@08 ferrous sulfate 325 mg (65 mg iron) tablet 325 mg PO .QOD tamsulosin 0.4 mg capsule 0.4 mg PO QPM acetaminophen 325 mg capsule 650 mg PO Q4H PRN (Reason: pain or fever) (DME) cam boot See Rx Instructions .Route .MEDSUPPLY Qty: 1 0RF Rx Instructions: As directed (DME) ASO Left See Rx Instructions .ROUTE .MEDSUPPLY Qty: 1 0RF Rx Instructions: As directed loperamide 2 mg Tablet See Rx Instructions .ROUTE .COMPLEX PRN (Reason: Loose Stool) Rx Instructions: 4 mg (2 tabs) orally initial episode of loose/diarrhea stool then 2mg (1 tab) po as needed each loose/diarrhea stool thereafter not to exceed 16mg in 24 hours prn tramadol 50 mg Tablet 50 mg PO Q4H PRN (Reason: Pain) Fleet Enema 19-7 gram/118 mL Enema 118 ml MO DAILY PRN (Reason: Constipation) Multivitamin 50 Plus Tablet 1 tab PO DAILY@08 [place] Nasal 0.65 % Aerosol,[place] 1 spray INTRANASAL Q2H PRN (Reason: Dry Nasal Passages) Metamucil (sugar) Powder See Rx Instructions .ROUTE .COMPLEX PRN (Reason: Constipation) Rx Instructions: GIVE 1.7GR BY MOUTH 3 TIMES DAILY NEEDED FOR CONSTIPATION. guaifenesin [Mucinex] 600 mg Tablet Extended Release 12hr 600 mg PO Q12H PRN (Reason: unknown) quetiapine 25 mg tablet 25 mg PO BID ondansetron HCl 4 mg tablet 4 mg PO PRN PRN (Reason: N/V) bisacodyl [Dulcolax (bisacodyl)] 10 mg Suppository 10 mg MO DAILY PRN (Reason: Constipation) Probiotic 3 billion cell Capsule 3,000 mmu cells PO DAILY PRN (Reason: WHEN ON ANITIBIOTICS) Rx Instructions: administer with a meal melatonin 5 mg Tablet 5 mg PO BEDTIME levetiracetam 500 mg tablet 500 mg PO BID Changed metoprolol tartrate 25 mg tablet 25 mg PO BID Qty: 60 0RF Discontinued scopolamine base 1 mg over 3 days patch 3 day 1 patch transdermal Q3D PRN (Reason: Nausea And Vomiting) Eliquis 5 mg tablet See Rx Instructions .ROUTE .COMPLEX Rx Instructions: 5 mg orally very 12 hours for afib with RVR atorvastatin 40 mg tablet 40 mg PO BEDTIME Discharge Orders: Discharge Order (Routine); Ordered 06/10/24 Ordered By: Camden Woodruff Referrals: Jenn Quiroga, FILLER OPERATOR [Primary Care Provider] - Patient Instructions: Altered Mental Status (ED), Opioid Safety Discharge Attestations Time Spent in Discharge Care*: greater than 30 min Quality Metrics Clinical Quality Measures [ No reported AMI, CVA or VTE this stay] Coding Level of Care Code Acute Code for Chg Fwd Diagnoses ESRD (end stage renal disease) on dialysis N18.6; Z99.2
--- NOTE | 2024-06-10 10:25 | PC.CHAP ---
Pastoral Care Encounter/Spiritual Assessment Type of Contact [] Declined pulley maintainer visit [] Patient/Family/Request visit [] Outpatient visit [] Follow-up visit [] Physician referral [] Code/Alert [x] Routine visit [] Staff referral [] Actively dying [] Patient sleeping [] Family support [] [] Out of room [] Palliative care [] [] Receiving care in room [] Pre-surgical visit [] Trauma [] Long length of stay [] ICU visit [] Other: Relational/Emotional Strength [] Patient feels connected with others/family/visitors/staff [] Distress [] Loneliness/isolation [] Abandonment Spirituality of Patient [x] Person of Anne [] Attends Rastafarian of their Anne [x] Believes in Prayer [] Reads Bible or Islam materials [] There are Spiritual issues to be addressed Fairground Operator Interventions [x Prayer [x] Active listening [] Non-anxious presence [] Spiritual/emotional support [] Crisis/trauma care [] Spiritual counseling [] Bereavement support [] Provided bereavement packet [] Provided Bible/devotional materials [] Provided toy/stuffed animal, coloring book to patient or family member [] Provided Communion [] Anointing/[place] [] Salvation [x] Completed spiritual assessment [] Other: Impact on Illness or Injury [] Angry [] Fearful [] Anxious [] Often cries [] Exhaustion [] Unable to work [] Unable to attend hindu [] Unable to walk/stand [] Unable to read [] Unable to drive [] Unable to eat/drink [] Unable to sleep [] Unable to be with family [] Patient intubated [] Other: Summary Time spent with patient 5 min
--- NOTE | 2024-06-10 12:05 | PC.NURSE ---
Spoke with patient regarding code status. Patient has voiced that he does not want any extra measures to sustain life and wishes to be a DNR.
[2024-06-10 12:26] LABS: SARS Covid-2 Antigen negative (Negative)
--- NOTE | 2024-06-10 12:40 | PC.SOCIAL ---
IMM Update pg 2 of IMM updated and reviewed w/ patient. Copy provided and copy dated, initialed and placed in chart.
== END 2024-06-10 14:01 | disposition home or self-care (01) | DRG 682 ==
LOC: ER 14:01 → ICU 14:07 → CSU 06-09 14:05
PROVIDERS: Family Medicine; Internal Medicine; Internal Medicine Nephrology; Admitting Provider Internal Medicine; Emergency Provider Emergency Medicine; PCP Nurse Practitioner Family; Visit Provider Internal Medicine
DX: I12.0 Hypertensive chronic kidney disease with stage 5 chronic kidney disease or end stage renal disease (principal); J96.21 Acute and chronic respiratory failure with hypoxia; N18.6 End stage renal disease; J96.22 Acute and chronic respiratory failure with hypercapnia; G93.40 Encephalopathy, unspecified; I48.91 Unspecified atrial fibrillation; Z79.01 Long term (current) use of anticoagulants; Z79.899 Other long term (current) drug therapy; Z88.8 Allergy status to other drugs, medicaments and biological substances; Z99.2 Dependence on renal dialysis; I73.9 Peripheral vascular disease, unspecified; F03.90 Unspecified dementia, unspecified severity, without behavioral disturbance, psychotic disturbance, mood disturbance, and anxiety; J44.9 Chronic obstructive pulmonary disease, unspecified; K74.60 Unspecified cirrhosis of liver; I95.9 Hypotension, unspecified; G40.909 Epilepsy, unspecified, not intractable, without status epilepticus; K21.9 Gastro-esophageal reflux disease without esophagitis; D64.9 Anemia, unspecified; T46.1X5A Adverse effect of calcium-channel blockers, initial encounter; L89.151 Pressure ulcer of sacral region, stage 1; Z11.52 Encounter for screening for COVID-19; Z99.81 Dependence on supplemental oxygen; Z66 Do not resuscitate
CPT/HCPCS: 0241U; 36415; 36600; 51702; 70450; 71045; 80048; 80051; 80053; 80306; 81001; 82140; 82330; 82607; 82803; 82805; 83605; 83735; 83880; 84100; 84145; 84443; 84484; 85025; 85378; 85610; 86403; 86706; 86803; 87040; 87077; 87086; 87150; 87186; 87205; 87340; 87426; 87449; 87486; 87581; 87633; 90935; 93005; 93306; 94660; 96365; 96367; 96374; 96375; 96376; 99291; 99292; J0283; J0692; J1644; J1940; J1953; J2470; J2543; J3370; J3490; J7030; J7120; P9046

== ENCOUNTER 2024-06-18 08:25 | Observation (INO) | payer MEDICARE, MEDICAID, SELFPAY ==
[2024-06-18] VITALS (12 sets, daily range): BP systolic 101–138; BP diastolic 49–68; PULSE 55–74; RESP 12–24; TEMP 35.9–36.7; O2SAT 93–96
--- NOTE | 2024-06-18 08:39 | ECG_ITS ---
[facility] Test Date: 2024-06-18 Pat Name: Robert Verduzco Department: Room: Gender: Male Communications Planner: : [id number] Requested By: Shaun Lang Order Number: [id number] Liza MD: Matt Castro M.D. Measurements Intervals [place] Rate: 56 P: 42 IL: 180 QRS: 17 QRSD: 112 T: 32 QT: 432 QTc: 420 Interpretive Statements SINUS BRADYCARDIA. BASELINE ARTIFACT MODERATE INTRAVENTRICULAR CONDUCTION DELAY [110+ ms QRS DURATION] NONSPECIFIC T-WAVE ABNORMALITY Compared to ECG 06/08/2024 09:44:57 Intraventricular conduction delay now present Atrial flutter no longer present Possible ischemia no longer present T-wave abnormality still present Electronically Signed On 06-18-2024 16:54:21 CDT by Matt Castro M.D. [email or web address]
--- NOTE | 2024-06-18 08:39 | XRR_ITS ---
PROCEDURE INFORMATION: Exam: XR Chest Exam date and time: 06/18/2024 8:50 AM Age: 74 years old Clinical indication: Cough and dyspnea; Prior surgery; Surgery date: 6+ months; Surgery type: Dialysis cath; Patient HX: Dyspnea AMS; Additional info: Dyspnea/cough TECHNIQUE: Imaging protocol: Radiologic exam of the chest. Views: 1 view. COMPARISON: CR XR chest 1V portable [id number] 06/07/2024 12:54 PM FINDINGS: Tubes, catheters and devices: Dual-lumen catheter seen on the right with tips overlying the SVC. Lungs: There are bilateral basilar opacities slightly worse on the right than on the left. Findings are felt in part be related to layering pleural fluid and atelectasis. Upper lungs are clear. Pleural spaces: Suspect layering pleural effusions bilaterally. Heart/Mediastinum: The heart is enlarged. Bones/joints: Unremarkable. XR/XR chest 1V portable [id number] IMPRESSION: 1. Cardiomegaly. 2. Bibasilar opacities slightly worse on today's exam.
--- NOTE | 2024-06-18 08:43 | ED_ITS ---
HPI - General Adult 2 General: Chief complaint: General Medical Stated complaint: AMS, HYPERTENSION Time Seen by Provider: 06/18/24 08:38 History of Present Illness: 74-year-old male presents to the emergen cy room via EMS from local longterm. They reportedly been bradycardic and hypotensive. He has a history of atrial fibrillation end-stage renal disease on liver cirrhosis. He is difficult to arouse unsure why he is here he answers a few questions generally all negative and not sure how reliable his history is he is not sure why he is here. According to the longterm staff he did receive his regular dialysis run yesterday. He denies chest pain Associated symptoms: Deny chest pain or dyspnea Related Data Home Medications Medication Instructions Recorded Confirmed acetaminophen 325 mg capsule 650 mg PO Q6H PRN pain or fever 05/20/21 06/18/24 dutasteride 0.5 mg capsule 0.5 mg PO DAILY@08 05/20/21 06/18/24 ferrous sulfate 325 mg (65 mg 325 mg PO .QOD 05/20/21 06/18/24 iron) tablet tamsulosin 0.4 mg capsule 0.4 mg PO QPM 05/20/21 06/18/24 guaifenesin 600 mg tablet, 600 mg PO Q12H PRN pneumonia 01/23/24 06/18/24 extended release 12 hr (Mucinex) loperamide 2 mg tablet See Rx Instructions .Route 01/23/24 06/18/24 .COMPLEX PRN Loose Stool fmhapyejfmql-cezqdvop-wrwwue 1 tab PO DAILY@08 01/23/24 06/18/24 tablet (Multivitamin 50 Plus tablet) psyllium seed (sugar) oral powder See Rx Instructions .Route 01/23/24 06/18/24 (Metamucil (sugar) oral powder) .COMPLEX PRN Constipation sodium chloride 0.65 % nasal spray 1 spray intranasal Q2H PRN Dry 01/23/24 06/18/24 aerosol (Deep Sea Nasal) Nasal Passages sodium phosphates 19 gram-7 118 ml SC DAILY PRN Constipation 01/23/24 06/18/24 gram/118 mL enema (Fleet Enema) bisacodyl 10 mg rectal suppository 10 mg SC DAILY PRN Constipation 04/22/24 06/18/24 (Dulcolax (bisacodyl)) lactobacillus combination no.4 3 3,000 mmu cells PO DAILY PRN WHEN 04/22/24 06/18/24 billion cell capsule (Probiotic) ON ANITIBIOTICS levetiracetam 500 mg tablet 500 mg PO BID 05/09/24 06/18/24 quetiapine 25 mg tablet 25 mg PO BID 06/07/24 06/18/24 albuterol sulfate 90 mcg/actuation 2 puff inhalation Q4H PRN 06/18/24 06/18/24 aerosol inhaler Shortness Of Breath Or Wheezing melatonin 1 mg tablet 1 mg PO BEDTIME 06/18/24 06/18/24 phenol 1.5 %-glycerin 33 % mucosal 2 spray mucous membrane Q4H PRN 06/18/24 06/18/24 spray (Chloraseptic Max Sore Sore Throat Throat) Previous Rx's Medication Instructions Recorded ASO Left #1 ea 06/01/21 cam boot #1 ea 06/01/21 amiodarone 200 mg tablet (Pacerone) 200 mg PO BID #60 tabs 06/19/24 dexamethasone 6 mg tablet 6 mg PO Q24H #3 tabs 06/19/24 levothyroxine 25 mcg tablet 25 mcg PO QAM #30 tabs 06/19/24 Allergies Allergy/AdvReac Type Severity Reaction Status Date / Time NSAIDS (Non-Steroidal Allergy Mild Rash Verified 05/08/24 16:48 Anti-Inflamma Review of Systems 2 General: Reports: Other (Difficult to obtain due to baseline mental status) Card: Denies: chest pain Resp: Reports: non-productive cough; Denies: dyspnea PFSH ED 2 PFSH: Medical History Anemia ESRD (end stage renal disease) on dialysis Atrial fibrillation Patient is full code Acute and chronic respiratory failure with hypoxia Elevated liver enzymes Acute alteration in mental status Septic shock Atrial fibrillation with rapid ventricular response Atrial fibrillation Hematuria Proctitis Hypokalemia Urinary tract infection Noncompliance PVD (peripheral vascular disease) Prostatitis Weakness End stage renal disease on dialysis Admission for dialysis and dialysis catheter care Complication, dialysis catheter clot or failure RSV (acute bronchiolitis due to respiratory syncytial virus) Fever Nausea Non-healing wound of left lower extremity Cellulitis of right lower leg Shortness of breath Atherosclerosis of [place] artery of extremity with ulceration Atherosclerosis of [place] arteries of right leg with ulceration of unspecified site Non-healing wound of right lower extremity Closed fracture of left distal fibula Left ankle pain Gastro-esophageal reflux disease without esophagitis Contracture, left hand Chronic obstructive pulmonary disease, unspecified Attention-deficit hyperactivity disorder, unspecified type Motion sickness, sequela Insomnia, unspecified Post-traumatic stress disorder, chronic Restless legs syndrome 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 ascites Contracture, right hand COVID-19 Benign prostatic hyperplasia with lower urinary tract symptoms Secondary osteoarthritis, left hand Other recurrent depressive disorders Anemia in other chronic diseases classified elsewhere Secondary osteoarthritis, right hand Generalized anxiety disorder Cervicalgia Muscle weakness (generalized) Essential (primary) hypertension Dementia in other diseases classified elsewhere without behavioral disturbance Hereditary and idiopathic neuropathy, unspecified Surgical History S/P dialysis catheter insertion Family History Father CAD (coronary artery disease) Social History Smoking and tobacco/nicotine status: never used tobacco/nicotine Alcohol intake: never Substance/Drug Use: never Physical Exam 2 Const: GENERAL APPEARANCE: lethargic ORIENTATION/CONSCIOUSNESS: Yes confused and Yes lethargic HENMT: COMMON NORMALS: normocephalic, atraumatic and hearing grossly normal bilaterally HEAD & SCALP: normocephalic and atraumatic Resp: COMMON NORMALS: normal respiratory effort, No retractions and No use of accessory muscles AUSCULTATION: crackles Cardio: COMMON NORMALS: No murmurs present (Cardio) RHYTHM: abnormal rhythm irregularly irregular GI: COMMON NORMALS: Soft to palpation and No hepatosplenomegaly present A USCULTATION: Yes normoactive bowel sounds PALPATION: Yes Soft to palpation, No Tenderness to palpation present (GI), No Guarding due to palpation present (GI) and Yes No hepatosplenomegaly present Extremity: COMMON NORMALS: normal to inspection, capillary refill normal and no calf tenderness GENERAL: Yes edema (2+ lower extremity) Neuro: SENSORIUM/ORIENTATION: Yes lethargic Skin: COMMON NORMALS: no rashes or lesions noted GENERAL SKIN EXAM: no rashes or lesions noted Course 2 Vital Signs: Vital signs: Vital Signs Temperature 98.6 F 06/19/24 19:40 Pulse Rate 70 06/19/24 19:40 Respiratory Rate 18 06/19/24 19:40 Blood Pressure 105/54 06/19/24 19:40 Pulse Oximetry 95 06/19/24 19:40 Oxygen Delivery Me thod Nasal Cannula 06/19/24 19:40 Oxygen Flow Rate 2 06/19/24 19:40 MDM - General Adult Medical Decision Making Patient does seem to be somewhat lethargic. Chest x-ray reviewed appears to show fluid overload he has a lot of increased pulmonary vasculature CT head was unremarkable urine showed hematuria however it was a cath UA suspect this is from traumatic catheterization. His COVID did come back positive. Will admit for fluid overload COVID. Suspect he may need dialysis sooner than his scheduled dialysis run. Discussed with hospitalist orders written Medical Records I reviewed the patient's medical records. Lab Data I reviewed the patient's lab results. 06/18/24 21:37 06/18/24 21:37 Radiology Impressions Chest X-Ray 06/18/24 08:39 IMPRESSION: 1. Cardiomegaly. 2. Bibasilar opacities slightly worse on today's exam. Laboratory Results WBC 8.34 10^3/uL (3.29-11.43) 06/18/24 09:17 RBC 3.48 10^6/uL (3.85-5.65) L 06/18/24 09:17 Hgb 10.80 g/dL (11.27-16.99) L 06/18/24 09:17 Hct 35.7 % (37-53) L 06/18/24 09:17 MCV 102.6 fl (82-101) H 06/18/24 09:17 MCH 31.0 pg (27-33) 06/18/24 09:17 MCHC 30.3 g/dL (30-55) 06/18/24 09:17 RDW 17.6 % (12.1-15.1) H 06/18/24 09:17 Plt Count 230 10^3/cmm (157-399) 06/18/24 09:17 MPV 9.3 fL (7.4-10.4) 06/18/24 09:17 Neut % (Auto) 65.4 % 06/18/24 09:17 Lymph % (Auto) 17.1 % 06/18/24 09:17 [place] % (Auto) 15.6 % 06/18/24 09:17 Eos % (Auto) 0.7 % 06/18/24 09:17 Baso % (Auto) 0.2 % 06/18/24 09:17 Neut # (Auto) 5.45 10^3/uL (1.8-7.7) 06/18/24 09:17 Lymph # (Auto) 1.4 10^3/uL (0.8-4.8) 06/18/24 09:17 [place] # (Auto) 1.3 10^3/uL (0.2-0.9) H 06/18/24 09:17 Eos # (Auto) 0.1 10^3/uL (0.0-0.8) 06/18/24 09:17 Baso # (Auto) 0.0 10^3/uL (0.0-0.1) 06/18/24 09:17 Nucleated RBC % (auto) 0 % 06/18/24 09:17 Nucleated RBCs # 0.0 /100WBC 06/18/24 09:17 Sodium 136 mmol/L (136-145) 06/18/24 09:17 Potassium 3.7 mmol/L (3.5-5.1) 06/18/24 09:17 Chloride 94 mmol/L (98-107) L 06/18/24 09:17 Carbon Dioxide 34 mmol/L (22-29) H 06/18/24 09:17 Anion Gap 11.7 (5-19) 06/18/24 09:17 BUN 11 mg/dL (8-23) 06/18/24 09:17 Creatinine 2.6 mg/dL (0.7-1.2) H 06/18/24 09:17 GFR Calculation Not Reportable 06/18/24 09:17 Glucose 111 mg/dL (65-115) 06/18/24 09:17 Calculated Osmolality 282 mOsm/kg (285-295) L 06/18/24 09:17 Lactic Acid 1.3 mmol/L (0.5-2.2) 06/18/24 09:17 Calcium 8.4 mg/dL (8.5-10.5) L 06/18/24 09:17 Magnesium 1.9 mg/dL (1.7-2.3) 06/18/24 09:17 Total Bilirubin 0.4 mg/dL (0.15-1.2) 06/18/24 09:17 AST 17 U/L (0-40) 06/18/24 09:17 ALT 27 U/L (0-41) 06/18/24 09:17 Alkaline Phosphatase 82 U/L (40-130) 06/18/24 09:17 Creatine Kinase 11 U/L (39-308) L 06/18/24 09:17 Total Protein 6.2 g/dL (6.6-8.7) L 06/18/24 09:17 Albumin 3.3 g/dL (3.5-5.2) L 06/18/24 09:17 Globulin 2.9 g/dL (1.3-4.6) 06/18/24 09:17 Folate 5.9 ng/mL (4.5-32.2) 06/18/24 09:17 Procalcitonin 0.41 ng/mL (0-0.5) 06/18/24 09:17 TSH 6.97 uIU/mL (0.27-4.20) H 06/18/24 09:17 Random Cortisol 19.58 ug/dL (2.47-19.5) H 06/18/24 09:17 Urine Color Yellow (Yellow) 06/18/24 10:08 Urine Appearance Cloudy (CLEAR) A 06/18/24 10:08 Urine pH 8.0 (5-7) A 06/18/24 10:08 Ur Specific [place] 1.010 (1.005-1.030) 06/18/24 10:08 Urine Protein 2+ (Negative) A 06/18/24 10:08 Urine Glucose (UA) Trace (Normal) H 06/18/24 10:08 Urine Ketones Negative (Negative) 06/18/24 10:08 Urine Blood 3+ (Negative) A 06/18/24 10:08 Urine Nitrate Negative (Negative) 06/18/24 10:08 Urine Bilirubin Negative (Negative) 06/18/24 10:08 Urine Urobilinogen 1.0 mg/dL (Negative) 06/18/24 10:08 Ur Leukocyte Esterase Trace (Negative) A 06/18/24 10:08 Urine RBC 50-80 /hpf (0-2) H 06/18/24 10:08 Urine WBC 0-4 /hpf (0-5) H 06/18/24 10:08 Ur Squamous Epith Cells 0-4 /hpf (0-5) H 06/18/24 10:08 Ur Transition Epith Cell 0-4 /hpf 06/18/24 10:08 Amorphous Sediment 2+ /hpf 06/18/24 10:08 Urine Bacteria 1+ /hpf (NONE) H 06/18/24 10:08 Hyaline Casts 0-4 /lpf H 06/18/24 10:08 Urine Mucus Trace /hpf 06/18/24 10:08 Coronavirus (PCR) Positive (Negative) A 06/18/24 11:10 Hep Bs Antigen Non-reactive (Nonreactive) 06/18/24 09:17 Hep Bs Antibody < 3.5 (11.5-1000) L 06/18/24 09:17 Influenza A (PCR) Negative (Negative) 06/18/24 11:10 Influenza Type B (PCR) Negative (Negative) 06/18/24 11:10 RSV (PCR) Negative (Negative) 06/18/24 11:10 All radiology interpretation(s) finalized by discharge Discharge Plan Discharge Patient Disposition: Admitted As Inpatient Admit Provider: Alexander Jerez Clinical Impression: CHF (congestive heart failure), Atrial fibrillation, ESRD (end stage renal disease) on dialysis, COVID, Cirrhosis Condition: Stable Discharge Diet: Usual diet Discharge Activity: Increase activity as tolerated Coding Level of Care Code ED [facility] Department Supervisor for Trixie Small
[2024-06-18 09:56] LABS: Basophils % 0.2 %; Eosinophils # 0.1 10^3/uL (0.0-0.8); Eosinophils % 0.7 %; Hematocrit 35.7 % (37-53); Lymphocytes # 1.4 10^3/uL (0.8-4.8); Lymphocytes % 17.1 %; Mean Corpuscular HGB Conc 30.3 g/dL (30-55); Mean Corpuscular Volume 102.6 fl (82-101); Mean Platelet Volume 9.3 fL (7.4-10.4); Monocytes # 1.3 10^3/uL (0.2-0.9); Monocytes % 15.6 %; Neutrophils # 5.45 10^3/uL (1.8-7.7); Neutrophils % 65.4 %; Nucleated Red Blood Cells % 0 %; Platelet Count 230 10^3/cmm (157-399); Red Blood Count 3.48 10^6/uL (3.85-5.65); Red Cell Distribution Width 17.6 % (12.1-15.1); White Blood Count 8.34 10^3/uL (3.29-11.43)
[2024-06-18 10:07] LABS: Alanine Aminotransferase 27 U/L (0-41); Albumin Level 3.3 g/dL (3.5-5.2); Alkaline Phosphatase 82 U/L (40-130); Anion Gap 11.7 (5-19); Aspartate Amino Transferase 17 U/L (0-40); Blood Urea Nitrogen 11 mg/dL (8-23); Calcium 8.4 mg/dL (8.5-10.5); Carbon Dioxide 34 mmol/L (22-29); Chloride 94 mmol/L (98-107); Creatine Phosphokinase 11 U/L (39-308); Creatinine Clr Calc Pharmacy 32.8145; Globulin 2.9 g/dL (1.3-4.6); Glucose 111 mg/dL (65-115); Magnesium 1.9 mg/dL (1.7-2.3); Osmolality Calculated 282 mOsm/kg (285-295); Potassium 3.7 mmol/L (3.5-5.1); Sodium 136 mmol/L (136-145); Total Bilirubin 0.4 mg/dL (0.15-1.2); Total Protein 6.2 g/dL (6.6-8.7)
[2024-06-18 10:08] LABS: Lactic Sepsis W/Reflex 1.3 mmol/L (0.5-2.2)
[2024-06-18 10:42] LABS: Add Urine Microscopic? YES; Bilirubin Urine Negative (Negative); Blood Urine 3+ (Negative); Glucose Urine UA Trace (Normal); Ketones Urine Negative (Negative); Leukocyte Esterase Urine Trace (Negative); Nitrate Urine Negative (Negative); Protein Urine 2+ (Negative); Urine Color Yellow (Yellow)
[2024-06-18 10:46] LABS: Urine Appearance Cloudy (CLEAR)
[2024-06-18 10:47] LABS: UA Slide Review UA Slide Review Perf
[2024-06-18 10:53] LABS: UA Manual Slide Review YES
[2024-06-18 10:54] LABS: Add Urine Culture? Yes; Amorphous Sediment Urine 2+ /hpf; Bacteria Urine 1+ /hpf; Hyaline Casts Urine 0-4 /lpf; Mucus Urine TRACE /hpf; RBC Urine 50-80 /hpf (0-2); Squamous Epithelial Cell Urine 0-4 /hpf (0-5); Transitional Epi Cells Urine 0-4 /hpf; WBC Urine 0-4 /hpf (0-5)
[2024-06-18] MEDS: sodium chloride 0.9% 500 ML 999 ML IV (11:03)
[2024-06-18 11:52] LABS: Influenza A NEGATIVE (Negative); Influenza B NEGATIVE (Negative); Respiratory Syncytial Virus Ce NEGATIVE (Negative)
[2024-06-18 12:12] LABS: Covid PCR Positive (Negative)
--- NOTE | 2024-06-18 12:25 | PM.HP ---
Providers/Chief Complaint Admitting Physician: Alexander Jerez MD, hospitalist Primary Care Provider: Jenn Quiroga NP Chief Complaint: AMS, HYPERTENSION History of Present Illness Robert Verduzco is a 74 year old male with end-stage renal disease, hemodialysis, hematuria requiring discontinuation of anticoagulation for A-fib, seizure disorder, history of hypotension with dialysis, cirrhosis, and multiple other medical problems who presents from nursing facility with history of some lethargy this morning. Nursing reports he was difficult to arouse, and when aroused he wanted to be left alone. Blood pressure was 80/50 with a heart rate of 50. Saturation was 93% on 2 L. She reported there was nothing sedating given, and he had not yet had his blood pressure medicine. Yesterday he was doing okay. They have had COVID in the facility. He has not yet been sick with it. No chest pain. Does not feel short of breath now. Denies nausea. Review of Systems General: Reports: 10 or more systems reviewed and unremarkable except in HPI and below and Other (Patient with some confusion, which appears to be intermittent and baseline) Medications/Allergies Home Medications Medication Instructions Recorded Confirmed Last Taken Type acetaminophen 325 mg capsule 650 mg PO Q6H PRN pain or fever 05/20/21 06/18/24 06/06/24 07:00 History dutasteride 0.5 mg capsule 0.5 mg PO DAILY@08 05/20/21 06/18/24 06/17/24 History ferrous sulfate 325 mg (65 mg 325 mg PO .QOD 05/20/21 06/18/24 06/14/24 History iron) tablet tamsulosin 0.4 mg capsule 0.4 mg PO QPM 05/20/21 06/18/24 06/17/24 History ASO Left #1 ea 06/01/21 06/18/24 Unknown Rx cam boot #1 ea 06/01/21 06/18/24 Unknown Rx guaifenesin 600 mg tablet, 600 mg PO Q12H PRN pneumonia 01/23/24 06/18/24 Unknown History extended release 12 hr (Mucinex) loperamide 2 mg tablet See Rx Instructions .Route 01/23/24 06/18/24 Unknown History .COMPLEX PRN Loose Stool stiycrpxvpqy-dajttrsf-pnajbg 1 tab PO DAILY@08 01/23/24 06/18/24 06/17/24 History tablet (Multivitamin 50 Plus tablet) psyllium seed (sugar) oral powder See Rx Instructions .Route 01/23/24 06/18/24 06/17/24 History (Metamucil (sugar) oral powder) .COMPLEX PRN Constipation sodium chloride 0.65 % nasal spray 1 spray intranasal Q2H PRN Dry 01/23/24 06/18/24 Unknown History aerosol (Deep Sea Nasal) Nasal Passages sodium phosphates 19 gram-7 118 ml MD DAILY PRN Constipation 01/23/24 06/18/24 Unknown History gram/118 mL enema (Fleet Enema) tramadol 50 mg tablet 50 mg PO Q4H PRN Pain 01/23/24 06/18/24 06/06/24 History bisacodyl 10 mg rectal suppository 10 mg MD DAILY PRN Constipation 04/22/24 06/18/24 Unknown History (Dulcolax (bisacodyl)) lactobacillus combination no.4 3 3,000 mmu cells PO DAILY PRN WHEN 04/22/24 06/18/24 Unknown History billion cell capsule (Probiotic) ON ANITIBIOTICS levetiracetam 500 mg tablet 500 mg PO BID 05/09/24 06/18/24 06/17/24 History quetiapine 25 mg tablet 25 mg PO BID 06/07/24 06/18/24 06/17/24 History amiodarone 200 mg tablet (Pacerone) 400 mg (2 x 200 mg) PO BID #90 tabs 06/10/24 06/18/24 06/17/24 Rx metoprolol tartrate 50 mg tablet 50 mg PO BID #60 tabs 06/10/24 06/18/24 06/17/24 Rx albuterol sulfate 90 mcg/actuation 2 puff inhalation Q4H PRN 06/18/24 06/18/24 Unknown History aerosol inhaler Shortness Of Breath Or Wheezing melatonin 1 mg tablet 1 mg PO BEDTIME 06/18/24 06/18/24 06/17/24 History phenol 1.5 %-glycerin 33 % mucosal 2 spray mucous membrane Q4H PRN 06/18/24 06/18/24 Unknown History spray (Chloraseptic Max Sore Sore Throat Throat) Allergies Allergy/AdvReac Type Severity Reaction Status Date / Time NSAIDS (Non-Steroidal Allergy Mild Rash Verified 05/08/24 16:48 Anti-Inflamma PFSH Acute PFSH: Medical History (Updated 06/18/24 @ 12:39 by Alexander Jerez MD) Anemia ESRD (end stage renal disease) on dialysis Atrial fibrillation Patient is full code Acute and chronic respiratory failure with hypoxia Elevated liver enzymes Acute alteration in mental status Septic shock Atrial fibrillation with rapid ventricular response Atrial fibrillation Hematuria Proctitis Hypokalemia Urinary tract infection Noncompliance PVD (peripheral vascular disease) Prostatitis Weakness End stage renal disease on dialysis Admission for dialysis and dialysis catheter care Complication, dialysis catheter clot or failure RSV (acute bronchiolitis due to respiratory syncytial virus) Fever Nausea Non-healing wound of left lower extremity Cellulitis of right lower leg Shortness of breath Atherosclerosis of [place] artery of extremity with ulceration Atherosclerosis of [place] arteries of right leg with ulceration of unspecified site Non-healing wound of right lower extremity Closed fracture of left distal fibula Left ankle pain Gastro-esophageal reflux disease without esophagitis Contracture, left hand Chronic obstructive pulmonary disease, unspecified Attention-deficit hyperactivity disorder, unspecified type Motion sickness, sequela Insomnia, unspecified Post-traumatic stress disorder, chronic Restless legs syndrome 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 ascites Contracture, right hand COVID-19 Benign prostatic hyperplasia with lower urinary tract symptoms Secondary osteoarthritis, left hand Other recurrent depressive disorders Anemia in other chronic diseases classified elsewhere Secondary osteoarthritis, right hand Generalized anxiety disorder Cervicalgia Muscle weakness (generalized) Essential (primary) hypertension Dementia in other diseases classified elsewhere without behavioral disturbance Hereditary and idiopathic neuropathy, unspecified Surgical History S/P dialysis catheter insertion Family History Father CAD (coronary artery disease) Social History Smoking and tobacco/nicotine status: never used tobacco/nicotine Alcohol intake: never Substance/Drug Use: never Vitals/I&O/Wt Last Vital Signs Temp 96.7 F L 06/18/24 08:26 Pulse 59 L 06/18/24 11:50 Resp 21 H 06/18/24 11:50 BP 115/68 06/18/24 11:50 Pulse Ox 96 06/18/24 11:50 O2 Del Method Nasal Cannula 06/18/24 11:50 O2 Flow Rate 2 06/18/24 11:50 Weight last 48 hrs Weight 127.006 kg Physical Exam Narrative: General Exam Sleepy white male, who appears somewhat confused but can answer some basic questions HEENT: Pupils equally round. Oropharynx clear Neck is supple obese Cardiovascular regular rate and rhythm, no obvious murmur Lungs diminished breath sounds at the bases but no wheezes or crackles Abdomen soft obese Extremities 2-3+ edema bilaterally. Some excoriations noted bilaterally. Some erythema, which appears to be venous stasis more on the right than the left. Cap refill slow consistent with his peripheral vascular disease. Bruise noted around the left knee. Neuro: No obvious focal deficits, but somewhat sleepy and confused Skin see findings above Data 06/18/24 09:17 06/18/24 09:17 Other Labs: EKG demonstrates sinus rhythm, artifact, normal axis, intraventricular conduction delay. Chest x-ray by my read demonstrates cardiomegaly, bilateral pleural effusions right greater than left. COVID test is positive, PCR Multiple previous CTs reviewed, demonstrating cirrhosis, effusions. Head CT showing no acute changes June 07 Urine and blood cultures were obtained I have ordered a procalcitonin, TSH, cortisol Note he has some previous ABGs with CO2 retention in the past Magnesium, LFTs are normal CK11 Albumin 3.3 Urinalysis with 50-80 reds, 0-4 whites, negative nitrates, trace to 1+ bacteria. Micro: Microbiology 06/18/24 09:31 Blood Culture - Preliminary Blood SPECIMEN COLLECTED 06/18/24 09:29 Blood Culture - Preliminary Blood SPECIMEN COLLECTED A&P Assessment and plan (1) Fluid overload: Patient has evidence of fluid overload. This evidence is supported by his peripheral edema, and bilateral pleural effusions. Previous echocardiogram demonstrated likely preserved EF although quality of echo is poor with his body habitus. I think the only effective way to get significant amounts of fluid off him is through dialysis, but from my understanding they have been having issues with hypotension during dialysis. The first step would be to discontinue any sedating medications, and stop his metoprolol. If this fails, addition of midodrine could occur. (2) Acute metabolic encephalopathy: This is multifactorial. The patient has COVID, end-stage renal disease, cirrhosis although ammonia levels have not been high in the past, history of CO2 retention at times. I will limit his oxygen, have nephrology see him for dialysis, and continue to monitor for improvement. I do not get the feeling that he is much off baseline after talking to the nurses at that facility. It was just more uncharacteristic this morning that he wanted to keep sleeping. (3) Hypotension: Patient with significant hypotension this morning. I doubt he is septic. I think his chest x-ray appearance is more consistent with fluid overload. Will obtain a procalcitonin Cultures have already been obtained Hold off on antibiotics for now Discontinue metoprolol If blood pressure persistently runs low consider midodrine Avoid sedating medications. For now we will discontinue his Seroquel, and tramadol as well. Secondary to his seizure disorder we should restrict tramadol anyway. Check TSH and cortisol levels (4) COVID: Patient has COVID. He may have Covid 19 pneumonia. Will add dexamethasone 6 mg IV every 24 hours Will not add remdesivir secondary to his end-stage renal disease on hemodialysis Monitor for any worsening. (5) ESRD (end stage renal disease) on dialysis: Patient with end-stage renal disease on hemodialysis He gets dialysis through a right tunneled port Will consult nephrology He gets dialysis on Monday. I do not see a need for acute dialysis today, unless nephrology sees otherwise. Although fluid overloaded he is saturating well on 2 L which is his baseline. (6) Atrial fibrillation: Patient with history of atrial fibrillation He is currently in sinus rhythm He was placed on amiodarone at last visit His dose is currently 400 mg twice daily, and needs to be lowered. I will decrease this to 200 mg twice daily. Discontinue metoprolol secondary to hypotension Continue telemetry No reason to repeat echo (7) Cirrhosis: Patient with history of cirrhosis, documented by CT. His INR has not been high. His ammonia has not been high. He has had a history of alcohol in the past but is not currently drinking. (8) Anemia: Patient with anemia. This is likely multifactorial. He has become anemic in the past secondary to blood loss in the form of hematuria and required transfusion. He has been taken off anticoagulation secondary to this reason. For now continue to monitor. Likely his anemia is also at least in part secondary to his renal disease. Note that his B12 is normal. Plan History of seizures. Continue Keppra Other medical problems as outlined in past medical history Full code according to the nursing facility staff. He was DNR here last time. I do not feel confident at this current juncture in time patient is able to make an informed decision. He has no family that we will make this for him according to previous notes. Attestations Medical Necessity Statement*: Will require less than 2 midnight stay for evaluation of COVID with fluid overload Diagnoses Fluid overload E87.70 Acute metabolic encephalopathy G93.41 Hypotension I95.9 COVID U07.1 ESRD (end stage renal disease) on dialysis N18.6; Z99.2 Atrial fibrillation I48.91 Cirrhosis K74.60 Anemia D64.9 Time Spent (min) 54
[2024-06-18 12:46] LABS: Procalcitonin 0.41 ng/mL (0-0.5)
[2024-06-18 13:14] LABS: Cortisol Random 19.58 ug/dL (2.47-19.5); Thyroid Stimulating Hormone 6.97 uIU/mL (0.27-4.20)
[2024-06-18 14:52] LABS: Folate Level 5.9 ng/mL (4.5-32.2)
[2024-06-18] MEDS: heparin 5,000 unit/mL INJ 1 mL 5000 UNIT SUBCUT (16:29)
[2024-06-18] MEDS: dexamethasone 10 mg/mL INJ 6 MG IVP (16:30)
[2024-06-18] MEDS: ipratropium-albuterol 3 mL Neb INHALATION ×2 (17:10→20:16)
[2024-06-18] MEDS: amiodarone 200 mg Tablet PO (18:38)
[2024-06-18] MEDS: tamsulosin 0.4 mg Capsule PO (18:38)
[2024-06-18] MEDS: levETIRAcetam 500 mg Tablet PO (18:38)
--- NOTE | 2024-06-18 19:28 | PM.CONSULT ---
Providers/Reason For Consult Consulting Physician/Specialty*: [facility]/Nephrology Reason for Consult*: ESRD Attending Physician: Alexander Jerze MD Primary Care Provider: Jenn Quiroga NP History of Present Illness History of Present Illness Robert Verduzco is a 74 year old male 74-year-old male with end-stage renal disease on dialysis per Monday, liver cirrhosis and has hypotension with dialysis usually, requires midodrine was sent from the [facility] facility due to altered mental status. Blood pressures were low in the emergency department with systolic in the 80s. Review of Systems Narrative: ROS negative Medications/Allergies Home Medications Medication Instructions Recorded Confirmed Last Taken Type acetaminophen 325 mg capsule 650 mg PO Q6H PRN pain or fever 05/20/21 06/18/24 06/06/24 07:00 History dutasteride 0.5 mg capsule 0.5 mg PO DAILY@08 05/20/21 06/18/24 06/17/24 History ferrous sulfate 325 mg (65 mg 325 mg PO .QOD 05/20/21 06/18/24 06/14/24 History iron) tablet tamsulosin 0.4 mg capsule 0.4 mg PO QPM 05/20/21 06/18/24 06/17/24 History ASO Left #1 ea 06/01/21 06/18/24 Unknown Rx cam boot #1 ea 06/01/21 06/18/24 Unknown Rx guaifenesin 600 mg tablet, 600 mg PO Q12H PRN pneumonia 01/23/24 06/18/24 Unknown History extended release 12 hr (Mucinex) loperamide 2 mg tablet See Rx Instructions .Route 01/23/24 06/18/24 Unknown History .COMPLEX PRN Loose Stool [id number] 1 tab PO DAILY@08 01/23/24 06/18/24 06/17/24 History tablet (Multivitamin 50 Plus tablet) psyllium seed (sugar) oral powder See Rx Instructions .Route 01/23/24 06/18/24 06/17/24 History (Metamucil (sugar) oral powder) .COMPLEX PRN Constipation sodium chloride 0.65 % nasal spray 1 spray intranasal Q2H PRN Dry 01/23/24 06/18/24 Unknown History aerosol (Deep Sea Nasal) Nasal Passages sodium phosphates 19 gram-7 118 ml [place] DAILY PRN Constipation 01/23/24 06/18/24 Unknown History gram/118 mL enema (Fleet Enema) bisacodyl 10 mg rectal suppository 10 mg KS DAILY PRN Constipation 04/22/24 06/18/24 Unknown History (Dulcolax (bisacodyl)) lactobacillus combination no.4 3 3,000 mmu cells PO DAILY PRN WHEN 04/22/24 06/18/24 Unknown History billion cell capsule (Probiotic) ON ANITIBIOTICS levetiracetam 500 mg tablet 500 mg PO BID 05/09/24 06/18/24 06/17/24 History quetiapine 25 mg tablet 25 mg PO BID 06/07/24 06/18/24 06/17/24 History albuterol sulfate 90 mcg/actuation 2 puff inhalation Q4H PRN 06/18/24 06/18/24 Unknown History aerosol inhaler Shortness Of Breath Or Wheezing melatonin 1 mg tablet 1 mg PO BEDTIME 06/18/24 06/18/24 06/17/24 History phenol 1.5 %-glycerin 33 % mucosal 2 spray mucous membrane Q4H PRN 06/18/24 06/18/24 Unknown History spray (Chloraseptic Max Sore Sore Throat Throat) amiodarone 200 mg tablet (Pacerone) 200 mg PO BID #60 tabs 06/19/24 Unknown Rx dexamethasone 6 mg tablet 6 mg PO Q24H #3 tabs 06/19/24 Unknown Rx levothyroxine 25 mcg tablet 25 mcg PO QAM #30 tabs 06/19/24 Unknown Rx Allergies Allergy/AdvReac Type Severity Reaction Status Date / Time NSAIDS (Non-Steroidal Allergy Mild Rash Verified 05/08/24 16:48 Anti-Inflamma Current Medications Generic Name Dose Route Start Last Admin Trade Name Freq PRN Reason Stop Dose Admin Albuterol/Ipratropium 3 ml 06/18/24 16:00 06/18/24 17:10 Ipratropium-Albuterol 3 Ml Neb INHALATION 3 ml QID.RESPIRATORY JOHN Administration Amiodarone HCl 200 mg 06/18/24 18:00 06/18/24 18:38 Amiodarone 200 Mg Tablet PO 200 mg BID JOHN Administration Dexamethasone 6 mg 06/18/24 14:45 06/18/24 16:30 Dexamethasone 10 Mg/Ml Inj IVP 6 mg Q24H JOHN Administration Heparin Sodium (Porcine) 5,000 unit 06/18/24 14:45 06/18/24 16:29 Heparin 5,000 Unit/Ml Inj 1 Ml SUBCUT 5,000 unit Q12H JOHN Administration Levetiracetam 500 mg 06/18/24 18:00 06/18/24 18:38 Levetiracetam 500 Mg Tablet PO 500 mg BID JOHN Administration Tamsulosin HCl 0.4 mg 06/18/24 18:00 06/18/24 18:38 Tamsulosin 0.4 Mg Capsule PO 0.4 mg QPM JOHN Administration PFSH Acute PFSH: Medical History (Updated 06/18/24 @ 12:39 by Alexander Jerez MD) Anemia ESRD (end stage renal disease) on dialysis Atrial fibrillation Patient is full code Acute and chronic respiratory failure with hypoxia Elevated liver enzymes Acute alteration in mental status Septic shock Atrial fibrillation with rapid ventricular response Atrial fibrillation Hematuria Proctitis Hypokalemia Urinary tract infection Noncompliance PVD (peripheral vascular disease) Prostatitis Weakness End stage renal disease on dialysis Admission for dialysis and dialysis catheter care Complication, dialysis catheter clot or failure RSV (acute bronchiolitis due to respiratory syncytial virus) Fever Nausea Non-healing wound of left lower extremity Cellulitis of right lower leg Shortness of breath Atherosclerosis of [place] artery of extremity with ulceration Atherosclerosis of [place] arteries of right leg with ulceration of unspecified site Non-healing wound of right lower extremity Closed fracture of left distal fibula Left ankle pain Gastro-esophageal reflux disease without esophagitis Contracture, left hand Chronic obstructive pulmonary disease, unspecified Attention-deficit hyperactivity disorder, unspecified type Motion sickness, sequela Insomnia, unspecified Post-traumatic stress disorder, chronic Restless legs syndrome 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 ascites Contracture, right hand COVID-19 Benign prostatic hyperplasia with lower urinary tract symptoms Secondary osteoarthritis, left hand Other recurrent depressive disorders Anemia in other chronic diseases classified elsewhere Secondary osteoarthritis, right hand Generalized anxiety disorder Cervicalgia Muscle weakness (generalized) Essential (primary) hypertension Dementia in other diseases classified elsewhere without behavioral disturbance Hereditary and idiopathic neuropathy, unspecified Surgical History S/P dialysis catheter insertion Family History Father CAD (coronary artery disease) Social History Smoking and tobacco/nicotine status: never used tobacco/nicotine Alcohol intake: never Substance/Drug Use: never Vitals/I&O/Wt Last Vital Signs Temp 97.6 F 06/18/24 17:54 Pulse 61 06/18/24 17:54 Resp 18 06/18/24 17:54 BP 124/68 06/18/24 17:54 Pulse Ox 96 06/18/24 17:54 O2 Del Method Nasal Cannula 06/18/24 17:12 O2 Flow Rate 2 06/18/24 17:12 06/18/24 06/18/24 06/18/24 06:59 14:59 22:59 Intake Total 500 / 500 Balance 500 / 500 Weight last 48 hrs Weight 127.006 kg Physical Exam Narrative: Awake alert, no distress HEENT S1-S2 regular rate and rhythm per report Lungs clear. per report No edema Data 06/18/24 21:37 06/18/24 21:37 Micro: Microbiology 06/18/24 09:31 Blood Culture - Preliminary Blood SPECIMEN COLLECTED 06/18/24 09:29 Blood Culture - Preliminary Blood SPECIMEN COLLECTED A&P Assessment and plan (1) ESRD (end stage renal disease) on dialysis: 74-year-old man with past medical history of ESRD on dialysis Monday and Monday, cirrhosis, GERD, BPH, anemia, seizure disorder, hypertension, COPD. 1. Altered mental status -improving 2. ESRD -HD today 3. a fib-, recent ECho normal LV function mild mitral regurg. 4. metabolic alkalosis , compensated resp acidosis 5. Hemoglobin acceptable. The patient was seen and examined using audiovisual equipment. Plan See above Consult Attestations Medical Necessity Statement: per medicne Coding Level of Care Code Acute Code for Chg Fwd Diagnoses ESRD (end stage renal disease) on dialysis N18.6; Z99.2
[2024-06-18] MEDS: budesonide 0.5 mg/2 mL Neb INHALATION (20:16)
[2024-06-18 21:54] LABS: Basophils % 0.2 %; Eosinophils % 0.1 %; Hematocrit 36.7 % (37-53); Lymphocytes # 0.5 10^3/uL (0.8-4.8); Lymphocytes % 5.6 %; Mean Corpuscular Hemoglobin 30.6 pg (27-33); Mean Corpuscular Volume 102.2 fl (82-101); Mean Platelet Volume 9.1 fL (7.4-10.4); Monocytes # 0.2 10^3/uL (0.2-0.9); Monocytes % 2.8 %; Neutrophils % 89.7 %; Nucleated Red Blood Cells % 0 %; Platelet Count 230 10^3/cmm (157-399); Red Blood Count 3.59 10^6/uL (3.85-5.65); Red Cell Distribution Width 17.6 % (12.1-15.1); White Blood Count 8.15 10^3/uL (3.29-11.43)
[2024-06-18 22:16] LABS: Alanine Aminotransferase 25 U/L (0-41); Albumin Level 3.3 g/dL (3.5-5.2); Alkaline Phosphatase 82 U/L (40-130); Blood Urea Nitrogen 13 mg/dL (8-23); Calcium 8.2 mg/dL (8.5-10.5); Carbon Dioxide 30 mmol/L (22-29); Chloride 96 mmol/L (98-107); Creatinine Clr Calc Pharmacy 30.4706; Glucose 112 mg/dL (65-115); Osmolality Calculated 285 mOsm/kg (285-295); Sodium 137 mmol/L (136-145); Total Bilirubin 0.4 mg/dL (0.15-1.2); Total Protein 6.3 g/dL (6.6-8.7)
[2024-06-18 22:18] LABS: Anion Gap 14.7 (5-19); Aspartate Amino Transferase 18 U/L (0-40); Potassium 3.7 mmol/L (3.5-5.1)
[2024-06-19] VITALS (10 sets, daily range): BP systolic 105–137; BP diastolic 53–69; PULSE 63–71; RESP 13–20; TEMP 36.4–37; O2SAT 90–95
[2024-06-19] MEDS: heparin 5,000 unit/mL INJ 1 mL 5000 UNIT SUBCUT ×2 (02:57→15:42)
[2024-06-19 05:46] LABS: Hepatitis B Surface AB < 3.5 (11.5-1000); Hepatitis B Surface Antigen Non-Reactive (Nonreactive)
[2024-06-19] MEDS: budesonide 0.5 mg/2 mL Neb INHALATION (07:42)
[2024-06-19] MEDS: ipratropium-albuterol 3 mL Neb INHALATION ×2 (07:42→11:06)
[2024-06-19 08:21] LABS: Free T4 Free Thyroxine 1.17 ng/dL (0.82-1.77); T3 Free 1.3 PG/ML (2.0-4.4)
--- NOTE | 2024-06-19 09:03 | P.PN_ITS ---
Documented by User: RENE Schafer 06/19/24 11:00 Subjective 2 Subjective: Patient is more alert today and conversive. Patient is scheduled for dialysis today as per Nephrology instructions. Patient's BP has been remaining stable and has increased since admission. Vitals/I&O/Wt Last Vital Signs Temp 97.6 F 06/19/24 04:00 Pulse 66 06/19/24 07:51 Resp 16 06/19/24 07:43 BP 127/65 06/19/24 04:00 Pulse Ox 94 06/19/24 07:43 O2 Del Method Nasal Cannula 06/19/24 07:43 O2 Flow Rate 1.5 06/19/24 07:43 Weight last 48 hrs Weight 237 lb 14.4 oz Weight 280 lb Physical Exam 2 Neck/C-Spine: OTHER: Supple Resp: OTHER: Bilateral wheezing, normal chest wall expansion Cardio: OTHER: Normal rate and rhythm without murmurs, rubs, or gallops GI: OTHER: Soft, nondistended, nontender with normal bowel sounds Data 06/18/24 21:37 06/18/24 21:37 Micro: Microbiology 06/18/24 09:31 Blood Culture - Preliminary Blood SPECIMEN COLLECTED 06/18/24 09:29 Blood Culture - Preliminary Blood SPECIMEN COLLECTED A&P Assessment and plan (1) Fluid overload: Scheduled for dialysis today, monitor BP following Hold any sedative medications and metoprolol (2) Acute metabolic encephalopathy: Patient mental state has improved and is more alert today Continue O2 via Nasal Cannula at 1.5 L Scheduled for dialysis today, will assess after (3) Hypotension: Patient is scheduled for dialysis today, has in the past had issues with decreased BP following dialysis, will monitor closely BP has been trending upward and been stable No need to add midodrine at this time Procalcitonin was normal, Cortisol was high at 19.58, TSH was high at 6.97, will give levothyroxine 25 mcg and check free T3/T4 (4) COVID: Continue dexamethsone IV 6mg q24hrs No remdesivir due to renal insuffiency (5) ESRD (end stage renal disease) on dialysis: Scheduled for dialysis today (6) Atrial fibrillation: Continue amiodarone 200mg BID Hold Metoprolol continue to monitor with telemetry (7) Anemia: Hgb has increased to 11 today Continue to monitor (8) Cirrhosis: Monitor INR and ammonia levels Plan Discussed with patient on code status, patient has elected to be DNR Continue Kekarolra as patient has diagnosis of seizure disorder Coding Level of Care Code 18297 Diagnoses Fluid overload E87.70 Acute metabolic encephalopathy G93.41 Hypotension I95.9 COVID U07.1 ESRD (end stage renal disease) on dialysis N18.6; Z99.2 Atrial fibrillation I48.91 Anemia D64.9 Cirrhosis K74.60 Time Spent (min) 21 Documented by User: Alexander Jerez MD 06/19/24 11:00 Subjective 2 Medications: Reviewed: Yes Data 06/18/24 21:37 06/18/24 21:37 A&P Assessment and plan (1) Fluid overload: (2) Acute metabolic encephalopathy: Patient mental state has improved and is more alert today Continue O2 via Nasal Cannula at 1.5 L Scheduled for dialysis today, will assess after He is alert and oriented x 3, can understand consequences of decisions. I brought up his CODE STATUS with him today, and he selects allow natural . He still wants treated to the hospital, still wants dialysis. He just would not want to be intubated, received CPR or be in a code type situation. He would still want ICU treatment if needed. (3) Hypotension: Patient is scheduled for dialysis today, has in the past had issues with decreased BP following dialysis, will monitor closely BP has been trending upward and been stable No need to add midodrine at this time Procalcitonin was normal, Cortisol was high at 19.58, TSH was high at 6.97, will give levothyroxine 25 mcg and check free T3/T4. Consider repeating TSH in 6 weeks (4) COVID: Continue dexamethsone IV 6mg q24hrs No remdesivir due to renal insuffiency Reevaluate following dialysis appropriateness of discharge home (5) ESRD (end stage renal disease) on dialysis: (6) Atrial fibrillation: Continue amiodarone 200mg BID Hold Metoprolol continue to monitor with telemetry Cardiology follow-up as an outpatient (7) Anemia: (8) Cirrhosis: Stable Attestations 2 Medical Necessity Statement*: Possible discharge today, reevaluate following dialysis Coding Level of Care Code 12298 Other Coding Information Procedural care (documented in this note) and Procedural care (documented in another note) Diagnoses Fluid overload E87.70 Acute metabolic encephalopathy G93.41 Hypotension I95.9 COVID U07.1 ESRD (end stage renal disease) on dialysis N18.6; Z99.2 Atrial fibrillation I48.91 Anemia D64.9 Cirrhosis K74.60 Time Spent (min) 21
[2024-06-19] MEDS: dutasteride 0.5 mg Capsule PO (09:34)
[2024-06-19] MEDS: levETIRAcetam 500 mg Tablet PO ×2 (09:35→18:18)
[2024-06-19] MEDS: amiodarone 200 mg Tablet PO ×2 (09:35→18:18)
--- NOTE | 2024-06-19 14:01 | PM.DCS ---
Discharge Providers Date of Admission: 06/18/24 14:45 Date of Discharge: June 19, 2024 Attending Provider at Admission: Alexander Jerez MD Attending Provider at Discharge: Alexander Jerez MD Primary Care Provider: Jenn Quiroga NP Diagnoses at Discharge Discharge Diagnosis (1) Fluid overload: Status: Acute (2) Acute metabolic encephalopathy: Status: Acute (3) Hypotension: Status: Acute (4) COVID: Status: Acute (5) ESRD (end stage renal disease) on dialysis: Status: Acute (6) Atrial fibrillation: Status: Acute (7) Anemia: Status: Acute (8) Cirrhosis: Status: Acute Reason for Visit Reason for Visit: AMS, HYPERTENSION Hospital Course Hospital Course Patient presented to the hospital with some confusion, low blood pressures. He had frequently had this with dialysis. He had had dialysis the day before admission. Chest x-ray demonstrated some bilateral pleural effusions, question infiltrate. Procalcitonin was normal. COVID test was positive. He was placed in the hospital, and his metoprolol was held secondary to his hypotension. He was given dexamethasone for COVID. Nephrology was consulted, and he was dialyzed on June 19. The morning of June 19 he was alert and oriented. He had decisional capacity with ability to look at consequences of actions. He wished to become allow natural . Overall, his metoprolol has been discontinued secondary to his hypotension and should not be restarted. If he becomes hypotensive again consider midodrine. His amiodarone was reduced to 200 mg twice daily and cardiology follow-up should occur in 1 to 2 weeks. Dose might be reduced further to once daily. He will receive 3 more days of dexamethasone, and should be isolated per your protocol at the nursing facility. He was able to ask questions, and agreed with the plan. Other minor changes were addition of levothyroxine 25 mcg a day for elevated TSH. He should have another TSH done in approximately 6 weeks. Physical Exam Narrative: General Exam no distress Neck is supple Cardiovascular regular in rhythm Lungs clear Abdomen soft Extremities some excoriations, venous stasis, 1+ edema bilaterally. Discharge Data Studies Completed and Pending Completed Studies During Hospitalization Category Date Time Status XR chest 1V portable [id number] Stat Exams 06/18/24 08:39 Completed Pending at discharge Category Date Time Status Blood Culture Stat Lab 06/18/24 09:31 Results Urine Culture Stat Lab 06/18/24 10:08 Received Radiology Impressions Chest X-Ray 06/18/24 08:39 IMPRESSION: 1. Cardiomegaly. 2. Bibasilar opacities slightly worse on today's exam. Laboratory Results WBC 8.15 10^3/uL (3.29-11.43) 06/18/24 21:37 RBC 3.59 10^6/uL (3.85-5.65) L 06/18/24 21:37 Hgb 11.00 g/dL (11.27-16.99) L 06/18/24 21:37 Hct 36.7 % (37-53) L 06/18/24 21:37 MCV 102.2 fl (82-101) H 06/18/24 21:37 MCH 30.6 pg (27-33) 06/18/24 21: MCHC 30.0 g/dL (30-55) 06/18/24 21: RDW 17.6 % (12.1-15.1) H 06/18/24 21:37 Plt Count 230 10^3/cmm (157-399) 06/18/24 21:37 MPV 9.1 fL (7.4-10.4) 06/18/24 21:37 Neut % (Auto) 89.7 % 06/18/24 21:37 Lymph % (Auto) 5.6 % 06/18/24 21:37 [place] % (Auto) 2.8 % 06/18/24 21:37 Eos % (Auto) 0.1 % 06/18/24 21: Baso % (Auto) 0.2 % 06/18/24 21:37 Neut # (Auto) 7.30 10^3/uL (1.8-7.7) 06/18/24 21:37 Lymph # (Auto) 0.5 10^3/uL (0.8-4.8) L 06/18/24 21:37 [place] # (Auto) 0.2 10^3/uL (0.2-0.9) 06/18/24 21:37 Eos # (Auto) 0.0 10^3/uL (0.0-0.8) 06/18/24 21:37 Baso # (Auto) 0.0 10^3/uL (0.0-0.1) 06/18/24 21:37 Nucleated RBC % (auto) 0 % 06/18/24 21:37 Nucleated RBCs # 0.0 /100WBC 06/18/24 21:37 Sodium 137 mmol/L (136-145) 06/18/24 21:37 Potassium 3.7 mmol/L (3.5-5.1) 06/18/24 21:37 Chloride 96 mmol/L (98-107) L 06/18/24 21:37 Carbon Dioxide 30 mmol/L (22-29) H 06/18/24 21:37 Anion Gap 14.7 (5-19) 06/18/24 21:37 BUN 13 mg/dL (8-23) 06/18/24 21:37 Creatinine 2.8 mg/dL (0.7-1.2) H 06/18/24 21:37 GFR Calculation Not Reportable 06/18/24 21:37 Glucose 112 mg/dL (65-115) 06/18/24 21:37 Calculated Osmolality 285 mOsm/kg (285-295) 06/18/24 21:37 Lactic Acid 1.3 mmol/L (0.5-2.2) 06/18/24 09:17 Calcium 8.2 mg/dL (8.5-10.5) L 06/18/24 21:37 Magnesium 1.9 mg/dL (1.7-2.3) 06/18/24 09:17 Total Bilirubin 0.4 mg/dL (0.15-1.2) 06/18/24 21:37 AST 18 U/L (0-40) 06/18/24 21:37 ALT 25 U/L (0-41) 06/18/24 21:37 Alkaline Phosphatase 82 U/L (40-130) 06/18/24 21:37 Creatine Kinase 11 U/L (39-308) L 06/18/24 09:17 Total Protein 6.3 g/dL (6.6-8.7) L 06/18/24 21:37 Albumin 3.3 g/dL (3.5-5.2) L 06/18/24 21:37 Globulin 3.0 g/dL (1.3-4.6) 06/18/24 21:37 Folate 5.9 ng/mL (4.5-32.2) 06/18/24 09:17 Procalcitonin 0.41 ng/mL (0-0.5) 06/18/24 09:17 TSH 6.97 uIU/mL (0.27-4.20) H 06/18/24 09:17 Free T4 1.17 ng/dL (0.82-1.77) 06/18/24 21:37 Free T3 1.3 PG/ML (2.0-4.4) L 06/18/24 21:37 Random Cortisol 19.58 ug/dL (2.47-19.5) H 06/18/24 09:17 Urine Color Yellow (Yellow) 06/18/24 10:08 Urine Appearance Cloudy (CLEAR) A 06/18/24 10:08 Urine pH 8.0 (5-7) A 06/18/24 10:08 Ur Specific [place] 1.010 (1.005-1.030) 06/18/24 10:08 Urine Protein 2+ (Negative) A 06/18/24 10:08 Urine Glucose (UA) Trace (Normal) H 06/18/24 10:08 Urine Ketones Negative (Negative) 06/18/24 10:08 Urine Blood 3+ (Negative) A 06/18/24 10:08 Urine Nitrate Negative (Negative) 06/18/24 10:08 Urine Bilirubin Negative (Negative) 06/18/24 10:08 Urine Urobilinogen 1.0 mg/dL (Negative) 06/18/24 10:08 Ur Leukocyte Esterase Trace (Negative) A 06/18/24 10:08 Urine RBC 50-80 /hpf (0-2) H 06/18/24 10:08 Urine WBC 0-4 /hpf (0-5) H 06/18/24 10:08 Ur Squamous Epith Cells 0-4 /hpf (0-5) H 06/18/24 10:08 Ur Transition Epith Cell 0-4 /hpf 06/18/24 10:08 Amorphous Sediment 2+ /hpf 06/18/24 10:08 Urine Bacteria 1+ /hpf (NONE) H 06/18/24 10:08 Hyaline Casts 0-4 /lpf H 06/18/24 10:08 Urine Mucus Trace /hpf 06/18/24 10:08 Coronavirus (PCR) Positive (Negative) A 06/18/24 11:10 Hep Bs Antigen Non-reactive (Nonreactive) 06/18/24 09:17 Hep Bs Antibody < 3.5 (11.5-1000) L 06/18/24 09:17 Influenza A (PCR) Negative (Negative) 06/18/24 11:10 Influenza Type B (PCR) Negative (Negative) 06/18/24 11:10 RSV (PCR) Negative (Negative) 06/18/24 11:10 Vitals Last Vital Signs Temp 97.9 F 06/19/24 12:00 Pulse 71 06/19/24 12:00 Resp 18 06/19/24 12:00 BP 112/69 06/19/24 12:00 Pulse Ox 93 06/19/24 12:00 O2 Del Method Room Air 06/19/24 11:07 O2 Flow Rate 2 06/19/24 08:00 Discharge Plan Discharge Patient Disposition: Xfer SNF Condition: Stable Prescriptions: New amiodarone [Pacerone] 200 mg Tablet 200 mg PO BID Qty: 60 0RF levothyroxine 25 mcg Tablet 25 mcg PO QAM Qty: 30 0RF dexamethasone 6 mg tablet 6 mg PO Q24H Qty: 3 0RF Rx Instructions: for up to 10 days Continued dutasteride 0.5 mg capsule 0.5 mg PO DAILY@08 ferrous sulfate 325 mg (65 mg iron) tablet 325 mg PO .QOD tamsulosin 0.4 mg capsule 0.4 mg PO QPM acetaminophen 325 mg capsule 650 mg PO Q6H PRN (Reason: pain or fever) (DME) cam boot See Rx Instructions .Route .MEDSUPPLY Qty: 1 0RF Rx Instructions: As directed (DME) ASO Left See Rx Instructions .ROUTE .MEDSUPPLY Qty: 1 0RF Rx Instructions: As directed loperamide 2 mg Tablet See Rx Instructions .ROUTE .COMPLEX PRN (Reason: Loose Stool) Rx Instructions: 4 mg (2 tabs) orally initial episode of loose/diarrhea stool then 2mg (1 tab) po as needed each loose/diarrhea stool thereafter not to exceed 16mg in 24 hours prn Fleet Enema 19-7 gram/118 mL Enema 118 ml [place] DAILY PRN (Reason: Constipation) Multivitamin 50 Plus Tablet 1 tab PO DAILY@08 Deep Sea Nasal 0.65 % Aerosol,[place] 1 spray INTRANASAL Q2H PRN (Reason: Dry Nasal Passages) Metamucil (sugar) Powder See Rx Instructions .ROUTE .COMPLEX PRN (Reason: Constipation) Rx Instructions: GIVE 1 SCOOP IN 8 OZ WATER BY MOUTH 3 TIMES DAILY NEEDED FOR CONSTIPATION. guaifenesin [Mucinex] 600 mg Tablet Extended Release 12hr 600 mg PO Q12H PRN (Reason: pneumonia) quetiapine 25 mg tablet 25 mg PO BID bisacodyl [Dulcolax (bisacodyl)] 10 mg Suppository 10 mg IA DAILY PRN (Reason: Constipation) Probiotic 3 billion cell Capsule 3,000 mmu cells PO DAILY PRN (Reason: WHEN ON ANITIBIOTICS) Rx Instructions: administer with a meal levetiracetam 500 mg tablet 500 mg PO BID albuterol sulfate 90 mcg/actuation HFA aerosol inhaler 2 puff INHALATION Q4H PRN (Reason: Shortness Of Breath Or Wheezing) melatonin 1 mg Tablet 1 mg PO BEDTIME Chloraseptic Max Sore Throat 1.5-33 % [place],Non-Aerosol 2 spray MUCOUS MEMBRANE Q4H PRN (Reason: Sore Throat) Discontinued tramadol 50 mg Tablet 50 mg PO Q4H PRN (Reason: Pain) amiodarone [Pacerone] 200 mg Tablet 400 mg PO BID Qty: 90 0RF Rx Instructions: 400 mg twice a day for 7 days then 400 mg daily metoprolol tartrate 50 mg tablet 50 mg PO BID Qty: 60 4RF Discharge Orders: Discharge Order (Routine); Ordered 06/19/24 Ordered By: Alexander Jerez Referrals: [facility] [Outside] Carmen Little FNP [Nurse Practitioner] - 7-10 days (Afib) Jenn Quiroga NP [Primary Care Provider] - 4-7 days Discharge Diet: Usual diet Discharge Activity: Increase activity as tolerated Patient Instructions: Opioid Safety Activity Restrictions/Additional Instructions: Renal diet Resume your 2 L of oxygen, titrate for sat greater than or equal to 90% Amiodarone dose should be reduced to 200 mg twice daily Follow-up with cardiology 1 to 2 weeks for atrial fibrillation Discontinue metoprolol Call primary care provider should lower blood pressures to be noted despite discontinuing metoprolol Note that he was diagnosed with COVID 06/18. Please continue isolation protocol per your institution. Dexamethasone 6 mg by mouth every day for 3 more days. May discharge after dialysis. Please continue dialysis Monday. Discharge Attestations Time Spent in Discharge Care*: greater than 30 min Quality Metrics Clinical Quality Measures [ No reported AMI, CVA or VTE this stay] Coding Level of Care Code 32198 Total time (in minutes) for Discharge: 37 Diagnoses Fluid overload E87.70 Acute metabolic encephalopathy G93.41 Hypotension I95.9 COVID U07.1 ESRD (end stage renal disease) on dialysis N18.6; Z99.2 Atrial fibrillation I48.91 Anemia D64.9 Cirrhosis K74.60
--- NOTE | 2024-06-19 14:13 | PC.HD ---
Heparin 1000 units loading dose administered via venous port of HD catheter at 1357 per tubing drier's orders.
[2024-06-19] MEDS: dexamethasone 10 mg/mL INJ 6 MG IVP (18:18)
[2024-06-19] MEDS: tamsulosin 0.4 mg Capsule PO (18:18)
== END 2024-06-19 22:04 | disposition skilled nursing facility (03) ==
LOC: ER 13:37 → MEDSURG 19:23
PROVIDERS: Hospitalist; Admitting Provider Internal Medicine; Emergency Provider Family Medicine; PCP Nurse Practitioner Family; Visit Provider Internal Medicine
DX: U07.1 COVID-19 (principal); E87.70 Fluid overload, unspecified; G93.41 Metabolic encephalopathy; I95.9 Hypotension, unspecified; N18.6 End stage renal disease; Z99.2 Dependence on renal dialysis; I48.91 Unspecified atrial fibrillation; K74.60 Unspecified cirrhosis of liver; D64.9 Anemia, unspecified; G40.909 Epilepsy, unspecified, not intractable, without status epilepticus; J44.9 Chronic obstructive pulmonary disease, unspecified; K21.9 Gastro-esophageal reflux disease without esophagitis; Z87.440 Personal history of urinary (tract) infections; G25.81 Restless legs syndrome; F03.90 Unspecified dementia, unspecified severity, without behavioral disturbance, psychotic disturbance, mood disturbance, and anxiety; I12.0 Hypertensive chronic kidney disease with stage 5 chronic kidney disease or end stage renal disease; N40.0 Benign prostatic hyperplasia without lower urinary tract symptoms; Z66 Do not resuscitate; I73.9 Peripheral vascular disease, unspecified; G60.9 Hereditary and idiopathic neuropathy, unspecified; I87.8 Other specified disorders of veins; E66.9 Obesity, unspecified; Z79.899 Other long term (current) drug therapy; Z68.32 Body mass index [BMI] 32.0-32.9, adult
CPT/HCPCS: 0241U; 36415; 71045; 80053; 81001; 82533; 82550; 82746; 83605; 83735; 84145; 84439; 84443; 84481; 85025; 86706; 87040; 87086; 87340; 90935; 93005; 94640; 96361; 96372; 96374; 99285; G0378; J1100; J1644; J7040; J7626

== ENCOUNTER 2024-07-03 14:30 | Inpatient (IN) | payer MEDICARE, MEDICAID, SELFPAY ==
[2024-07-03] VITALS (7 sets, daily range): BP systolic 109–144; BP diastolic 66–104; PULSE 61–156; RESP 12–31; TEMP 37.1; O2SAT 91–98; BMI 25.1
--- NOTE | 2024-07-03 14:35 | XRR_ITS ---
PROCEDURE INFORMATION: Exam: XR Chest Exam date and time: 07/03/2024 3:07 PM Age: 74 years old Clinical indication: Other: Palpitations; Prior surgery; Surgery date: 6+ months; Surgery type: Dialysis cath TECHNIQUE: Imaging protocol: Radiologic exam of the chest. Views: 1 view. COMPARISON: CR XR chest 1V portable [id number] 06/18/2024 8:50 AM FINDINGS: Tubes, catheters and devices: Right central dialysis line terminates in the right atrium. Lungs: No consolidation. Pleural spaces: Bilateral small volume pleural effusions. No pneumothorax. Heart/Mediastinum: Unremarkable. No cardiomegaly. Bones/joints: Unremarkable. XR/XR chest 1V portable [id number] IMPRESSION: Bilateral small volume pleural effusions.
--- NOTE | 2024-07-03 14:36 | ECG_ITS ---
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: : 1950 Requested By: Zhane Lang Order Number: [id number] Liza MD: ASHLEY HAIRSTON Measurements Intervals Tobias Rate: 120 P: 0 TN: 0 QRS: 20 QRSD: 109 T: 18 QT: 308 QTc: 436 Interpretive Statements ATRIAL FIBRILLATION WITH RAPID VENTRICULAR RESPONSE ABNORMAL RHYTHM ECG Compared to ECG 06/18/2024 08:46:31 Sinus bradycardia no longer present Intraventricular conduction delay no longer present T-wave abnormality no longer present Electronically Signed On 07-03-2024 20:04:41 CDT by ASHLEY HAIRSTON [email or web address]
--- NOTE | 2024-07-03 15:09 | W.ED.ARRPALP ---
HPI - Arrhythmia/Palpitations General: Chief Complaint: Arrhythmia/Palpitations Stated Complaint: A fib Time Seen by Provider: 07/03/24 14:34 History of Present Illness: 74-year-old man with a history of end-stage renal disease on dialysis atrial fibrillation, dementia, coronary artery disease, peripheral vascular disease, COPD, obesity, who presents to the emergency room by ambulance from dialysis clinic with tachycardia. He says he is been feeling fine. This is while he was at dialysis apparently he had gone to the bathroom and almost fell out and was found to be tachycardic in the 130s to 140s. No chest pain. No altered mental status. No focal motor deficits. No fevers. No cough. No abdominal pain. No nausea or vomiting. Related Data Home Medications Medication Instructions Recorded Confirmed acetaminophen 325 mg capsule 650 mg PO Q6H PRN pain or fever 05/20/21 06/18/24 dutasteride 0.5 mg capsule 0.5 mg PO DAILY@08 05/20/21 06/18/24 ferrous sulfate 325 mg (65 mg 325 mg PO .QOD 05/20/21 06/18/24 iron) tablet tamsulosin 0.4 mg capsule 0.4 mg PO QPM 05/20/21 06/18/24 guaifenesin 600 mg tablet, 600 mg PO Q12H PRN pneumonia 01/23/24 06/18/24 extended release 12 hr (Mucinex) loperamide 2 mg tablet See Rx Instructions .Route 01/23/24 06/18/24 .COMPLEX PRN Loose Stool vsanyohqcvof-rakrphmz-rdgsrd 1 tab PO DAILY@08 01/23/24 06/18/24 tablet (Multivitamin 50 Plus tablet) psyllium seed (sugar) oral powder See Rx Instructions .Route 01/23/24 06/18/24 (Metamucil (sugar) oral powder) .COMPLEX PRN Constipation sodium chloride 0.65 % nasal spray 1 spray intranasal Q2H PRN Dry 01/23/24 06/18/24 aerosol (Deep Sea Nasal) Nasal Passages sodium phosphates 19 gram-7 118 ml [place] DAILY PRN Constipation 01/23/24 06/18/24 gram/118 mL enema (Fleet Enema) bisacodyl 10 mg rectal suppository 10 mg IA DAILY PRN Constipation 04/22/24 06/18/24 (Dulcolax (bisacodyl)) lactobacillus combination no.4 3 3,000 mmu cells PO DAILY PRN WHEN 04/22/24 06/18/24 billion cell capsule (Probiotic) ON ANITIBIOTICS levetiracetam 500 mg tablet 500 mg PO BID 05/09/24 06/18/24 quetiapine 25 mg tablet 25 mg PO BID 06/07/24 06/18/24 albuterol sulfate 90 mcg/actuation 2 puff inhalation Q4H PRN 06/18/24 06/18/24 aerosol inhaler Shortness Of Breath Or Wheezing melatonin 1 mg tablet 1 mg PO BEDTIME 06/18/24 06/18/24 phenol 1.5 %-glycerin 33 % mucosal 2 spray mucous membrane Q4H PRN 06/18/24 06/18/24 spray (Chloraseptic Max Sore Sore Throat Throat) Previous Rx's Medication Instructions Recorded ASO Left #1 ea 06/01/21 cam boot #1 ea 06/01/21 amiodarone 200 mg tablet (Pacerone) 200 mg PO BID #60 tabs 06/19/24 dexamethasone 6 mg tablet 6 mg PO Q24H #3 tabs 06/19/24 levothyroxine 25 mcg tablet 25 mcg PO QAM #30 tabs 06/19/24 Allergies Allergy/AdvReac Type Severity Reaction Status Date / Time NSAIDS (Non-Steroidal Allergy Mild Rash Verified 05/08/24 16:48 Anti-Inflamma Review of Systems Narrative: Constitutional symptoms: Negative except as documented in HPI. Skin symptoms: Negative except as documented in HPI. Eye symptoms: Negative except as documented in HPI. ENMT symptoms: Negative except as documented in HPI. Respiratory symptoms: Negative except as documented in HPI. Cardiovascular symptoms: Negative except as documented in HPI. Gastrointestinal symptoms: Negative except as documented in HPI. Genitourinary symptoms: Negative except as documented in HPI. Musculoskeletal symptoms: Negative except as documented in HPI. Neurologic symptoms: Negative except as documented in HPI. Psychiatric symptoms: Negative except as documented in HPI. Endocrine symptoms: Negative except as documented in HPI. PFSH ED PFSH: Medical History Anemia ESRD (end stage renal disease) on dialysis Atrial fibrillation Patient is full code Acute and chronic respiratory failure with hypoxia Elevated liver enzymes Acute alteration in mental status Septic shock Atrial fibrillation with rapid ventricular response Atrial fibrillation Hematuria Proctitis Hypokalemia Urinary tract infection Noncompliance PVD (peripheral vascular disease) Prostatitis Weakness End stage renal disease on dialysis Admission for dialysis and dialysis catheter care Complication, dialysis catheter clot or failure RSV (acute bronchiolitis due to respiratory syncytial virus) Fever Nausea Non-healing wound of left lower extremity Cellulitis of right lower leg Shortness of breath Atherosclerosis of [place] artery of extremity with ulceration Atherosclerosis of [place] arteries of right leg with ulceration of unspecified site Non-healing wound of right lower extremity Closed fracture of left distal fibula Left ankle pain Gastro-esophageal reflux disease without esophagitis Contracture, left hand Chronic obstructive pulmonary disease, unspecified Attention-deficit hyperactivity disorder, unspecified type Motion sickness, sequela Insomnia, unspecified Post-traumatic stress disorder, chronic Restless legs syndrome 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 ascites Contracture, right hand COVID-19 Benign prostatic hyperplasia with lower urinary tract symptoms Secondary osteoarthritis, left hand Other recurrent depressive disorders Anemia in other chronic diseases classified elsewhere Secondary osteoarthritis, right hand Generalized anxiety disorder Cervicalgia Muscle weakness (generalized) Essential (primary) hypertension Dementia in other diseases classified elsewhere without behavioral disturbance Hereditary and idiopathic neuropathy, unspecified Surgical History S/P dialysis catheter insertion Family History Father CAD (coronary artery disease) Social History Smoking and tobacco/nicotine status: never used tobacco/nicotine Alcohol intake: never Substance/Drug Use: never Physical Exam Narrative: EXAM NARRATIVE: General: Alert, no acute distress. Skin: Warm, dry. Head: Normocephalic, atraumatic. Neck: Supple, trachea midline. Eye: Extraocular movements are intact. Ears, nose, mouth and throat: mucosa moist. Cardiovascular: Irregularly irregular, tachycardic, Normal peripheral perfusion. Respiratory: Lungs are clear to auscultation, respirations are non-labored, breath sounds are equal, Symmetrical chest wall expansion. Gastrointestinal: Soft, Nontender, Non distended Musculoskeletal: Normal ROM, no deformity. Neurological: Alert and oriented, No focal neurological deficit observed. Psychiatric: Cooperative, appropriate mood & affect. Course Vital Signs: Vital signs: Vital Signs Temperature 98.7 F 07/03/24 14:36 Pulse Rate 112 H 07/03/24 15:45 Respiratory Rate 12 07/03/24 15:45 Blood Pressure 111/66 07/03/24 15:45 Pulse Oximetry 95 07/03/24 15:45 Oxygen Delivery Me thod Nasal Cannula 07/03/24 15:45 Oxygen Flow Rate 2 07/03/24 15:45 MDM - Arrhythmia/Palpitations Medical Decision Making Medical decision making: Differential diagnosis including but not limited to and based on the above HPI, review of systems and physical exam: for patient with palpitations: atrial fibrillation with rapid ventricular response. ventricular tachycardia. sinus tachycardia. PVCs. also concern for underlying issues causing tachycardia. Infection, electrolyte abnormalities and thyroid issues Orders placed to evaluate differential diagnosis based on the above differential, HPI and physical exam EKG: Time 1444. Rate 120. Atrial fibrillation with rapid ventricular response, No ST-T changes, no ectopy, This was reviewed and interpreted by myself the ER physician at 1446 Repeat EKG: Time 1607. Rate 126. Atrial fibrillation with rapid ventricular response, No ST-T changes, no ectopy, This was reviewed and interpreted by myself the ER physician at 1610. No significant changes from EKG done earlier today in the emergency room. Chest x-ray: Small bilateral pleural effusions. Left dialysis catheter in place. No acute infiltrates. This was reviewed and interpreted by myself the emergency room physician. I also reviewed the radiology report. Lab Review: Laboratory results were reviewed and interpreted by myself the emergency room physician. Leukocytosis with a white count of 14,000. Hemoglobin normal at 13. BUN and creatinine 34 and 2.7 which would be expected in this dialysis patient. His potassium is okay at 4.7. Urinalysis shows significant infection with 4+ bacteria, hematuria and greater than 100 white cells. Initial troponin is 100. This is actually lower than previous measurements and is expected given his end-stage renal disease. I reviewed the patient's medical record. Reexamination: Patient remained stable. No increased work of breathing. No altered mental status. No focal motor deficits. Patient's heart rate has improved some down in the low 100s. Consultation: I spoke with Dr. Mathis who is on-call for the hospitalist service and she agrees to admission. Assessment and plan: A-fib with RVR Near syncope Urinary tract infection End-stage renal disease on dialysis ?IV cefepime and IV linezolid ? Holding on any fluids as this is a dialysis patient and he is not hypotensive. I do not believe he is septic at this time. ?IV diltiazem bolus and IV diltiazem drip -I discussed the patient with the hospitalist on-call who is admitting the patient. - Discussed findings and plan with patient. Answered any questions. - All laboratory values were reviewed and interpreted personally by myself, the ER physician - All imaging was reviewed and interpreted personally by myself, the ER physician. - Evaluation and treatment of this problem were appropriate in the emergency setting Lab Data 07/03/24 15:05 07/03/24 15:05 Radiology Impressions Chest X-Ray 07/03/24 14:35 IMPRESSION: Bilateral small volume pleural effusions. Laboratory Results WBC 14.03 10^3/uL (3.29-11.43) H 07/03/24 15:05 RBC 4.18 10^6/uL (3.85-5.65) 07/03/24 15:05 Hgb 13.00 g/dL (11.27-16.99) 07/03/24 15:05 Hct 41.9 % (37-53) 07/03/24 15:05 MCV 100.2 fl (82-101) 07/03/24 15:05 MCH 31.1 pg (27-33) 07/03/24 15:05 MCHC 31.0 g/dL (30-55) 07/03/24 15:05 RDW 18.9 % (12.1-15.1) H 07/03/24 15:05 Plt Count 182 10^3/cmm (157-399) 07/03/24 15:05 MPV 9.9 fL (7.4-10.4) 07/03/24 15:05 Neut % (Auto) 81.6 % 07/03/24 15:05 Lymph % (Auto) 6.2 % 07/03/24 15:05 [place] % (Auto) 10.8 % 07/03/24 15:05 Eos % (Auto) 0.3 % 07/03/24 15:05 Baso % (Auto) 0.1 % 07/03/24 15:05 Neut # (Auto) 11.45 10^3/uL (1.8-7.7) H 07/03/24 15:05 Lymph # (Auto) 0.9 10^3/uL (0.8-4.8) 07/03/24 15:05 [place] # (Auto) 1.5 10^3/uL (0.2-0.9) H 07/03/24 15:05 Eos # (Auto) 0.0 10^3/uL (0.0-0.8) 07/03/24 15:05 Baso # (Auto) 0.0 10^3/uL (0.0-0.1) 07/03/24 15:05 Nucleated RBC % (auto) 0 % 07/03/24 15:05 Nucleated RBCs # 0.0 /100WBC 07/03/24 15:05 Sodium 139 mmol/L (136-145) 07/03/24 15:05 Potassium 4.7 mmol/L (3.5-5.1) 07/03/24 15:05 Chloride 98 mmol/L (98-107) 07/03/24 15:05 Carbon Dioxide 30 mmol/L (22-29) H 07/03/24 15:05 Anion Gap 15.7 (5-19) 07/03/24 15:05 BUN 34 mg/dL (8-23) H 07/03/24 15:05 Creatinine 2.7 mg/dL (0.7-1.2) H 07/03/24 15:05 GFR Calculation Not Reportable 07/03/24 15:05 Glucose 113 mg/dL (65-115) 07/03/24 15:05 Calculated Osmolality 296 mOsm/kg (285-295) H 07/03/24 15:05 Lactic Acid 1.7 mmol/L (0.5-2.2) 07/03/24 15:05 Calcium 8.1 mg/dL (8.5-10.5) L 07/03/24 15:05 Phosphorus 3.7 mg/dL (2.5-4.5) 07/03/24 15:05 Magnesium 1.8 mg/dL (1.7-2.3) 07/03/24 15:05 Total Bilirubin 1.1 mg/dL (0.15-1.2) 07/03/24 15:05 AST 16 U/L (0-40) 07/03/24 15:05 ALT 11 U/L (0-41) 07/03/24 15:05 Alkaline Phosphatase 86 U/L (40-130) 07/03/24 15:05 Troponin T Baseline 108 ng/L (0-15) H* 07/03/24 15:05 Total Protein 5.9 g/dL (6.6-8.7) L 07/03/24 15:05 Albumin 3.2 g/dL (3.5-5.2) L 07/03/24 15:05 Globulin 2.7 g/dL (1.3-4.6) 07/03/24 15:05 Urine Color [place] (Yellow) A 07/03/24 15: Urine Appearance Turbid (CLEAR) A 07/03/24 15:26 Urine pH 7.5 (5-7) 07/03/24 15:26 Ur Specific [place] 1.009 (1.005-1.030) 07/03/24 15:26 Urine Protein 2+ (Negative) A 07/03/24 15: Urine Glucose (UA) Negative (Normal) 07/03/24 15:26 Urine Ketones Trace (Negative) 07/03/24 15: Urine Blood 3+ (Negative) A 07/03/24 15: Urine Nitrate Negative (Negative) 07/03/24 15: Urine Bilirubin Negative (Negative) 07/03/24 15: Urine Urobilinogen 1.0 mg/dL (Negative) 07/03/24 15:26 Ur Leukocyte Esterase 3+ (Negative) A 07/03/24 15:26 Urine RBC >100 /hpf (0-2) H 07/03/24 15:26 Urine WBC >100 /hpf (0-5) H 07/03/24 15:26 Ur Squamous Epith Cells 6-10 /hpf (0-5) 07/03/24 15: Amorphous Sediment Not Reportable 07/03/24 15:26 Urine Bacteria 4+ /hpf (NONE) H 07/03/24 15:26 Hyaline Casts 87.34 /lpf 07/03/24 15:26 Coronavirus (PCR) Negative (Negative) 07/03/24 15:26 Influenza A (PCR) Negative (Negative) 07/03/24 15:26 Influenza Type B (PCR) Negative (Negative) 07/03/24 15:26 RSV (PCR) Negative (Negative) 07/03/24 15:26 All radiology interpretation(s) finalized by discharge Discharge Plan Discharge Patient Disposition: Admitted As Inpatient Clinical Impression: Atrial fibrillation with rapid ventricular response, End stage renal disease on dialysis, Near syncope, Urinary tract infection Condition: Stable Coding Level of Care Code 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
[2024-07-03 15:22] LABS: Basophils % 0.1 %; Eosinophils % 0.3 %; Hematocrit 41.9 % (37-53); Lymphocytes # 0.9 10^3/uL (0.8-4.8); Lymphocytes % 6.2 %; Mean Corpuscular Hemoglobin 31.1 pg (27-33); Mean Corpuscular Volume 100.2 fl (82-101); Mean Platelet Volume 9.9 fL (7.4-10.4); Monocytes # 1.5 10^3/uL (0.2-0.9); Monocytes % 10.8 %; Neutrophils # 11.45 10^3/uL (1.8-7.7); Neutrophils % 81.6 %; Nucleated Red Blood Cells % 0 %; Platelet Count 182 10^3/cmm (157-399); Red Blood Count 4.18 10^6/uL (3.85-5.65); Red Cell Distribution Width 18.9 % (12.1-15.1); White Blood Count 14.03 10^3/uL (3.29-11.43)
[2024-07-03 15:32] LABS: Lactic Sepsis W/Reflex 1.7 mmol/L (0.5-2.2)
[2024-07-03 15:35] LABS: Troponin(5th) Baseline 108 ng/L (0-15)
[2024-07-03] MEDS: dilTIAZem 5 mg/mL SDV 5 mL 20 MG IVP (15:37)
[2024-07-03 15:38] LABS: Bilirubin Urine Negative (Negative); Blood Urine 3+ (Negative); Glucose Urine UA Negative (Normal); Ketones Urine Trace (Negative); Leukocyte Esterase Urine 3+ (Negative); Nitrate Urine Negative (Negative); Protein Urine 2+ (Negative); Specific Gravity, Urine 1.009 (1.005-1.030); Urine Appearance Turbid (CLEAR); pH Urine 7.5 (5-7)
[2024-07-03 15:41] LABS: Bacteria Urine 4+ /hpf; Hyaline Casts Urine 87.34 /lpf; RBC Urine >100 /hpf (0-2); WBC Urine >100 /hpf (0-5)
[2024-07-03 15:50] LABS: Alanine Aminotransferase 11 U/L (0-41); Albumin Level 3.2 g/dL (3.5-5.2); Alkaline Phosphatase 86 U/L (40-130); Anion Gap 15.7 (5-19); Aspartate Amino Transferase 16 U/L (0-40); Blood Urea Nitrogen 34 mg/dL (8-23); Calcium 8.1 mg/dL (8.5-10.5); Carbon Dioxide 30 mmol/L (22-29); Chloride 98 mmol/L (98-107); Creatinine Clr Calc Pharmacy 25.6259; Globulin 2.7 g/dL (1.3-4.6); Glucose 113 mg/dL (65-115); Magnesium 1.8 mg/dL (1.7-2.3); Osmolality Calculated 296 mOsm/kg (285-295); Phosphorus 3.7 mg/dL (2.5-4.5); Potassium 4.7 mmol/L (3.5-5.1); Sodium 139 mmol/L (136-145); Total Bilirubin 1.1 mg/dL (0.15-1.2); Total Protein 5.9 g/dL (6.6-8.7)
[2024-07-03 15:57] LABS: Urine Color Orange (Yellow)
[2024-07-03 15:58] LABS: Add Urine Culture? Yes
--- NOTE | 2024-07-03 16:07 | ECG_ITS ---
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: : [id number] Requested By: Zhane Lang Order Number: [id number] Liza MD: ASHLEY HAIRSTON Measurements Intervals [place] Rate: 126 P: 0 PA: 0 QRS: 17 QRSD: 125 T: 20 QT: 304 QTc: 440 Interpretive Statements ATRIAL FIB/TACHYCARDIA WITH RAPID VENTRICULAR RESPONSE MODERATE INTRAVENTRICULAR CONDUCTION DELAY [110+ ms QRS DURATION] NONSPECIFIC ST ELEVATION [0.05+ mV ST ELEVATION] ABNORMAL RHYTHM ECG Compared to ECG 07/03/2024 14:44:32 Intraventricular conduction delay now present ST (T wave) deviation now present Electronically Signed On 07-03-2024 20:11:08 CDT by ASHLEY HAIRSTON [id number]
[2024-07-03 16:21] LABS: Covid PCR NEGATIVE (Negative); Influenza A NEGATIVE (Negative); Influenza B NEGATIVE (Negative); Respiratory Syncytial Virus Ce NEGATIVE (Negative)
[2024-07-03] MEDS: cefepime 2,000 MG in sodium chloride 0.9% (plus) 50 ML 100 MG IV (16:33)
--- NOTE | 2024-07-03 16:39 | PM.HP ---
Providers/Chief Complaint Admitting Physician: Marcelle Mathis MD Primary Care Provider: Jenn Quiroga NP Chief Complaint: A fib History of Present Illness Robert Verduzco is a 74 year old male Medications/Allergies Home Medications Medication Instructions Recorded Confirmed Last Taken Type acetaminophen 325 mg capsule 650 mg PO Q6H PRN pain or fever 05/20/21 06/18/24 06/06/24 07:00 History dutasteride 0.5 mg capsule 0.5 mg PO DAILY@08 05/20/21 06/18/24 06/17/24 History ferrous sulfate 325 mg (65 mg 325 mg PO .QOD 05/20/21 06/18/24 06/14/24 History iron) tablet tamsulosin 0.4 mg capsule 0.4 mg PO QPM 05/20/21 06/18/24 06/17/24 History ASO Left #1 ea 06/01/21 06/18/24 Unknown Rx cam boot #1 ea 06/01/21 06/18/24 Unknown Rx guaifenesin 600 mg tablet, 600 mg PO Q12H PRN pneumonia 01/23/24 06/18/24 Unknown History extended release 12 hr (Mucinex) loperamide 2 mg tablet See Rx Instructions .Route 01/23/24 06/18/24 Unknown History .COMPLEX PRN Loose Stool ptvueahwdxse-zlujofqb-mthqen 1 tab PO DAILY@08 01/23/24 06/18/24 06/17/24 History tablet (Multivitamin 50 Plus tablet) psyllium seed (sugar) oral powder See Rx Instructions .Route 01/23/24 06/18/24 06/17/24 History (Metamucil (sugar) oral powder) .COMPLEX PRN Constipation sodium chloride 0.65 % nasal spray 1 spray intranasal Q2H PRN Dry 01/23/24 06/18/24 Unknown History aerosol (Deep Sea Nasal) Nasal Passages sodium phosphates 19 gram-[address] DAILY PRN Constipation 01/23/24 06/18/24 Unknown History gram/118 mL enema (Fleet Enema) bisacodyl 10 mg rectal suppository [address] DAILY PRN Constipation 04/22/24 06/18/24 Unknown History (Dulcolax (bisacodyl)) lactobacillus combination no.4 3 3,000 mmu cells PO DAILY PRN WHEN 04/22/24 06/18/24 Unknown History billion cell capsule (Probiotic) ON ANITIBIOTICS levetiracetam 500 mg tablet 500 mg PO BID 05/09/24 06/18/24 06/17/24 History quetiapine 25 mg tablet 25 mg PO BID 06/07/24 06/18/24 06/17/24 History albuterol sulfate 90 mcg/actuation 2 puff inhalation Q4H PRN 06/18/24 06/18/24 Unknown History aerosol inhaler Shortness Of Breath Or Wheezing melatonin 1 mg tablet 1 mg PO BEDTIME 06/18/24 06/18/24 06/17/24 History phenol 1.5 %-glycerin 33 % mucosal 2 spray mucous membrane Q4H PRN 06/18/24 06/18/24 Unknown History spray (Chloraseptic Max Sore Sore Throat Throat) amiodarone 200 mg tablet (Pacerone) 200 mg PO BID #60 tabs 06/19/24 Unknown Rx dexamethasone 6 mg tablet 6 mg PO Q24H #3 tabs 06/19/24 Unknown Rx levothyroxine 25 mcg tablet 25 mcg PO QAM #30 tabs 06/19/24 Unknown Rx Allergies Allergy/AdvReac Type Severity Reaction Status Date / Time NSAIDS (Non-Steroidal Allergy Mild Rash Verified 05/08/24 16:48 Anti-Inflamma PFSH Acute PFSH: Medical History Anemia ESRD (end stage renal disease) on dialysis Atrial fibrillation Patient is full code Acute and chronic respiratory failure with hypoxia Elevated liver enzymes Acute alteration in mental status Septic shock Atrial fibrillation with rapid ventricular response Atrial fibrillation Hematuria Proctitis Hypokalemia Urinary tract infection Noncompliance PVD (peripheral vascular disease) Prostatitis Weakness End stage renal disease on dialysis Admission for dialysis and dialysis catheter care Complication, dialysis catheter clot or failure RSV (acute bronchiolitis due to respiratory syncytial virus) Fever Nausea Non-healing wound of left lower extremity Cellulitis of right lower leg Shortness of breath Atherosclerosis of [place] artery of extremity with ulceration Atherosclerosis of [place] arteries of right leg with ulceration of unspecified site Non-healing wound of right lower extremity Closed fracture of left distal fibula Left ankle pain Gastro-esophageal reflux disease without esophagitis Contracture, left hand Chronic obstructive pulmonary disease, unspecified Attention-deficit hyperactivity disorder, unspecified type Motion sickness, sequela Insomnia, unspecified Post-traumatic stress disorder, chronic Restless legs syndrome 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 ascites Contracture, right hand COVID-19 Benign prostatic hyperplasia with lower urinary tract symptoms Secondary osteoarthritis, left hand Other recurrent depressive disorders Anemia in other chronic diseases classified elsewhere Secondary osteoarthritis, right hand Generalized anxiety disorder Cervicalgia Muscle weakness (generalized) Essential (primary) hypertension Dementia in other diseases classified elsewhere without behavioral disturbance Hereditary and idiopathic neuropathy, unspecified Surgical History S/P dialysis catheter insertion Family History Father CAD (coronary artery disease) Social History Smoking and tobacco/nicotine status: never used tobacco/nicotine Alcohol intake: never Substance/Drug Use: never Vitals/I&O/Wt Last Vital Signs Temp 98.7 F 07/03/24 14:36 Pulse 112 H 07/03/24 15:45 Resp 12 07/03/24 15:45 BP 111/66 07/03/24 15:45 Pulse Ox 95 07/03/24 15:45 O2 Del Method Nasal Cannula 07/03/24 15:45 O2 Flow Rate 2 07/03/24 15:45 Weight last 48 hrs Weight 81.647 kg Data 07/03/24 15:05 07/03/24 15:05 Micro: Microbiology 07/03/24 14:56 Blood Culture - Preliminary Blood SPECIMEN COLLECTED 07/03/24 15:05 Blood Culture - Preliminary Blood SPECIMEN COLLECTED Coding Level of Care Code Acute Code for [facility]
[2024-07-03] MEDS: dilTIAZem 100 MG in sodium chloride 0.9% (add-van) 100 ML IV (16:55)
[2024-07-03] MEDS: linezolid premix 600 MG/300 ML PREMIX 300 MG IV (17:10)
[2024-07-03] MEDS: levETIRAcetam 500 mg Tablet PO (17:53)
[2024-07-03] MEDS: quetiapine 25 mg Tablet PO (17:53)
[2024-07-03] MEDS: heparin 5,000 unit/mL INJ 1 mL 5000 UNIT SUBCUT (17:54)
--- NOTE | 2024-07-03 18:36 | P.HP_ITS ---
Providers/Chief Complaint 2 Admitting Physician: Marcelle Mathis MD Primary Care Provider: Jenn Quiroga NP Chief Complaint: A fib History of Present Illness Robert Verduzco is a 74 year old male with history of seizure disorder, end- stage renal disease Monday, recently was discharged from the hospital after management of low blood pressure after dialysis he has been having these issues for quite some time he was recently treated for COVID-19 as well he was put on Decadron he was also given midodrine for low blood pressure. He also carries history of liver cirrhosis, he has history of A-fib but off anticoagulating agent he carries history of splenomegaly BPH, hematuria, in May he was admitted to the ICU for hypoxic hypercarbic respiratory failure, patient does not have any family in [place], he change his CODE STATUS of DNR/DNI which was witnessed by a CSU nurse as well on last admission, we also decided against Eliquis because of persistent hematuria. Patient at baseline seems very confused, he is Елена lift dependent has extremity contractures, stage I ulcer on sacral area. Review of Systems 2 General: Reports: ROS unobtainable due to medical condition Medications/Allergies Home Medications Medication Instructions Recorded Confirmed Last Taken Type acetaminophen 325 mg capsule 650 mg PO Q6H PRN pain or fever 05/20/21 06/18/24 06/06/24 07:00 History dutasteride 0.5 mg capsule 0.5 mg PO DAILY@08 05/20/21 06/18/24 06/17/24 History ferrous sulfate 325 mg (65 mg 325 mg PO .QOD 05/20/21 06/18/24 06/14/24 History iron) tablet tamsulosin 0.4 mg capsule 0.4 mg PO QPM 05/20/21 06/18/24 06/17/24 History ASO Left #1 ea 06/01/21 06/18/24 Unknown Rx cam boot #1 ea 06/01/21 06/18/24 Unknown Rx guaifenesin 600 mg tablet, 600 mg PO Q12H PRN pneumonia 01/23/24 06/18/24 Unknown History extended release 12 hr (Mucinex) loperamide 2 mg tablet See Rx Instructions .Route 01/23/24 06/18/24 Unknown History .COMPLEX PRN Loose Stool othmbgetdsgh-jujxtdiz-vajvqr 1 tab PO DAILY@08 01/23/24 06/18/24 06/17/24 History tablet (Multivitamin 50 Plus tablet) psyllium seed (sugar) oral powder See Rx Instructions .Route 01/23/24 06/18/24 06/17/24 History (Metamucil (sugar) oral powder) .COMPLEX PRN Constipation sodium chloride 0.65 % nasal spray 1 spray intranasal Q2H PRN Dry 01/23/24 06/18/24 Unknown History aerosol (Deep Sea Nasal) Nasal Passages sodium phosphates 19 gram-7 118 ml [place] DAILY PRN Constipation 01/23/24 06/18/24 Unknown History gram/118 mL enema (Fleet Enema) bisacodyl 10 mg rectal suppository 10 mg [place] DAILY PRN Constipation 04/22/24 06/18/24 Unknown History (Dulcolax (bisacodyl)) lactobacillus combination no.4 3 3,000 mmu cells PO DAILY PRN WHEN 04/22/24 06/18/24 Unknown History billion cell capsule (Probiotic) ON ANITIBIOTICS levetiracetam 500 mg tablet 500 mg PO BID 05/09/24 06/18/24 06/17/24 History quetiapine 25 mg tablet 25 mg PO BID 06/07/24 06/18/24 06/17/24 History albuterol sulfate 90 mcg/actuation 2 puff inhalation Q4H PRN 06/18/24 06/18/24 Unknown History aerosol inhaler Shortness Of Breath Or Wheezing melatonin 1 mg tablet 1 mg PO BEDTIME 06/18/24 06/18/24 06/17/24 History phenol 1.5 %-glycerin 33 % mucosal 2 spray mucous membrane Q4H PRN 06/18/24 06/18/24 Unknown History spray (Chloraseptic Max Sore Sore Throat Throat) amiodarone 200 mg tablet (Pacerone) 200 mg PO BID #60 tabs 06/19/24 Unknown Rx dexamethasone 6 mg tablet 6 mg PO Q24H #3 tabs 06/19/24 Unknown Rx levothyroxine 25 mcg tablet 25 mcg PO QAM #30 tabs 06/19/24 Unknown Rx Allergies Allergy/AdvReac Type Severity Reaction Status Date / Time NSAIDS (Non-Steroidal Allergy Mild Rash Verified 05/08/24 16:48 Anti-Inflamma PFSH Acute 2 PFSH: Medical History Anemia ESRD (end stage renal disease) on dialysis Atrial fibrillation Patient is full code Acute and chronic respiratory failure with hypoxia Elevated liver enzymes Acute alteration in mental status Septic shock Atrial fibrillation with rapid ventricular response Atrial fibrillation Hematuria Proctitis Hypokalemia Urinary tract infection Noncompliance PVD (peripheral vascular disease) Prostatitis Weakness End stage renal disease on dialysis Admission for dialysis and dialysis catheter care Complication, dialysis catheter clot or failure RSV (acute bronchiolitis due to respiratory syncytial virus) Fever Nausea Non-healing wound of left lower extremity Cellulitis of right lower leg Shortness of breath Atherosclerosis of [place] artery of extremity with ulceration Atherosclerosis of [place] arteries of right leg with ulceration of unspecified site Non-healing wound of right lower extremity Closed fracture of left distal fibula Left ankle pain Gastro-esophageal reflux disease without esophagitis Contracture, left hand Chronic obstructive pulmonary disease, unspecified Attention-deficit hyperactivity disorder, unspecified type Motion sickness, sequela Insomnia, unspecified Post-traumatic stress disorder, chronic Restless legs syndrome 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 ascites Contracture, right hand COVID-19 Benign prostatic hyperplasia with lower urinary tract symptoms Secondary osteoarthritis, left hand Other recurrent depressive disorders Anemia in other chronic diseases classified elsewhere Secondary osteoarthritis, right hand Generalized anxiety disorder Cervicalgia Muscle weakness (generalized) Essential (primary) hypertension Dementia in other diseases classified elsewhere without behavioral disturbance Hereditary and idiopathic neuropathy, unspecified Surgical History S/P dialysis catheter insertion Family History Father CAD (coronary artery disease) Social History Smoking and tobacco/nicotine status: never used tobacco/nicotine Alcohol intake: never Substance/Drug Use: never Vitals/I&O/Wt Last Vital Signs Temp 98.7 F 07/03/24 14:36 Pulse 156 H 07/03/24 18:19 Resp 24 H 07/03/24 18:19 BP 111/66 07/03/24 18:19 Pulse Ox 95 07/03/24 18:19 O2 Del Method Nasal Cannula 07/03/24 18:23 O2 Flow Rate 2 07/03/24 17:45 07/03/24 07/03/24 07/03/24 06:59 14:59 22:59 Intake Total 351.417 / 351.417 Balance 351.417 / 351.417 Weight last 48 hrs Weight 81.647 kg Weight 81.647 kg Physical Exam 2 Narrative: Patient is able to answer simple questions Currently on room air saturating 91% Clinically looks fluid overloaded with anasarca Extremity contractures noted Sacral ulcer present on admission Has compression stockings over his legs A-fib RVR Data 07/03/24 15:05 07/03/24 15:05 Micro: Microbiology 07/03/24 14:56 Blood Culture - Preliminary Blood SPECIMEN COLLECTED 07/03/24 15:05 Blood Culture - Preliminary Blood SPECIMEN COLLECTED A&P Assessment and plan (1) CHF (congestive heart failure): (2) Atrial fibrillation: (3) Atrial fibrillation with rapid ventricular response: (4) Cirrhosis: (5) ESRD (end stage renal disease) on dialysis: (6) Urinary tract infection: Plan A-fib RVR Currently on Cardizem drip at 10 Will need to switch him off Cardizem drip quickly because patient tends to lower blood pressure very quickly after dialysis He is not a candidate for anticoagulation secondary to hematuria Patient gets amiodarone for rate control, not a good candidate to be on AV tory blocking agent such as beta-corrie or a calcium beta-corrie secondary to low blood pressure Patient has history of CHF, liver cirrhosis, end-stage renal disease Monday Has been put on midodrine as well Metabolic encephalopathy Related to UTI Patient has been put on Zosyn for now CODE STATUS: Patient changed CODE STATUS to DNR/DNI on last admission which was witnessed by nurse as well in the CSU however longterm has not updated their documents For history of seizure continue Cm Attestations 2 Medical Necessity Statement*: More than 2 midnights anticipated Diagnoses CHF (congestive heart failure) I50.9 Atrial fibrillation I48.91 Atrial fibrillation with rapid ventricular response I48.91 Cirrhosis K74.60 ESRD (end stage renal disease) on dialysis N18.6; Z99.2 Urinary tract infection N39.0
[2024-07-03] MEDS: amiodarone 200 mg Tablet 400 MG PO (19:32)
[2024-07-03] MEDS: piperacillin-tazobactam 3.375 GM in sodium chloride 0.9% (plus) 50 ML IV (19:33)
[2024-07-03 19:57] LABS: Troponin 5 2HR 103.6 ng/L (0-15); Troponin 5 2HR Delta -4.4 ABS# (0-10)
--- NOTE | 2024-07-03 20:38 | ECG_ITS ---
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 Measurements Intervals [place] Rate: 91 P: 0 KS: 0 QRS: -5 QRSD: 105 T: 11 QT: 314 QTc: 388 Interpretive Statements ATRIAL FLUTTER Compared to ECG 07/03/2024 16:07:32 Intraventricular conduction delay no longer present ST (T wave) deviation no longer present Electronically Signed On 07-05-2024 07:39:51 CDT by Matt Castro M.D. [email or web address]
[2024-07-03 22:02] LABS: Troponin 5 6HR 94.54 ng/L (0-15); Troponin 5 6HR Delta -13.46 ng/L (0-12)
[2024-07-04] VITALS (56 sets, daily range): BP systolic 97–131; BP diastolic 61–69; PULSE 80–107; RESP 16–35; TEMP 36.3–36.8; O2SAT 93–98
[2024-07-04 03:15] LABS: Basophils % 0.1 %; Eosinophils # 0.1 10^3/uL (0.0-0.8); Hematocrit 33.7 % (37-53); Lymphocytes # 1.1 10^3/uL (0.8-4.8); Lymphocytes % 13.9 %; Mean Corpuscular HGB Conc 30.9 g/dL (30-55); Mean Corpuscular Hemoglobin 30.7 pg (27-33); Mean Corpuscular Volume 99.4 fl (82-101); Mean Platelet Volume 9.5 fL (7.4-10.4); Monocytes # 1.2 10^3/uL (0.2-0.9); Monocytes % 14.9 %; Neutrophils # 5.61 10^3/uL (1.8-7.7); Neutrophils % 69.4 %; Nucleated Red Blood Cells % 0 %; Platelet Count 143 10^3/cmm (157-399); Red Blood Count 3.39 10^6/uL (3.85-5.65); Red Cell Distribution Width 18.6 % (12.1-15.1); White Blood Count 8.08 10^3/uL (3.29-11.43)
[2024-07-04 03:29] LABS: INR 1.24 (0.8-1.2)
[2024-07-04 03:39] LABS: Anion Gap 12.6 (5-19); Blood Urea Nitrogen 40 mg/dL (8-23); Calcium 7.5 mg/dL (8.5-10.5); Carbon Dioxide 30 mmol/L (22-29); Chloride 103 mmol/L (98-107); Creatinine Clr Calc Pharmacy 21.6219; Glucose 111 mg/dL (65-115); Magnesium 1.8 mg/dL (1.7-2.3); Osmolality Calculated 302 mOsm/kg (285-295); Potassium 4.6 mmol/L (3.5-5.1); Sodium 141 mmol/L (136-145)
[2024-07-04 03:40] LABS: Phosphorus 4.3 mg/dL (2.5-4.5)
[2024-07-04] MEDS: heparin 5,000 unit/mL INJ 1 mL 5000 UNIT SUBCUT ×2 (05:04→17:32)
[2024-07-04] MEDS: levothyroxine 25 mcg Tablet PO (05:05)
[2024-07-04] MEDS: piperacillin-tazobactam 3.375 GM in sodium chloride 0.9% (plus) 50 ML IV ×2 (06:09→17:32)
[2024-07-04] MEDS: amiodarone 200 mg Tablet 400 MG PO ×2 (08:19→17:32)
[2024-07-04] MEDS: levETIRAcetam 500 mg Tablet PO ×2 (08:19→17:32)
--- NOTE | 2024-07-04 09:53 | PC.CHAP ---
Pastoral Care Encounter/Spiritual Assessment Type of Contact [] Declined global security architect visit [] Patient/Family/Request visit [] Outpatient visit [] Follow-up visit [] Physician referral [] Code/Alert [] Routine visit [] Staff referral [] Actively dying [x] Patient sleeping [] Family support [] [] Out of room [] Palliative care [] [] Receiving care in room [] Pre-surgical visit [] Trauma [] Long length of stay [] ICU visit [] Other: Relational/Emotional Strength [] Patient feels connected with others/family/visitors/staff [] Distress [] Loneliness/isolation [] Abandonment Spirituality of Patient [] Person of Anne [] Attends Rastafarian of their Anne [] Believes in Prayer [] Reads Bible or Tenriism materials [] There are Spiritual issues to be addressed Evp Managing Director Interventions [] Prayer [] Active listening [] Non-anxious presence [] Spiritual/emotional support [] Crisis/trauma care [] Spiritual counseling [] Bereavement support [] Provided bereavement packet [] Provided Bible/devotional materials [] Provided toy/stuffed animal, coloring book to patient or family member [] Provided Communion [] Anointing/Adams [] Salvation [] Completed spiritual assessment [] Other: Impact on Illness or Injury [] Angry [] Fearful [] Anxious [] Often cries [] Exhaustion [] Unable to work [] Unable to attend gnosticist [] Unable to walk/stand [] Unable to read [] Unable to drive [] Unable to eat/drink [] Unable to sleep [] Unable to be with family [] Patient intubated [] Other: Summary Time spent with patient
--- NOTE | 2024-07-04 10:11 | P.CONIM_ITS ---
Providers/Reason For Consult 2 Consulting Physician/Specialty*: Rory Colunga MD /telemetry nephrology Reason for Consult*: End-stage renal disease care Requesting Physician: Dr Woodruff Attending Physician: Camden Woodruff MD Primary Care Provider: Jenn Quiroga NP History of Present Illness History of Present Illness Robert Verduzco is a 74 year old male history of end-stage renal disease on dialysis Monday and Monday, seizure disorder, recent COVID-19, cirrhosis, A-fib, splenomegaly, BPH, hematuria, hypercapnic respiratory acidosis last month. Patient is bedbound and has contractures with stage I ulcer at baseline. The patient was admitted yesterday with A-fib with rapid ventricular response patient was started on Cardizem drip and he was also started on antibiotics. They speak to the patient is confused and not able to give me history. Review of Systems 2 Narrative: Patient has cognitive decline and is confused not able to give me an appropriate history. Medications/Allergies Home Medications Medication Instructions Recorded Confirmed Last Taken Type acetaminophen 325 mg capsule 650 mg PO Q6H PRN pain or fever 05/20/21 07/04/24 06/06/24 07:00 History dutasteride 0.5 mg capsule 0.5 mg PO DAILY 05/20/21 07/04/24 07/03/24 History ferrous sulfate 325 mg (65 mg 325 mg PO DAILY 05/20/21 07/04/24 07/03/24 History iron) tablet tamsulosin 0.4 mg capsule 0.4 mg PO BEDTIME 05/20/21 07/04/24 07/02/24 History ASO Left #1 ea 06/01/21 07/04/24 Unknown Rx cam boot #1 ea 06/01/21 07/04/24 Unknown Rx guaifenesin 600 mg tablet, 600 mg PO Q12H PRN pneumonia 01/23/24 07/04/24 Unknown History extended release 12 hr (Mucinex) loperamide 2 mg tablet See Rx Instructions .Route 01/23/24 07/04/24 Unknown History .COMPLEX PRN Loose Stool pzfhznyoshee-zcycrhar-soirku 1 tab PO DAILY 01/23/24 07/04/24 07/03/24 History tablet (Multivitamin 50 Plus tablet) psyllium seed (sugar) oral powder See Rx Instructions .Route 01/23/24 07/04/2424 History (Metamucil (sugar) oral powder) .COMPLEX PRN Constipation sodium chloride 0.65 % nasal spray 1 spray intranasal Q2H PRN Dry 01/23/24 07/04/24 Unknown History aerosol (Deep Sea Nasal) Nasal Passages sodium phosphates 19 gram-7 118 ml [place] DAILY PRN Constipation 01/23/24 07/04/24 Unknown History gram/118 mL enema (Fleet Enema) bisacodyl 10 mg rectal suppository 10 mg [place] DAILY PRN Constipation 04/22/24 07/04/24 Unknown History (Dulcolax (bisacodyl)) levetiracetam 500 mg tablet 500 mg PO BID 05/09/24 07/04/24 07/03/24 History albuterol sulfate 90 mcg/actuation 2 puff inhalation Q4H PRN 06/18/24 07/04/24 Unknown History aerosol inhaler Shortness Of Breath Or Wheezing melatonin 1 mg tablet 1 mg PO BEDTIME PRN Insomnia 06/18/24 07/04/24 06/17/24 History amoxicillin 875 mg-potassium 1 tab PO BID 07/04/24 07/04/24 07/03/24 History clavulanate 125 mg tablet apixaban 5 mg tablet (Eliquis) 5 mg PO BID 07/04/24 07/04/24 Unknown History aspirin 81 mg capsule 81 mg PO DAILY 07/04/24 07/04/24 Unknown History atorvastatin 40 mg tablet 40 mg PO BEDTIME 07/04/24 07/04/24 07/02/24 History diltiazem HCl 120 mg 120 mg PO BID 07/04/24 07/04/24 07/03/24 History capsule,extended release 24 hr (Cardizem CD) metoprolol tartrate 25 mg tablet 25 mg PO BID 07/04/24 07/04/24 07/03/24 History metronidazole 500 mg tablet 500 mg PO Q8H 07/04/24 07/04/24 07/03/24 History scopolamine base 1 mg over 3 days 1 patch transdermal Q3D 07/04/24 07/04/24 Unknown History transdermal patch tramadol 50 mg tablet 50 mg PO Q4H PRN Pain 07/04/24 07/04/24 Unknown History Allergies Allergy/AdvReac Type Severity Reaction Status Date / Time NSAIDS (Non-Steroidal Allergy Mild Rash Verified 05/08/24 16:48 Anti-Inflamma Current Medications Generic Name Dose Route Start Last Admin Trade Name Patrica PRN Reason Stop Dose Admin Amiodarone HCl 400 mg 07/03/24 18:50 07/04/24 08:19 Amiodarone 200 Mg Tablet PO 400 mg BID JOHN Administration Heparin Sodium (Porcine) 5,000 unit 07/03/24 17:22 07/04/24 05:04 Heparin 5,000 Unit/Ml Inj 1 Ml SUBCUT 5,000 unit Q12H JOHN Administration Diltiazem HCl 100 mg/ Sodium 100 mls @ 0 mls/hr 07/03/24 16:15 07/04/24 00:25 Chloride IV 0 mg/hr .Q0M JOHN 0 mls/hr Titration Protocol Per Protocol Piperacillin Sod/Tazobactam 50 mls @ 12.5 mls/hr 07/03/24 19:00 07/04/24 10:02 Sod 3.375 gm/ Sodium Chloride IV Infused Q12H JOHN Infusion Levetiracetam 500 mg 07/03/24 18:00 07/04/24 08:19 Levetiracetam 500 Mg Tablet PO 500 mg BID JOHN Administration Levothyroxine Sodium 25 mcg 07/04/24 06:00 07/04/24 05:05 Levothyroxine 25 Mcg Tablet PO 25 mcg QAM JOHN Administration Quetiapine Fumarate 25 mg 07/03/24 18:00 07/03/24 17:53 Quetiapine 25 Mg Tablet PO 25 mg BID JOHN Administration PFSH Acute 2 PFSH: Medical History Anemia ESRD (end stage renal disease) on dialysis Atrial fibrillation Patient is full code Acute and chronic respiratory failure with hypoxia Elevated liver enzymes Acute alteration in mental status Septic shock Atrial fibrillation with rapid ventricular response Atrial fibrillation Hematuria Proctitis Hypokalemia Urinary tract infection Noncompliance PVD (peripheral vascular disease) Prostatitis Weakness End stage renal disease on dialysis Admission for dialysis and dialysis catheter care Complication, dialysis catheter clot or failure RSV (acute bronchiolitis due to respiratory syncytial virus) Fever Nausea Non-healing wound of left lower extremity Cellulitis of right lower leg Shortness of breath Atherosclerosis of [place] artery of extremity with ulceration Atherosclerosis of [place] arteries of right leg with ulceration of unspecified site Non-healing wound of right lower extremity Closed fracture of left distal fibula Left ankle pain Gastro-esophageal reflux disease without esophagitis Contracture, left hand Chronic obstructive pulmonary disease, unspecified Attention-deficit hyperactivity disorder, unspecified type Motion sickness, sequela Insomnia, unspecified Post-traumatic stress disorder, chronic Restless legs syndrome 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 ascites Contracture, right hand COVID-19 Benign prostatic hyperplasia with lower urinary tract symptoms Secondary osteoarthritis, left hand Other recurrent depressive disorders Anemia in other chronic diseases classified elsewhere Secondary osteoarthritis, right hand Generalized anxiety disorder Cervicalgia Muscle weakness (generalized) Essential (primary) hypertension Dementia in other diseases classified elsewhere without behavioral disturbance Hereditary and idiopathic neuropathy, unspecified Surgical History S/P dialysis catheter insertion Family History Father CAD (coronary artery disease) Social History Smoking and tobacco/nicotine status: never used tobacco/nicotine Alcohol intake: never Substance/Drug Use: never Vitals/I&O/Wt Last Vital Signs Temp 98.0 F 07/04/24 07:19 Pulse 82 07/04/24 07:53 Resp 16 07/04/24 07:53 BP 130/63 07/04/24 07:19 Pulse Ox 96 07/04/24 07:53 O2 Del Method Nasal Cannula 07/04/24 07:53 O2 Flow Rate 2 07/04/24 07:53 07/03/24 07/04/24 07/04/24 22:59 06:59 14:59 Intake Total 623.167 / 623.167 58.75 / 681.917 50 / 50 Output Total 0 / 0 Balance 623.167 / 623.167 58.75 / 681.917 50 / 50 Weight last 48 hrs Weight 81.647 kg Weight 81.647 kg Weight 81.647 kg Physical Exam 2 Narrative: Appears ill. Confused Vital signs noted heart rate irregular however controlled rate. HEENT normocephalic atraumatic. Neck is supple Lungs good air movement Heart irregular with systolic murmur. Right anterior chest wall permacath. Abdomen is soft nontender nondistended positive bowel sounds. Extremities positive bilateral lower extremity edema. Neuro responds to pain, is confused. He moves his hands. Data 07/04/24 03:05 07/04/24 03:05 Micro: Microbiology 07/03/24 14:56 Blood Culture - Preliminary Blood SPECIMEN COLLECTED 07/03/24 15:05 Blood Culture - Preliminary Blood SPECIMEN COLLECTED A&P Assessment and plan (1) End stage renal disease on dialysis: 1. A-fib with RVR heart rate now controlled continue plan as per medicine. On amiodarone and Cardizem drip. 2. ESRD continue dialysis on Monday and Monday. 3. Altered mental status history of hypercapnia in the past will check ABG and consider BiPAP if needed. 4. Patient's chest x-ray reviewed with bilateral small pleural effusions. 5. Anemia hemoglobin acceptable for ESRD. 6. White cell count improved overnight. 7. Patient has history of thrombocytopenia 8. Abnormal urinalysis with greater than 100 rbc's, white blood cells and 3+ leuk esterase 4+ bacteria 6-10 squamous epithelial cells-patient is on broad- spectrum antibiotics received Maxipime and is now on Zosyn. He also received linezolid yesterday. The patient was seen and examined with the nurse using A/V equipment for telehealth visit. Plan See above. Consult Attestations 2 Medical Necessity Statement: UTI, ESRD, altered mental status, A-fib with RVR Time Spent in Patient Care: Greater than 35 minutes (>than 50% of time spent in counselling and/or direct pt care on unit) . Coding Level of Care Code Acute Code for Chg Fwd Diagnoses End stage renal disease on dialysis N18.6; Z99.2
[2024-07-04 10:41] LABS: ABG PCO2 58.6 mmHg (35-45); ABG PH Result 7.35 (7.35-7.45); Base Excess ABG 5.7 mmol/L (-2.0-2.0); Blood Gas Allen Test Pos; Blood Gas Operator Identificat WALCI; Blood Gas Sample Site Radial, left; Blood Gas Sample Type Arterial; Carboxyhemoglobin 2.1 %THgb (0.4-20.1); HCO3 ABG 32.5 mmol/L (22-26); HGB O2 Sat 94.3 % (95-100); Ionized Calcium Level - ABG 1.2 mmol/L (1.1-1.4); Methemoglobin 0.9 % (0.4-1.5); Oxygen Device NC; Oxygen Saturation ABG 97.2; PO2 ABG 85.4 mmHg (80.0-100.0); Potassium Level - ABG 4.2 mmol/L (3.5-5.0); Total Hemoglobin 10.4 g/dL (14-18)
[2024-07-04 10:57] LABS: Bacillus cereus group Not Detected (NOT DETECT); Bacillus subtillis group Not Detected (NOT DETECT); Corynebacterium Not Detected (NOT DETECT); Cutibacterium acnes (P.acnes) Not Detected (NOT DETECT); Enterococcus Not Detected (NOT DETECT); Enterococcus faecalis Not Detected (NOT DETECT); Enterococcus faecium Not Detected (NOT DETECT); Lactobacillus species Not Detected (NOT DETECT); Listeria Not Detected (NOT DETECT); Listeria monocytogenes Not Detected (NOT DETECT); Micrococcus Not Detected (NOT DETECT); Pan Candida Not Detected (NOT DETECT); Pan Gram-Negative Not Detected (NOT DETECT); Staphylococcus epidermidis Detected (NOT DETECT); Staphylococcus lugdunensis Not Detected (NOT DETECT); Staphylococcus species Detected (NOT DETECT); Streptococcus agalactiae Not Detected (NOT DETECT); Streptococcus anginosus group Not Detected (NOT DETECT); Streptococcus pneumoniae Not Detected (NOT DETECT); Streptococcus pyogenes Not Detected (NOT DETECT); Streptococcus species Not Detected (NOT DETECT); mecA Detected (NOT DETECT); mecC Not Detected (NOT DETECT)
--- NOTE | 2024-07-04 11:15 | P.PN_ITS ---
Subjective 2 Subjective: Patient is morning is endorsing feeling better A-fib without RVR His blood culture showing Staph epidermidis, Vitals/I&O/Wt Last Vital Signs Temp 98.0 F 07/04/24 07:19 Pulse 82 07/04/24 07:53 Resp 16 07/04/24 07:53 BP 130/63 07/04/24 07:19 Pulse Ox 96 07/04/24 07:53 O2 Del Method Nasal Cannula 07/04/24 07:53 O2 Flow Rate 2 07/04/24 07:53 07/03/24 07/04/24 07/04/24 22:59 06:59 14:59 Intake Total 623.167 / 623.167 58.75 / 681.917 50 / 50 Output Total 0 / 0 Balance 623.167 / 623.167 58.75 / 681.917 50 / 50 Weight last 48 hrs Weight 81.647 kg Weight 81.647 kg Weight 81.647 kg Physical Exam 2 Narrative: Patient is awake, drowsy and lethargic Able to answer simple questions Attention span is very short Patient is not oriented to time and place Currently on 2 L A-fib without RVR Extremity contractures Sacral area ulcer present on admission Lower extremity with compression stockings Data 07/04/24 03:05 07/04/24 03:05 Micro: Microbiology 07/03/24 14:56 Blood Culture - Preliminary Blood Staphylococcus epidermidis 07/03/24 15:05 Blood Culture - Preliminary Blood SPECIMEN COLLECTED A&P Assessment and plan (1) CHF (congestive heart failure): (2) Atrial fibrillation: (3) Atrial fibrillation with rapid ventricular response: (4) Cirrhosis: (5) ESRD (end stage renal disease) on dialysis: (6) Urinary tract infection: Plan A-fib RVR Rate control, A-fib but without RVR Continue amiodarone only avoid Cardizem because of low blood pressure which normally happens after dialysis Not a candidate for anticoagulation Patient has history of CHF, liver cirrhosis, end-stage renal disease Appreciate nephro recommendations Metabolic encephalopathy UTI Improving Vancomycin discontinued admission, currently on Zosyn Secondary to fluid overload patient tends to become hypercapnic as well, current ABG showing compensated pH DNR/DNI Renal diet For seizure continue Keppra Recurrent admission in the hospital mostly after dialysis Positive blood cultures 09/28 epidermidis, will test was with nephro if we should be further investigating it, please note his admission blood cultures were positive for the epidermidis as well which were deemed contamination Attestations 2 Medical Necessity Statement*: Likely discharge in next 48 hours Diagnoses CHF (congestive heart failure) I50.9 Atrial fibrillation I48.91 Atrial fibrillation with rapid ventricular response I48.91 Cirrhosis K74.60 ESRD (end stage renal disease) on dialysis N18.6; Z99.2 Urinary tract infection N39.0
[2024-07-04 11:16] LABS: Ammonia 26 umol/L (16-60)
[2024-07-04 11:25] LABS: Thyroid Stimulating Hormone 3.44 uIU/mL (0.27-4.20)
[2024-07-04 11:33] LABS: Hepatitis B Surface AB < 3.5 (11.5-1000); Hepatitis B Surface Antigen Non-Reactive (Nonreactive); Hepatitis C Virus Antibody Non-Reactive (Nonreactive)
[2024-07-04] MEDS: linezolid premix 600 MG/300 ML PREMIX 300 MG IV (11:38)
[2024-07-05] VITALS (59 sets, daily range): BP systolic 107–150; BP diastolic 62–69; PULSE 81–127; RESP 17–35; TEMP 36.3–37; O2SAT 94; BMI 25.1
[2024-07-05] MEDS: linezolid premix 600 MG/300 ML PREMIX 300 MG IV ×2 (00:41→13:04)
[2024-07-05 04:16] LABS: Basophils % 0.1 %; Eosinophils # 0.1 10^3/uL (0.0-0.8); Eosinophils % 1.8 %; Hematocrit 33.5 % (37-53); Lymphocytes # 1.2 10^3/uL (0.8-4.8); Lymphocytes % 15.4 %; Mean Corpuscular HGB Conc 30.1 g/dL (30-55); Mean Corpuscular Hemoglobin 30.2 pg (27-33); Mean Corpuscular Volume 100.3 fl (82-101); Mean Platelet Volume 9.6 fL (7.4-10.4); Monocytes # 1.2 10^3/uL (0.2-0.9); Monocytes % 15.4 %; Neutrophils # 5.28 10^3/uL (1.8-7.7); Neutrophils % 66.4 %; Nucleated Red Blood Cells % 0 %; Platelet Count 137 10^3/cmm (157-399); Red Blood Count 3.34 10^6/uL (3.85-5.65); Red Cell Distribution Width 18.4 % (12.1-15.1); White Blood Count 7.94 10^3/uL (3.29-11.43)
[2024-07-05 04:37] LABS: Alanine Aminotransferase 8 U/L (0-41); Albumin Level 2.7 g/dL (3.5-5.2); Alkaline Phosphatase 75 U/L (40-130); Anion Gap 13.3 (5-19); Aspartate Amino Transferase 9 U/L (0-40); Blood Urea Nitrogen 41 mg/dL (8-23); Calcium 7.5 mg/dL (8.5-10.5); Carbon Dioxide 29 mmol/L (22-29); Chloride 101 mmol/L (98-107); Creatinine Clr Calc Pharmacy 19.7686; Globulin 2.3 g/dL (1.3-4.6); Glucose 102 mg/dL (65-115); Magnesium 1.9 mg/dL (1.7-2.3); Osmolality Calculated 298 mOsm/kg (285-295); Phosphorus 4.2 mg/dL (2.5-4.5); Potassium 4.3 mmol/L (3.5-5.1); Sodium 139 mmol/L (136-145); Total Bilirubin 0.4 mg/dL (0.15-1.2)
[2024-07-05] MEDS: heparin 5,000 unit/mL INJ 1 mL 5000 UNIT SUBCUT (05:22)
[2024-07-05] MEDS: levothyroxine 25 mcg Tablet PO (05:22)
[2024-07-05] MEDS: piperacillin-tazobactam 3.375 GM in sodium chloride 0.9% (plus) 50 ML IV (07:12)
--- NOTE | 2024-07-05 07:57 | PC.NURSE ---
Patient taken to dialysis at this time via bed and laminator hand.
--- NOTE | 2024-07-05 08:30 | PC.HD ---
Per Dr. Colunga, proceed with scheduled dialysis without patient/family consent due to scheduled treatment day/necessity to maintain life. Consent signed by this RN and primary RN, Meme. Heparin-free treatment per mental retardation aide.
--- NOTE | 2024-07-05 09:32 | P.PN_ITS ---
Subjective 2 Subjective: getting HD Medications: Reviewed: Yes Vitals/I&O/Wt Last Vital Signs Temp 98.6 F 07/05/24 08:29 Pulse 127 H 07/05/24 08:29 Resp 20 H 07/05/24 08:29 BP 118/68 07/05/24 08:29 Pulse Ox 93 07/04/24 12:00 O2 Del Method Nasal Cannula 07/04/24 17:40 O2 Flow Rate 2 07/04/24 17:40 07/04/24 07/05/24 07/05/24 22:59 06:59 14:59 Intake Total 290 / 880 300 / 1180 Output Total 0 / 0 Balance 290 / 880 300 / 1180 Weight last 48 hrs Weight 81.647 kg Weight 81.647 kg Weight 81.647 kg Weight 81.647 kg Physical Exam 2 Narrative: Appears ill. Vital signs noted heart rate irregular however controlled rate. HEENT normocephalic atraumatic. Neck is supple Lungs good air movement Heart irregular with systolic murmur. Right anterior chest wall permacath. Abdomen is soft nontender nondistended positive bowel sounds. Extremities positive bilateral lower extremity edema. Neuro responds to pain, is confused. He moves his hands. Data 07/05/24 03:43 07/05/24 03:43 Micro: Microbiology 07/03/24 15:05 Blood Culture - Preliminary Blood NEGATIVE TO DATE 07/03/24 14:56 Blood Culture - Preliminary Blood Staphylococcus epidermidis A&P Assessment and plan (1) End stage renal disease on dialysis: 1. A-fib with RVR heart rate now controlled continue plan as per medicine. 2. ESRD continue dialysis on Monday and Monday. 3. Altered mental status history of hypercapnia in the past will check ABG and consider BiPAP if needed. 4. Patient's chest x-ray reviewed with bilateral small pleural effusions. 5. Anemia hemoglobin acceptable for ESRD. 6. White cell count improved overnight. 7. Patient has history of thrombocytopenia The patient was seen and examined with the nurse using A/V equipment for telehealth visit. Plan See above. Attestations 2 Medical Necessity Statement*: per [facility] Coding Level of Care Code Acute Code for Chg Fwd Diagnoses End stage renal disease on dialysis N18.6; Z99.2
--- NOTE | 2024-07-05 11:25 | P.DS_ITS ---
Discharge Providers Date of Admission: 07/03/24 16:34 Date of Discharge: July 05, 2024 Attending Provider at Admission: Marcelle Mathis MD Attending Provider at Discharge: Camden Woodruff MD Primary Care Provider: Jenn Quiroga NP Diagnoses at Discharge Discharge Diagnosis (1) CHF (congestive heart failure): Status: Acute (2) Atrial fibrillation: Status: Acute (3) Atrial fibrillation with rapid ventricular response: Status: Acute (4) Cirrhosis: Status: Acute (5) ESRD (end stage renal disease) on dialysis: Status: Acute (6) Urinary tract infection: Status: Acute Reason for Visit Reason for Visit: A fib Hospital Course Hospital Course 74-year-old male who has been admitted to the hospital multiple times most of the time after dialysis with postoperative complications such as low blood pressure, A-fib RVR this time he presented with signs of A-fib RVR and UTI. I discontinued his Cardizem drip for risk of hypotension and transition him to p.o. amiodarone, currently he is in A-fib without RVR, he is not a candidate of anticoagulation secondary to history of significant hematuria. Urine culture showing gram-positive gamma hemolytic species, patient remained afebrile, his blood culture showing contamination with Staph epidermidis 1/4 bottle positive, patient does not want to appoint any medical DPOA I did tell him that he can appoint a public health information administrator as well, however he is stating that he is DNR/DNI he is awake and alert able to make decision for himself. He wants to continue dialysis for now. He will go back to his nursing facility with antibiotics. He will resume his Monday dialysis schedule. Please note during last admission patient was treated for hypoxic hypercapnic respite failure required BiPAP related to fluid overload which improved with dialysis. Physical Exam Narrative: Signs of fluid overload present GCS 15 Pleasant cooperative Currently on 2 L Discharge Data Studies Completed and Pending Completed Studies During Hospitalization Category Date Time Status XR chest 1V portable [id number] Stat Exams 07/03/24 14:35 Completed Pending at discharge Category Date Time Status Blood Culture Stat Lab 07/03/24 15:05 Results Complete Blood Count w/Auto AM LABS Lab 07/06/24 04:00 Ordered Complete Blood Count w/Auto AM LABS Lab 07/07/24 04:00 Ordered Comprehensive Metabolic Panel AM LABS Lab 07/06/24 04:00 Ordered Comprehensive Metabolic Panel AM LABS Lab 07/07/24 04:00 Ordered Magnesium AM LABS Lab 07/06/24 04:00 Ordered Magnesium AM LABS Lab 07/07/24 04:00 Ordered Phosphorus AM LABS Lab 07/06/24 04:00 Ordered Phosphorus AM LABS Lab 07/07/24 04:00 Ordered Sputum Culture and Gram Stain Stat Lab 07/03/24 16:40 Uncollected Urine Culture Stat Lab 07/03/24 15:26 Received Radiology Impressions Chest X-Ray 07/03/24 14:35 IMPRESSION: Bilateral small volume pleural effusions. Laboratory Results WBC 7.94 10^3/uL (3.29-11.43) 07/05/24 03:43 RBC 3.34 10^6/uL (3.85-5.65) L 07/05/24 03:43 Hgb 10.10 g/dL (11.27-16.99) L 07/05/24 03:43 Hct 33.5 % (37-53) L 07/05/24 03:43 MCV 100.3 fl (82-101) 07/05/24 03:43 MCH 30.2 pg (27-33) 07/05/24 03:43 MCHC 30.1 g/dL (30-55) 07/05/24 03:43 RDW 18.4 % (12.1-15.1) H 07/05/24 03:43 Plt Count 137 10^3/cmm (157-399) L 07/05/24 03:43 MPV 9.6 fL (7.4-10.4) 07/05/24 03:43 Neut % (Auto) 66.4 % 07/05/24 03:43 Lymph % (Auto) 15.4 % 07/05/24 03:43 [place] % (Auto) 15.4 % 07/05/24 03:43 Eos % (Auto) 1.8 % 07/05/24 03:43 Baso % (Auto) 0.1 % 07/05/24 03:43 Neut # (Auto) 5.28 10^3/uL (1.8-7.7) 07/05/24 03:43 Lymph # (Auto) 1.2 10^3/uL (0.8-4.8) 07/05/24 03:43 [place] # (Auto) 1.2 10^3/uL (0.2-0.9) H 07/05/24 03:43 Eos # (Auto) 0.1 10^3/uL (0.0-0.8) 07/05/24 03:43 Baso # (Auto) 0.0 10^3/uL (0.0-0.1) 07/05/24 03:43 Nucleated RBC % (auto) 0 % 07/05/24 03:43 Nucleated RBCs # 0.0 /100WBC 07/05/24 03:43 PT 16.00 SECONDS (12.1-14.9) H 07/04/24 03:05 INR 1.24 (0.8-1.2) H 07/04/24 03:05 Specimen Type Arterial 07/04/24 10:29 Sample Site Radial, left 07/04/24 10:29 ABG pH 7.35 (7.35-7.45) 07/04/24 10:29 ABG pCO2 58.6 mmHg (35-45) H 07/04/24 10:29 ABG pO2 85.4 mmHg (80.0-100.0) 07/04/24 10:29 ABG HCO3 32.5 mmol/L (22-26) H 07/04/24 10:29 ABG O2 Saturation 97.2 07/04/24 10:29 ABG Base Excess 5.7 mmol/L (-2.0-2.0) H 07/04/24 10:29 Shashi Test Pos 07/04/24 10:29 A-a O2 Gradient Not Reportable 07/04/24 10:29 Hematocrit 32.0 % (42-52) L 07/04/24 10:29 Hgb O2 Saturation 94.3 % (95-100) L 07/04/24 10:29 Carboxyhemoglobin 2.1 %THgb (0.4-20.1) 07/04/24 10:29 Methemoglobin 0.9 % (0.4-1.5) 07/04/24 10:29 Total Hemoglobin 10.4 g/dL (14-18) L 07/04/24 10:29 Sodium 139.0 mmol/L (131-143) 07/04/24 10:29 Potassium 4.2 mmol/L (3.5-5.0) 07/04/24 10:29 Glucose 83.0 mg/dL (70-115) 07/04/24 10:29 Ionized Calcium 1.2 mmol/L (1.1-1.4) 07/04/24 10:29 O2 Delivery Device Nc 07/04/24 10:29 O2 Liters/Min 2.0 % 07/04/24 10:29 Mine Analyst ID [place] 07/04/24 10:29 Sodium 139 mmol/L (136-145) 07/05/24 03:43 Potassium 4.3 mmol/L (3.5-5.1) 07/05/24 03:43 Chloride 101 mmol/L (98-107) 07/05/24 03:43 Carbon Dioxide 29 mmol/L (22-29) 07/05/24 03:43 Anion Gap 13.3 (5-19) 07/05/24 03:43 BUN 41 mg/dL (8-23) H 07/05/24 03:43 Creatinine 3.5 mg/dL (0.7-1.2) H 07/05/24 03:43 GFR Calculation Not Reportable 07/05/24 03:43 Glucose 102 mg/dL (65-115) 07/05/24 03:43 Calculated Osmolality 298 mOsm/kg (285-295) H 07/05/24 03:43 Lactic Acid 1.7 mmol/L (0.5-2.2) 07/03/24 15:05 Calcium 7.5 mg/dL (8.5-10.5) L 07/05/24 03:43 Phosphorus 4.2 mg/dL (2.5-4.5) 07/05/24 03:43 Magnesium 1.9 mg/dL (1.7-2.3) 07/05/24 03:43 Total Bilirubin 0.4 mg/dL (0.15-1.2) 07/05/24 03:43 AST 9 U/L (0-40) 07/05/24 03:43 ALT 8 U/L (0-41) 07/05/24 03:43 Alkaline Phosphatase 75 U/L (40-130) 07/05/24 03:43 Ammonia 26 umol/L (16-60) 07/04/24 10:48 Troponin T Baseline 108 ng/L (0-15) H* 07/03/24 15:05 Troponin T 120 Minute 103.6 ng/L (0-15) H 07/03/24 19:10 Delta Troponin T -4.4 ABS# (0-10) L 07/03/24 19:10 Troponin T Hi Sens 6Hr 94.54 ng/L (0-15) H 07/03/24 21:14 Troponin T Hi Sens 6Hr Delta -13.46 ng/L (0-12) L 07/03/24 21:14 Total Protein 5.0 g/dL (6.6-8.7) L 07/05/24 03:43 Albumin 2.7 g/dL (3.5-5.2) L 07/05/24 03:43 Globulin 2.3 g/dL (1.3-4.6) 07/05/24 03:43 TSH 3.44 uIU/mL (0.27-4.20) 07/04/24 10:48 Urine Color [place] (Yellow) A 07/03/24 15: Urine Appearance Turbid (CLEAR) A 07/03/24 15:26 Urine pH 7.5 (5-7) 07/03/24 15:26 Ur Specific [place] 1.009 (1.005-1.030) 07/03/24 15: Urine Protein 2+ (Negative) A 07/03/24 15: Urine Glucose (UA) Negative (Normal) 07/03/24 15:26 Urine Ketones Trace (Negative) 07/03/24 15: Urine Blood 3+ (Negative) A 07/03/24 15:26 Urine Nitrate Negative (Negative) 07/03/24 15:26 Urine Bilirubin Negative (Negative) 07/03/24 15:26 Urine Urobilinogen 1.0 mg/dL (Negative) 07/03/24 15:26 Ur Leukocyte Esterase 3+ (Negative) A 07/03/24 15:26 Urine RBC >100 /hpf (0-2) H 07/03/24 15:26 Urine WBC >100 /hpf (0-5) H 07/03/24 15:26 Ur Squamous Epith Cells 6-10 /hpf (0-5) 07/03/24 15:26 Amorphous Sediment Not Reportable 07/03/24 15:26 Urine Bacteria 4+ /hpf (NONE) H 07/03/24 15:26 Hyaline Casts 87.34 /lpf 07/03/24 15:26 Coronavirus (PCR) Negative (Negative) 07/03/24 15:26 Hep Bs Antigen Non-reactive (Nonreactive) 07/04/24 10:48 Hep Bs Antibody < 3.5 (11.5-1000) L 07/04/24 10:48 Hepatitis C Antibody Non-reactive (Nonreactive) 07/04/24 10:48 Influenza A (PCR) Negative (Negative) 07/03/24 15:26 Influenza Type B (PCR) Negative (Negative) 07/03/24 15:26 RSV (PCR) Negative (Negative) 07/03/24 15:26 Vitals Last Vital Signs Temp 98.6 F 07/05/24 08:29 Pulse 127 H 07/05/24 08:29 Resp 20 H 07/05/24 08:29 BP 118/68 07/05/24 08:29 Pulse Ox 93 07/04/24 12:00 O2 Del Method Nasal Cannula 07/04/24 17:40 O2 Flow Rate 2 07/04/24 17:40 Discharge Plan Discharge Patient Disposition: Xfer SNF Condition: Stable Prescriptions: New cefpodoxime 200 mg tablet 200 mg PO BID Qty: 10 0RF Rx Instructions: must administer with a meal/food Continued dutasteride 0.5 mg capsule 0.5 mg PO DAILY ferrous sulfate 325 mg (65 mg iron) tablet 325 mg PO DAILY tamsulosin 0.4 mg capsule 0.4 mg PO BEDTIME acetaminophen 325 mg capsule 650 mg PO Q6H PRN (Reason: pain or fever) (DME) cam boot See Rx Instructions .Route .MEDSUPPLY Qty: 1 0RF Rx Instructions: As directed (DME) ASO Left See Rx Instructions .ROUTE .MEDSUPPLY Qty: 1 0RF Rx Instructions: As directed loperamide 2 mg Tablet See Rx Instructions .ROUTE .COMPLEX PRN (Reason: Loose Stool) Rx Instructions: 2 mg orally as needed once daily Fleet Enema 19-7 gram/118 mL Enema 118 ml [place] DAILY PRN (Reason: Constipation) Multivitamin 50 Plus Tablet 1 tab PO DAILY [place] Nasal 0.65 % Aerosol,[place] 1 spray INTRANASAL Q2H PRN (Reason: Dry Nasal Passages) Metamucil (sugar) Powder See Rx Instructions .ROUTE .COMPLEX PRN (Reason: Constipation) Rx Instructions: GIVE 1 SCOOP IN 8 OZ WATER BY MOUTH 3 TIMES DAILY NEEDED FOR CONSTIPATION. guaifenesin [Mucinex] 600 mg Tablet Extended Release 12hr 600 mg PO Q12H PRN (Reason: pneumonia) bisacodyl [Dulcolax (bisacodyl)] 10 mg Suppository 10 mg [place] DAILY PRN (Reason: Constipation) levetiracetam 500 mg tablet 500 mg PO BID albuterol sulfate 90 mcg/actuation HFA aerosol inhaler 2 puff INHALATION Q4H PRN (Reason: Shortness Of Breath Or Wheezing) melatonin 1 mg Tablet 1 mg PO BEDTIME PRN (Reason: Insomnia) aspirin 81 mg Capsule 81 mg PO DAILY tramadol 50 mg Tablet 50 mg PO Q4H PRN (Reason: Pain) scopolamine base 1 mg over 3 days Patch 3 Day 1 patch TRANSDERMAL Q3D levothyroxine 25 mcg tablet 25 mcg PO DAILY amiodarone 200 mg Tablet 200 mg PO BID Qty: 60 3RF diltiazem HCl [Cardizem CD] 120 mg Capsule,Extended Release 24hr 120 mg PO BID Qty: 60 3RF metoprolol tartrate 25 mg Tablet 25 mg PO BID Qty: 60 0RF amoxicillin-pot clavulanate 875-125 mg Tablet 1 tab PO BID Qty: 10 0RF Discontinued atorvastatin 40 mg Tablet 40 mg PO BEDTIME metronidazole 500 mg Tablet 500 mg PO Q8H Eliquis 5 mg Tablet 5 mg PO BID Discharge Orders: Discharge Order (Routine); Ordered 07/05/24 Ordered By: Camden Woodruff Referrals: Jenn Quiroga NP [Primary Care Provider] - Discharge Attestations Time Spent in Discharge Care*: greater than 30 min Quality Metrics Clinical Quality Measures [ No reported AMI, CVA or VTE this stay] Coding Level of Care Code Acute Code for Chg Fwd Diagnoses CHF (congestive heart failure) I50.9 Atrial fibrillation I48.91 Atrial fibrillation with rapid ventricular response I48.91 Cirrhosis K74.60 ESRD (end stage renal disease) on dialysis N18.6; Z99.2 Urinary tract infection N39.0
[2024-07-05 12:44] LABS: SARS Covid-2 Antigen negative (Negative)
[2024-07-05] MEDS: metoprolol tartrate 25 mg Tablet PO (13:05)
[2024-07-05] MEDS: amiodarone 200 mg Tablet 400 MG PO (13:05)
[2024-07-05] MEDS: levETIRAcetam 500 mg Tablet PO (13:05)
--- NOTE | 2024-07-05 18:00 | PC.NURSE ---
Patient discharged to SNF. Report called to SURAJ Du at [facility]. Ana Laura reports medications were incorrect. [facility]. Patient taken by Speedy Balderas at 1745.
== END 2024-07-05 18:02 | disposition intermediate care facility (04) | DRG 308 ==
LOC: ER 16:20 → CSU 16:34
PROVIDERS: Internal Medicine Nephrology; Admitting Provider Internal Medicine; Emergency Provider Emergency Medicine; PCP Nurse Practitioner Family; Visit Provider Internal Medicine
DX: I48.91 Unspecified atrial fibrillation (principal); G93.41 Metabolic encephalopathy; N18.6 End stage renal disease; N39.0 Urinary tract infection, site not specified; I50.9 Heart failure, unspecified; K74.60 Unspecified cirrhosis of liver; B96.89 Other specified bacterial agents as the cause of diseases classified elsewhere; R31.9 Hematuria, unspecified; Z66 Do not resuscitate; G40.909 Epilepsy, unspecified, not intractable, without status epilepticus; N40.0 Benign prostatic hyperplasia without lower urinary tract symptoms; D64.9 Anemia, unspecified; Z99.2 Dependence on renal dialysis; Z79.82 Long term (current) use of aspirin; Z79.01 Long term (current) use of anticoagulants
CPT/HCPCS: 0241U; 36415; 36600; 71045; 80048; 80051; 80053; 81001; 82140; 82330; 82805; 83605; 83735; 84100; 84443; 84484; 85025; 85610; 86706; 86803; 87040; 87077; 87086; 87150; 87186; 87205; 87340; 87426; 90935; 93005; 96365; 96367; 96372; 96375; 96376; 99285; A9270; J0692; J1644; J2020; J2543; J3490; Q3014

== ENCOUNTER → 2024-08-01 15:19 | Outpatient (BNVA) | payer MEDICARE, MEDICAID, SELFPAY | PROVIDERS: PCP Nurse Practitioner Family; Visit Provider Internal Medicine Cardiovascular Disease | DX: R00.0 Tachycardia, unspecified (principal); I49.3 Ventricular premature depolarization; R07.9 Chest pain, unspecified; I45.89 Other specified conduction disorders; R94.31 Abnormal electrocardiogram [ECG] [EKG]; I21.9 Acute myocardial infarction, unspecified | CPT/HCPCS: 93005 ==

== ENCOUNTER → 2024-08-29 09:30 | Outpatient (BNVA) | payer MEDICARE, MEDICAID, SELFPAY | PROVIDERS: PCP Nurse Practitioner Family; Visit Provider Nurse Practitioner Family | DX: I48.20 Chronic atrial fibrillation, unspecified (principal); I13.2 Hypertensive heart and chronic kidney disease with heart failure and with stage 5 chronic kidney disease, or end stage renal disease; N18.6 End stage renal disease; I50.32 Chronic diastolic (congestive) heart failure; Z99.2 Dependence on renal dialysis; Z87.891 Personal history of nicotine dependence | CPT/HCPCS: 99214 ==